=== PATIENT | male | born 1960 | race Caucasian/White ===

== ENCOUNTER → 2017-01-24 | Outpatient (CLI) | payer OTHER ==
--- NOTE | 2017-01-25 05:56 | CONS ---
DATE OF CONSULTATION: Primary care physician is Dr. Govind Ruiz. Referring physician is Dr. Oliver. This is a 56-year-old morbidly obese male patient who carries a BMI of 44.6. He seems to have significant anatomic features of obstructive sleep apnea as the patient is obese and has a short neck with significant crowding of posterior pharynx. Furthermore, he was recently found to be in atrial fibrillation that occurred at the same time when he was suffering left lower extremity cellulitis. He was seen by Cardiology was placed on rate control and anticoagulation and ultimately his A. fib converted back to normal sinus rhythm. As such, he was sent over to be investigated for obstructive sleep apnea. Despite the obvious anatomic features, the patient does not have any major hypersomnia or sleepiness. He goes to bed around 11:30 , wakes up at 6 a.m. in the morning without having any excessive sleepiness during the day. He has suffered a right shoulder injury and he has several tendons that are injured and ruptured for which he has undergone shoulder surgery by Dr. Alejandro Brower and he is still having some limitation in his joint movement and his pain scale in his right shoulder is around 1 to 2 out of 10. He denies having to wake up in the middle of the night choking and gasping for air. No nocturia. No grinding of the teeth. No sleepwalking or sleeptalking. No anxiety or panic attack and the patient takes Xanax only on as needed basis. Current Caldwell score is 6. PAST MEDICAL HISTORY: Obesity, right shoulder tendon injury/rupture, status post surgical repair, anxiety, paroxysmal atrial fibrillation, left lower extremity cellulitis that occurred following a spider bite. Past surgical history includes shoulder surgery/repair. He also had hernia surgery, knee surgery. Allergies are not known. Outpatient medication list includes: 1. Xanax. 2. [place] for pain control. 3. Tramadol for pain control. 4. Cardizem 180 mg p.o. q. day. 5. Metoprolol 50 mg p.o. twice a day. 6. Eliquis 5 mg p.o. twice a day. SOCIAL HISTORY: The patient is a nonsmoker. No history of alcoholism. No history of IV drugs. FAMILY HISTORY: Noncontributory. OCCUPATIONAL HISTORY: The patient works for [employer] REVIEW OF SYSTEMS: Twelve-point review of systems was done. Positive findings as mentioned above in history of present illness. BP is 157/86, pulse 81, respirations 16, temperature 98.6, saturation 94% on room air. Weight is 311. Height is 70 inches. Caldwell score is 6. BMI is 44.6. Neck size 20-3/4. GENERAL APPEARANCE: Obese, calm, comfortable. HEENT: Short neck, crowding posterior pharynx. There is no goiter or neck masses. LUNGS: Diminished breath sounds ( ) was clear. HEART: Sounds are regular rate and rhythm. Normal S1, S2. ABDOMEN: Soft, nontender. No organomegaly. EXTREMITIES: No edema. No cyanosis or clubbing. IMPRESSION: 1. Clinical obstructive sleep apnea. This is suspected yet it needs to be further investigated. The patient has the typical anatomic features and the patient is morbidly obese with a body mass index of 44.6. He has short neck, thick neck with Mallampati class IV. No major hypersomnia or sleepiness. Caldwell score is 6. 2. Obesity; body mass index of 44.6. 3. Shoulder injury, status post right shoulder tendon repair. Pain is under good control. 4. Paroxysmal atrial fibrillation, currently in sinus. 5. Anxiety. 6. Left lower extremity cellulitis, recovered. PLAN: 1. Encourage weight loss. 2. Proceed with a screening polysomnogram, looking for any significant sleep breathing disorder. 3. Will make further recommendations based on the results.
== END | disposition home or self-care (01) ==
LOC: SLEEP 13:08
PROVIDERS: ATTEND Internal Medicine Critical Care Medicine
DX: E66.01 Morbid (severe) obesity due to excess calories (principal); I48.0 Paroxysmal atrial fibrillation; F41.9 Anxiety disorder, unspecified; Z68.41 Body mass index [BMI] 40.0-44.9, adult; Z79.01 Long term (current) use of anticoagulants; Z79.899 Other long term (current) drug therapy
CPT/HCPCS: 99211

== ENCOUNTER → 2018-06-13 | Outpatient (CLI) | payer OTHER ==
[2018-06-13 15:25] LABS: Basophils # (A) 0.1 k/uL (0-0.2); Basophils % (A) 1 %; Eosinophils # (A) 0.4 k/uL (0-0.7); Eosinophils % (A) 6 %; HCT 46.8 % (39.0-53.0); HGB 15.4 gm/dL (13.0-17.5); Lymphocytes # (A) 1.8 k/uL (1.0-4.8); Lymphocytes % (A) 28 %; MCH 30.3 pg (25.0-35.0); MCV 91.8 fL (80.0-100.0); Mean Platelet Volume 6.7; Monocytes # (A) 0.4 k/uL (0-1.0); Monocytes % (A) 6 %; Neutrophils # (A) 3.7 k/uL (1.3-7.7); Neutrophils % (A) 57 %; Platelet Count 212 k/uL (150-450); RDW 13.4 % (11.5-15.5); WBC 6.5 k/uL (3.8-10.6)
[2018-06-13 15:46] LABS: Potassium 4.4 mmol/L (3.5-5.1)
== END | disposition home or self-care (01) ==
LOC: LABPAT 14:37
PROVIDERS: ATTEND Orthopaedic Surgery
DX: Z01.818 Encounter for other preprocedural examination (principal); M75.41 Impingement syndrome of right shoulder
CPT/HCPCS: 36415; 80051; 85025; 93005

== ENCOUNTER 2018-06-27 05:33 | Day surgery (SDC) | payer OTHER ==
[2018-06-21 16:04] VITALS: BMI 42.5
--- NOTE | 2018-06-26 14:12 | HP ---
HISTORY AND PHYSICAL DATE OF SURGERY: 06/27/2018 Bryan Jimenez is a 57-year-old patient seen with progressive right shoulder pain. Treatment options were discussed. He elected to proceed with right shoulder arthroscopy. Consent was obtained. PAST MEDICAL HISTORY: Hypertension, gastroesophageal reflux disease. PAST SURGICAL HISTORY: Right shoulder rotator cuff repair. DAILY MEDICATIONS: 1. Cardizem. 2. Losartan. 3. Metoprolol. 4. Zantac. ALLERGIES: None reported. SOCIAL HISTORY: Patient denies tobacco use. PHYSICAL EVALUATION OF THE RIGHT SHOULDER: Flexion 140 degrees, abduction 80 degrees, external rotation is 10 degrees with pain and weakness. Tenderness along the anterior lateral acromion rotator cuff insertion site. Impingement is positive at 90 degrees. Drop-arm sign is positive. Distal neurovascular exam is intact. RIGHT SHOULDER RADIOGRAPHS: Revealed superior migration of the humeral head and evidence for previous surgery. An MRI of the right shoulder dated 06/27/2017 revealed recurrent rotator cuff tear, fatty atrophy of supraspinatus. IMPRESSION: 1. Right shoulder rotator cuff tear. 2. History of previous right shoulder open rotator cuff repair. 3. Hypertension. PLAN: Right shoulder arthroscopy with subacromial decompression, possible arthroscopic rotator cuff repair and debridement. MMODL / IJN: [id number] /
[~2018-06-27 05:33] MED LIST: LACTATED RINGERS 1,000 ML IV SCH
[2018-06-27] MEDS ORDERED: ONDANSETRON 4 MG/2 ML VIAL IVP ONE (06:00)
[2018-06-27] MEDS ORDERED: HYDROmorphone 0.5 MG/0.5 ML SYRINGE IVP PRN (06:00)
[2018-06-27] MEDS ORDERED: fentaNYL (PF) 50 MCG/ML 2 ML AMP IV PRN (06:00)
[2018-06-27] MEDS ORDERED: MIDAZOLAM 2 MG/2 ML VIAL ONE ×2 (06:24→07:29)
[2018-06-27] MEDS ORDERED: ROPIVACAINE 5 MG/ML 30 ML VIAL ONE (07:29)
[2018-06-27] MEDS ORDERED: GLYCOPYRROLATE 0.2 MG/ML 2 ML VIAL ONE (07:29)
[2018-06-27] MEDS ORDERED: fentaNYL (PF) 50 MCG/ML 2 ML AMP ONE (07:29)
[2018-06-27] MEDS ORDERED: PROPOFOL 10 MG/ML 20 ML VIAL IV ONE (07:29)
[2018-06-27] MEDS ORDERED: ROCURONIUM BROMIDE 10 MG/ML 10 ML VIAL IV ONE (07:29)
[2018-06-27] MEDS ORDERED: SUCCINYLCHOLINE CHLORIDE VIAL 200 MG/10 ML VIAL IV ONE (07:29)
[2018-06-27] MEDS ORDERED: LIDOCAINE 1% INJ 10MG/ML (20 ML MDV) ONE (07:29)
[2018-06-27] MEDS ORDERED: NEOSTIGMINE 1 MG/ML 10 ML VIAL ONE (07:29)
[2018-06-27] MEDS ORDERED: ceFAZolin 1,000 MG/50 ML BAG (PMX) IVPB ONE (07:49)
[2018-06-27] MEDS ORDERED: LACTATED RINGERS 1,000 ML IV ONE (09:38)
--- NOTE | 2018-06-27 09:57 | P.OP ---
Date of Procedure: 06/27/18 Preoperative Diagnosis: Right shoulder rotator cuff tear Postoperative Diagnosis: 1. Right shoulder massive retracted rotator cuff tear 2. Right shoulder subacromial impingement 3. Right shoulder labral tear Procedure(s) Performed: 1. Right shoulder arthroscopic rotator cuff repair 2. Right shoulder arthroscopic subacromial decompression 3. Right shoulder arthroscopic debridement labral tear Implants: 44.75 Arthrex swivel lock anchors Anesthesia: GETA, regional (Interscalene block) Surgeon: Thony Workman Roll Edge Machine Operator #1: Minh Shi Estimated Blood Loss (ml): 12 Pathology: none sent Condition: stable Disposition: PACU Indications for Procedure: 57-year-old patient seen with progressive right shoulder pain. After having treatment options discussed, he elected to proceed with arthroscopy. Operative Findings: see description of procedure Description of Procedure: Patient underwent an interscalene block by department of anesthesia for postoperative pain control. The patient was then taken to the operative suite. The patient underwent a general anesthetic by the department of anesthesia. The patient was placed into a lateral position and secured. There was appropriate padding of the bony prominence. Right shoulder was then prepped and draped in normal sterile orthopedic fashion. We placed the extremity in 10 pounds of longitudinal traction. A posterior incision was now made for a posterior working portal site. The trocar and cannula were inserted into the glenohumeral joint. Arthroscopy was initiated. Spinal needle was now inserted anteriorly, to ascertain the anterior working portal site. An incision was now made in that area, a trocar was inserted followed by a probe. There was superficial tearing of the anterior and superior labrum. There were grade 1/2 chondromalacia changes of the humeral head and glenoid fossa. There was an obvious significant rotator cuff tear visualized from glenohumeral side there was also evidence for previous sutures placed consistent with his previous surgery. The long head biceps tendon was absent. I debrided the superficial labral tears down to stable tissue. At this point instruments removed from the glenohumeral joint. Utilizing the posterior working portal site, the trocar and cannula were inserted into the subacromial space. Arthroscopy initiated. I made an incision 2 fingerbreadths lateral to the acromion. I introduced my trocar followed by my ArthroCare ablator. I now began ablating thick subacromial bursal tissue, which exposed the undersurface of the anterior acromion. There was extensive scar tissue throughout the shoulder. I began debriding the scar tissue trying to expose the rotator cuff tendon. I encountered multiple areas of redundant suture material which I meticulously removed. After meticulously debriding out the scar tissue was finally able to expose rotator cuff tendon. There was diminished subacromial space. There was a very prominent anterior acromion. A motorized bur was introduced and a subacromial decompression was performed. I also excised some osteophytes off the inferior aspect of the distal clavicle. The AC joint was visualized and noted to be stable with evidence of the previous decompression there. I now turned my attention to the rotator cuff. There was a massive retracted tear. The tear measured approximately 3-4 cm and was retracted beyond the glenoid. There was now mobile. At this point I meticulously began freeing up the tendon. The residual tissue was somewhat thin. At this point I had released the tendon as much as possible. I decided to attempt a repair here. I passed 3 [id number] sutures to approximate the apex of this massive tear. I now created an health insurance assessor a lateral portal site. I now punched 2 medial holes for medial row anchors. I now introduced 2 medial row anchors. I held anchors in position while Bryan WEEKS introduce them into our pre-punch holes. We now passed all 8 limbs of suture through good bites of rotator cuff tendon with Bryan WEEKS is assistants. I now crisscrossed the sutures and punched 2 lateral holes for lateral anchor placement. I now passed sutures through the anchor introduced the lateral anchors. I held anchor position while Bryan WEEKS applied appropriate tension through the sutures and introduced the anchors individually. All residual suture limbs were now clipped. We had good compression of the tendon along the entire footprint. It was somewhat tight but I do believe we achieved a reasonable repair given the minimal tissue available and size of the tear as well as the retraction. I now injected 1 mL Renue intra-articular. Instruments now removed from the portal sites. All portal sites were approximated with nylon suture. Sterile dressings were applied followed by a shoulder immobilizer. Minh WEEKS assisted in this complex case. The patient was awakened, transferred to a bed, and taken to recovery in stable condition.
[2018-06-27 10:04] VITALS: TEMP 97.5
[2018-06-27 13:11] VITALS: BP 137/83; PULSE 71; RESP 18
--- NOTE | 2018-06-28 07:32 | P.ONQ ---
Anesthesiology Proc Note - PNB - Peripheral Nerve Block Performed Right Interscalene Time Out Performed: Yes Procedure Start Time: 06:45 Procedure Stop Time: 06:55 Indication: Acute Post-Operative Pain Sedation Type: Sedate with meaningful contact maintained Preparation: Sterile Prep Position: Sitting Catheter: None Needle Size: 50mm (2") Needle Gauge: 20 Technique: Ultrasound Injectate: 0.5% Ropivacaine (see comment for volume) (25 MLS. The procedure was done preoperatively on 06/27/2018.)
== END 2018-06-27 13:15 | disposition home or self-care (01) ==
LOC: OR 05:33
PROVIDERS: ATTEND Orthopaedic Surgery
DX: M75.121 Complete rotator cuff tear or rupture of right shoulder, not specified as traumatic (principal); M25.811 Other specified joint disorders, right shoulder; S43.431A Superior glenoid labrum lesion of right shoulder, initial encounter; X58.XXXA Exposure to other specified factors, initial encounter; M25.711 Osteophyte, right shoulder; I10 Essential (primary) hypertension; K21.9 Gastro-esophageal reflux disease without esophagitis; Z79.899 Other long term (current) drug therapy; G47.33 Obstructive sleep apnea (adult) (pediatric); E66.9 Obesity, unspecified; Z68.41 Body mass index [BMI] 40.0-44.9, adult
CPT/HCPCS: 64415; 29826; 29827; C1713 ×2; C1765; J2250; J0330; J2710; J2405; J2001; J3010; J0690; J2795; J2704

== ENCOUNTER → 2019-07-19 | Outpatient (CLI) | payer OTHER | END | disposition home or self-care (01) | LOC: LABPAT 15:50 | PROVIDERS: ATTEND Orthopaedic Surgery | DX: Z01.812 Encounter for preprocedural laboratory examination (principal); M16.12 Unilateral primary osteoarthritis, left hip | CPT/HCPCS: 36415; 86850; 86900; 86901; 87070 ==

== ENCOUNTER 2019-07-29 05:51 | Inpatient (IN) | payer OTHER ==
--- NOTE | 2019-07-28 17:50 | HP ---
HISTORY AND PHYSICAL REASON FOR ADMISSION: Surgery is scheduled for 07/29/2019 Bryan Jimenez is a 58-year-old patient seen with symptomatic left hip osteoarthritis. We discussed options. He elected to proceed with left total hip arthroplasty. Consent was obtained. Medical clearance was provided by Dr. Jadon Agosto. PAST MEDICAL HISTORY: Hypertension, hyperlipidemia. PAST SURGICAL HISTORY: Rotator cuff repair. MEDICATIONS: Losartan, metoprolol, tramadol, Zantac. ALLERGIES: None. SOCIAL HISTORY: Denies tobacco use. PHYSICAL EXAMINATION: Evaluation of the left hip, there is limited range of motion with severe pain. Positive hip impingement sign. Straight leg raise is negative. Distal neurovascular exam is intact. RADIOGRAPHS: Left hip radiographs reveal severe osteoarthritic changes. IMPRESSION: 1. Left hip osteoarthritis. 2. Hypertension. 3. Hyperlipidemia. PLAN: Direct anterior left total hip arthroplasty. Surgery is scheduled for 07/29/2019. MMODL / IJN: [id number] /
[~2019-07-29 05:51] MED LIST changes: +ACETAMINOPHEN TAB 500 MG TAB PO ONE; -LACTATED RINGERS 1,000 ML IV SCH; +MELOXICAM 7.5 MG TAB PO ONE; +TRANEXAMIC ACID 1,000 MG in SODIUM CHLORIDE 0.9% 100 ML IVPB ONE; +ceFAZolin 3 GM in SODIUM CHLORIDE 0.9% 100 ML IVPB ONE
[2019-07-29] MEDS ORDERED: LIDOCAINE 1% 20 ML VIAL (10MG/ML) FOR IV START INTRADERMA PRN (05:54)
[2019-07-29] MEDS ORDERED: METOCLOPRAMIDE 5 MG/ML 2 ML VIAL IVP PRN (05:54)
[2019-07-29] MEDS ORDERED: ROPIVACAINE 246.25 MG, EPINEPHrine 0.5 MG, KETOROLAC 30 MG, cloNIDine HCL/PF 80 MCG, WA... MISCELLANE ONE ×5 (06:00)
[2019-07-29] MEDS: ONDANSETRON 4 MG/2 ML VIAL IVP ONE ×2 (06:53→11:48)
[2019-07-29] MEDS ORDERED: DEXAMETHASONE SOD PHOSPHATE 10 MG/ML 1 ML VIAL IV ONE (06:53)
[2019-07-29] MEDS: LACTATED RINGERS 1,000 ML IV SCH ×3 (06:53→21:23)
[2019-07-29] MEDS ORDERED: SODIUM CHLORIDE 0.9% 100 ML BAG ONE (07:41)
[2019-07-29] MEDS ORDERED: fentaNYL (PF) 50 MCG/ML 2 ML AMP ONE (07:41)
[2019-07-29] MEDS ORDERED: MIDAZOLAM 2 MG/2 ML VIAL ONE (07:41)
[2019-07-29] MEDS ORDERED: TRANEXAMIC ACID 1,000 MG/10 ML VIAL ONE (07:41)
[2019-07-29] MEDS ORDERED: diphenhydrAMINE 50 MG/ML 1 ML VIAL ONE (07:41)
[2019-07-29] MEDS ORDERED: ceFAZolin 3,000 MG in SODIUM CHLORIDE 0.9% IRRIGATIO 3,000 ML IRRIGATION ONE (08:12)
--- NOTE | 2019-07-29 09:42 | P.OP ---
Date of Procedure: 07/29/19 Preoperative Diagnosis: Left hip osteoarthritis Postoperative Diagnosis: Left hip osteoarthritis Procedure(s) Performed: Direct anterior left total hip arthroplasty Implants: 1. Depuy Corail KA size 13 standard collar press-fit femoral stem 2. Depuy pinnacle 38 mm press-fit acetabular shell 3. Depuy pinnacle polyethylene acetabular liner +4 neutral 36 mm ID 58 mm OD 4. Biolox delta ceramic femoral head +8.5 36 mm Anesthesia: local, spinal Surgeon: Thony Workman Senior Mobile Solutions Architect #1: Minh Shi Estimated Blood Loss (ml): 200 Pathology: other (Femoral head) Condition: stable Disposition: PACU Indications for Procedure: 58-year-old patient seen with symptomatic left hip osteoarthritis. After having treatment options discussed, he elected to proceed with total hip arthroplasty. Operative Findings: see description of procedure Description of Procedure: The patient was taken to the operative suite. Patient underwent a spinal anesthetic by the department of anesthesia. Patient was then transferred to the [place] table. Patient was given preoperative IV antibiotics and TXA. Both lower extremities were placed in standard leg spars. The hip was then prepped and draped in the normal sterile orthopedic fashion. A standard anterior incision was made beginning 3 cm lateral and 1 cm distal to the ASIS extending 10 cm. Dissection was then carried down through the subcutaneous soft tissues down to the fascia overlying the tensor fascia fabiola. An incision was now made through the fascia. Careful dissection was taken down exposing the tensor fascia fabiola m uscle. A Cobra retractor was now placed along the medial femoral neck and a second one along the lateral femoral neck. The venous circumflex vessels were now identified, cauterized and clipped. We identified the anterior hip capsule. An incision was made through the hip capsule along the lateral border. I performed a partial anterior capsulectomy. Retractors were now placed around the femoral neck itself. A femoral neck cut was now made with a sagittal saw. It was completed with an osteotome at the lateral neck area. The femoral head was now removed without difficulty. The extremity was now rotated to 45 of external rotation. It was locked in position. Residual labrum was now debrided out. Serial reaming was performed of the acetabulum while Bryan WEEKS assisted holding an anterior retractor for exposure. Once we reached the appropriate size and a trial was position and fit nicely. The appropriate size was now chosen opened and made available. It was introduced into the acetabulum without difficulty. The C-arm/fluoroscopy was now brought into the operative field. We made sure we had a true AP pelvic view. We now under direct C- arm/fluoroscopy introduced into the acetabular component with appropriate version and inclination. I held the cup in appropriate position well Bryan WEEKS used a mallet to seat the acetabular component. I noted the component now to be well seated and stable. Acetabular cup introduce her was removed. The C-arm was pulled back. An appropriate liner was introduced and clicked into position. It was felt to be stable. At this point retractors were removed. The extremity was now placed into 120 external rotation with no traction. The leg was now dropped to the ground and adducted. Appropriate retractors were now positioned along the proximal femur. We also placed our femoral look into position. Additional capsular releasing was performed to gain access to the proximal femur. We now used a box osteotome. A canal finder was now utilized. Serial broaching was now performed with the assistance of Bryan WEEKS tapping the broaches down with a mallet while held the broach in appropriate rotation and position. This was done until we reached the appropriate size with good overall rotational stability. Appropriate calcar planing was performed. A trial head/neck was placed into position. The hip was reduced. An AP pelvis was obtained to ascertain leg length. The C-arm/fluoroscopy was pulled back. Retractors were repositioned and the hip was dislocated. The leg was again taken down to the ground and adducted. Appropriate retractors were repositioned as well as the femoral hook. All trial components were removed. The femoral implant was opened along with the femoral head. The femoral implant was introduced on the appropriate handle into our pre-broached area. I held the component position well Bryan WEEKS used a mallet to seat the femoral component. The femoral component was now noted to be well seated and stable.. The femoral head was introduced with good positioning and fixation noted. Retractors were now removed. The hip was now reduced. There appeared be good positioning of the hip confirmed on intraoperative fluoroscopy. Spot films were obtained to document this. A second gram of TXA was given. The deep and superficial soft tissues were infiltrated with local analgesic. Bipolar cautery had been utilized intermittently through the procedure for hemostasis. The wound was irrigated copiously with pulse lavage mechanical irrigation. The fascia was repaired with Vicryl suture. The subcutaneous soft tissues were repaired in layers with Vicryl suture. The skin was approximated with pernio/Dermabond. Sterile dressings were applied. Patient was then awakened, transferred to a bed and taken to recovery in stable condition. Bryan WEEKS assisted with the complex procedure.
[2019-07-29] MEDS ORDERED: NALOXONE 0.4 MG/ML 1 ML VIAL IV PRN (09:50)
[2019-07-29] MEDS ORDERED: SODIUM CHLORIDE 0.9% IVPB ONE (09:50)
[2019-07-29] MEDS ORDERED: HYDROmorphone 1 MG/ML 1 ML SYRINGE IVP PRN (09:50)
[2019-07-29] MEDS ORDERED: HYDROcodone/APAP 7.5-325MG 1 EACH TAB PO PRN (09:50)
[2019-07-29] MEDS ORDERED: HYDROmorphone 0.5 MG/0.5 ML SYRINGE IVP PRN ×2 (09:50)
[2019-07-29] MEDS ORDERED: VANCOMYCIN IVPB ONE (09:50)
--- NOTE | 2019-07-29 10:17 | XR ---
EXAMINATION TYPE: XR Hip Limited LT DATE OF EXAM: 07/29/2019 COMPARISON: NONE HISTORY: Pain TECHNIQUE: One view submitted. FINDINGS: There is postsurgical change in near anatomic alignment. There is soft tissue edema and emphysema. 3 1 seconds of fluoroscopy provided. IMPRESSION: 1. Postoperative change. Appears in near-anatomic alignment.
--- NOTE | 2019-07-29 10:17 | FL ---
EXAMINATION TYPE: FL guidance operating room DATE OF EXAM: 07/29/2019 HISTORY: Flouroscopy time 31 seconds of fluoroscopy provided. IMPRESSION: 1. Fluoroscopy time.
[2019-07-29] MEDS: HYDROmorphone 0.5 MG/0.5 ML SYRINGE IVP PRN ×4 (11:40→12:02)
[2019-07-29] MEDS: KETOROLAC 30 MG/ML 1 ML VIAL IVP SCH ×5 (11:48→23:25)
[2019-07-29] MEDS ORDERED: diphenhydrAMINE 50 MG/ML 1 ML VIAL IVP ONE (11:53)
[2019-07-29] MEDS ORDERED: VANCOMYCIN 2,000 MG in SODIUM CHLORIDE 0.9% 500 ML 500 ML IVPB ONE (12:00)
[2019-07-29] MEDS ORDERED: MEPERIDINE 50 MG/ML SYRINGE IVP ONE (12:13)
[2019-07-29] MEDS: HYDROcodone/APAP 7.5-325MG 1 EACH TAB PO PRN ×2 (15:27→21:28)
[2019-07-29 15:50] VITALS: BMI 40.8
--- NOTE | 2019-07-29 17:11 | P.CONS ---
History of Present Illness - Reason for Consult Consult date: 07/29/19 Medical management of hypertension and other medical problems - Chief Complaint Status post Direct anterior left total hip arthroplasty - History of Present Illness Patient is 58-year-old male with a known history of atrial fibrillation paroxysmal currently on Cardizem and metoprolol, not on anticoagulation due to frequent GI bleeds and bruising, hypertension, osteoarthritis and history of seizure disorder as well as obstructive sleep apnea was admitted to the hospital for elective left total hip arthroplasty. Patient underwent Direct anterior left total hip arthroplasty. Currently patient denied any complaints of chest pain or shortness of breath. Complains of left hip pain which is fairly controlled with medications. No fever no chills. No headache or dizziness or lightheadedness. No nausea vomiting or abdominal pain. Postoperatively patient's blood pressure in the lower side and a probable medications are on hold currently. Review of Systems Constitutional: Patient denies any fever or chills . No generalized weakness or weight loss. Abdomen: Patient denied nausea vomiting and diarrhea and abdominal pain. Cardiovascular: Patient denies any chest pain or short of breath no palpitations. Respiratory: patient denied any cough is from production. No shortness of breath Neurologic: Patient denied any numbness or tingling headache. Musculoskeletal: Patient denies any complaints of joint swelling or deformity. Left hip pain Skin: Negative Psychiatric: Negative Endocrine: No heat or cold intolerance. No recent weight gain. Genitourinary: No dysuria or hematuria. All other 14 point ROS negative except the above Past Medical History Past Medical History: Atrial Fibrillation, GI Bleed, Hypertension, Osteoarthritis (OA), Seizure Disorder, Sleep Apnea/CPAP/BIPAP Additional Past Medical History / Comment(s): Had 1 seizure 1997 R/T non-malignant meningioma of brain. 1 episode of A-FIB, during severe infection. Hx MRSA RFA. Hx rectal bleed. Tinnitus. No CPAP. History of Any Multi-Drug Resistant Organisms: MRSA Year Discovered:: 09/19/18 MDRO Source:: Rt Leg Past Surgical History: Cholecystectomy, Orthopedic Surgery Additional Past Surgical History / Comment(s): RT Shoulder Surg x2. Caniotomy x2, removal non-malignant brain meningioma. Left knee scope surgery. Colonoscopy Past Anesthesia/Blood Transfusion Reactions: No Reported Reaction Smoking Status: Former smoker - Past Family History Sister(s) Family Medical History: AFIB Brother(s) Family Medical History: AFIB Mother Family Medical History: Cancer Additional Family Medical History / Comment(s): Breast CA Medications and Allergies Home Medications Medication Instructions Recorded Confirmed Type Losartan [Cozaar] 100 mg PO DAILY 08/13/16 07/29/19 History Diltiazem Cd [Cardizem CD] 180 mg PO DAILY #30 cap.er.24h 08/16/16 07/29/19 Rx Metoprolol Tartrate [Lopressor] 50 mg PO BID #60 tab 08/16/16 07/29/19 Rx traMADol HCL [Ultram] 50 mg PO Q6HR PRN 09/15/16 07/29/19 History Ibuprofen [Motrin Ib] 600 - 800 mg PO Q6H PRN 06/21/18 07/22/19 History Sennosides [Senna] 8.6 mg PO HS 06/21/18 07/29/19 History Ageless Male (Supplement) 1 tab PO DAILY 07/22/19 History Ranitidine HCl [Zantac] 150 mg PO DAILY 07/22/19 07/22/19 History Allergies Allergy/AdvReac Type Severity Reaction Status Date / Time morphine AdvReac Unknown Verified 07/29/19 06:11 Physical Exam Vitals: Vital Signs Temp Pulse Resp BP Pulse Ox 07/29/19 12:35 71 16 134/88 94 L 07/29/19 11:45 74 16 119/85 94 L 07/29/19 11:17 67 16 115/64 95 07/29/19 11:03 68 16 114/66 96 07/29/19 10:48 76 16 116/69 96 07/29/19 10:32 65 16 118/63 99 07/29/19 10:17 63 16 129/66 99 07/29/19 10:00 62 16 116/65 100 07/29/19 09:49 97.9 F 63 16 112/68 99 07/29/19 06:22 98.0 F 73 16 138/77 95 Intake and Output 07/28/19 07/29/19 07/29/19 22:59 06:59 14:59 Intake Total 100 701 Output Total 200 Balance 100 501 Intake: IV 100 701 Output: Estimated Blood Loss 200 PHYSICAL EXAMINATION: Patient is lying in the bed comfortably, no acute distress, awake alert and oriented.. HEENT: Normocephalic. Neck is supple. Pupils reactive. Nostrils clear. Oral cavity is moist. Ears reveal no drainage. Neck reveals no JVD, carotid bruits, or thyromegaly. CHEST EXAMINATION: Trachea is central. Symmetrical expansion. Lung gutierrez clear to auscultation and percussion. CARDIAC: Normal S1, S2 with no gallops. No murmurs ABDOMEN: Soft. Bowel sounds normal. No organomegaly. No abdominal bruits. Extremities: reveal no edema. No clubbing or cyanosis Neurologically awake, alert, oriented x3 with well-coordinated movements. No focal deficits noted Skin: No rash or skin lesions. Psychiatric: Coperative. Nonsuicidal Musculoskeletal: No joint swelling or deformity. Normal range of motion. Left hip surgical site intact. Assessment and Plan Assessment: Left hip osteoarthritis status post total arthroplasty postoperative day 0. Paroxysmal atrial fibrillation. Rate controlled. Currently in sinus rhythm. Not on anticoagulation due to previous history of recurrent GI bleeds Obstructive sleep apnea not on CPAP at home Osteoarthritis Hypertension currently controlled Previous history of smoking History of craniotomy 2 and removal of meningioma. DVT prophylaxis currently on Lovenox Plan: Patient will be continued on current pain management, bowel regimen and DVT prophylaxis. Patient takes metoprolol, Cardizem and losartan at home. We will continue the metoprolol now and we will start back on other blood pressure medications once the blood pressure improves. Continue with monitoring. Encourage ambulation and incentive spirometry. Further recommendations based on the clinical course. Thank you for your consult. Time with Patient: Greater than 30
[2019-07-29] MEDS ORDERED: SENNOSIDES-DOCUSATE SODIUM 1 EACH TAB PO SCH (21:00)
[2019-07-29] MEDS: METOPROLOL TARTRATE 50 MG TAB PO SCH (21:25)
[2019-07-29] MEDS ORDERED: ENOXAPARIN 40 MG/0.4 ML SYRINGE SQ SCH (22:00)
[2019-07-30] MEDS: HYDROcodone/APAP 7.5-325MG 1 EACH TAB PO PRN ×2 (03:48→09:18)
[2019-07-30 05:06] VITALS: TEMP 97.9
[2019-07-30] MEDS: LACTATED RINGERS 1,000 ML IV SCH ×2 (05:30)
[2019-07-30] MEDS: METOPROLOL TARTRATE 50 MG TAB PO SCH (07:25)
[2019-07-30 07:41] LABS: Basophils # (A) 0.1 k/uL (0-0.2); Basophils % (A) 0 %; Eosinophils % (A) 0 %; HCT 38.3 % (39.0-53.0); HGB 12.7 gm/dL (13.0-17.5); Lymphocytes # (A) 1.4 k/uL (1.0-4.8); Lymphocytes % (A) 11 %; MCH 30.3 pg (25.0-35.0); MCHC 33.2 g/dL (31.0-37.0); MCV 91.3 fL (80.0-100.0); Monocytes # (A) 0.7 k/uL (0-1.0); Monocytes % (A) 5 %; Neutrophils % (A) 81 %; Platelet Count 217 k/uL (150-450); RDW 13.1 % (11.5-15.5); WBC 12.3 k/uL (3.8-10.6)
[2019-07-30 07:45] VITALS: BP 128/72; PULSE 81; RESP 16
[2019-07-30 07:45] LABS: African American GFR (CKD) >90 (>60 ml/min/1.73 sqM); Anion Gap 5 mmol/L; Blood Urea Nitrogen 29 mg/dL (9-20); Calcium 8.8 mg/dL (8.4-10.2); Carbon Dioxide 28 mmol/L (22-30); Chloride 104 mmol/L (98-107); Glucose 138 mg/dL (74-99); Potassium 4.4 mmol/L (3.5-5.1); Sodium 137 mmol/L (137-145)
[2019-07-30] MEDS ORDERED: MELOXICAM 7.5 MG TAB PO SCH (09:00)
[2019-07-30] MEDS ORDERED: FAMOTIDINE 20 MG TAB PO SCH (09:00)
[2019-07-30] MEDS: KETOROLAC 30 MG/ML 1 ML VIAL IVP SCH (11:31)
--- NOTE | 2019-07-30 11:57 | P.PN ---
Subjective Progress Note Date: 07/30/19 Principal diagnosis: Status post right anterior left total hip arthroplasty Patient evaluated today at bedside, Vinicio is present. He is doing very well. He is ambulating with therapy. His pain is well-controlled. He denies any chest pain or shortness of breath. Objective - Vital Signs Vital signs: Vital Signs Temp 97.9 F 07/30/19 07:00 Pulse 81 07/30/19 07:00 Resp 16 07/30/19 07:10 BP 128/72 07/30/19 07:00 Pulse Ox 93 L 07/30/19 07:00 Intake & Output 07/29/19 07/30/19 07/30/19 18:59 06:59 18:59 Intake Total 701 476 Output Total 700 Balance 1 476 Intake: IV 701 Intake, IV Titration 240 Amount Lactated Ringers 1,000 ml 240 @ 20 mls/hr IV .Q24H [place] Rx#:[id number] Oral 236 Output: Urine 500 Estimated Blood Loss 200 Other: Voiding Method Toilet Toilet # Voids 1 2 - Exam Left lower extremity: Incision is clean, dry, and intact. The optihome is in good condition. [There is minimal soft tissue swelling and ecchymosis surrounding the medial and lateral aspects of the incision.] Calf is soft, no tenderness with palpation. Plantar flexion, dorsiflexion, EHL, FHL are intact. Sensory exam to light touch throughout the extremity is intact, [dorsal pedis pulses 2+.] - Labs CBC & Chem 7: 07/30/19 06:46 07/30/19 06:46 Labs: Abnormal Lab Results - Last 24 Hours (Table) 07/30/19 07/30/19 Range/Units 06:46 06:46 WBC 12.3 H (3.8-10.6) k/uL RBC 4.20 L (4.30-5.90) m/uL Hgb 12.7 L (13.0-17.5) gm/dL Hct 38.3 L (39.0-53.0) % Neutrophils # 10.0 H (1.3-7.7) k/uL BUN 29 H (9-20) mg/dL Glucose 138 H (74-99) mg/dL Assessment and Plan Plan: Assessment: Postoperative day #1 status post direct anterior left total hip arthroplasty Plan: Pain control, plan for discharge home on oral medication GI and DVT prophylaxis, 81 mg twice a day Wound care instructions discussed Patient has expensive co-pay for in-home coverage, prescription was placed for outpatient therapy Medical recommendations Plan for discharge home today Time with Patient: Less than 30
--- NOTE | 2019-07-30 12:00 | P.DS ---
Providers Date of admission: 07/29/19 15:02 Expected date of discharge: 07/30/19 Attending physician: Thony Workman Consults: 07/29/19 09:50 Consult Physician Routine Consulting Provider: Raghu Sampson Consult Reason/Comments: Medical management Do you want consulting provider notified?: Yes Primary care physician: Jovi Persaud MD Hospital Course: Date of admission: 07/29/2019 Date of discharge: 07/30/2019 Admission diagnosis: Status post direct anterior left total hip arthroplasty Discharge diagnosis: Same Attending physician: Dr. Workman Surgical procedures: Direct anterior left total hip arthroplasty Brief history: Patient is a 58-year-old male with a history of progressive primary left hip osteoarthritis. At this point patient has failed conservative treatment measures and has opted to proceed with a elective direct anterior left total hip arthroplasty. Hospital course: Details of patient's surgery can be found in operative report. Patient tolerated the procedure well and was subsequently transported to orthopedic floor. Patient's orthopeidc and medical care was provided daily. Patient had daily laboratory tests performed for evaluation of overall blood counts. Patient had daily physical therapy to include strengthening range of motion as well as education with walker ambulation. Patient was treated with Lovenox for their postoperative DVT prophylaxis during their inpatient stay. Patient was noted to have a relatively uneventful postoperative course. Patient reported satisfactory pain control with oral pain medications by postoperative day 0. Patient showed satisfactory progress with physical therapy. Patient moved steadily through the program and had no difficulty meeting the goals by postoperative day 1. Given patient's otherwise satisfactory course and having met physical therapy goals, plan is to discharge patient home on postoperative day 1. Discharge condition/disposition: Patient will be discharged home in stable condition. Discharge medications: Instructions are given on resumption of patient's normal daily medications per primary care recommendation, in addition patient will be prescribed Mellen 7.5 mg/325 mg, aspirin 81 mg, Pepcid 20 mg. Discharge instructions: 1. Wound care and infection precautions, keep incision dry and covered while showering, no lotions, creams, moisturizers. No soaking, tubs, pools, hottubs. Do not scrub over the incision. 2. Weight-bear as tolerated with walker / cane until follow-up. 3. Ice and elevate when necessary. Do not exceed 20 minutes per hour with ice pack. 4. Utilize compression sleeve until seen at first follow up appointment. 5. Visiting nursing care. 6. Home physical therapy 7. Pain meds and anticoagulants per prescription. 8. Pain medication has potential to cause constipation. Increase oral fluid and fiber intake. Contact primary care provider if you have not had a bowel movement within 48 hours after discharge 9. No anti-inflammatory medication until discussed at first post operative visit, this including Motrin, Aleve, Mobic, Diclofenac. 10. Follow up in office at 2 weeks postop with Bryan Shi PA-C 11. Follow up with your primary care doctor 7-10 days after discharge. 12. Contact [facility] with any questions, . Procedures: Direct anterior left total hip arthroplasty Patient Condition at Discharge: Good Plan - Discharge Summary Discharge Rx Participant: No New Discharge Prescriptions: New Aspirin [Adult Low Dose Aspirin EC] 81 mg PO BID #60 tablet. HYDROcodone/APAP 7.5-325MG [Mellen 7.5] 1 - 2 each PO Q6HR PRN #40 tab PRN Reason: Pain Famotidine [Pepcid] 20 mg PO DAILY #30 tablet No Action Losartan [Cozaar] 100 mg PO DAILY Diltiazem Cd [Cardizem CD] 180 mg PO DAILY #30 cap.er.24h Metoprolol Tartrate [Lopressor] 50 mg PO BID #60 tab traMADol HCL [Ultram] 50 mg PO Q6HR PRN PRN Reason: Pain Sennosides [Senna] 8.6 mg PO HS Ibuprofen [Motrin Ib] 600 - 800 mg PO Q6H PRN PRN Reason: Pain Ranitidine HCl [Zantac] 150 mg PO DAILY Ageless Male (Supplement) 1 tab PO DAILY Discharge Medication List Losartan [Cozaar] 100 mg PO DAILY 08/13/16 [History] Diltiazem Cd [Cardizem CD] 180 mg PO DAILY #30 cap.er.24h 08/16/16 [Rx] Metoprolol Tartrate [Lopressor] 50 mg PO BID #60 tab 08/16/16 [Rx] traMADol HCL [Ultram] 50 mg PO Q6HR PRN 09/15/16 [History] Ibuprofen [Motrin Ib] 600 - 800 mg PO Q6H PRN 06/21/18 [History] Sennosides [Senna] 8.6 mg PO HS 06/21/18 [History] Ageless Male (Supplement) 1 tab PO DAILY 07/22/19 [History] Ranitidine HCl [Zantac] 150 mg PO DAILY 07/22/19 [History] Aspirin [Adult Low Dose Aspirin EC] 81 mg PO BID #60 tablet. 07/30/19 [Rx] Famotidine [Pepcid] 20 mg PO DAILY #30 tablet 07/30/19 [Rx] HYDROcodone/APAP 7.5-325MG [Mellen 7.5] 1 - 2 each PO Q6HR PRN #40 tab 07/30/19 [Rx] Follow up Appointment(s)/Referral(s): [facility] [NON-STAFF] - As Needed (rolling walker) Minh Shi PAC [PHYSICIAN NOTE TAKER] - 2 Weeks Activity/Diet/Wound Care/Special Instructions: Orthopedic Discharge Instructions: 1. Wound care and infection precautions, keep incision dry and covered while sh owering, no lotions, creams, moisturizers. No soaking, pools, hot tubs. Do not scrub over incision. 2. Weight-bear as tolerated with walker / cane until follow-up. 3. Ice and elevate when necessary. Do not exceed 20 minutes per hour with ice pack. 4. Utilize compression sleeve until seen at first follow up appointment. 5. Pain meds and anticoagulants per prescription. 6. Pain medication has potential to cause constipation. Increase oral fluid and fiber intake. Contact primary care provider if you have not had a bowel movement within 48 hours after discharge. 7. No anti-inflammatory medication until discussed at first post operative visit, this including Motrin, Aleve, Mobic, Diclofenac. 8. Follow up in office at 2 weeks postop with Bryan Shi PA-C 9. Follow up with your primary care doctor 7-10 days after discharge. 10. Contact [facility] with any questions, . Discharge Disposition: HOME WITH HOME HEALTH SERVICES
== END 2019-07-30 14:55 | disposition home health service (06) | DRG 470 ==
LOC: OR 05:51 → 4SSUR 12:08 → OR 14:38 → 4SSUR 15:02
PROVIDERS: ADMIT Orthopaedic Surgery; ATTEND Orthopaedic Surgery
PROC: 0SRB04A Replacement of Left Hip Joint with Ceramic on Polyethylene Synthetic Substitute, Uncemented, Open Approach (ICD-10-PCS; principal; 2019-07-29 07:30)
DX: M16.12 Unilateral primary osteoarthritis, left hip (principal); E78.5 Hyperlipidemia, unspecified; G40.909 Epilepsy, unspecified, not intractable, without status epilepticus; G47.33 Obstructive sleep apnea (adult) (pediatric); I10 Essential (primary) hypertension; I48.0 Paroxysmal atrial fibrillation; Z79.899 Other long term (current) drug therapy; Z80.3 Family history of malignant neoplasm of breast; Z86.011 Personal history of benign neoplasm of the brain; Z86.14 Personal history of Methicillin resistant Staphylococcus aureus infection; Z87.891 Personal history of nicotine dependence; Z90.49 Acquired absence of other specified parts of digestive tract; Z79.1 Long term (current) use of non-steroidal anti-inflammatories (NSAID); Z88.5 Allergy status to narcotic agent
CPT/HCPCS: 36415; 73501; 80048; 85025; 86850; 86900; 86901; 88300

== ENCOUNTER → 2020-06-18 | Outpatient (CLI) | payer OTHER | END | disposition home or self-care (01) | LOC: LABPAT 14:26 | PROVIDERS: ATTEND Orthopaedic Surgery | DX: Z01.812 Encounter for preprocedural laboratory examination (principal) | CPT/HCPCS: 87070 ==

== ENCOUNTER → 2020-06-25 | Outpatient (CLI) | payer OTHER | END | disposition home or self-care (01) | LOC: LABWHC1 07:32 | PROVIDERS: ATTEND Orthopaedic Surgery | DX: Z53.9 Procedure and treatment not carried out, unspecified reason (principal) ==

== ENCOUNTER 2020-06-29 11:02 | Observation (INO) | payer OTHER ==
[2020-06-23 09:32] VITALS: BMI 40.6
--- NOTE | 2020-06-29 09:23 | HP ---
HISTORY AND PHYSICAL REASON FOR ADMISSION: Surgery is 06/29/2020. HISTORY OF PRESENT ILLNESS: Bryan Jimenez is a 59-year-old patient seen with symptomatic right hip osteoarthritis. We discussed options. He elected to proceed with total hip arthroplasty. Consent was obtained. Medical clearance was provided by Dr. Jovi Persaud. PAST MEDICAL HISTORY: Hypertension, hyperlipidemia. PAST SURGICAL HISTORY: Left total hip arthroplasty, right shoulder rotator cuff repair. MEDICATIONS: Cardizem, losartan, metoprolol, tramadol, ibuprofen. ALLERGIES: None. SOCIAL HISTORY: Denies current tobacco use. PHYSICAL EXAMINATION: Evaluation of the right hip: Very limited range of motion with severe pain. Diffuse tenderness about the hip girdle. Positive hip impingement sign. Straight leg raise negative. Distal neurovascular exam is intact. RADIOGRAPHS: Right hip radiographs reveal severe osteoarthritic changes. IMPRESSION: 1. Right hip osteoarthritis. 2. Hypertension. 3. Hyperlipidemia. PLAN: Direct anterior right total hip arthroplasty. Surgery scheduled for 06/29/2020. MMODL / IJN: [id number] /
[~2020-06-29 11:02] MED LIST changes: +DEXAMETHASONE SOD PHOSPHATE 10 MG/ML 1 ML VIAL IV ONE; +HYDROmorphone 0.5 MG/0.5 ML SYRINGE IVP PRN; +LACTATED RINGERS 1,000 ML IV SCH; +ONDANSETRON 4 MG/2 ML VIAL IVP ONE; +ROPIVACAINE 246.25 MG, EPINEPHrine 0.5 MG, KETOROLAC 30 MG, cloNIDine HCL/PF 80 MCG, WA... MISCELLANE ONE
[2020-06-29] MEDS ORDERED: SODIUM CHLORIDE 0.9% 100 ML BAG ONE (12:55)
[2020-06-29] MEDS ORDERED: PROPOFOL 10 MG/ML 20 ML VIAL IV ONE (12:55)
[2020-06-29] MEDS ORDERED: fentaNYL (PF) 50 MCG/ML 2 ML AMP ONE (12:55)
[2020-06-29] MEDS ORDERED: MIDAZOLAM 2 MG/2 ML VIAL ONE (12:55)
[2020-06-29] MEDS ORDERED: TRANEXAMIC ACID 1,000 MG/10 ML VIAL ONE (12:55)
[2020-06-29] MEDS ORDERED: ceFAZolin 1,000 MG in SODIUM CHLORIDE 0.9% 1,000 ML IRRIGATION ONE (13:35)
[2020-06-29] MEDS ORDERED: LACTATED RINGERS 1,000 ML IV ONE (13:58)
--- NOTE | 2020-06-29 15:03 | FL ---
EXAMINATION TYPE: FL guidance operating room, XR Hip Limited RT DATE OF EXAM: 06/29/2020 CLINICAL HISTORY: Right anterior hip TECHNIQUE: Fluoroscopy. COMPARISON: None. FINDINGS: Fluoroscopic guidance was provided during procedure for performing physician. A total of 14 seconds of fluoroscopic time was utilized during the procedure and 1 spot images was acquired. Ple ase see operative report for additional details. IMPRESSION: As Above.
[2020-06-29] MEDS ORDERED: ONDANSETRON 4 MG/2 ML VIAL IVP PRN (15:07)
[2020-06-29] MEDS ORDERED: NALOXONE 0.4 MG/ML 1 ML VIAL IV PRN (15:07)
[2020-06-29] MEDS ORDERED: HYDROmorphone 0.5 MG/0.5 ML SYRINGE IVP PRN (15:07)
[2020-06-29] MEDS ORDERED: HYDROmorphone 1 MG/ML 1 ML SYRINGE IVP PRN (15:07)
[2020-06-29] MEDS ORDERED: HYDROcodone/APAP 5-325MG 1 EACH TAB PO PRN (15:07)
--- NOTE | 2020-06-29 15:07 | P.OP ---
Date of Procedure: 06/29/20 Preoperative Diagnosis: Right hip osteoarthritis Postoperative Diagnosis: Right hip osteoarthritis Procedure(s) Performed: Direct anterior right total hip arthroplasty Implants: 1. [employer] Cor[place] KA size 13 standard collar press-fit femoral stem 2. [employer] [place] 58 mm press-fit acetabular shell 3. [employer] pinnacle polyethylene acetabular liner +4 neutral 36 mm ID 58 mm OD 4. Biolox delta ceramic femoral head +5 36 mm Anesthesia: local, spinal Surgeon: Thony Workman Repairer Wood Furniture #1: Minh Shi Estimated Blood Loss (ml): 200 Pathology: other (Femoral head) Condition: stable Disposition: PACU Indications for Procedure: 59-year-old patient seen with progressive symptomatic right hip osteoarthritis. After treatment options were discussed, he elected to proceed with total hip arthroplasty. Operative Findings: see description of procedure Description of Procedure: The patient was taken to the operative suite. Patient underwent a spinal anesthetic by the department of anesthesia. Patient was then transferred to the [place] table. Patient was given preoperative IV antibiotics and TXA. Both lower extremities were placed in standard leg spars. The hip was then prepped and draped in the normal sterile orthopedic fashion. A standard anterior incision was made beginning 3 cm lateral and 1 cm distal to the ASIS extending 10 cm. Dissection was then carried down through the subcutaneous soft tissues down to the fascia overlying the tensor fascia fabiola. An incision was now made through the fascia. Careful dissection was taken down exposing the tensor fascia fabiola muscle. A Cobra retractor was now placed along the medial femoral neck and a second one along the lateral femoral neck. The venous circumflex vessels were now identified, cauterized and clipped. We identified the anterior hip capsule. An incision was made through the hip capsule along the lateral border. I performed a partial anterior capsulectomy. Retractors were now placed around the femoral neck itself. A femoral neck cut was now made with a sagittal saw. It was completed with an osteotome at the lateral neck area. The femoral head was now removed without difficulty. The extremity was now rotated to 60 of external rotation. It was locked in position. Residual labrum was now debrided out. Serial reaming was performed of the acetabulum while Bryan WEEKS assisted holding an anterior retractor for exposure. Once we reached the appropriate size and a trial was position and fit nicely. The appropriate size was now chosen opened and made available. It was introduced into the acetabulum without difficulty. The C-arm/fluoroscopy was now brought into the operative field. We made sure we had a true AP pelvic view. We now under direct C- arm/fluoroscopy introduced into the acetabular component with appropriate version and inclination. I held the cup in appropriate position well Bryan WEEKS used a mallet to seat the acetabular component. I noted the component now to be well seated and stable. Acetabular cup introduce her was removed. The C-arm was pulled back. An appropriate liner was introduced and clicked into position. It was felt to be stable. At this point retractors were removed. The extremity was now placed into 130 external rotation with no traction. The leg was now dropped to the ground and adducted. Appropriate retractors were now positioned along the proximal femur. We also placed our femoral look into position. Additional capsular releasing was performed to gain access to the proximal femur. We now used a box osteotome. A canal finder was now utilized. Serial broaching was now performed with the assistance of Bryan WEEKS tapping the broaches down with a mallet while held the broach in appropriate rotation a nd position. This was done until we reached the appropriate size with good overall rotational stability. Appropriate calcar planing was performed. A trial head/neck was placed into position. The hip was now reduced. The C- arm/fluoroscopy was brought back into the operative field. An AP pelvis demonstrate adequate positioning in terms of leg length. The trial components looked well seated and well positioned. The C-arm/fluoroscopy was pulled back. Retractors were repositioned and the hip was dislocated. The leg was again taken down to the ground and adducted. Appropriate retractors were repositioned as well as the femoral hook. All trial components were removed. The femoral implant was opened along with the femoral head. The femoral implant was introduced on the appropriate handle into our pre-broached area. I held the component position well Bryan WEEKS used a mallet to seat the femoral component. The femoral component was now noted to be well seated and stable.. The femoral head was introduced with good positioning and fixation noted. Retractors were now removed. The hip was now reduced. There appeared be good positioning of the hip confirmed on intraoperative fluoroscopy. Spot films were obtained to document this. A second gram of TXA was given. The deep and superficial soft tissues were infiltrated with local analgesic. Bipolar cautery had been utilized intermittently through the procedure for hemostasis. The wound was irrigated copiously with pulse lavage mechanical irrigation. The fascia was repaired with Vicryl suture. The subcutaneous soft tissues were repaired in layers with Vicryl suture. The skin was approximated with pernio/Dermabond. Sterile dressings were applied. Patient was then awakened, transferred to a bed and taken to recovery in stable condition. Bryan WEEKS assisted with the complex procedure.
[2020-06-29] MEDS ORDERED: ALPRAZolam 0.25 MG TAB PO PRN (16:50)
[2020-06-29] MEDS: LACTATED RINGERS 1,000 ML IV SCH (17:03)
[2020-06-29] MEDS: HYDROcodone/APAP 5-325MG 1 EACH TAB PO PRN ×2 (17:07→23:37)
[2020-06-29] MEDS: CYCLOBENZAPRINE 10 MG TAB PO PRN (19:25)
[2020-06-29] MEDS: METOPROLOL TARTRATE 50 MG TAB PO SCH (20:28)
[2020-06-29] MEDS: ceFAZolin 3 GM in SODIUM CHLORIDE 0.9% 100 ML IVPB SCH (20:28)
[2020-06-29] MEDS: HYDROmorphone 0.5 MG/0.5 ML SYRINGE IVP PRN (20:29)
[2020-06-29] MEDS ORDERED: SENNOSIDES-DOCUSATE SODIUM 1 EACH TAB PO SCH (21:00)
--- NOTE | 2020-06-29 22:29 | P.CONS ---
History of Present Illness - Reason for Consult Consult date: 06/29/20 Medical management Requesting physician: Thony Workman - Chief Complaint Right hip surgery - History of Present Illness Consultation: This is a 59-year-old patient of Dr. Jovi Persaud was undergoing right total hip arthroplasty. Chronic stable medical conditions include hypertension, meningioma with 1 AB dose procedure in the past, paroxysmal atrial fibrillation and osteoarthritis.. Postprocedure, laying in bed some pain at the operative site. No nausea vomiting. at the bedside. Breathing is stable. Review of systems: GEN.: Tired EYES: None HEENT: None NECK: None RESPIRATORY: None CARDIOVASCULAR: None GASTROINTESTINAL: None GENITOURINARY: None MUSCULOSKELETAL: Joint pains LYMPHATICS: None HEMATOLOGICAL: None PSYCHIATRY: None NEUROLOGICAL: None Past medical history to include: Hypertension, meningioma leading to 1 episode of seizure, persistent atrial fibrillation, osteoarthritis Social history: Smoked a pack a day stopped in 1984. Alcohol rarely. . Studio Coordinator Physical examination: VITAL SIGNS: 97.3, 97, 18, 148.94, 94% room air GENERAL: BMI 39%, laying in bed, awake. EYES: Pupils equal. Conjunctiva normal. HEENT: External appearance of nose and ears normal, oral cavity grossly normal. NECK: JVD not raised; masses not palpable. HEART: First and second heart sounds are normal; no edema. LUNGS: Respiratory rate normal; clear to auscultation. ABDOMEN: Soft, nontender, liver spleen not palpable, no masses palpable. PSYCH: Alert and oriented x3; mood and affect normal. MUSCULAR skeletal: Dressing over the right hip some evidence of OA in the hands NEUROLOGICAL: Cranial nerves grossly intact; no facial asymmetry, power and sensation grossly intact. LYMPHATICS: No lymph nodes palpable in the axilla and neck Assessment: -Right total hip arthroplasty -Primary osteoarthritis -Obesity BMI 39.6 -Essential hypertension -Meningioma benign -Paroxysmal atrial fibrillation Plan: Home medications resumed. IV fluids. Lovenox for DVT prophylaxis per Dr. Norris. Care was discussed with the patient and questions answered. Thank you Dr. Norris Past Medical History Past Medical History: Hypertension Additional Past Medical History / Comment(s): HAD ONE SEIZURE IN 1997 R/T NON MALIGNANT MENINGIOMA BRAIN, ONE EPISODE OF A FIB, RECENT MRSA RT FOREARM, DR WORKMAN AWARE History of Any Multi-Drug Resistant Organisms: MRSA Year Discovered:: na MDRO Source:: RT FOREARM Past Surgical History: Cholecystectomy, Orthopedic Surgery Additional Past Surgical History / Comment(s): RT SHOULDER SX, craniotomy x2, REMOVAL OF NON MALIGNANT BRAIN MENINGIOMA, left knee surgery Past Anesthesia/Blood Transfusion Reactions: No Reported Reaction Past Psychological History: No Psychological Hx Reported Smoking Status: Former smoker Past Alcohol Use History: Rare Additional Past Alcohol Use History / Comment(s): QUIT SMOKING 1984, SMOKED 1PPD Past Drug Use History: None Reported - Past Family History Sister(s) Family Medical History: AFIB Brother(s) Family Medical History: AFIB Mother Family Medical History: Cancer Additional Family Medical History / Comment(s): Breast CA Medications and Allergies Home Medications Medication Instructions Recorded Confirmed Type Diltiazem Cd [Cardizem CD] 180 mg PO DAILY #30 cap.er.24h 08/16/16 06/29/20 Rx Metoprolol Tartrate [Lopressor] 50 mg PO BID #60 tab 08/16/16 06/29/20 Rx Ibuprofen [Motrin Ib] 600 - 800 mg PO Q6H PRN 06/21/18 06/23/20 History Sennosides [Senna] 8.6 mg PO HS 06/21/18 06/29/20 History Famotidine [Pepcid] 20 mg PO DAILY #30 tablet 07/30/19 06/29/20 Rx ALPRAZolam [Xanax] 0.25 mg PO DAILY PRN 06/23/20 06/29/20 History Acetaminophen [Tylenol Arthritis] 650 mg PO DIRECTED PRN 06/23/20 06/29/20 History Hydrochlorothiazide 12.5 mg PO DAILY 06/23/20 06/29/20 History [hydroCHLOROthiazide] Losartan [Cozaar] 50 mg PO DAILY 06/23/20 06/29/20 History traMADol HCL [Ultram] 50 mg PO QID PRN 06/23/20 06/29/20 History Allergies Allergy/AdvReac Type Severity Reaction Status Date / Time morphine AdvReac Unknown Verified 06/29/20 11:16 Physical Exam Vitals: Vital Signs Temp Pulse Resp BP BP Pulse Ox 06/29/20 19:40 97.3 F L 97 18 148/94 94 L 06/29/20 18:00 85 115/69 95 06/29/20 17:45 68 111/73 95 06/29/20 17:30 70 129/69 96 06/29/20 17:20 84 120/85 94 L 06/29/20 17:00 67 121/78 99 06/29/20 16:45 96.3 F L 63 18 114/74 98 06/29/20 16:30 63 120/78 97 06/29/20 16:00 61 16 122/68 97 06/29/20 15:45 65 16 121/73 92 L 06/29/20 15:30 65 14 116/80 96 06/29/20 15:15 67 14 116/80 96 06/29/20 15:12 97.6 F 64 16 116/72 96 06/29/20 11:47 97.2 F L 74 16 140/79 97 Intake and Output 06/29/20 06/29/20 06/29/20 06:59 14:59 22:59 Intake Total 1201 0 Output Total 200 Balance 1001 0 Intake: IV 1201 0 Output: Estimated Blood Loss 200 Other: Weight 132.6 kg 132.6 kg Results CBC & Chem 7: 06/29/20 11:41
[2020-06-30] MEDS: HYDROmorphone 0.5 MG/0.5 ML SYRINGE IVP PRN (03:30)
[2020-06-30] MEDS: ceFAZolin 3 GM in SODIUM CHLORIDE 0.9% 100 ML IVPB SCH (05:09)
[2020-06-30] MEDS: LACTATED RINGERS 1,000 ML IV SCH (05:09)
[2020-06-30 05:53] LABS: Basophils % (A) 0 %; Eosinophils # (A) 0.1 k/uL (0-0.7); Eosinophils % (A) 0 %; HCT 39.1 % (39.0-53.0); HGB 12.7 gm/dL (13.0-17.5); Lymphocytes # (A) 1.1 k/uL (1.0-4.8); Lymphocytes % (A) 6 %; MCH 29.7 pg (25.0-35.0); MCHC 32.6 g/dL (31.0-37.0); Mean Platelet Volume 7.3; Monocytes # (A) 0.7 k/uL (0-1.0); Monocytes % (A) 4 %; Neutrophils # (A) 14.7 k/uL (1.3-7.7); Neutrophils % (A) 88 %; Platelet Count 251 k/uL (150-450); RBC 4.29 m/uL (4.30-5.90); RDW 13.1 % (11.5-15.5); WBC 16.7 k/uL (3.8-10.6)
[2020-06-30] MEDS: HYDROcodone/APAP 5-325MG 1 EACH TAB PO PRN ×2 (05:59→11:22)
[2020-06-30 08:18] VITALS: BP 115/76; PULSE 76; RESP 18; TEMP 98.1
[2020-06-30] MEDS: CYCLOBENZAPRINE 10 MG TAB PO PRN (08:37)
[2020-06-30] MEDS ORDERED: LOSARTAN 50 MG TAB PO SCH (09:00)
[2020-06-30] MEDS ORDERED: DILTIAZEM CD 180 MG CAP.ER.24H PO SCH (09:00)
[2020-06-30] MEDS ORDERED: FAMOTIDINE 20 MG TAB PO SCH (09:00)
[2020-06-30] MEDS ORDERED: MELOXICAM 7.5 MG TAB PO SCH (09:00)
[2020-06-30] MEDS ORDERED: ENOXAPARIN 40 MG/0.4 ML SYRINGE SQ SCH (09:00)
[2020-06-30] MEDS: METOPROLOL TARTRATE 50 MG TAB PO SCH (09:26)
--- NOTE | 2020-06-30 10:21 | P.PN ---
Subjective Progress Note Date: 06/30/20 Principal diagnosis: status post direct anterior right total hip arthroplasty patient evaluated at bedside, he is resting comfortably. He has no chest pain or shortness of breath. He's done very well with physical therapy. Objective - Vital Signs Vital signs: Vital Signs Temp 98.1 F 06/30/20 07:10 Pulse 76 06/30/20 07:10 Resp 18 06/30/20 07:10 BP 115/76 06/30/20 07:10 Pulse Ox 92 L 06/30/20 07:10 Intake & Output 06/29/20 06/30/20 06/30/20 18:59 06:59 18:59 Intake Total 1201 Output Total 200 Balance 1001 Weight 132.6 kg Intake: IV 1201 Output: Estimated Blood Loss 200 Other: # Voids 1 - Exam Right lower extremity: Incision is clean, dry, and intact. The foam dressing is in good condition. There is minimal soft tissue swelling and ecchymosis surrounding the medial and lateral aspects of the incision. Calf is soft, no tenderness with palpation. Plantar flexion, dorsiflexion, EHL, FHL are intact. Sensory exam to light touch throughout the extremity is intact, dorsal pedis pulses 2+. - Labs CBC & Chem 7: 06/30/20 05:30 06/29/20 11:41 Labs: Abnormal Lab Results - Last 24 Hours (Table) 06/30/20 Range/Units 05:30 WBC 16.7 H (3.8-10.6) k/uL RBC 4.29 L (4.30-5.90) m/uL Hgb 12.7 L (13.0-17.5) gm/dL Neutrophils # 14.7 H (1.3-7.7) k/uL Assessment and Plan Assessment: Status post right total hip arthroplasty Plan: Pain control, plan for discharge home on oral medication GI and DVT prophylaxis, aspirin 81 mg twice a day Wound care instructions discussed Home physical therapy and nursing Medical recommendations Plan for discharge home today Time with Patient: Less than 30
--- NOTE | 2020-06-30 10:24 | P.DS ---
Providers Date of admission: 06/30/20 06:21 Expected date of discharge: 06/30/20 Attending physician: Thony Workman Consults: 06/29/20 15:07 Consult Physician Routine Consulting Provider: Raghu Sampson Consult Reason/Comments: Medical management Do you want consulting provider notified?: Yes Primary care physician: Jovi Persaud MD Hospital Course: Date of admission: 06/29/2020 Date of discharge: 06/30/2020 Admission diagnosis: Status post direct anterior right total hip arthroplasty Discharge diagnosis: Same Attending physician: Dr. Workman Surgical procedures: Anterior right total hip arthroplasty Brief history: Patient is a 59-year-old male with a history of progressive primary right hip osteoarthritis. At this point patient has failed conservative treatment measures and has opted to proceed with a elective direct anterior right total hip arthroplasty. Hospital course: Details of patient's surgery can be found in operative report. Patient tolerated the procedure well and was subsequently transported to orthopedic floor. Patient's orthopeidc and medical care was provided daily. Patient had daily laboratory tests performed for evaluation of overall blood counts. Patient had daily physical therapy to include strengthening range of motion as well as education with walker ambulation. Patient was treated with Lovenox for their postoperative DVT prophylaxis during their inpatient stay. Patient was noted to have a relatively uneventful postoperative course. Patient reported satisfactory pain control with oral pain medications by postoperative day. Patient showed satisfactory progress with physical therapy. Patient moved steadily through the program and had no difficulty meeting the goals by postoperative day 0. Given patient's otherwise satisfactory course and having met physical therapy goals, plan is to discharge patient home on postoperative day 1. Discharge condition/disposition: Patient will be discharged home in stable condition. Discharge medications: Instructions are given on resumption of patient's normal daily medications per primary care recommendation, in addition patient will be prescribed Rome 7.5 mg/325 mg, Flexeril 10 mg, aspirin 81 mg. Discharge instructions: 1. Wound care and infection precautions, keep incision dry and covered while showering, no lotions, creams, moisturizers. No soaking, tubs, pools, hottubs. Do not scrub over the incision. 2. Weight-bear as tolerated with walker / cane until follow-up. 3. Ice and elevate when necessary. Do not exceed 20 minutes per hour with ice pack. 4. Utilize compression sleeve until seen at first follow up appointment. 5. Visiting nursing care. 6. Home physical therapy. 7. Pain meds and anticoagulants per prescription. 8. Pain medication has potential to cause constipation. Increase oral fluid and fiber intake. Contact primary care provider if you have not had a bowel movement within 48 hours after discharge 9. No anti-inflammatory medication until discussed at first post operative visit, this including Motrin, Aleve, Mobic, Diclofenac. 10. Follow up in office at 2 weeks postop with Bryan Shi PA-C 11. Follow up with your primary care doctor 7-10 days after discharge. 12. Contact [facility] with any questions, . Procedures: Direct anterior right total hip arthroplasty Patient Condition at Discharge: Good Plan - Discharge Summary Discharge Rx Participant: No New Discharge Prescriptions: New Aspirin [Adult Low Dose Aspirin EC] 81 mg PO BID #60 tablet. Cyclobenzaprine [Flexeril] 10 mg PO BID PRN #30 tab PRN Reason: Spasms HYDROcodone/APAP 7.5-325MG [Rome 7.5] 1 each PO Q6HR PRN #28 tab PRN Reason: Pain Continue Diltiazem Cd [Cardizem CD] 180 mg PO DAILY #30 cap.er.24h Metoprolol Tartrate [Lopressor] 50 mg PO BID #60 tab Sennosides [Senna] 8.6 mg PO HS Famotidine [Pepcid] 20 mg PO DAILY #30 tablet traMADol HCL [Ultram] 50 mg PO QID PRN PRN Reason: Pain ALPRAZolam [Xanax] 0.25 mg PO DAILY PRN PRN Reason: Anxiety Losartan [Cozaar] 50 mg PO DAILY Hydrochlorothiazide [hydroCHLOROthiazide] 12.5 mg PO DAILY Acetaminophen [Tylenol Arthritis] 650 mg PO DIRECTED PRN PRN Reason: Pain Discontinued Ibuprofen [Motrin Ib] 600 - 800 mg PO Q6H PRN PRN Reason: Pain Discharge Medication List Diltiazem Cd [Cardizem CD] 180 mg PO DAILY #30 cap.er.24h 08/16/16 [Rx] Metoprolol Tartrate [Lopressor] 50 mg PO BID #60 tab 08/16/16 [Rx] Sennosides [Senna] 8.6 mg PO HS 06/21/18 [History] Famotidine [Pepcid] 20 mg PO DAILY #30 tablet 07/30/19 [Rx] ALPRAZolam [Xanax] 0.25 mg PO DAILY PRN 06/23/20 [History] Acetaminophen [Tylenol Arthritis] 650 mg PO DIRECTED PRN 06/23/20 [History] Hydrochlorothiazide [hydroCHLOROthiazide] 12.5 mg PO DAILY 06/23/20 [History] Losartan [Cozaar] 50 mg PO DAILY 06/23/20 [History] traMADol HCL [Ultram] 50 mg PO QID PRN 06/23/20 [History] Aspirin [Adult Low Dose Aspirin EC] 81 mg PO BID #60 tablet. 06/30/20 [Rx] Cyclobenzaprine [Flexeril] 10 mg PO BID PRN #30 tab 06/30/20 [Rx] HYDROcodone/APAP 7.5-325MG [Rome 7.5] 1 each PO Q6HR PRN #28 tab 06/30/20 [Rx] Follow up Appointment(s)/Referral(s): Jovi Persaud MD [Primary Care Provider] - 1 Week Minh Shi PAC [PHYSICIAN SPECIAL SKILLS OFFICER] - 07/15/20 3:10 pm Activity/Diet/Wound Care/Special Instructions: Orthopedic Discharge Instructions: 1. Wound care and infection precautions, keep incision dry and covered while showering, no lotions, creams, moisturizers. No soaking, pools, hot tubs. Do not scrub over incision. 2. Weight-bear as tolerated with walker / cane until follow-up. 3. Ice and elevate when necessary. Do not exceed 20 minutes per hour with ice pack. 4. Utilize compression sleeve until seen at first follow up appointment. 5. Pain meds and anticoagulants per prescription. 6. Pain medication has potential to cause constipation. Increase oral fluid and fiber intake. Contact primary care provider if you have not had a bowel movement within 48 hours after discharge. 7. No anti-inflammatory medication until discussed at first post operative visit, this including Motrin, Aleve, Mobic, Diclofenac. 8. Follow up in office at 2 weeks postop with Bryan Shi PA-C 9. Follow up with your primary care doctor 7-10 days after discharge. 10. Contact [facility] with any questions, . Discharge Disposition: HOME WITH HOME HEALTH SERVICES
--- NOTE | 2020-06-30 18:50 | P.PN ---
Progress Note - Text Progress Note Date: 06/30/20 - Chief Complaint Right hip surgery Interval history: This is a 59-year-old patient of Dr. Jovi Persaud was undergoing right total hip arthroplasty. Chronic stable medical conditions include hypertension, meningioma with 1 episode of seizure in the past, paroxysmal atrial fibrillation and osteoarthritis.. Today-laying in bed. Comfortable. Has been out of bed. Did walk in the hallway. Pain control. No nausea vomiting. Did tolerate breakfast. No respiratory or urinary symptoms Review of systems: Was done for constitutional, cardiovascular, GI, pulmonary. relevant finding as above Current medications reviewed in today's electronic records Physical examination: VITAL SIGNS: 98.1, 76, 18, 115/76, 92% room air GENERAL: Laying in bed, comfortable EYES: Pupils equal. Conjunctiva normal. NECK: JVD not raised; masses not palpable. HEART: First and second heart sounds are normal; no edema. LUNGS: Respiratory rate normal; clear to auscultation. ABDOMEN: Soft, nontender, liver spleen not palpable, no masses palpable. PSYCH: Alert and oriented x3; mood and affect normal. MUSCULAR skeletal: Dressing over the right hip some evidence of OA in the hands INVESTIGATIONS, reviewed in the clinical context: White count 16.7 hemoglobin 12.7 Assessment: -Right total hip arthroplasty -Primary osteoarthritis -Obesity BMI 39.6 -Essential hypertension -Meningioma benign -Paroxysmal atrial fibrillation -Reactive leukocytosis from surgery. No clinical evidence of infection Plan: Continue current medication treatment plan. Follow-up with PCP. Thank you Dr. Norris
== END 2020-06-30 11:48 | disposition home health service (06) ==
LOC: OR 11:02 → EDSTATUS 12:35 → 4SSUR 16:10 → OR 06-30 06:21
PROVIDERS: ADMIT Orthopaedic Surgery; ATTEND Orthopaedic Surgery
DX: M16.11 Unilateral primary osteoarthritis, right hip (principal); I10 Essential (primary) hypertension; I48.0 Paroxysmal atrial fibrillation; E78.5 Hyperlipidemia, unspecified; F41.9 Anxiety disorder, unspecified; D72.828 Other elevated white blood cell count; E66.9 Obesity, unspecified; Z68.39 Body mass index [BMI] 39.0-39.9, adult; Z79.1 Long term (current) use of non-steroidal anti-inflammatories (NSAID); Z79.891 Long term (current) use of opiate analgesic; Z79.899 Other long term (current) drug therapy; Z88.5 Allergy status to narcotic agent; Z86.011 Personal history of benign neoplasm of the brain; Z87.891 Personal history of nicotine dependence; Z98.890 Other specified postprocedural states; Z86.14 Personal history of Methicillin resistant Staphylococcus aureus infection; Z90.49 Acquired absence of other specified parts of digestive tract; Z96.642 Presence of left artificial hip joint; Z80.3 Family history of malignant neoplasm of breast; Z82.49 Family history of ischemic heart disease and other diseases of the circulatory system
CPT/HCPCS: 97110; 97161; 86900; 86901; 84132; 85025; 86850; 88300; 73501; 36415; 27130; G0378; C1776; J2250; J0171; J1100; J0690 ×3; J2405; J1650; J3010; J1885; J1170 ×3; J2795; J2704; J0735

== ENCOUNTER 2021-04-08 19:10 | Inpatient (IN) | payer OTHER ==
[2021-04-08] MEDS ORDERED: ASPIRIN 81 MG PO STA (19:52)
--- NOTE | 2021-04-08 19:55 | ED ---
General Adult HPI - General Chief complaint: Chest Pain Stated complaint: Chest pain Time Seen by Provider: 04/08/21 19:47 Source: patient Mode of arrival: wheelchair Limitations: no limitations - History of Present Illness Initial comments: 60 year-old male patient presents to the emergency department for evaluation of chest pain. 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 Reports shortness of breath with this. States that symptoms made him stop working. Denies nausea or vomiting. States he did have a bout of afib in the past when he had an infection, not maintained on anticoagulation. States that he does have hypertension, hyperlipidemia, and "borderline" diabetes last A1C 6.8 or 6.9. Does not take any medication for this. Former smoker. Denies leg pain or swelling. Patient denies any recent rash, fever, chills, cough, abdominal pain, diarrhea, constipation, back pain, numbness, tingling, dizziness, weakness, hematuria, dysuria, urinary urgency, urinary frequency, headache, visual changes, or any other complaints. - Related Data Home Medications Medication Instructions Recorded Confirmed Sennosides [Senna] 8.6 mg PO HS 06/21/18 04/08/21 ALPRAZolam [Xanax] 0.25 mg PO BID PRN 06/23/20 04/08/21 Hydrochlorothiazide 12.5 mg PO DAILY 06/23/20 04/08/21 [hydroCHLOROthiazide] Losartan [Cozaar] 50 mg PO DAILY 06/23/20 04/08/21 traMADol HCL [Ultram] 50 mg PO QID PRN 06/23/20 04/08/21 Albuterol Sulfate [Ventolin HFA] 1 - 2 puff INHALATION RT-Q4H PRN 04/08/21 04/08/21 Rosuvastatin Calcium [Crestor] 5 mg PO HS 04/08/21 04/08/21 Previous Rx's Medication Instructions Recorded Diltiazem Cd [Cardizem CD] 180 mg PO DAILY #30 cap.er.24h 08/16/16 Metoprolol Tartrate [Lopressor] 50 mg PO BID #60 tab 08/16/16 Famotidine [Pepcid] 20 mg PO DAILY #30 tablet 07/30/19 Allergies Allergy/AdvReac Type Severity Reaction Status Date / Time morphine AdvReac Unknown Verified 04/08/21 21:13 Review of Systems ROS Statement: Those systems with pertinent positive or pertinent negative responses have been documented in the HPI. ROS Other: All systems not noted in ROS Statement are negative. Past Medical History Past Medical History: Atrial Fibrillation, Hypertension Additional Past Medical History / Comment(s): HAD ONE SEIZURE IN 1997 R/T NON MALIGNANT MENINGIOMA BRAIN, ONE EPISODE OF A FIB, RECENT MRSA RT FOREARM, DR KAY AWARE History of Any Multi-Drug Resistant Organisms: MRSA Date of last positivie culture/infection: na MDRO Source:: RT FOREARM Past Surgical History: Cholecystectomy, Orthopedic Surgery Additional Past Surgical History / Comment(s): RT SHOULDER SX, craniotomy x2, REMOVAL OF NON MALIGNANT BRAIN MENINGIOMA, left knee surgery Past Anesthesia/Blood Transfusion Reactions: No Reported Reaction Past Psychological History: No Psychological Hx Reported Smoking Status: Former smoker Past Alcohol Use History: Rare Past Drug Use History: None Reported - Past Family History Sister(s) Family Medical History: AFIB Brother(s) Family Medical History: AFIB Mother Family Medical History: Cancer Additional Family Medical History / Comment(s): Breast CA General Exam Limitations: no limitations General appearance: alert, in no apparent distress, other (This is a well- developed, well-nourished adult male patient in no acute distress. Vital signs upon presentation temperature 98.1F, pulse 111, respirations 18, blood pressure 148/85, pulse ox 95% on room air.) ENT exam: Present: normal exam, normal oropharynx, mucous membranes moist Respiratory exam: Present: normal lung sounds bilaterally. Absent: respiratory distress, wheezes, rales, rhonchi, stridor Cardiovascular Exam: Present: regular rate, normal rhythm, normal heart sounds. Absent: systolic murmur, diastolic murmur, rubs, gallop, clicks GI/Abdominal exam: Present: soft, normal bowel sounds. Absent: distended, tenderness, guarding, rebound, rigid Neurological exam: Present: alert, oriented X3, CN II-XII intact Psychiatric exam: Present: normal affect, normal mood Skin exam: Present: warm, dry, intact, normal color. Absent: rash Course Vital Signs 04/08/21 04/08/21 04/08/21 19:16 20:09 21:43 Temperature 98.1 F Pulse Rate 111 H 99 99 Respiratory 18 18 18 Rate Blood Pressure 148/85 138/103 137/84 O2 Sat by Pulse 95 97 95 Oximetry EKG Findings - EKG Comments: EKG Findings:: EKG obtained in 192 shows sinus tachycardia with premature atrial complexes, ventricular rate is 101, MD interval 158, QRS duration 86, QT 356, QTc 461. No evidence of ST elevation or depression. Medical Decision Making - Medical Decision Making 60 year-old male patient presents to the emergency department for evaluation of left sided chest pain radiating to left arm and back. Had associated sweating and shortness of breath. He was given aspirin. EKG showed sinus tach, no ST elevation or depression. Labs reviewed and showed elevated troponin at 0.058. Chest x-ray is negative. I did discuss findings and results with him. He admitted to the hospital with heparin drip. Consult to cardiology. Nothing by mouth at midnight. Patient is agreeable with this plan. Case discussed with my attending Dr. Morales. - Lab Data Result diagrams: 04/08/21 19:57 04/08/21 19:57 Lab Results 04/08/21 04/08/21 04/08/21 Range/Units 19:57 19:57 19:57 WBC 8.8 (3.8-10.6) k/uL RBC 5.55 (4.30-5.90) m/uL Hgb 17.2 (13.0-17.5) gm/dL Hct 48.7 (39.0-53.0) % MCV 87.8 (80.0-100.0) fL MCH 31.0 (25.0-35.0) pg MCHC 35.3 (31.0-37.0) g/dL RDW 13.0 (11.5-15.5) % Plt Count 210 (150-450) k/uL MPV 6.8 Neutrophils % 69 % Lymphocytes % 19 % Monocytes % 5 % Eosinophils % 5 % Basophils % 1 % Neutrophils # 6.0 (1.3-7.7) k/uL Lymphocytes # 1.7 (1.0-4.8) k/uL Monocytes # 0.4 (0-1.0) k/uL Eosinophils # 0.4 (0-0.7) k/uL Basophils # 0.1 (0-0.2) k/uL PT 10.2 (9.0-12.0) sec INR 0.9 (<1.2) APTT 23.8 (22.0-30.0) sec Sodium 139 (137-145) mmol/L Potassium 4.1 (3.5-5.1) mmol/L Chloride 101 (98-107) mmol/L Carbon Dioxide 30 (22-30) mmol/L Anion Gap 8 mmol/L BUN 18 (9-20) mg/dL Creatinine 0.72 (0.66-1.25) mg/dL Est GFR (CKD-EPI)AfAm >90 (>60 ml/min/1.73 sqM) Est GFR (CKD-EPI)NonAf >90 (>60 ml/min/1.73 sqM) Glucose 142 H (74-99) mg/dL Calcium 9.9 (8.4-10.2) mg/dL Magnesium 2.0 (1.6-2.3) mg/dL Total Bilirubin 0.5 (0.2-1.3) mg/dL AST 41 (17-59) U/L ALT 52 H (4-49) U/L Alkaline Phosphatase 84 (38-126) U/L Troponin I (0.000-0.034) ng/mL Total Protein 7.4 (6.3-8.2) g/dL Albumin 4.7 (3.5-5.0) g/dL Lipase 78 (23-300) U/L 04/08/21 Range/Units 19:57 WBC (3.8-10.6) k/uL RBC (4.30-5.90) m/uL Hgb (13.0-17.5) gm/dL Hct (39.0-53.0) % MCV (80.0-100.0) fL MCH (25.0-35.0) pg MCHC (31.0-37.0) g/dL RDW (11.5-15.5) % Plt Count (150-450) k/uL MPV Neutrophils % % Lymphocytes % % Monocytes % % Eosinophils % % Basophils % % Neutrophils # (1.3-7.7) k/uL Lymphocytes # (1.0-4.8) k/uL Monocytes # (0-1.0) k/uL Eosinophils # (0-0.7) k/uL Basophils # (0-0.2) k/uL PT (9.0-12.0) sec INR (<1.2) APTT (22.0-30.0) sec Sodium (137-145) mmol/L Potassium (3.5-5.1) mmol/L Chloride (98-107) mmol/L Carbon Dioxide (22-30) mmol/L Anion Gap mmol/L BUN (9-20) mg/dL Creatinine (0.66-1.25) mg/dL Est GFR (CKD-EPI)AfAm (>60 ml/min/1.73 sqM) Est GFR (CKD-EPI)NonAf (>60 ml/min/1.73 sqM) Glucose (74-99) mg/dL Calcium (8.4-10.2) mg/dL Magnesium (1.6-2.3) mg/dL Total Bilirubin (0.2-1.3) mg/dL AST (17-59) U/L ALT (4-49) U/L Alkaline Phosphatase (38-126) U/L Troponin I 0.053 H* (0.000-0.034) ng/mL Total Protein (6.3-8.2) g/dL Albumin (3.5-5.0) g/dL Lipase (23-300) U/L - Radiology Data Radiology results: report reviewed, image reviewed Two-view x-ray of the chest is obtained. Report was reviewed in its entirety. Impression by Dr. Gallo shows no acute process. Disposition Clinical Impression: NSTEMI (non-ST elevated myocardial infarction) Disposition: ADMITTED IP TO THIS [facility] Condition: Serious Referrals: Jovi Persaud MD [Primary Care Provider] - 1-2 days Decision to Admit Reason: Admit from EC Decision Date: 04/08/21 Decision Time: 21:14
[2021-04-08 20:07] LABS: Basophils # (A) 0.1 k/uL (0-0.2); Basophils % (A) 1 %; Eosinophils # (A) 0.4 k/uL (0-0.7); Eosinophils % (A) 5 %; HCT 48.7 % (39.0-53.0); HGB 17.2 gm/dL (13.0-17.5); Lymphocytes # (A) 1.7 k/uL (1.0-4.8); Lymphocytes % (A) 19 %; MCHC 35.3 g/dL (31.0-37.0); MCV 87.8 fL (80.0-100.0); Mean Platelet Volume 6.8; Monocytes # (A) 0.4 k/uL (0-1.0); Monocytes % (A) 5 %; Neutrophils % (A) 69 %; Platelet Count 210 k/uL (150-450); RBC 5.55 m/uL (4.30-5.90); WBC 8.8 k/uL (3.8-10.6)
[2021-04-08 20:21] LABS: INR 0.9 (<1.2); Partial Thromboplastin Time 23.8 sec (22.0-30.0); Prothrombin Time 10.2 sec (9.0-12.0)
[2021-04-08 20:22] LABS: ALT 52 U/L (4-49); AST 41 U/L (17-59); African American GFR (CKD) >90 (>60 ml/min/1.73 sqM); Albumin 4.7 g/dL (3.5-5.0); Alkaline Phosphatase 84 U/L (38-126); Anion Gap 8 mmol/L; Blood Urea Nitrogen 18 mg/dL (9-20); Calcium 9.9 mg/dL (8.4-10.2); Carbon Dioxide 30 mmol/L (22-30); Chloride 101 mmol/L (98-107); Glucose 142 mg/dL (74-99); Lipase 78 U/L (23-300); Non-African American GFR(CKD) >90 (>60 ml/min/1.73 sqM); Potassium 4.1 mmol/L (3.5-5.1); Sodium 139 mmol/L (137-145); Total Bilirubin 0.5 mg/dL (0.2-1.3); Total Protein 7.4 g/dL (6.3-8.2)
--- NOTE | 2021-04-08 20:29 | XR ---
EXAMINATION: XR chest 2V DATE AND TIME: 04/08/2021 8:09 PM CLINICAL INDICATION: PHH; Chest Pain TECHNIQUE: Departmental protocol COMPARISON: 08/13/2016 FINDINGS: The overlying soft tissues are prominent. Lungs appear clear. Previously seen 6 mm calcified pulmonary granuloma redemonstrated in the right lo wer lung zone. The pleural spaces are negative. The cardiac silhouette is not enlarged. The remainder of the mediastinal silhouette is unremarkable. The skeletal structures and soft tissues are negative for acute findings. IMPRESSION: NO ACUTE PROCESS.
[2021-04-08] MEDS ORDERED: HEPARIN SODIUM 1,000 UN/ML (10ML VL) IV PRN (20:45)
[2021-04-08] MEDS ORDERED: HEPARIN SODIUM 1,000 UN/ML (10ML VL) IV ONE (20:45)
[2021-04-08] MEDS ORDERED: NITROGLYCERIN SL TABS 0.4 MG TAB SUBLINGUAL PRN (21:04)
[2021-04-08] MEDS: HEPARIN SOD,PORK IN 0.45% NACL 25,000 UNIT in 0.45% NACL 1 250ML.BAG IV SCH (21:40)
[2021-04-08] MEDS: SODIUM CHLORIDE 0.9% 1,000 ML IV SCH (21:43)
[2021-04-08] MEDS ORDERED: ACETAMINOPHEN TAB 325 MG TAB PO PRN (23:36)
[2021-04-09 03:31] LABS: Basophils # (A) 0.1 k/uL (0-0.2); Basophils % (A) 1 %; Eosinophils # (A) 0.4 k/uL (0-0.7); Eosinophils % (A) 6 %; HCT 43.5 % (39.0-53.0); HGB 14.9 gm/dL (13.0-17.5); Lymphocytes # (A) 2.1 k/uL (1.0-4.8); Lymphocytes % (A) 30 %; MCH 30.2 pg (25.0-35.0); MCHC 34.4 g/dL (31.0-37.0); MCV 87.7 fL (80.0-100.0); Monocytes # (A) 0.5 k/uL (0-1.0); Monocytes % (A) 7 %; Neutrophils # (A) 3.9 k/uL (1.3-7.7); Neutrophils % (A) 55 %; Platelet Count 200 k/uL (150-450); RBC 4.96 m/uL (4.30-5.90); WBC 7.1 k/uL (3.8-10.6)
[2021-04-09 04:05] LABS: Partial Thromboplastin Time 27.5 sec (22.0-30.0); Prothrombin Time 10.4 sec (9.0-12.0)
[2021-04-09] MEDS: NITROGLYCERIN OINT 1 INCH/GM PACKET TOPICAL SCH ×4 (04:14→17:22)
[2021-04-09] MEDS ORDERED: ALPRAZolam 0.25 MG TAB PO PRN ×2 (06:27→07:28)
[2021-04-09] MEDS ORDERED: HEPARIN SODIUM,PORCINE 2,500 UNIT in SODIUM CHLORIDE 0.9% 250 ML IRRIGATION PRN (07:00)
[2021-04-09] MEDS ORDERED: HEPARIN SODIUM,PORCINE 10,000 UNIT in SODIUM CHLORIDE 0.9% 1,000 ML IRRIGATION PRN (07:00)
[2021-04-09] MEDS ORDERED: ATORVASTATIN 80 MG TAB PO STA (07:28)
[2021-04-09] MEDS ORDERED: SODIUM CHLORIDE 0.9% 1,000 ML in EMPTY BAG 1 BAG IV ONE (07:28)
[2021-04-09] MEDS ORDERED: ASPIRIN 325 MG TAB PO STA (07:28)
[2021-04-09] MEDS ORDERED: NITROGLYCERIN SL TABS 0.4 MG TAB SUBLINGUAL PRN (07:28)
[2021-04-09] MEDS ORDERED: ALBUTEROL NEBULIZED 2.5 MG/3 ML INHALATION PRN (08:00)
[2021-04-09] MEDS: ASPIRIN 81 MG PO SCH (08:13)
[2021-04-09] MEDS: METOPROLOL TARTRATE 50 MG TAB PO SCH ×2 (08:13→20:55)
[2021-04-09] MEDS: hydroCHLOROthiazide 12.5 MG CAP PO SCH (08:13)
[2021-04-09] MEDS: FAMOTIDINE 20 MG TAB PO SCH (08:13)
[2021-04-09] MEDS: LOSARTAN 50 MG TAB PO SCH (08:13)
[2021-04-09] MEDS: DILTIAZEM CD 180 MG CAP.ER.24H PO SCH (08:13)
[2021-04-09] MEDS: traMADol 50 MG TAB PO PRN (08:15)
[2021-04-09] MEDS ORDERED: ASPIRIN 325 MG TAB PO SCH (09:00)
[2021-04-09] MEDS ORDERED: LIDOCAINE 1% INJ 10MG/ML (20 ML MDV) ONE (09:09)
[2021-04-09] MEDS ORDERED: VERAPAMIL 2.5 MG/ML 2 ML AMP ONE (09:09)
[2021-04-09] MEDS ORDERED: HEPARIN SODIUM 1,000 UN/ML (10ML VL) ONE (09:11)
[2021-04-09] MEDS ORDERED: IV FLUID CONTINUATION 1,000 ML IV ONE (09:12)
[2021-04-09] MEDS: MIDAZOLAM 2 MG/2 ML VIAL IV ONE ×2 (09:21→09:24)
[2021-04-09] MEDS ORDERED: LIDOCAINE 1% INJ 10MG/ML (20 ML MDV) SQ ONE (09:24)
[2021-04-09] MEDS: VERAPAMIL SYRINGE (5 MG/10 ML) INTRAARTER ONE ×2 (09:32→09:51)
[2021-04-09] MEDS ORDERED: IOPAMIDOL-370 100ML BTL INJ ONE (09:51)
[2021-04-09 10:26] LABS: Chol/HDL Ratio 6.21; LDL Cholesterol,Calculated 90.8 mg/dL (0.0-131.0); VLDL Calculation 55.2 mg/dL (5.00-40.00)
--- NOTE | 2021-04-09 11:00 | ECHOF ---
Referral Reason:NSTEMI MEASUREMENTS -------- HEIGHT: 162.6 cm WEIGHT: 135.6 kg BP: RVIDd: 3.2 cm (< 3.3) IVSd: 1.3 cm (0.6 - 1.1) LVIDd: 4.6 cm (3.9 - 5.3) LVPWd: 1.8 cm (0.6 - 1.1) IVSs: 1.7 cm LVIDs: 3.3 cm LVPWs: 1.2 cm LA Diam: 3.4 cm (2.7 - 3.8) Ao Diam: 3.5 cm (2.0 - 3.7) AV Cusp: 1.6 cm (1.5 - 2.6) MV EXCURSION: 10.304 mm (> 18.000) MV EF SLOPE: 46 mm/s (70 - 150) EPSS: 0.5 cm MV E Oskar: 0.60 m/s MV DecT: 250 ms MV A Oskar: 0.82 m/s MV E/A Ratio: 0.73 RAP: 5.00 mmHg RVSP: 14.84 mmHg FINDINGS -------- Sinus rhythm. Morbid Obesity This was a techncally difficult study with suboptimal views, , Lumason utilized for enhancement of images. The left ventricular size is normal. There is mild concentric left ventricular hypertrophy. Overa ll left ventricular systolic function is normal with, an EF between 55 - 60 %. The right ventricle is normal in size. The left atrial size is normal. The right atrial size is normal. The aortic valve was not well visualized. Mild mitral regurgitation is present. Mild tricuspid regurgitation present. Right ventricular systolic pressure is normal at < 35 mmHg. The pulmonic valve was not well visualized. Echo free space represents a pericardial fat pad. CONCLUSIONS -------- 1. The left ventricular size is normal. 2. There is mild concentric left ventricular hypertrophy. 3. Overall left ventricular systolic function is normal with, an EF between 55 - 60 %. 4. The right ventricle is normal in size. 5. The left atrial size is normal. 6. The right atrial size is normal. 7. The aortic valve was not well visualized. 8. Mild mitral regurgitation is present. 9. Mild tricuspid regurgitation present. 10. The pulmonic valve was not well visualized. 11. Echo free space represents a pericardial fat pad. AUTOMOTIVE HARDWARE ENGINEER: Arlen Worthington RDCS
[2021-04-09] MEDS ORDERED: NAPROXEN 250 MG TAB PO PRN (11:33)
--- NOTE | 2021-04-09 11:58 | CONS ---
CONSULTATION HISTORY: Mr. Jimenez is a gentleman who is a fairly hardworking person and yesterday he was a new [place] moving some hay and was doing some physical activity. While he was doing this physical effort he felt a sensation of discomfort in the left upper extremity and left chest. There was also some radiation to the left arm. No nausea, vomiting, or any diaphoresis. He stopped work and came to the emergency room and his apparently accompanied him as well. After arrival, his symptoms have improved. He has a diagnosis of hypertension and probably diabetes as well, but does not take any medications. About 4 years ago or so he had an episode of atrial fib, was not anticoagulated. At the time of my evaluation he has no chest discomfort is comfortable, but the troponin profile suggests a non-ST elevation NC without significant EKG changes. He is resting comfortably at the time of my evaluation. PAST MEDICAL HISTORY: Episode of paroxysmal atrial fibrillation, hypertension, probably diet-controlled diabetes mellitus, he also has had history of some seizure in the past details are somewhat unclear. There is a question of a meningioma. This is not substantiated or the patient seems to have very sketchy information in this regard. He is also status post cholecystectomy and some orthopedic surgery. MEDICATIONS: Medications at home include Cardizem CD 180 mg daily, metoprolol tartrate 50 mg b.i.d., Pepcid 20 mg daily, he takes albuterol inhaler and Crestor 5 mg daily, Xanax p.r.n., hydrochlorothiazide 12.5 mg daily. SOCIAL HISTORY: The patient is a former smoker. Does not use alcohol or other recreational drugs. PHYSICAL EXAMINATION: On examination, blood pressure is 130/70, pulse rate is about 84 per minute regular. HEENT unremarkable. Fundus was not examined by me. Neck is supple. There is no JVD. I do not hear a carotid bruit. There is no thyromegaly. Heart exam reveals S1, S2 heard normally. There are no significant murmurs. Lungs revealed bilateral decent air entry. Abdomen is soft, nontender. Lower extremities reveal diminished pulses. Central nervous system grossly no focal deficits. EKG revealed a sinus mechanism without clear-cut significant EKG changes. LABORATORY DATA: Suggests elevated troponin. The initial was 0.05 and then we have 0.163 and 0.179. All other labs are unremarkable. IMPRESSION: 1. Chest pain with elevated troponins suggestive of non-ST elevation NC. 2. Hypertension. 3. History of intracranial tumor, probable meningioma, for which he had surgery. 4. Diet-controlled diabetes mellitus. RECOMMENDATIONS: I am recommending that we will continue the heparin and other medications as indicated. We will add an echocardiogram to be done as soon as possible. I am recommending coronary angiography from right radial approach. The rationale, risks, benefits, options were explained. Patient understands all details and wishes to proceed with the procedure. MMODL / IJN: [id number] /
--- NOTE | 2021-04-09 12:13 | CC ---
CARDIAC CATHETERIZATION REPORT DATE OF SERVICE: 04/09/2021 PROCEDURE: Left heart catheterization and coronary angiography. PERFORMED BY: Dr. Saleem Ramos. SEDATION: Moderate conscious sedation time was 30 minutes. Patient was administered Versed. Oxygen saturation, hemodynamics and EKG are monitored closely. CLINICAL INFORMATION: Mr. Jimenez is a 60-year-old gentleman with a history of hypertension, obesity, previous intracranial meningioma for which he had surgery more than 15 years ago. He also has obesity and borderline diabetes with a hemoglobin A1c of about 6.9. He came into the hospital with exertional chest discomfort and had a troponin elevation with non ST elevation type picture. He is comfortable, asymptomatic when I saw him this morning, but because of his risk factors and troponin elevation, he was advised cardiac cath. PROCEDURE NOTE: Under local anesthesia and strict aseptic precautions, a 6-Kiswahili introducer was placed in the right radial artery. Using a JL3.5 and JR4 catheters I performed coronary angiography and the same right catheter was used to check LV pressure but LV gram was not performed. The sheath was taken out and TR band applied as per protocol. The saturation of the fingers of the right hand of 95%. The details of the cardiac cath and recommendation were discussed with the patient and his family members including and brother. CARDIAC CATHETERIZATION FINDINGS: Left ventricular end-diastolic pressure was 10 mmHg without any gradient across aortic valve. CORONARY ANGIOGRAPHY FINDINGS: RIGHT CORONARY ARTERY: Technically this is a dominant vessel which is moderately calcified, quite tortuous. The mid segment has a 40% lesion and after the mid segment 40-50 percent lesion. Distally there is 80% eccentric lesion calcified and then it bifurcates into PDA and PLV, both of which supply a sizable amount of myocardium. The PDA and PLV have mild diffuse disease but RCA is heavily calcified with a mid lesion of 50% and a distal lesion of about 80% eccentric in nature. LEFT MAIN CORONARY ARTERY: This is a long vessel free of significant disease. Bifurcates into LAD and circumflex. LEFT ANTERIOR DESCENDING CORONARY ARTERY: Good caliber vessel, gives off a large diagonal branch proximally, which has minor irregularities. Then LAD is heavily calcified after the. After the diagonal, there is a 70% stenosis and then beyond that, it gives off a second diagonal in the second diagonal has 80% lesion. The LAD just before the second diagonal and extending into the LAD beyond the diagonal has another 80% lesion. The LAD therefore gives off a diagonal branch, has a mid lesion of 70%, then an another lesion beyond that of about 85-90 percent and also the diagonal has significant disease. Diagonal appears to be larger in caliber, but LAD is a large in distribution, small in caliber, and the small nature maybe because of slow filling. The LAD extends all the way to the apex, but appears to be diffusely diseased. LAD therefore has multiple lesions and is heavily calcified. LEFT POSTERIOR CIRCUMFLEX CORONARY ARTERY: Non-dominant vessel gives off 2 small obtuse marginal proximally and then there is a 3rd obtuse marginal which has a 95% stenosis and beyond that, it is a fair caliber vessel, supplies a fair amount of myocardium. Continuation of circumflex distally has mild diffuse disease and gives off smaller branches that have diffuse disease. LEFT VENTRICULOGRAM: Not performed. FINAL IMPRESSION: This patient has severe triple-vessel disease with a dominant RCA. No normal filling pressures. No gradient across aortic valve. RECOMMENDATIONS: I am recommending aortocoronary bypass surgery with two grafts to the the LAD, specifically to the diagonal and as well as to the distal LAD, obtuse marginal branch and distal RCA. He may need an another graft to the first diagonal as well. I discussed the findings in detail with the patient's family and also spoke to Dr. Esquivel. Surgery should be performed during this hospitalization. MMCHICOL / ASHELYN: [id number] /
--- NOTE | 2021-04-09 14:01 | P.HPIM ---
History of Present Illness H&P Date: 04/09/21 Chief Complaint: Chest pain History of presenting complaint: This is a 60-year-old patient of Dr. Jovi Persaud. Chronic stable medical conditions include atrial fibrillation, hypertension, obesity. Patient was baling hay and he developed left infraclavicular chest pain as somebody sitting there. The pain continued while he was doing the same. No radiation. Was a bit dizzy perspiration tired. Decided to come into the ER. Patient ruled in for an acute non-Q wave NC. Was started on IV heparin. This morning patient went for a cardiac catheterization. Found to have severe triple-vessel disease. Cardiothoracic team's been consulted. Currently laying in bed. at the bedside. No chest pain currently. Review of systems: GEN.: Tired EYES: None HEENT: None NECK: None RESPIRATORY: As above CARDIOVASCULAR: As above GASTROINTESTINAL: None GENITOURINARY: None MUSCULOSKELETAL: None LYMPHATICS: None HEMATOLOGICAL: None PSYCHIATRY: None NEUROLOGICAL: None Past medical history to include: Atrial fibrillation, hypertension, 1 seizure in 1997, nonmalignant meningioma of the brain, carotid history of atrial fibrillation, recent MRSA infection of the right forearm Social history: Patient smoked a pack a day stopped in 1984. Alcohol rarely. Family history: Atrial fibrillation, breast cancer Physical examination: VITAL SIGNS: 98.1, 88, 18, 147/76, 94% room air GENERAL: BMI 41.8, reclining in bed, awake. EYES: Pupils equal. Conjunctiva normal. HEENT: External appearance of nose and ears normal, oral cavity grossly normal. NECK: JVD not raised; masses not palpable. HEART: First and second heart sounds are normal; no edema. LUNGS: Respiratory rate normal; clear to auscultation. ABDOMEN: Soft, nontender, liver spleen not palpable, no masses palpable. PSYCH: Alert and oriented x3; mood and affect normal. NEUROLOGICAL: Cranial nerves grossly intact; no facial asymmetry, power and sensation grossly intact. LYMPHATICS: No lymph nodes palpable in the axilla and neck INVESTIGATIONS, reviewed in the clinical context: WBC 7.1 hemoglobin 14.9 platelets 200 potassium 4.1 creatinine 0.7 to Troponin I 0.053, 0.163, 0.179 LDL 90 triglycerides 276 HDL 28 Coronavirus [PCR]: Not detected EKG tracing personally reviewed by me-normal sinus rhythm, Chest x-ray film personally reviewed by me-no infiltrate 2-D echocardiogram: EF 55-60% mild concentric LVH Assessment and plan: -Acute non-Q wave NC Patient is put on aspirin, IV heparin -Severe triple-vessel coronary artery disease per cardiac catheterization Cardiothoracic surgery consulted -Morbid obesity BMI 41.8 Dietitian -Essential hypertension On Cardizem CD, Lopressor -Hyperlipidemia Lipitor 80 mg daily at bedtime -IV heparin monitoring Follow PtT Patient is currently on aspirin, Lipitor, Cardizem CD, Pepcid, IV heparin, Cozaar, Lopressor, Nitropaste. Follow with cardiology. Cardiothoracic surgery's been consulted. Care was discussed with the patient and . Given the complexity and severity of patient's condition expect the patient to be in the hospital at least for 2 overnights Past Medical History Past Medical History: Atrial Fibrillation, Hypertension Additional Past Medical History / Comment(s): HAD ONE SEIZURE IN 1997 R/T NON MALIGNANT MENINGIOMA BRAIN, ONE EPISODE OF A FIB, RECENT MRSA RT FOREARM, DR KAY AWARE History of Any Multi-Drug Resistant Organisms: MRSA Date of last positivie culture/infection: na MDRO Source:: RT FOREARM Past Surgical History: Cholecystectomy, Orthopedic Surgery Additional Past Surgical History / Comment(s): RT SHOULDER SX, craniotomy x2, REMOVAL OF NON MALIGNANT BRAIN MENINGIOMA, left knee surgery Past Anesthesia/Blood Transfusion Reactions: No Reported Reaction Past Psychological History: No Psychological Hx Reported Smoking Status: Former smoker Past Alcohol Use History: Rare Additional Past Alcohol Use History / Comment(s): QUIT SMOKING 1984, SMOKED 1PPD Past Drug Use History: None Reported - Past Family History Sister(s) Family Medical History: AFIB Brother(s) Family Medical History: AFIB Mother Family Medical History: Cancer Additional Family Medical History / Comment(s): Breast CA Medications and Allergies Home Medications Medication Instructions Recorded Confirmed Type Diltiazem Cd [Cardizem CD] 180 mg PO DAILY #30 cap.er.24h 08/16/16 04/08/21 Rx Metoprolol Tartrate [Lopressor] 50 mg PO BID #60 tab 08/16/16 04/08/21 Rx Sennosides [Senna] 8.6 mg PO HS 06/21/18 04/08/21 History Famotidine [Pepcid] 20 mg PO DAILY #30 tablet 07/30/19 04/08/21 Rx ALPRAZolam [Xanax] 0.25 mg PO BID PRN 06/23/20 04/08/21 History Hydrochlorothiazide 12.5 mg PO DAILY 06/23/20 04/08/21 History [hydroCHLOROthiazide] Losartan [Cozaar] 50 mg PO DAILY 06/23/20 04/08/21 History traMADol HCL [Ultram] 50 mg PO QID PRN 06/23/20 04/08/21 History Albuterol Sulfate [Ventolin HFA] 1 - 2 puff INHALATION RT-Q4H PRN 04/08/21 04/08/21 History Rosuvastatin Calcium [Crestor] 5 mg PO HS 04/08/21 04/08/21 History Allergies Allergy/AdvReac Type Severity Reaction Status Date / Time morphine AdvReac Unknown Verified 04/08/21 21:13 Physical Exam Vitals: Vital Signs Temp Pulse Pulse Resp BP BP Pulse Ox 04/09/21 08:00 98.1 F 88 18 147/76 94 L 04/09/21 04:00 98.3 F 77 19 134/75 100 04/09/21 02:00 96 19 04/09/21 00:00 97.9 F 96 19 137/84 96 04/08/21 23:31 97.9 F 96 19 137/84 96 04/08/21 23:30 87 18 145/87 95 04/08/21 22:35 94 18 145/87 96 04/08/21 21:43 99 18 137/84 95 04/08/21 20:09 99 18 138/103 97 04/08/21 19:16 98.1 F 111 H 18 148/85 95 Intake and Output 04/08/21 04/09/21 04/09/21 22:59 06:59 14:59 Intake Total 69.167 100 Balance 69.167 100 Intake: IV 100 Intake, IV Titration 69.167 Amount Heparin Sod,Pork in 0.45% 69.167 NaCl 25,000 unit In 0.45 % NaCl 1 250ml.bag @ 7. 3487 UNITS/KG/HR 10 mls/ hr IV .Q24H [place] Rx#: [id number] Other: Voiding Method Toilet # Voids 2 Weight 136.078 kg 135.9 kg Results CBC & Chem 7: 04/09/21 02:46 04/08/21 19:57 Labs: Abnormal Lab Results - Last 24 Hours (Table) 04/08/21 04/08/21 04/08/21 Range/Units 19:57 19:57 22:26 Glucose 142 H (74-99) mg/dL ALT 52 H (4-49) U/L Troponin I 0.053 H* 0.163 H* (0.000-0.034) ng/mL 04/09/21 Range/Units 02:46 Glucose (74-99) mg/dL ALT (4-49) U/L Troponin I 0.179 H* (0.000-0.034) ng/mL Thrombosis Risk Factor Assmnt - Choose All That Apply Any of the Below Risk Factors Present?: Yes Each Factor Represents 1 point: Obesity (BMI >25) Other Risk Factors: Yes Each Risk Factor Represents 2 Points: Age 61-74 years Other congenital or acquired thrombophilia - If yes, enter type in comment: No Thrombosis Risk Factor Assessment Total Risk Factor Score: 3 Thrombosis Risk Factor Assessment Level: Moderate Risk
[2021-04-09 15:01] VITALS: BMI 41.8
--- NOTE | 2021-04-09 16:19 | P.GSCN ---
History of Present Illness Consult date: 04/09/21 Reason for Consult: Symptomatic multivessel coronary artery disease Requesting physician: Kaleigh Ramos History of present illness: This is a 60-year-old gentleman that follows with Dr. Jovi Persaud on an outpatient basis for his primary care service. He is a past medical history significant for hypertension, dyslipidemia, morbid obesity with a BMI of 41.8 kg/m, paroxysmal atrial fibrillation, history of nonmalignant brain meningioma, status post removal of brain meningioma, remote history of MRSA infection to his left leg, remote history of nicotine dependence quit smoking in 1984, asthma and osteoarthritis. Yesterday 04/08/2021 while baling some hay he developed some chest pain which radiated to his back and down his left arm. The pain was not associated with any shortness of breath, nausea, diaphoresis, presyncope or syncope and was not alleviated with rest. The patient states that he has had these episodes of chest discomfort in the past, although the previous episodes were relieved with rest. He denies any recent fever, chills, diarrhea, headache, edema or orthopnea. Due to the above-mentioned symptoms he presented to the emergency department here at [facility] for further evaluation and treatment. Initial laboratory results showed a WBC count 8.8, hemoglobin 17.2, platelets 210, sodium 139, potassium 4.1, BUN 18, creatinine 0.72, glucose 142, and ALT 52. Serial troponins were completed which were elevated as high as 0.179 ruling the patient in for a non-ST elevated my color infarction. A chest x-ray was completed which showed no acute process. A 12- lead EKG was also completed which showed sinus tachycardia with premature atrial complexes with a heart rate of 101 BPM. Subsequently, due to the patient's presenting symptoms and elevated troponins cardiology was consulted and on 04/09/2021 a 2-D echocardiogram was completed which showed an overall left ventricular systolic function to be normal with an ejection fraction between 55 and 60%, mild mitral valve regurgitation and mild tricuspid valve regurgitation. For further evaluation the patient underwent a left heart cardiac catheterization and coronary angiography which demonstrated severe triple vessel disease with a dominant right coronary artery. Dr. Tavia Esquivel from cardiothoracic surgery was consulted due to the findings on the cardiac catheterization films for further evaluation and treatment recommendations including myocardial revascularization surgery. Review of Systems A 14 point review of systems was completed and was negative except as mentioned in the HPI. Past Medical History Past Medical History: Atrial Fibrillation, Asthma, Chest Pain / Angina, Hyperlipidemia, Hypertension, Osteoarthritis (OA) Additional Past Medical History / Comment(s): 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 History of Any Multi-Drug Resistant Organisms: MRSA (Remote history of MRSA infection to his left lower extremity) Year Discovered:: na MDRO Source:: RT FOREARM Past Surgical History: Cholecystectomy, Orthopedic Surgery Additional Past Surgical History / Comment(s): RT SHOULDER SX, craniotomy x2, REMOVAL OF NON MALIGNANT BRAIN MENINGIOMA, left knee surgery Past Anesthesia/Blood Transfusion Reactions: No Reported Reaction Past Psychological History: No Psychological Hx Reported Smoking Status: Former smoker Past Alcohol Use History: Rare Additional Past Alcohol Use History / Comment(s): QUIT SMOKING 1984, SMOKED 1PPD Past Drug Use History: None Reported - Past Family History Sister(s) Family Medical History: AFIB Brother(s) Family Medical History: AFIB Mother Family Medical History: Cancer Additional Family Medical History / Comment(s): Breast CA Medications and Allergies Home Medications Medication Instructions Recorded Confirmed Type Diltiazem Cd [Cardizem CD] 180 mg PO DAILY #30 cap.er.24h 08/16/16 04/08/21 Rx Metoprolol Tartrate [Lopressor] 50 mg PO BID #60 tab 08/16/16 04/08/21 Rx Sennosides [Senna] 8.6 mg PO HS 06/21/18 04/08/21 History Famotidine [Pepcid] 20 mg PO DAILY #30 tablet 07/30/19 04/08/21 Rx ALPRAZolam [Xanax] 0.25 mg PO BID PRN 06/23/20 04/08/21 History Hydrochlorothiazide 12.5 mg PO DAILY 06/23/20 04/08/21 History [hydroCHLOROthiazide] Losartan [Cozaar] 50 mg PO DAILY 06/23/20 04/08/21 History traMADol HCL [Ultram] 50 mg PO QID PRN 06/23/20 04/08/21 History Albuterol Sulfate [Ventolin HFA] 1 - 2 puff INHALATION RT-Q4H PRN 04/08/21 04/08/21 History Rosuvastatin Calcium [Crestor] 5 mg PO HS 04/08/21 04/08/21 History Allergies Allergy/AdvReac Type Severity Reaction Status Date / Time morphine AdvReac Unknown Verified 04/08/21 21:13 Surgical - Exam Vital Signs Temp Pulse Resp BP Pulse Ox 98.1 F 111 H 18 148/85 95 04/08/21 19:16 04/08/21 19:16 04/08/21 19:16 04/08/21 19:16 04/08/21 19:16 - General Morbid obesity well developed, well nourished, no distress, no pain - Eyes PERRL, normal ocular movement, no icteric - ENT normal pinna, normal nares, normal mucosa, no hearing loss, no congestion, dentures (Upper plate) - Neck Neck is supple, no lymphadenopathy. no masses, no bruits, trachea midline, no venous distension - Respiratory Lungs sounds essentially clear throughout. Respirations are symmetrical and nonlabored. - Cardiovascular Regular rhythm and rate. S1 and S2 present, negative for S3, gallop or murmur. +1 edema to his bilateral lower extremities. - Abdomen Abdomen: soft, non tender, bowel sounds (Active bowel sounds all 4 abdominal quadrants.), no organomegaly, no guarding, no rigid, no distended - Integumentary no rash, no growths, no abnormal pigmentation - Neurologic Cranial nerves II through XII intact. No focal deficits. normal coordination, normal sensation - Musculoskeletal Moves all 4 extremities with equal strength. - Psychiatric oriented to time, oriented to person, oriented to place, speech is normal, memory intact Results - Labs 04/09/21 02:46 04/08/21 19:57 Abnormal Lab Results - Last 24 Hours (Table) 04/08/21 04/08/21 04/08/21 Range/Units 19:57 19:57 22:26 APTT (22.0-30.0) sec Glucose 142 H (74-99) mg/dL ALT 52 H (4-49) U/L Troponin I 0.053 H* 0.163 H* (0.000-0.034) ng/mL Triglycerides (0.0-149.0) mg/dL VLDL Cholesterol, Calc (5.00-40.00) mg/dL HDL Cholesterol (40.0-60.0) mg/dL 04/09/21 04/09/21 04/09/21 Range/Units 02:46 02:46 10:51 APTT 37.6 H (22.0-30.0) sec Glucose (74-99) mg/dL ALT (4-49) U/L Troponin I 0.179 H* (0.000-0.034) ng/mL Triglycerides 276.0 H (0.0-149.0) mg/dL VLDL Cholesterol, Calc 55.20 H (5.00-40.00) mg/dL HDL Cholesterol 28.0 L (40.0-60.0) mg/dL Diabetes panel 04/08/21 04/09/21 Range/Units 19:57 02:46 Sodium 139 (137-145) mmol/L Potassium 4.1 (3.5-5.1) mmol/L Chloride 101 (98-107) mmol/L Carbon Dioxide 30 (22-30) mmol/L BUN 18 (9-20) mg/dL Creatinine 0.72 (0.66-1.25) mg/dL Glucose 142 H (74-99) mg/dL Calcium 9.9 (8.4-10.2) mg/dL AST 41 (17-59) U/L ALT 52 H (4-49) U/L Alkaline Phosphatase 84 (38-126) U/L Total Protein 7.4 (6.3-8.2) g/dL Albumin 4.7 (3.5-5.0) g/dL Triglycerides 276.0 H (0.0-149.0) mg/dL HDL Cholesterol 28.0 L (40.0-60.0) mg/dL Calcium panel 04/08/21 Range/Units 19:57 Calcium 9.9 (8.4-10.2) mg/dL Albumin 4.7 (3.5-5.0) g/dL Pituitary panel 04/08/21 Range/Units 19:57 Sodium 139 (137-145) mmol/L Potassium 4.1 (3.5-5.1) mmol/L Chloride 101 (98-107) mmol/L Carbon Dioxide 30 (22-30) mmol/L BUN 18 (9-20) mg/dL Creatinine 0.72 (0.66-1.25) mg/dL Glucose 142 H (74-99) mg/dL Calcium 9.9 (8.4-10.2) mg/dL Adrenal panel 04/08/21 Range/Units 19:57 Sodium 139 (137-145) mmol/L Potassium 4.1 (3.5-5.1) mmol/L Chloride 101 (98-107) mmol/L Carbon Dioxide 30 (22-30) mmol/L BUN 18 (9-20) mg/dL Creatinine 0.72 (0.66-1.25) mg/dL Glucose 142 H (74-99) mg/dL Calcium 9.9 (8.4-10.2) mg/dL Total Bilirubin 0.5 (0.2-1.3) mg/dL AST 41 (17-59) U/L ALT 52 H (4-49) U/L Alkaline Phosphatase 84 (38-126) U/L Total Protein 7.4 (6.3-8.2) g/dL Albumin 4.7 (3.5-5.0) g/dL - Imaging Chest x-ray: report reviewed, image reviewed EKG: image reviewed Additional studies: 2-D echocardiogram results and cardiac catheterization results reviewed by Dr. Esquivel. Assessment and Plan Assessment: 1. Symptomatic multivessel coronary artery disease 2. Chest pain with elevated troponins, non-ST elevated myocardial infarction this admission 3. Hypertension 4. Dyslipidemia 5. Remote history of paroxysmal atrial fibrillation, currently in normal sinus rhythm 6. Diet-controlled diabetes mellitus with a recent hemoglobin A1c of 6.9% 7. Morbid obesity with a BMI of 41.8 kg/m 8. History of intracranial tumor, meningioma status post surgery 9. Remote history of nicotine dependence, quit smoking in 1984 Plan: The patient was seen and examined at his bedside on the cardiac stepdown unit by Dr. Tavia Esquivel. His chart and diagnostics were reviewed. Continue to optimize medical management with aspirin, statin, and beta josie. Preoperative testing and preoperative teaching has been initiated. Encourage use of his incentive spirometry 10 times every hour while awake. A 5 m walk test will be completed with the patient once the patient is able to ambulate. Once the preoperative testing has been obtained and completed an STS risk score will be calculated in discussed with the patient. Medical management other comorbidities per primary care service. More recommendations to follow based on patient's clinical course and as his preoperative testing has been obtained. Thank you Dr. Ramos for this consult and we look forward to working with you in the care of this patient. Time with Patient: Greater than 30
--- NOTE | 2021-04-09 16:30 | US ---
EXAMINATION TYPE: US carotid duplex BILAT DATE OF EXAM: 04/09/2021 COMPARISON: NONE CLINICAL HISTORY: Pre-Op Cardiac Surgery. no stroke history EXAM MEASUREMENTS: RIGHT: Peak Systolic Velocity (PSV) cm/sec ----- Right CCA: 82.0 ----- Right ICA: 77.6 ----- Right ECA: 85.3 ICA/CCA ratio: 0.9 RIGHT: End Diastole cm/sec ----- Right CCA: 19.3 ----- Right ICA: 20.4 ----- Right ECA: 7.3 LEFT: Peak Systolic Velocity (PSV) cm/sec ----- Left CCA: 88.6 ----- Left ICA: 150.7 ----- Left ECA: 125.3 ICA/CCA ratio: 1.7 LEFT: End Diastole cm/sec ----- Left CCA: 23.7 ----- Left ICA: 29.6 ----- Left ECA: 10.7 VERTEBRALS (direction of flow): Right Vertebral: Antegrade Left Vertebral: Antegrade Rhythm: Arrhythmia Soft plaque seen at proximal left ICA grayscale, color Doppler, spectral Doppler imaging performed of the carotid arteries. Waveform analysis does not show significant stenosis on the right. Elevated proximal internal carotid artery velocity on peak systole within diastolic velocity of 30 cm/s. IMPRESSION: There is some elevated velocity within the proximal internal carotid artery on the left b ut without elevation in ICA to CCA ratio. Findings felt not likely to represent hemodynamic significa nt stenosis, carotid CTA or MRA could be performed for additional evaluation. No hemodynamic signific ant stenosis of the proximal internal carotid on the right by Doppler criteria, an indirect measureme nt of carotid stenosis. Cardiac arrhythmia noted incidentally. Criteria for Assigning % of Stenosis / Diameter reduction (Estimation based on the indirect measurements of the internal carotid artery velocities (ICA PSV). 1. Normal (no stenosis)=ICA PSV < 125 cm/s: ratio < 2.0: ICA EDV<40 cm/s. 2. Less than 50% stenosis=ICA PSV < 125 cm/s: ratio < 2.0: ICA EDV<40 cm/s. 3. 50 to 69% stenosis=ICA PSV of 125 to 230 cm/s: ration 2.0 ? 4.0: ICA EDV 40-100 cm/s. 4. Greater than 70% stenosis to near occlusion= ICA PSV > 230 cm/s: ratio > 4.0: ICA EDV > 100 cm/s. 5. Near occlusion= ICA PSV velocities may be low or undetectable: variable ratio and ICA EDV. 6. Total occlusion=unable to detect flow.
[2021-04-09] MEDS: HEPARIN SOD,PORK IN 0.45% NACL 25,000 UNIT in 0.45% NACL 1 250ML.BAG IV SCH (18:45)
[2021-04-09] MEDS: MUPIROCIN 2% OINT 22 GM TUBE NASAL SCH (20:55)
[2021-04-09] MEDS: SENNOSIDES 8.6 MG TAB PO SCH (20:55)
[2021-04-09] MEDS ORDERED: ATORVASTATIN 10 MG TAB PO SCH (21:00)
[2021-04-09] MEDS: SODIUM CHLORIDE 0.9% 1,000 ML IV SCH (23:30)
[2021-04-10] MEDS: NITROGLYCERIN OINT 1 INCH/GM PACKET TOPICAL SCH ×4 (00:19→18:33)
[2021-04-10 03:02] LABS: Hepatitis A Antibody IgM Non-Reactive (Non-Reactive); Hepatitis B Core IgM Non-Reactive (Non-Reactive); Hepatitis B Surface Antigen Non-Reactive (Non-Reactive); Hepatitis C IgG Antibody Non-Reactive (Non-Reactive)
[2021-04-10] MEDS: HEPARIN SOD,PORK IN 0.45% NACL 25,000 UNIT in 0.45% NACL 1 250ML.BAG IV SCH ×2 (06:22→19:35)
[2021-04-10 09:48] LABS: Appearance,Urine Clear (Clear); Bilirubin,Urine Negative (Negative); Blood,Urine Negative (Negative); Color,Urine Yellow; Glucose,Urine (UA) Negative (Negative); Ketones,Urine Negative (Negative); Leukocyte Esterase,Urine Negative (Negative); Nitrite,Urine Negative (Negative); PH, Urine 6.5 (5.0-8.0); Protein,Urine Negative (Negative); Specific Gravity,Urine 1.019 (1.001-1.035)
[2021-04-10] MEDS: LOSARTAN 50 MG TAB PO SCH (09:48)
[2021-04-10] MEDS: DILTIAZEM CD 180 MG CAP.ER.24H PO SCH (09:48)
[2021-04-10] MEDS: ASPIRIN 81 MG PO SCH (09:48)
[2021-04-10] MEDS: METOPROLOL TARTRATE 50 MG TAB PO SCH ×2 (09:48→20:24)
[2021-04-10] MEDS: ALPRAZolam 0.5 MG TAB PO PRN ×2 (09:49→20:24)
[2021-04-10] MEDS: MUPIROCIN 2% OINT 22 GM TUBE NASAL SCH ×2 (09:49→20:25)
[2021-04-10] MEDS: hydroCHLOROthiazide 12.5 MG CAP PO SCH (09:49)
[2021-04-10] MEDS: FAMOTIDINE 20 MG TAB PO SCH (09:49)
--- NOTE | 2021-04-10 10:13 | P.PN ---
Subjective Progress Note Date: 04/10/21 Principal diagnosis: Symptomatic multivessel coronary artery disease, non-ST elevated myocardial infarction this admission. Past medical history significant for hypertension, dyslipidemia, morbid obesity with a BMI of 41.8 kg/m, paroxysmal atrial fibrillation, history of nonmalignant brain meningioma, status post removal of brain meningioma, remote history of MRSA infection to his left leg, remote history of nicotine dependence quit smoking in 1984, asthma and osteoarthritis. The patient is seen in follow-up today at his bedside on the cardiac stepdown unit. Currently he is sitting up to the bedside chair, is awake, alert and oriented 3. Denies any further complaints of chest pain or shortness of breath. Continues on a heparin drip per protocol. Oxygen saturation are 95% on room air and he is achieving 5000 mL on his incentive spirometry with encouragement. Bedside FEV1 was completed yesterday which showed a 90% of predicted value. Preoperative testing is in progress and preoperative teaching reinforced with the patient. Dr. Esquivel met with the patient yesterday, discussed the findings on his cardiac catheterization films with the patient and discussed treatment options including myocardial revascularization. Risks and benefits of myocardial revascularization surgery were discussed and knowing and understanding the risks the patient wished to proceed with the surgical option. A 5 m walk test was completed with the patient this morning with time 1 showing 3.86 seconds, time 2: 3.56 seconds, time 3: 3.90 seconds. He is tentatively scheduled for myocardial revascularization surgery on 04/14/2021 with [place], left radial artery and EVH. Objective - Vital Signs Vital signs: Vital Signs Temp 98.4 F 04/10/21 04:00 Pulse 77 04/10/21 04:00 Resp 16 04/10/21 04:00 BP 120/63 04/10/21 04:00 Pulse Ox 95 04/10/21 04:00 Intake & Output 04/09/21 04/10/21 04/10/21 18:59 06:59 18:59 Intake Total 1920.833 529.675 120 Balance 1920.833 529.675 120 Weight 135.9 kg 134.8 kg Intake: IV 100 Intake, IV Titration 320.833 289.675 Amount Heparin Sod,Pork in 0.45% 180.833 209.675 NaCl 25,000 unit In 0.45 % NaCl 1 250ml.bag @ 7. 3487 UNITS/KG/HR 10 mls/ hr IV .Q24H [facility] Rx#: [id number] Sodium Chloride 0.9% 1, 80 000 ml @ 20 mls/hr IV . Q24H [facility] Rx#:[id number] Sodium Chloride 0.9% 1, 140 000 ml In Empty Bag 1 bag @ 1 ML/KG/HR 135.9 mls/ hr IV .Q7H22M [facility] Rx#: [id number] Oral 1500 240 120 Other: Voiding Method Toilet Toilet # Voids 3 2 - Constitutional General appearance: Present: cooperative, morbidly obese, no acute distress - EENT Eyes: Present: PERRLA, normal appearance. Absent: scleral icterus ENT: Present: hearing grossly normal - Neck Details: Neck is supple, no JVD, no lymphadenopathy. Neck: Absent: lymphadenopathy - Respiratory Details: Lung sounds essentially clear throughout. Respirations are symmetrical and nonlabored. Achieving 5000 mL on his incentive spirometry. Oxygen saturation is 95% on room air. - Cardiovascular Details: Regular rhythm and rate. S1 and S2 present, negative for S3, gallop or murmur. +1 edema to his bilateral lower extremities. Remote telemetry showing normal sinus rhythm heart rate 72 BPM. - Gastrointestinal Gastrointestinal Comment(s): Abdomen is soft, nontender and nondistended. Active bowel sounds present in all 4 abdominal quadrants. No guarding or rigidity. No organomegaly appreciated. Morbidly obese. Tolerating oral intake. - Genitourinary Genitourinary Comment(s): Continues to void. - Integumentary Integumentary Comment(s): Skin is warm and dry. No clubbing or cyanosis is present. No rash or abnormal pigmentation is present. - Neurologic Neurologic: Present: CNII-XII intact. Absent: focal deficits - Musculoskeletal Musculoskeletal: Present: gait normal, strength equal bilaterally - Psychiatric Psychiatric: Present: A&O x's 3, appropriate affect, intact judgment & insight - Allied health notes Allied health notes reviewed: nursing (Carotid duplex study results reviewed.) - Labs CBC & Chem 7: 04/09/21 02:46 04/08/21 19:57 Labs: Abnormal Lab Results - Last 24 Hours (Table) 04/09/21 04/09/21 04/09/21 Range/Units 02:46 10:51 17:44 APTT 37.6 H 30.1 H (22.0-30.0) sec Triglycerides 276.0 H (0.0-149.0) mg/dL VLDL Cholesterol, Calc 55.20 H (5.00-40.00) mg/dL HDL Cholesterol 28.0 L (40.0-60.0) mg/dL 04/10/21 04/10/21 Range/Units 00:33 07:01 APTT 35.4 H 51.4 H (22.0-30.0) sec Triglycerides (0.0-149.0) mg/dL VLDL Cholesterol, Calc (5.00-40.00) mg/dL HDL Cholesterol (40.0-60.0) mg/dL Assessment and Plan Assessment: 1. Symptomatic multivessel coronary artery disease 2. Chest pain with elevated troponins, non-ST elevated myocardial infarction this admission 3. Hypertension 4. Dyslipidemia 5. Remote history of paroxysmal atrial fibrillation, currently in normal sinus rhythm 6. Diet-controlled diabetes mellitus with a recent hemoglobin A1c of 6.9% 7. Morbid obesity with a BMI of 41.8 kg/m 8. History of intracranial tumor, meningioma status post surgery 9. Remote history of nicotine dependence, quit smoking in 1984 Plan: 1. Continue to maximize medical therapy with aspirin, statin, and beta josie. 2. Continue to encourage use of his incentive spirometry 10 times every hour while awake. 3. A 5 m walk test was completed with the patient today, time 1: 3.86 seconds, time 2: 3.56 seconds, time 3: 3.90 seconds. 4. Continue preoperative teaching, preoperative testing and progress. 5. Patient is tentatively scheduled for myocardial revascularization surgery with [place], left radial artery endoscopic harvesting and endoscopic vein harvest for 04/14/2021 to be performed by Dr. Tavia Esquivel. 6. Increase activity as tolerated. 7. Medical management per primary care service. 8. More recommendations to follow based on patient's clinical course. Time with Patient: Greater than 30
[2021-04-10] MEDS: traMADol 50 MG TAB PO PRN (13:01)
[2021-04-10 14:12] LABS: Hemoglobin A1C 6.6 % (4.0-6.0)
--- NOTE | 2021-04-10 20:08 | PN ---
PROGRESS NOTE DATE OF SERVICE: 04/10/2021. HISTORY: A 60-year-old gentleman who presented with a non-ST elevation [place], has significant triple-vessel disease and I advised aortocoronary bypass surgery. Dr. Esquivel has evaluated the patient and I got a text from him saying that he will proceed with surgery next Monday. PHYSICAL EXAM: Vitals are stable. No JVD. S1-S2 heard normally. Heart sounds are distant. Lungs are clear. Abdomen and lower extremity exam unchanged. Right radial site is clean and dry with a good pulse. This patient will be continued on current medical regimen and he will have aortocoronary bypass surgery next week. MMODL / IJN: [id number] /
[2021-04-10] MEDS: ATORVASTATIN 80 MG TAB PO SCH (20:24)
[2021-04-10] MEDS: SENNOSIDES 8.6 MG TAB PO SCH (20:24)
[2021-04-10] MEDS: SODIUM CHLORIDE 0.9% 1,000 ML IV SCH (20:25)
--- NOTE | 2021-04-10 20:38 | P.PN ---
Progress Note - Text Progress Note Date: 04/10/21 Chief Complaint: Chest pain History of presenting complaint: This is a 60-year-old patient of Dr. Jovi Persaud. Chronic stable medical conditions include atrial fibrillation, hypertension, obesity. Patient was baling hay and he developed left infraclavicular chest pain as somebody sitting there. The pain continued while he was doing the same. No radiation. Was a bit dizzy perspiration tired. Decided to come into the ER. Patient ruled in for an acute non-Q wave [place]. Was started on IV heparin. This morning patient went for a cardiac catheterization. Found to have severe triple-vessel disease. Cardiothoracic team's been consulted. Today: Laying in bed. No chest pain and breathing stable. Oral intake good. Review of systems: Was done for constitutional, cardiovascular, GI, pulmonary. relevant finding as above Active Medications Acetaminophen (Acetaminophen Tab 325 Mg Tab) 650 mg PO Q6HR PRN PRN Reason: Fever and/ or Pain Last Admin: 04/08/21 23:42 Dose: 650 mg Documented by: Albuterol Sulfate (Albuterol Nebulized 2.5 Mg/3 Ml) 2.5 mg INHALATION RT-Q4H PRN PRN Reason: Shortness Of Breath Alprazolam (Alprazolam 0.25 Mg Tab) 0.25 mg PO Q6HR PRN PRN Reason: Mild Anxiety Alprazolam (Alprazolam 0.5 Mg Tab) 0.5 mg PO Q6HR PRN PRN Reason: Moderate Anxiety Last Admin: 04/10/21 20:24 Dose: 0.5 mg Documented by: Aspirin (Aspirin 81 Mg) 81 mg PO DAILY [facility] Last Admin: 04/10/21 09:48 Dose: 81 mg Documented by: Atorvastatin Calcium (Atorvastatin 80 Mg Tab) 80 mg PO HS [facility] Last Admin: 04/10/21 20:24 Dose: 80 mg Documented by: Diltiazem HCl (Diltiazem Cd 180 Mg Cap.Er.24h) 180 mg PO DAILY [facility] Last Admin: 04/10/21 09:48 Dose: 180 mg Documented by: Famotidine (Famotidine 20 Mg Tab) 20 mg PO DAILY [facility] Last Admin: 04/10/21 09:49 Dose: 20 mg Documented by: Heparin Sodium (Porcine) (Heparin Sodium 1,000 Un/Ml (10ml Vl)) 0 unit IV PER PROTOCOL PRN; Protocol PRN Reason: Low PTT Hydrochlorothiazide (Hydrochlorothiazide 12.5 Mg Cap) 12.5 mg PO DAILY [facility] Last Admin: 04/10/21 09:49 Dose: 12.5 mg Documented by: Heparin Sodium/Sodium Chloride (25,000 unit/ Sodium Chloride) 250 mls @ 10 mls/hr IV .Q24H [facility]; Protocol Last Admin: 04/10/21 06:22 Dose: 14.34 units/kg/hr, 19.514 mls/hr Documented by: Sodium Chloride (Saline 0.9%) 1,000 mls @ 20 mls/hr IV .Q24H [facility] Last Admin: 04/10/21 20:25 Dose: 20 mls/hr Documented by: Losartan Potassium (Losartan 50 Mg Tab) 50 mg PO DAILY [facility] Last Admin: 04/10/21 09:48 Dose: 50 mg Documented by: Metoprolol Tartrate (Metoprolol Tartrate 50 Mg Tab) 50 mg PO BID [facility] Last Admin: 04/10/21 20:24 Dose: 50 mg Documented by: Mupirocin (Mupirocin 2% Oint 22 Gm Tube) 1 applic NASAL BID [facility] Stop: 04/14/21 21:01 Last Admin: 04/10/21 20:25 Dose: 1 applic Documented by: Nitroglycerin (Nitroglycerin Oint 1 Inch/Gm Packet) 1 inch TOPICAL Q6HR [facility] Last Admin: 04/10/21 18:33 Dose: Not Given Documented by: Nitroglycerin (Nitroglycerin Sl Tabs 0.4 Mg Tab) 0.4 mg SUBLINGUAL Q5M PRN PRN Reason: Chest Pain Senna (Sennosides 8.6 Mg Tab) 8.6 mg PO HS [facility] Last Admin: 04/10/21 20:24 Dose: 8.6 mg Documented by: Tramadol HCl (Tramadol 50 Mg Tab) 50 mg PO QID PRN PRN Reason: Pain Last Admin: 04/10/21 13:01 Dose: 50 mg Documented by: Past medical history to include: Atrial fibrillation, hypertension, 1 seizure in 1997, nonmalignant meningioma of the brain, carotid history of atrial fibrillation, recent MRSA infection of the right forearm Social history: Patient smoked a pack a day stopped in 1984. Alcohol rarely. Family history: Atrial fibrillation, breast cancer Physical examination: VITAL SIGNS: Afebrile, 84, 18, 147/76, 95% room air GENERAL: BMI 41.8, reclining in bed, awake. EYES: Pupils equal. Conjunctiva normal. NECK: JVD not raised; masses not palpable. HEART: First and second heart sounds are normal; no edema. LUNGS: Respiratory rate normal; clear to auscultation. ABDOMEN: Soft, nontender, liver spleen not palpable, no masses palpable. PSYCH: Alert and oriented x3; mood and affect normal. INVESTIGATIONS, reviewed in the clinical context: Hemoglobin A1c 6.6. Hepatitis screen negative. UA negative WBC 7.1 hemoglobin 14.9 platelets 200 potassium 4.1 creatinine 0.7 to Troponin I 0.053, 0.163, 0.179 LDL 90 triglycerides 276 HDL 28 Coronavirus [PCR]: Not detected EKG tracing personally reviewed by me-normal sinus rhythm, Chest x-ray film personally reviewed by me-no infiltrate 2-D echocardiogram: EF 55-60% mild concentric LVH Assessment and plan: -Acute non-Q wave [place] Patient is put on aspirin, IV heparin, Lopressor, Cozaar -Severe triple-vessel coronary artery disease per cardiac catheterization-slow to respond Cardiothoracic surgery -coronary bypass scheduled for next Monday -Morbid obesity BMI 41.8 Dietitian -Essential hypertension On Cardizem CD, Lopressor -Hyperlipidemia Lipitor 80 mg daily at bedtime -IV heparin monitoring Follow PtT Care discussed with the patient and at the bedside. Continue current medications. Surgery scheduled for next Monday.
[2021-04-11] MEDS: NITROGLYCERIN OINT 1 INCH/GM PACKET TOPICAL SCH ×5 (00:53→22:37)
[2021-04-11] MEDS: HEPARIN SOD,PORK IN 0.45% NACL 25,000 UNIT in 0.45% NACL 1 250ML.BAG IV SCH (06:18)
[2021-04-11 06:48] LABS: Basophils % (A) 1 %; Eosinophils # (A) 0.3 k/uL (0-0.7); Eosinophils % (A) 6 %; HCT 41.8 % (39.0-53.0); HGB 14.2 gm/dL (13.0-17.5); Lymphocytes # (A) 1.6 k/uL (1.0-4.8); Lymphocytes % (A) 30 %; MCH 30.1 pg (25.0-35.0); MCHC 33.9 g/dL (31.0-37.0); MCV 88.8 fL (80.0-100.0); Monocytes # (A) 0.3 k/uL (0-1.0); Monocytes % (A) 6 %; Neutrophils # (A) 3.1 k/uL (1.3-7.7); Neutrophils % (A) 56 %; Platelet Count 176 k/uL (150-450); RBC 4.71 m/uL (4.30-5.90); RDW 13.1 % (11.5-15.5); WBC 5.6 k/uL (3.8-10.6)
[2021-04-11 07:04] LABS: African American GFR (CKD) >90 (>60 ml/min/1.73 sqM); Anion Gap 5 mmol/L; Blood Urea Nitrogen 13 mg/dL (9-20); Calcium 9.3 mg/dL (8.4-10.2); Carbon Dioxide 29 mmol/L (22-30); Chloride 106 mmol/L (98-107); Glucose 140 mg/dL (74-99); Non-African American GFR(CKD) >90 (>60 ml/min/1.73 sqM); Sodium 140 mmol/L (137-145)
[2021-04-11] MEDS: hydroCHLOROthiazide 12.5 MG CAP PO SCH (09:41)
[2021-04-11] MEDS: ASPIRIN 81 MG PO SCH (09:42)
[2021-04-11] MEDS: LOSARTAN 50 MG TAB PO SCH (09:42)
[2021-04-11] MEDS: traMADol 50 MG TAB PO PRN ×3 (09:42→17:57)
[2021-04-11] MEDS: METOPROLOL TARTRATE 50 MG TAB PO SCH ×2 (09:43→20:22)
[2021-04-11] MEDS: FAMOTIDINE 20 MG TAB PO SCH (09:43)
[2021-04-11] MEDS: DILTIAZEM CD 180 MG CAP.ER.24H PO SCH (09:43)
[2021-04-11] MEDS: MUPIROCIN 2% OINT 22 GM TUBE NASAL SCH ×2 (09:43→22:32)
--- NOTE | 2021-04-11 11:06 | P.PN ---
Subjective Progress Note Date: 04/11/21 Principal diagnosis: Symptomatic multivessel coronary artery disease, non-ST elevated myocardial infarction this admission. Past medical history significant for hypertension, dyslipidemia, morbid obesity with a BMI of 41.8 kg/m, paroxysmal atrial fibrillation, history of nonmalignant brain meningioma, status post removal of brain meningioma, remote history of MRSA infection to his left leg, remote history of nicotine dependence quit smoking in 1984, asthma and osteoarthritis. The patient is seen in follow-up today 04/11/2021 at his bedside on the cardiac stepdown unit. Currently he is sitting up to the bedside chair, is awake, alert and oriented 3. Denies any further complaints of chest pain or shortness of breath. Continues on a heparin drip per protocol. Oxygen saturation are 95% on room air and he is achieving 5000 mL on his incentive spirometry with encou ragement. Preoperative teaching reinforced with the patient and his questions were answered to the best my ability. He is tentatively scheduled for myocardial revascularization surgery on 04/14/2021 with [place], left radial artery endoscopic harvesting and endoscopic vein harvest. He reports he's been up ambulating in the cardiac stepdown unit Hallway without difficulty. MRSA/MSSA nasal screening results remain pending. The patient remains afebrile. Objective - Vital Signs Vital signs: Vital Signs Temp 98.3 F 04/11/21 08:00 Pulse 89 04/11/21 08:00 Resp 18 04/11/21 08:00 BP 159/99 04/11/21 08:00 Pulse Ox 95 04/11/21 08:00 Intake & Output 04/10/21 04/11/21 04/11/21 18:59 06:59 18:59 Intake Total 356 699.125 220 Balance 356 699.125 220 Weight 139.5 kg Intake: Intake, IV Titration 459.125 Amount Heparin Sod,Pork in 0.45% 459.125 NaCl 25,000 unit In 0.45 % NaCl 1 250ml.bag @ 7. 3487 UNITS/KG/HR 10 mls/ hr IV .Q24H [facility] Rx#: [id number] Oral 356 240 220 Other: Voiding Method Toilet # Voids 4 2 - Exam CONSTITUTIONAL: Sitting up to the bedside chair on the cardiac stepdown unit, appears comfortable, cooperative, no apparent acute distress. HEENT: Neck is supple, no JVD, no lymphadenopathy. RESPIRATORY: Lungs sounds essentially clear throughout. Respirations are symmetrical and nonlabored. Currently on room air with oxygen saturations 95%. Achieving 5000 mL on his incentive spirometry. Strong cough. CARDIOVASCULAR: Regular rhythm and rate. S1 and S2 present, negative for S3, gallop or murmur. Palpable peripheral pulses bilaterally, no edema. No calf pain or tenderness noted. Remote telemetry showing normal sinus rhythm heart rate 94 BPM. GASTROINTESTINAL: Abdomen soft, nontender, nondistended. No organomegaly appreciated. Active bowel sounds present 4 quadrants. Tolerating diet. No guarding or rigidity. GENITOURINARY: Continues to void. INTEGUMENTARY: Skin is warm and dry with no evidence of clubbing or cyanosis. NEUROLOGIC: Cranial nerves II through XII intact. No focal deficits. MUSKULOSKELETAL: Able to move all extremities, strength equal bilaterally. PSYCHIATRIC: Alert and oriented to person place and time, flat affect, intact judgment and insight. - Labs CBC & Chem 7: 04/11/21 06:14 04/11/21 06:14 Labs: Abnormal Lab Results - Last 24 Hours (Table) 04/10/21 04/11/21 04/11/21 Range/Units 07:01 06:14 06:14 APTT 67.8 H (22.0-30.0) sec Creatinine 0.62 L (0.66-1.25) mg/dL Glucose 140 H (74-99) mg/dL Hemoglobin A1c 6.6 H (4.0-6.0) % Assessment and Plan Assessment: 1. Symptomatic multivessel coronary artery disease 2. Chest pain with elevated troponins, non-ST elevated myocardial infarction this admission 3. Hypertension 4. Dyslipidemia 5. Remote history of paroxysmal atrial fibrillation, currently in normal sinus rhythm 6. Diet-controlled diabetes mellitus with a recent hemoglobin A1c of 6.9% 7. Morbid obesity with a BMI of 41.8 kg/m 8. History of intracranial tumor, meningioma status post surgery 9. Remote history of nicotine dependence, quit smoking in 1984 Plan: 1. Continue to maximize medical therapy with aspirin, statin, and beta josie. 2. Continue to encourage use of his incentive spirometry 10 times every hour while awake. 3. MRSA/MSSA nasal screen results pending. 4. Continue preoperative teaching, questions answered to the best of my ability. 5. Patient is tentatively scheduled for myocardial revascularization surgery with [place], left radial artery endoscopic harvesting and endoscopic vein harvest for 04/14/2021 to be performed by Dr. Tavia Esquivel. 6. Increase activity as tolerated. 7. Heparin drip per protocol managed by cardiology. 8. Medical management per primary care service. 9. More recommendations to follow based on patient's clinical course. Time with Patient: Greater than 30
--- NOTE | 2021-04-11 13:56 | P.PN ---
Progress Note - Text Progress Note Date: 04/11/21 Chief Complaint: Chest pain History of presenting complaint: This is a 60-year-old patient of Dr. Jovi Persaud. Chronic stable medical conditions include atrial fibrillation, hypertension, obesity. Patient was baling hay and he developed left infraclavicular chest pain as somebody sitting there. The pain continued while he was doing the same. No radiation. Was a bit dizzy perspiration tired. Decided to come into the ER. Patient ruled in for an acute non-Q wave [place]. Was started on IV heparin. This morning patient went for a cardiac catheterization. Found to have severe triple-vessel disease. Cardiothoracic team's been consulted. Coronary bypass scheduled for next Monday Today: Up in a chair. On IV heparin. No chest pain or shortness of breath. Review of systems: Was done for constitutional, cardiovascular, GI, pulmonary. relevant finding as above Active Medications Acetaminophen (Acetaminophen Tab 325 Mg Tab) 650 mg PO Q6HR PRN PRN Reason: Fever and/ or Pain Last Admin: 04/08/21 23:42 Dose: 650 mg Documented by: Albuterol Sulfate (Albuterol Nebulized 2.5 Mg/3 Ml) 2.5 mg INHALATION RT-Q4H PRN PRN Reason: Shortness Of Breath Alprazolam (Alprazolam 0.25 Mg Tab) 0.25 mg PO Q6HR PRN PRN Reason: Mild Anxiety Alprazolam (Alprazolam 0.5 Mg Tab) 0.5 mg PO Q6HR PRN PRN Reason: Moderate Anxiety Last Admin: 04/10/21 20:24 Dose: 0.5 mg Documented by: Aspirin (Aspirin 81 Mg) 81 mg PO DAILY [facility] Last Admin: 04/11/21 09:42 Dose: 81 mg Documented by: Atorvastatin Calcium (Atorvastatin 80 Mg Tab) 80 mg PO HS [facility] Last Admin: 04/10/21 20:24 Dose: 80 mg Documented by: Diltiazem HCl (Diltiazem Cd 180 Mg Cap.Er.24h) 180 mg PO DAILY [facility] Last Admin: 04/11/21 09:43 Dose: 180 mg Documented by: Famotidine (Famotidine 20 Mg Tab) 20 mg PO DAILY [facility] Last Admin: 04/11/21 09:43 Dose: 20 mg Documented by: Heparin Sodium (Porcine) (Heparin Sodium,Porcine/Pf 5,000 Unit/0.5 Ml Syringe) 5,000 unit SQ Q8HR [facility] Hydrochlorothiazide (Hydrochlorothiazide 12.5 Mg Cap) 12.5 mg PO DAILY [facility] Last Admin: 04/11/21 09:41 Dose: 12.5 mg Documented by: Sodium Chloride (Saline 0.9%) 1,000 mls @ 50 mls/hr IV .Q20H [facility] Last Admin: 04/10/21 20:25 Dose: 20 mls/hr Documented by: Losartan Potassium (Losartan 50 Mg Tab) 50 mg PO DAILY [facility] Last Admin: 04/11/21 09:42 Dose: 50 mg Documented by: Metoprolol Tartrate (Metoprolol Tartrate 50 Mg Tab) 50 mg PO BID [facility] Last Admin: 04/11/21 09:43 Dose: 50 mg Documented by: Mupirocin (Mupirocin 2% Oint 22 Gm Tube) 1 applic NASAL BID [facility] Stop: 04/14/21 21:01 Last Admin: 04/11/21 09:43 Dose: 1 applic Documented by: Nitroglycerin (Nitroglycerin Oint 1 Inch/Gm Packet) 1 inch TOPICAL Q6HR [facility] Last Admin: 04/11/21 10:55 Dose: Not Given Documented by: Nitroglycerin (Nitroglycerin Sl Tabs 0.4 Mg Tab) 0.4 mg SUBLINGUAL Q5M PRN PRN Reason: Chest Pain Senna (Sennosides 8.6 Mg Tab) 8.6 mg PO HS [facility] Last Admin: 04/10/21 20:24 Dose: 8.6 mg Documented by: Tramadol HCl (Tramadol 50 Mg Tab) 50 mg PO QID PRN PRN Reason: Pain Last Admin: 04/11/21 09:42 Dose: 50 mg Documented by: Past medical history to include: Atrial fibrillation, hypertension, 1 seizure in 1997, nonmalignant meningioma of the brain, carotid history of atrial fibrillation, recent MRSA infection of the right forearm Social history: Patient smoked a pack a day stopped in 1984. Alcohol rarely. Family history: Atrial fibrillation, breast cancer Physical examination: VITAL SIGNS: 98.3, 89, 18, 159 bun 99, 95% room air GENERAL: Awake planning a chair, comfortable EYES: Pupils equal. Conjunctiva normal. NECK: JVD not raised; masses not palpable. HEART: First and second heart sounds are normal; no edema. LUNGS: Respiratory rate normal; clear to auscultation. ABDOMEN: Soft, nontender, liver spleen not palpable, no masses palpable. PSYCH: Alert and oriented x3; mood and affect normal. INVESTIGATIONS, reviewed in the clinical context: April 11: WBC 5.6 hemoglobin 14.2 potassium 4 creatinine 0.62 Hemoglobin A1c 6.6. Hepatitis screen negative. UA negative WBC 7.1 hemoglobin 14.9 platelets 200 potassium 4.1 creatinine 0.7 to Troponin I 0.053, 0.163, 0.179 LDL 90 triglycerides 276 HDL 28 Coronavirus [PCR]: Not detected EKG tracing personally reviewed by me-normal sinus rhythm, Chest x-ray film personally reviewed by me-no infiltrate 2-D echocardiogram: EF 55-60% mild concentric LVH Assessment and plan: -Acute non-Q wave [place] Patient is put on aspirin, IV heparin, Lopressor, Cozaar -Severe triple-vessel coronary artery disease per cardiac catheterization-slow to respond Cardiothoracic surgery -coronary bypass scheduled for Monday -Morbid obesity BMI 41.8 Dietitian -Essential hypertension On Cardizem CD, Lopressor -Hyperlipidemia Lipitor 80 mg daily at bedtime -IV heparin monitoring Follow PtT Care discussed with the patient. Continue current medications. IV heparin. CABG this Monday
--- NOTE | 2021-04-11 14:57 | PN ---
PROGRESS NOTE Mr. Jimenez is a gentleman who came in with a non ST elevation [place], has significant triple-vessel disease involving LAD, diagonal, circumflex, marginal and RCA. I am recommending aortocoronary bypass surgery. Patient was seen and evaluated by Dr. Esquivel, who felt he will he will proceed with bypass surgery on Monday. We will switch him from IV to subcu heparin. Same medications, increase activity. EXAMINATION: Vitals are stable, no JVD. S1-S2 heard normally. Heart sounds are distantly. Lungs are clear. Abdomen and lower extremity exam are unchanged. MMODL / IJN: [id number] /
[2021-04-11] MEDS: HEPARIN SODIUM,PORCINE/PF 5,000 UNIT/0.5 ML SYRINGE SQ SCH ×2 (17:57→22:33)
[2021-04-11] MEDS: ATORVASTATIN 80 MG TAB PO SCH (20:23)
[2021-04-11] MEDS: SODIUM CHLORIDE 0.9% 1,000 ML IV SCH (22:33)
[2021-04-11] MEDS: SENNOSIDES 8.6 MG TAB PO SCH (22:33)
[2021-04-11] MEDS: ALPRAZolam 0.5 MG TAB PO PRN (22:33)
[2021-04-12] MEDS: NITROGLYCERIN OINT 1 INCH/GM PACKET TOPICAL SCH (05:21)
--- NOTE | 2021-04-12 08:00 | P.PN ---
Subjective Progress Note Date: 04/12/21 Principal diagnosis: Symptomatic multivessel coronary artery disease, non-ST elevated myocardial infarction this admission. Past medical history significant for hypertension, dyslipidemia, morbid obesity with a BMI of 41.8 kg/m, paroxysmal atrial fibrillation, history of nonmalignant brain meningioma, status post removal of brain meningioma, remote history of MRSA infection to his left leg, remote history of nicotine dependence quit smoking in 1984, asthma and osteoarthritis. The patient is seen in follow-up today 04/12/2021 at his bedside on the cardiac stepdown unit. Currently he is laying in bed, is awake, alert and oriented 3. Denies any further complaints of chest pain or shortness of breath. The heparin drip has been discontinued by cardiology and is currently on heparin subcu. Oxygen saturation are 96% on room air and he is achieving 5000 mL on his inc entive spirometry with encouragement. Preoperative teaching reinforced with the patient and his questions were answered to the best my ability. He is tentatively scheduled for myocardial revascularization surgery on 04/14/2021 with [place], left radial artery endoscopic harvesting and endoscopic vein harvest. He reports he's been up ambulating in the cardiac stepdown unit Hallway without difficulty. MRSA/MSSA nasal screening results remain pending. The patient remains afebrile. He reports he has been up ambulating in the cardiac stepdown unit hallway several times per day. Objective - Vital Signs Vital signs: Vital Signs Temp 98.6 F 04/12/21 03:34 Pulse 60 04/12/21 03:34 Resp 16 04/12/21 03:34 BP 140/90 04/12/21 03:34 Pulse Ox 96 04/12/21 03:34 Intake & Output 04/11/21 04/12/21 04/12/21 18:59 06:59 18:59 Intake Total 460 Balance 460 Weight 133.5 kg Intake: Oral 460 Other: Voiding Method Toilet # Voids 3 1 1 # Bowel Movements 1 - Exam CONSTITUTIONAL: Laying in bed on the cardiac stepdown unit, appears comfortable, cooperative, no apparent acute distress. HEENT: Neck is supple, no JVD, no lymphadenopathy. RESPIRATORY: Lungs sounds essentially clear throughout. Respirations are s ymmetrical and nonlabored. Currently on room air with oxygen saturations 96%. Achieving 5000 mL on his incentive spirometry. Strong cough. CARDIOVASCULAR: Regular rhythm and rate. S1 and S2 present, negative for S3, gallop or murmur. Palpable peripheral pulses bilaterally, no edema. No calf p ain or tenderness noted. Remote telemetry showing normal sinus rhythm heart rate 69 BPM. GASTROINTESTINAL: Abdomen soft, nontender, nondistended. No organomegaly appreciated. Active bowel sounds present 4 quadrants. Tolerating diet. No guarding or rigidity. GENITOURINARY: Continues to void. INTEGUMENTARY: Skin is warm and dry with no evidence of clubbing or cyanosis. NEUROLOGIC: Cranial nerves II through XII intact. No focal deficits. MUSKULOSKELETAL: Able to move all extremities, strength equal bilaterally. PSYCHIATRIC: Alert and oriented to person place and time, flat affect, intact judgment and insight. - Labs CBC & Chem 7: 04/11/21 06:14 04/11/21 06:14 Labs: Microbiology - Last 24 Hours (Table) 04/11/21 14:00 Nasal Screen MRSA/MSSA - Preliminary Nasal Swab Assessment and Plan Assessment: 1. Symptomatic multivessel coronary artery disease 2. Chest pain with elevated troponins, non-ST elevated myocardial infarction this admission 3. Hypertension 4. Dyslipidemia 5. Remote history of paroxysmal atrial fibrillation, currently in normal sinus rhythm 6. Diet-controlled diabetes mellitus with a recent hemoglobin A1c of 6.9% 7. Morbid obesity with a BMI of 41.8 kg/m 8. History of intracranial tumor, meningioma status post surgery 9. Remote history of nicotine dependence, quit smoking in 1984 Plan: 1. Continue to maximize medical therapy with aspirin, statin, and beta josie. 2. Continue to encourage use of his incentive spirometry 10 times every hour while awake. 3. MRSA/MSSA nasal screen results remain pending. 4. Continue preoperative teaching, questions answered to the best of my abili ty. 5. Patient is tentatively scheduled for myocardial revascularization surgery with [place], left radial artery endoscopic harvesting and endoscopic vein harvest for 04/14/2021 to be performed by Dr. Tavia Esquivel. 6. Increase activity as tolerated. 7. Continue heparin subcu 5000 units every 8 hours. 8. Medical management per primary care service. 9. More recommendations to follow based on patient's clinical course. Time with Patient: Greater than 30
[2021-04-12] MEDS ORDERED: MD COMMUNICATION TO PHARMACY 1 EACH MISC PO ONE ×4 (08:15→08:45)
[2021-04-12] MEDS: HEPARIN SODIUM,PORCINE/PF 5,000 UNIT/0.5 ML SYRINGE SQ SCH ×3 (09:28→22:13)
[2021-04-12] MEDS: FAMOTIDINE 20 MG TAB PO SCH (09:28)
[2021-04-12] MEDS: METOPROLOL TARTRATE 50 MG TAB PO SCH ×2 (09:28→20:06)
[2021-04-12] MEDS: MUPIROCIN 2% OINT 22 GM TUBE NASAL SCH ×2 (09:28→22:12)
[2021-04-12] MEDS: ASPIRIN 81 MG PO SCH (09:28)
[2021-04-12] MEDS: hydroCHLOROthiazide 12.5 MG CAP PO SCH (09:28)
[2021-04-12] MEDS: traMADol 50 MG TAB PO PRN ×2 (09:32→19:12)
--- NOTE | 2021-04-12 12:07 | P.PN ---
Subjective This is a pleasant 60-year-old male who presented to the hospital with a non-ST elevated myocardial infarction. Subsequent cardiac catheterization revealed severe triple-vessel disease with a dominant RCA. He is scheduled to undergo bypass grafting Monday. He is seen and examined sitting up in bed in no acute distress. He has been up ambulating in the halls without symptoms of chest pain or shortness of breath. 140/90 heart rate 60 afebrile maintaining oxygen saturation on room air. Echocardiogram obtained on this admission reveals preserved LV systolic function with ejection fraction 55-60%, mild MR and mild TR. GENERAL: Well-appearing, well-nourished and in no acute distress. NECK: Supple without JVD or thyromegaly. LUNGS: Breath sounds clear to auscultation bilaterally. Respiration equal and unlabored. No wheezes, rales or rhonchi. HEART: Regular rate and rhythm without murmurs, rubs or gallops. S1 and S2 heard . EXTREMITIES: Normal range of motion, no edema. No clubbing or cyanosis. Peripheral pulses intact. ASSESSMENT Non-ST elevated myocardial infarction Severe triple-vessel disease Hypertension Diabetes mellitus Dyslipidemia Morbid obesity, BMI 41 PLAN Continue current medical regimen. Encourage use of incentive spirometer while awake. Continue ambulation in the halls as tolerated. Cardizem and losartan has been held per CT surgery due to impending procedure. Continue to monitor blood pressures and we make adjustments accordingly. Further recommendations to follow based on clinical course. Nurse Practitioner note has been reviewed, I agree with a documented findings and plan of care. Patient was seen and examined. Objective - Vital Signs Vital signs: Vital Signs Temp 98.6 F 04/12/21 03:34 Pulse 60 04/12/21 03:34 Resp 16 04/12/21 03:34 BP 140/90 04/12/21 03:34 Pulse Ox 96 04/12/21 03:34 Intake & Output 04/11/21 04/12/21 04/12/21 18:59 06:59 18:59 Intake Total 460 560 Balance 460 560 Weight 133.5 kg Intake: Oral 460 560 Other: Voiding Method Toilet # Voids 3 1 1 # Bowel Movements 1 - Labs CBC & Chem 7: 04/11/21 06:14 04/11/21 06:14 Labs: Microbiology - Last 24 Hours (Table) 06/27/21 14:00 Nasal Screen MRSA/MSSA - Preliminary Nasal Swab
[2021-04-12] MEDS: SODIUM CHLORIDE 0.9% 1,000 ML IV SCH (18:57)
[2021-04-12] MEDS: ATORVASTATIN 80 MG TAB PO SCH (20:06)
[2021-04-12] MEDS: SENNOSIDES 8.6 MG TAB PO SCH (22:12)
[2021-04-12] MEDS: ALPRAZolam 0.5 MG TAB PO PRN (22:13)
--- NOTE | 2021-04-12 22:58 | P.PN ---
Subjective Progress Note Date: 04/12/21 Principal diagnosis: non-ST elevated OR This is a 60-year-old patient of Dr. Jovi Persaud. Chronic stable medical conditions include atrial fibrillation, hypertension, obesity. Patient was baling hay and he developed left infraclavicular chest pain as somebody sitting there. The pain continued while he was doing the same. No radiation. Was a bit dizzy perspiration tired. Decided to come into the ER. Patient ruled in for an acute non-Q wave OR. Was started on IV heparin. This morning patient went for a cardiac catheterization. Found to have severe triple-vessel disease. Cardiothoracic team's been consulted. Coronary bypass scheduled for next Monday04/04/2021 Patient was admitted to the hospital due to non-ST elevated OR. Status post cardiac catheterization showed 2+ conditions. Scheduled for coronary to progress graft on Monday. Currently resting in the bed comfortably. No complaints of chest pain or shortness of breath. 2D echocardiogram showed ejection fraction 55 to 60% and mild MR and TR. Denies any nausea vomiting or abdominal pain or diarrhea. Cardiology and CT surgery is on board. Current medications reviewed. Objective - Vital Signs Vital signs: Vital Signs Temp 97.3 F L 04/12/21 16:00 Pulse 89 04/12/21 16:00 Resp 17 04/12/21 16:00 BP 142/84 04/12/21 16:00 Pulse Ox 97 04/12/21 16:00 Intake & Output 04/12/21 04/12/21 04/13/21 06:59 18:59 06:59 Intake Total 2240 Balance 2240 Weight 133.5 kg Intake: Intake, IV Titration 400 Amount Sodium Chloride 0.9% 1, 400 000 ml @ 50 mls/hr IV . Q20H [facility] Rx#:[id number] Oral 1840 Other: Voiding Method Toilet Toilet # Voids 1 4 - Exam GENERAL: Awake planning a chair, comfortable EYES: Pupils equal. Conjunctiva normal. NECK: JVD not raised; masses not palpable. HEART: First and second heart sounds are normal; no edema. LUNGS: Respiratory rate normal; clear to auscultation. ABDOMEN: Soft, nontender, liver spleen not palpable, no masses palpable. PSYCH: Alert and oriented x3; mood and affect normal. - Labs CBC & Chem 7: 04/11/21 06:14 04/11/21 06:14 Labs: Microbiology - Last 24 Hours (Table) 04/11/21 14:00 Nasal Screen MRSA/MSSA - Final Nasal Swab Assessment and Plan Assessment: Assessment and plan: -Acute non-Q wave OR Patient is put on aspirin, IV heparin, Lopressor, Cozaar -Severe triple-vessel coronary artery disease per cardiac catheterization-slow to respond Cardiothoracic surgery -coronary bypass scheduled for Monday -Morbid obesity BMI 41.8 Dietitian -Essential hypertension On Cardizem CD, Lopressor -Hyperlipidemia Lipitor 80 mg daily at bedtime -IV heparin monitoring Follow PtT Care discussed with the patient. Continue current medications. IV heparin. CABG this Monday Cardizem and losartan on hold prior to surgery as per CT surgery. Time with Patient: Greater than 30
[2021-04-13 08:05] LABS: Basophils # (A) 0.1 k/uL (0-0.2); Basophils % (A) 1 %; Eosinophils # (A) 0.3 k/uL (0-0.7); Eosinophils % (A) 6 %; HCT 43.6 % (39.0-53.0); HGB 15.4 gm/dL (13.0-17.5); Lymphocytes # (A) 1.2 k/uL (1.0-4.8); Lymphocytes % (A) 23 %; MCHC 35.2 g/dL (31.0-37.0); Mean Platelet Volume 7.2; Monocytes # (A) 0.4 k/uL (0-1.0); Monocytes % (A) 7 %; Neutrophils # (A) 3.2 k/uL (1.3-7.7); Neutrophils % (A) 62 %; Platelet Count 168 k/uL (150-450); RBC 4.96 m/uL (4.30-5.90); RDW 12.8 % (11.5-15.5); WBC 5.2 k/uL (3.8-10.6)
[2021-04-13] MEDS: traMADol 50 MG TAB PO PRN ×2 (08:10→14:47)
[2021-04-13] MEDS: FAMOTIDINE 20 MG TAB PO SCH (08:11)
[2021-04-13] MEDS: HEPARIN SODIUM,PORCINE/PF 5,000 UNIT/0.5 ML SYRINGE SQ SCH ×2 (08:11→14:48)
[2021-04-13] MEDS: ASPIRIN 81 MG PO SCH (08:11)
[2021-04-13] MEDS: METOPROLOL TARTRATE 50 MG TAB PO SCH ×2 (08:11→21:10)
[2021-04-13] MEDS: hydroCHLOROthiazide 12.5 MG CAP PO SCH (08:11)
[2021-04-13] MEDS: MUPIROCIN 2% OINT 22 GM TUBE NASAL SCH ×2 (08:14→21:10)
[2021-04-13 08:27] LABS: African American GFR (CKD) >90 (>60 ml/min/1.73 sqM); Anion Gap 4 mmol/L; Blood Urea Nitrogen 16 mg/dL (9-20); Calcium 9.5 mg/dL (8.4-10.2); Carbon Dioxide 31 mmol/L (22-30); Chloride 104 mmol/L (98-107); Glucose 130 mg/dL (74-99); Non-African American GFR(CKD) >90 (>60 ml/min/1.73 sqM); Potassium 4.1 mmol/L (3.5-5.1); Sodium 139 mmol/L (137-145)
--- NOTE | 2021-04-13 09:59 | P.CNPUL ---
History of Present Illness Consult date: 04/13/21 Requesting physician: Tavia Esquivel Chief complaint: Non-ST elevated myocardial infarction, multivessel coronary artery disease History of present illness: This is a 60-year-old white male patient with past medical history of hypertension, hyperlipidemia, obesity, paroxysmal atrial fibrillation not on chronic anticoagulation, she is an ex-smoker, smoked for a total of 10 years, a pack a day, who came into the emergency department on 04/08/2021 for evaluation of chest pain. 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 Patient reported shortness of breath associated with the chest pain. Patient was also told that he has a borderline diabetic with his last hemoglobin A1c of 6.8- 6.9. His primary care provider is Dr. Jovi Persaud. Admission EKG showed sinus tachycardia with no ST elevation or depression. His labs showed elevated troponins that peaked at 0.179 with the third set. His initial chest x-ray showed no acute process. Echocardiogram showed normal EF of 55-60%, mild MR, mild TR, PA pressure of less than 35 mmHg. Patient was diagnosed with non-ST elevated myocardial infarction and underwent heart catheterization on 04/09/2021 that showed severe triple-vessel disease with a dominant RCA. The RCA was moderately calcified and tortuous with that 80% eccentric lesion distally. Left main was free of significant disease. LAD was also heavily calcified, with 70% stenosis after the diagonal and 80% lesion at the second diagonal. Left circumflex had a 95% stenosis. Aortocoronary bypass surgery was recommended, and there was a consult placed to Dr. Esquivel. Patient is currently undergoing preop evaluation. And we are consulted for pulmonary/critical care management. Patient is awake and alert, in no acute distress, patient has been ablating the halls, tolerating activity well, no complaints of chest pain. He denies any history of major lung disease. He states in the wintertime he may have some limited wheezing occasionally in response to cold air, denies any history of asthma, not on any chronic inhalers. His preop FEV1 was reviewed showing FEV1 of 3.27 L or 90% of predicted, FEV1 to FVC ratio of 75% of predicted, an MVV of 123 L, and patient has a normal lung function. Review of Systems All systems: negative Constitutional: Denies chills, Denies fever Eyes: denies blurred vision, denies pain Ears, nose, mouth and throat: Denies headache, Denies sore throat Cardiovascular: Reports chest pain, Denies shortness of breath Respiratory: Denies cough Gastrointestinal: Denies abdominal pain, Denies diarrhea, Denies nausea, Denies vomiting Musculoskeletal: Denies myalgias Integumentary: Denies pruritus, Denies rash Neurological: Denies numbness, Denies weakness Psychiatric: Denies anxiety, Denies depression Endocrine: Denies fatigue, Denies weight change Past Medical History Past Medical History: Atrial Fibrillation, Asthma, Chest Pain / Angina, Hyperlipidemia, Hypertension, Osteoarthritis (OA) Additional Past Medical History / Comment(s): 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 History of Any Multi-Drug Resistant Organisms: MRSA (Remote history of MRSA infection to his left lower extremity) Date of last positivie culture/infection: na MDRO Source:: RT [employer]E[facility] Past Surgical History: Cholecystectomy, Orthopedic Surgery Additional Past Surgical History / Comment(s): RT SHOULDER SX, craniotomy x2, R EMOVAL OF NON MALIGNANT BRAIN MENINGIOMA, left knee surgery Past Anesthesia/Blood Transfusion Reactions: No Reported Reaction Past Psychological History: No Psychological Hx Reported Smoking Status: Former smoker Past Alcohol Use History: Rare Additional Past Alcohol Use History / Comment(s): QUIT SMOKING 1984, SMOKED 1PPD Past Drug Use History: None Reported - Past Family History Sister(s) Family Medical History: AFIB Brother(s) Family Medical History: AFIB Mother Family Medical History: Cancer Additional Family Medical History / Comment(s): Breast CA Medications and Allergies Home Medications Medication Instructions Recorded Confirmed Type Diltiazem Cd [Cardizem CD] 180 mg PO DAILY #30 cap.er.24h 08/16/16 04/08/21 Rx Metoprolol Tartrate [Lopressor] 50 mg PO BID #60 tab 08/16/16 04/08/21 Rx Sennosides [Senna] 8.6 mg PO HS 06/21/18 04/08/21 History Famotidine [Pepcid] 20 mg PO DAILY #30 tablet 07/30/19 04/08/21 Rx ALPRAZolam [Xanax] 0.25 mg PO BID PRN 06/23/20 04/08/21 History Hydrochlorothiazide 12.5 mg PO DAILY 06/23/20 04/08/21 History [hydroCHLOROthiazide] Losartan [Cozaar] 50 mg PO DAILY 06/23/20 04/08/21 History traMADol HCL [Ultram] 50 mg PO QID PRN 06/23/20 04/08/21 History Albuterol Sulfate [Ventolin HFA] 1 - 2 puff INHALATION RT-Q4H PRN 04/08/21 04/08/21 History Rosuvastatin Calcium [Crestor] 5 mg PO HS 04/08/21 04/08/21 History Allergies Allergy/AdvReac Type Severity Reaction Status Date / Time morphine AdvReac Unknown Verified 04/08/21 21:13 Physical Exam Vitals: Vital Signs Temp Pulse Pulse Resp BP Pulse Ox 04/13/21 08:19 97.7 F 87 17 134/84 98 04/13/21 03:21 97.7 F 80 18 111/62 96 04/13/21 02:00 70 72 18 04/13/21 00:00 70 18 136/77 97 04/12/21 20:00 98.0 F 80 72 16 138/82 98 04/12/21 16:00 97.3 F L 89 17 142/84 97 04/12/21 14:00 89 17 04/12/21 12:00 97.8 F 68 18 139/82 95 Intake and Output 04/12/21 04/13/21 04/13/21 22:59 06:59 14:59 Intake Total 1440 Balance 1440 Intake: Intake, IV Titration 400 Amount Sodium Chloride 0.9% 1, 400 000 ml @ 50 mls/hr IV . Q20H [facility] Rx#:[id number] Oral 1040 Other: Voiding Method Toilet Toilet # Voids 4 1 Weight 132.4 kg GENERAL EXAM: Alert, active, comfortable in no apparent distress. HEAD: Normocephalic/atraumatic. EYES: Normal reaction of pupils, equal size. Conjunctiva pink, sclera white. NOSE: Clear with pink turbinates. THROAT: No erythema or exudates. NECK: No masses, no JVD, no thyroid enlargement, no adenopathy. CHEST: No chest wall deformity. Symmetrical expansion. LUNGS: Equal air entry with no crackles, wheeze, rhonchi or dullness. CVS: Regular rate and rhythm, normal S1 and S2, no gallops, no murmurs, no rubs ABDOMEN: Soft, nontender. No hepatosplenomegaly, normal bowel sounds, no guarding or rigidity. EXTREMITIES: No clubbing, no edema, no cyanosis, 2+ pulses and upper and lower extremities. MUSCULOSKELETAL: Muscle strength and tone normal. SPINE: No scoliosis or deformity SKIN: No rashes CENTRAL NERVOUS SYSTEM: Alert and oriented -3. No focal deficits, tone is normal in all 4 extremities. PSYCHIATRIC: Alert and oriented -3. Appropriate affect. Intact judgment and insight. Results - Laboratory Findings CBC and BMP: 04/13/21 07:38 04/13/21 07:38 PT/INR, D-dimer PT 10.4 sec (9.0-12.0) 04/09/21 02:46 INR 1.0 (<1.2) 04/09/21 02:46 Abnormal lab findings: Abnormal Labs 04/08/21 04/08/21 04/08/21 19:57 19:57 22:26 APTT Carbon Dioxide Creatinine Glucose 142 H Hemoglobin A1c ALT 52 H Troponin I 0.053 H* 0.163 H* Triglycerides VLDL Cholesterol, Calc HDL Cholesterol 04/09/21 04/09/21 04/09/21 02:46 02:46 10:51 APTT 37.6 H Carbon Dioxide Creatinine Glucose Hemoglobin A1c ALT Troponin I 0.179 H* Triglycerides 276.0 H VLDL Cholesterol, Calc 55.20 H HDL Cholesterol 28.0 L 04/09/21 04/10/21 04/10/21 17:44 00:33 07:01 APTT 30.1 H 35.4 H Carbon Dioxide Creatinine Glucose Hemoglobin A1c 6.6 H ALT Troponin I Triglycerides VLDL Cholesterol, Calc HDL Cholesterol 04/10/21 04/11/21 04/11/21 07:01 06:14 06:14 APTT 51.4 H 67.8 H Carbon Dioxide Creatinine 0.62 L Glucose 140 H Hemoglobin A1c ALT Troponin I Triglycerides VLDL Cholesterol, Calc HDL Cholesterol 04/13/21 07:38 APTT Carbon Dioxide 31 H Creatinine Glucose 130 H Hemoglobin A1c ALT Troponin I Triglycerides VLDL Cholesterol, Calc HDL Cholesterol - Diagnostic Findings Chest x-ray: report reviewed, image reviewed Additional studies: EKG reviewed, echocardiogram reviewed, results of the cardiac catheterization reviewed, carotid Doppler results reviewed Assessment and Plan Plan: Assessment: #1. Acute non-ST elevated myocardial infarction #2. Multivessel coronary artery disease, awaiting aortocoronary bypass surgery, on 04/14/2021 #3. Hypertension #4. Dyslipidemia #5. Remote history of paroxysmal atrial fibrillation, currently in sinus rhyt hm, not on any chronic anticoagulation #6. Diabetes mellitus type 2, with a recent hemoglobin A1c of 6.9% #7. Morbid obesity with a BMI 41.8 kg/m #8. History of intracranial tumor, meningioma, status post surgery #9. Remote history of nicotine dependence, in remission since 1984, carries 10 year smoking history of 1 pack a day #10. Normal preop FEV1 of 3.27 L or 90% of predicted, with FEV1/FVC ratio of 75% of predicted and an MVV of 123 L Plan: Vital signs are stable Breathing comfortably No acute events overnight Preop FEV1 reviewed Encourage incentive spirometry use Patient is tentatively scheduled for surgery with three-vessel bypass grafting on 04/14/2021 by is very We'll follow in the postoperative period I performed a history & physical examination of the patient and discussed their management with my nurse practitioner, Bethanie Cortez. I reviewed the nurse practitioner's note and agree with the documented findings and plan of care. Lung sounds are positive for diminished breath sounds throughout the lung gutierrez. The findings and the impression was discussed with the patient. I attest to the documentation by the nurse practitioner. Time with Patient: Greater than 30
--- NOTE | 2021-04-13 11:06 | P.PN ---
Subjective Progress Note Date: 04/13/21 Principal diagnosis: Symptomatic multivessel coronary artery disease, non-ST elevated myocardial infarction this admission. Past medical history significant for hypertension, dyslipidemia, morbid obesity with a BMI of 41.8 kg/m, paroxysmal atrial fibrillation, history of nonmalignant brain meningioma, status post removal of brain meningioma, remote history of MRSA infection to his left leg, remote history of nicotine dependence quit smoking in 1984, asthma and osteoarthritis. The patient is seen in follow-up today 04/13/2021 at his bedside on the cardiac stepdown unit. Currently he is up ambulating in his room, is awake, alert and oriented 3. He denies any complaints of pain or shortness of breath at this time. Preoperative teaching has been reinforced with the patient and questions were answered to the best my ability. He is scheduled for myocardial revascula rization surgery tomorrow 04/14/2021 with [facility], left radial artery endoscopic harvesting and endoscopic vein harvest. He reports he's been up ambulating in the cardiac stepdown unit Hallway without difficulty. MRSA/MSSA nasal screening results showed no MRSA or MSSA isolated. He's been afebrile the last 24 hours. He continues to walk in the cardiac stepdown unit hallway several times per day. Oxygen saturations are 98% on room air and he is achieving 5000 mL on his incentive spirometry. Objective - Vital Signs Vital signs: Vital Signs Temp 97.7 F 04/13/21 08:19 Pulse 87 04/13/21 08:19 Resp 17 04/13/21 08:19 BP 134/84 04/13/21 08:19 Pulse Ox 98 04/13/21 08:19 Intake & Output 04/12/21 04/13/21 04/13/21 18:59 06:59 18:59 Intake Total 2240 200 Balance 2240 200 Weight 132.4 kg Intake: IV 200 Sodium Chloride 0.9% 1, 200 000 ml @ 50 mls/hr IV . Q20H [facility] Rx#:[id number] Intake, IV Titration 400 Amount Sodium Chloride 0.9% 1, 400 000 ml @ 50 mls/hr IV . Q20H [facility] Rx#:[id number] Oral 1840 Other: Voiding Method Toilet Toilet # Voids 4 1 1 - Exam CONSTITUTIONAL: Up ambulating in his room on the cardiac stepdown unit, appears comfortable, cooperative, no apparent acute distress. HEENT: Neck is supple, no JVD, no lymphadenopathy. Negative for carotid bruit. RESPIRATORY: Lungs sounds essentially clear throughout. Respirations are symm etrical and nonlabored. Currently on room air with oxygen saturations 98%. Achieving 5000 mL on his incentive spirometry. Strong cough. CARDIOVASCULAR: Regular rhythm and rate. S1 and S2 present, negative for S3, gallop or murmur. Palpable peripheral pulses bilaterally, no edema. No calf pain or tenderness noted. Remote telemetry showing normal sinus rhythm heart rate 80 BPM. GASTROINTESTINAL: Abdomen soft, nontender, nondistended. No organomegaly appreciated. Active bowel sounds present 4 quadrants. Tolerating diet. No guarding or rigidity. Bowel movement yesterday 04/12/2021. GENITOURINARY: Continues to void. INTEGUMENTARY: Skin is warm and dry with no evidence of clubbing or cyanosis. NEUROLOGIC: Cranial nerves II through XII intact. No focal deficits. MUSKULOSKELETAL: Able to move all extremities, strength equal bilaterally. PSYCHIATRIC: Alert and oriented to person place and time, flat affect, intact judgment and insight. - Labs CBC & Chem 7: 04/13/21 07:38 04/13/21 07:38 Labs: Abnormal Lab Results - Last 24 Hours (Table) 04/13/21 04/13/21 Range/Units 07:38 07:38 Carbon Dioxide 31 H (22-30) mmol/L Glucose 130 H (74-99) mg/dL Crossmatch See Detail Microbiology - Last 24 Hours (Table) 04/11/21 14:00 Nasal Screen MRSA/MSSA - Final Nasal Swab Assessment and Plan Assessment: 1. Symptomatic multivessel coronary artery disease 2. Chest pain with elevated troponins, non-ST elevated myocardial infarction this admission 3. Hypertension 4. Dyslipidemia 5. Remote history of paroxysmal atrial fibrillation, currently in normal sinus rhythm 6. Diet-controlled diabetes mellitus with a recent hemoglobin A1c of 6.9% 7. Morbid obesity with a BMI of 41.8 kg/m 8. History of intracranial tumor, meningioma status post surgery 9. Remote history of nicotine dependence, quit smoking in 1984 Plan: 1. Continue to maximize medical therapy with aspirin, statin, and beta josie. 2. Continue to encourage use of his incentive spirometry 10 times every hour while awake. 3. MRSA/MSSA nasal screen results showed no MSSA or MRSA isolated. 4. The patient's has been updated on the plan of care and preoperative teaching was completed with the patient and his . 5. Patient is scheduled for myocardial revascularization surgery with [place], left radial artery endoscopic harvesting, endoscopic vein harvest, exclusion of left atrial appendage and intraoperative transesophageal echocardiogram for 04/14/2021 to be performed by Dr. Tavia Esquivel. 6. Increase activity as tolerated. Out of bed for all meals. Ambulate in the hallway as tolerated. 7. Continue heparin subcu 5000 units every 8 hours. 8. Medical management per primary care service. 9. Nothing by mouth after midnight. 10. More recommendations to follow based on patient's clinical course. Time with Patient: Greater than 30
--- NOTE | 2021-04-13 13:12 | P.PN ---
Subjective This is a pleasant 60-year-old male who presented to the hospital with a non-ST elevated myocardial infarction. Subsequent cardiac catheterization revealed severe triple-vessel disease with a dominant RCA. He is scheduled to undergo bypass grafting Monday. He is seen and examined sitting up in bed in no acute distress. He has been up ambulating in the halls without symptoms of chest pain or shortness of breath. 140/90 heart rate 60 afebrile maintaining oxygen saturation on room air. Echocardiogram obtained on this admission reveals preserved LV systolic function with ejection fraction 55-60%, mild MR and mild TR. 04/13/2021 Pt seen and examined in no acute distress. He denies chest pain, shortness of breath, dizziness or palpitations. Blood pressure 135/85 heart rate 79 afebrile and maintaining oxygen saturation on room air. Laboratory data reviewed, CBC unremarkable, sodium 139, potassium 4.1 and creatinine 0.7. GENERAL: Well-appearing, well-nourished and in no acute distress. NECK: Supple without JVD or thyromegaly. LUNGS: Breath sounds clear to auscultation bilaterally. Respiration equal and unlabored. No wheezes, rales or rhonchi. HEART: Regular rate and rhythm without murmurs, rubs or gallops. S1 and S2 heard. EXTREMITIES: Normal range of motion, no edema. No clubbing or cyanosis. Peripheral pulses intact. ASSESSMENT Non-ST elevated myocardial infarction Severe triple-vessel disease Hypertension Diabetes mellitus Dyslipidemia Morbid obesity, BMI 41 PLAN Continue current medical regimen. Encourage use of incentive spirometer while awake. Continue ambulation in the halls as tolerated. CT surgery scheduled for tomorrow. Nurse Practitioner note has been reviewed, I agree with a documented findings and plan of care. Patient was seen and examined. Objective - Vital Signs Vital signs: Vital Signs Temp 98.1 F 04/13/21 12:00 Pulse 79 04/13/21 12:00 Resp 16 04/13/21 12:00 BP 135/85 04/13/21 12:00 Pulse Ox 94 L 04/13/21 12:00 Intake & Output 04/12/21 04/13/21 04/13/21 18:59 06:59 18:59 Intake Total 2240 200 Balance 2240 200 Weight 132.4 kg Intake: IV 200 Sodium Chloride 0.9% 1, 200 000 ml @ 50 mls/hr IV . Q20H [facility] Rx#:[id number] Intake, IV Titration 400 Amount Sodium Chloride 0.9% 1, 400 000 ml @ 50 mls/hr IV . Q20H [facility] Rx#:[id number] Oral 1840 Other: Voiding Method Toilet Toilet # Voids 4 1 1 - Labs CBC & Chem 7: 04/13/21 07:38 04/13/21 07:38 Labs: Abnormal Lab Results - Last 24 Hours (Table) 04/13/21 04/13/21 Range/Units 07:38 07:38 Carbon Dioxide 31 H (22-30) mmol/L Glucose 130 H (74-99) mg/dL Crossmatch See Detail Microbiology - Last 24 Hours (Table) 04/11/21 14:00 Nasal Screen MRSA/MSSA - Final Nasal Swab
[2021-04-13] MEDS: SODIUM CHLORIDE 0.9% 1,000 ML IV SCH (14:48)
[2021-04-13] MEDS: SENNOSIDES 8.6 MG TAB PO SCH (21:10)
[2021-04-13] MEDS: ATORVASTATIN 80 MG TAB PO SCH (21:10)
[2021-04-13] MEDS: ALPRAZolam 0.5 MG TAB PO PRN (21:10)
[2021-04-14] MEDS: HEPARIN SODIUM,PORCINE/PF 5,000 UNIT/0.5 ML SYRINGE SQ SCH (04:51)
[2021-04-14] MEDS ORDERED: PHENYLEPHRINE 40 MG in SODIUM CHLORIDE 0.9% 250 ML IV ONE (05:00)
[2021-04-14] MEDS ORDERED: NOREPINEPHRINE 4 MG in SODIUM CHLORIDE 0.9% 250 ML IV SCH (05:00)
[2021-04-14] MEDS ORDERED: HEPARIN SODIUM 1,000 UN/ML (10ML VL) IV ONE (05:00)
[2021-04-14] MEDS ORDERED: CLEVIDIPINE BUTYRATE 25 MG in EMPTY BAG 1 BAG IV SCH (05:00)
[2021-04-14] MEDS ORDERED: PROTAMINE SULFATE 250 MG in EMPTY BAG 1 BAG IV ONE (05:00)
[2021-04-14] MEDS ORDERED: DILTIAZEM 125 MG in SODIUM CHLORIDE 0.9% 100 ML IV SCH (05:00)
[2021-04-14] MEDS ORDERED: ALBUMIN HUMAN 25% 50 ML in EMPTY BAG 1 BAG IVPB ONE (05:00)
[2021-04-14] MEDS ORDERED: METOPROLOL TARTRATE 12.5 MG TAB PO ONE (05:00)
[2021-04-14] MEDS ORDERED: ATORVASTATIN 10 MG TAB PO ONE (05:00)
[2021-04-14] MEDS ORDERED: HEPARIN SODIUM,PORCINE 5,000 UNIT in SODIUM CHLORIDE 0.9% 500 ML 500 ML IV ONE (05:00)
[2021-04-14] MEDS ORDERED: MAGNESIUM SULFATE SYG 4.06 MEQ/ML SYRINGE IV ONE (05:00)
[2021-04-14] MEDS ORDERED: PHENYLEPHRINE 10 MG/ML VIAL IV ONE (05:00)
[2021-04-14] MEDS ORDERED: MANNITOL 25% 12.5 GM/50 ML VIAL IV ONE ×2 (05:00)
[2021-04-14] MEDS ORDERED: NITROGLYCERIN-D5W PMX 25 MG/250 ML BTL IV ONE (05:00)
[2021-04-14] MEDS ORDERED: ceFAZolin 3 GM in SODIUM CHLORIDE 0.9% 100 ML IVPB ONE (05:00)
[2021-04-14] MEDS ORDERED: ELECTROLYTE-A SOLUTION 1,000 ML with POTASSIUM CHLORIDE 40 MEQ, MAGNESIUM SULFATE 16 ME... IV SCH ×5 (05:00)
[2021-04-14] MEDS ORDERED: SODIUM BICARB 8.4% 50 ML SYR (1 MEQ/ML) IV ONE (05:00)
[2021-04-14] MEDS ORDERED: CHLORHEXIDINE GLUCONATE 15 ML CUP MUCOUS MEM ONE (05:00)
[2021-04-14] MEDS ORDERED: ceFAZolin 1,000 MG in SODIUM CHLORIDE 0.9% IRRIGATIO 1,000 ML IRRIGATION ONE (05:00)
[2021-04-14] MEDS ORDERED: TRANEXAMIC ACID 2,000 MG in SODIUM CHLORIDE 0.9% 80 ML IV ONE (05:00)
[2021-04-14] MEDS ORDERED: ELECTROLYTE-A SOLUTION 1,000 ML with POTASSIUM CHLORIDE 100 MEQ, MAGNESIUM SULFATE 16 M... IV SCH ×5 (05:00)
[2021-04-14] MEDS ORDERED: ALBUMIN HUMAN 5% 500 ML in EMPTY BAG 1 BAG IVPB ONE ×6 (05:00)
[2021-04-14] MEDS ORDERED: PAPAVERINE 360 MG in SODIUM CHLORIDE 0.9% 90 ML IV ONE ×2 (05:00→11:27)
[2021-04-14] MEDS ORDERED: PROTAMINE SULFATE 10 MG/ML 25 ML VIAL IV ONE ×2 (05:00→07:46)
[2021-04-14] MEDS ORDERED: ASPIRIN 325 MG TAB PO ONE (05:00)
[2021-04-14] MEDS ORDERED: CALCIUM CHLORIDE 100 MG/ML 10 ML SYRINGE IVP ONE (05:00)
[2021-04-14] MEDS ORDERED: NITROGLYCERIN-D5W PMX 50 MG in DEXTROSE/WATER 1 250ML.BAG IV SCH ×2 (05:00→16:39)
[2021-04-14] MEDS ORDERED: INSULIN REGULAR 100 UNIT in SODIUM CHLORIDE 0.9% 100 ML IV SCH (06:00)
[2021-04-14] MEDS ORDERED: LACTATED RINGERS 1,000 ML IV ONE (06:11)
[2021-04-14 06:31] LABS: Glucose,Whole Blood 122 mg/dL (75-99)
[2021-04-14] MEDS ORDERED: LIDOCAINE 2% SYG (PF) 100 MG/5 ML ONE (07:46)
[2021-04-14] MEDS ORDERED: SODIUM CHLORIDE 0.9% IRRIG 1,000 ML BTL IRRIGATION ONE (07:46)
[2021-04-14] MEDS ORDERED: MIDAZOLAM 2 MG/2 ML VIAL ONE (07:46)
[2021-04-14] MEDS ORDERED: TRANEXAMIC ACID 1,000 MG/10 ML VIAL ONE (07:46)
[2021-04-14] MEDS ORDERED: ceFAZolin 1,000 MG VIAL ONE (07:46)
[2021-04-14] MEDS ORDERED: PROPOFOL 10 MG/ML 20 ML VIAL IV ONE (07:46)
[2021-04-14] MEDS ORDERED: VECURONIUM 10 MG VIAL IV ONE (07:46)
[2021-04-14] MEDS ORDERED: SUFentanil 50 MCG/ML 1 ML AMP IV ONE (07:46)
[2021-04-14] MEDS ORDERED: fentaNYL (PF) 50 MCG/ML 50 ML VIAL ONE (07:46)
[2021-04-14] MEDS ORDERED: SUCCINYLCHOLINE CHLORIDE 100 MG/5 ML SYR IV ONE (07:46)
[2021-04-14] MEDS ORDERED: ELECTROLYTE-R (PH 7.4) 1,000 ML IV.SOLN IV ONE (07:46)
[2021-04-14] MEDS ORDERED: SODIUM CHLORIDE 0.9% 100 ML BAG ONE (07:46)
[2021-04-14] MEDS ORDERED: HEPARIN SODIUM,PORCINE 10,000 UNIT/ML 1 ML VIAL ONE (07:46)
[2021-04-14] MEDS ORDERED: NITROGLYCERIN-D5W PMX 50 MG/250 ML BOTTLE IV ONE (07:46)
[2021-04-14] MEDS ORDERED: MAGNESIUM SULFATE 4 MEQ/ML 10ML VIAL ONE (07:46)
[2021-04-14] MEDS ORDERED: SODIUM CHLORIDE 0.9% 250 ML BAG ONE (07:46)
[2021-04-14 08:33] LABS: ABG Base Excess 2.1 mmol/L; ABG Glucose Whole Blood 118 mg/dL (75-99); ABG HCO3 29 mmol/L (21-25); ABG Hematocrit 44 % (34.0-46.0); ABG Ionized Calcium 4.8 mg/dL (4.5-5.3); ABG Lactic Acid Whole Blood 1.3 mmol/L (0.5-1.6); ABG Oxygen Saturation 99.9 % (94-97); ABG PCO2 53 mmHg (35-45); ABG PH 7.35 (7.35-7.45); ABG PO2 231 mmHg (83-108); ABG Potassium Whole Blood 4.3 mmol/L (3.4-4.5); ABG Sodium Whole Blood 139 mmol/L (135-146); ABG TCO2 31 mmol/L (19-24)
--- NOTE | 2021-04-14 09:15 | P.ARTDOP ---
Arterial Doppler Bilateral radial artery studies: Reason for study: Preop CABG Date of study: 04/10/2021 Findings: Doppler assessment shows no significant right to left or segmental gradients. Digital plethysmography with radial artery compression shows a 51 mm max pressure change with radial compression on the right. Only 36 mm change on the left. Imaging shows the right to be 3.1 x 2.8 mm distally, 3.5 x 3.4 mm mid, and 3.8 x 3.8 mm proximally The left radial is 3 x 2.6 mm distally, 3.6 x 2.7 mm mid, and 3.2 x 2.9 mm proximally. Impression: The right radial is not usable based on greater than 40 mmHg pressure change with radial artery compression. Although the left radial has a marginal pressure change at 36 mmHg, it is probably usable. Clinical correlation recommended.
--- NOTE | 2021-04-14 09:17 | P.ARTDOP ---
Arterial Doppler LOWER EXTREMITY ARTERIAL DOPPLER: DATE OF SERVICE: 04/09/2021 Reason for study: Preop CABG. Doppler waveforms: Multiphasic bilaterally throughout. Pulse volume recording: []. Pressure gradients: None. Ankle-brachial indices: Greater than 1 bilaterally. Toe brachial indices: 1.03 on the right, 1.17 on the left Impression: Normal study.
--- NOTE | 2021-04-14 09:20 | P.VSCSTY ---
Greater Saphenous Vein Mapping This is bilateral lower extremity greater saphenous vein mapping. Date of service: 04/09/2021 Vein quality and ultrasound appearance: We see no intraluminal thrombus or obvious wall changes. Vein size in millimeters groin right : 11 x 13 groin left: 9 x 11 High thigh right: 8 x 7 high thigh left: 5 x 6 Mid thigh right: 7 x 8 mid thigh left: 4 x 4 Above-knee right: 6 x 7 above-knee left: 5 x6 Below knee right: 5 x 6 below-knee left: 4 x 5 Mid calf right: 7 x 7 mid calf left: 3 x 4 Ankle right: 4 x 4 ankle left: 3 x 4 Impression: usable bilateral greater saphenous vein. A lot of the right thigh is a bit large for use as conduit..
--- NOTE | 2021-04-14 11:18 | P.PN ---
Subjective Progress Note Date: 04/14/21 Principal diagnosis: Coronary artery disease. This is a 60-year-old white male patient with past medical history of hypertension, hyperlipidemia, obesity, paroxysmal atrial fibrillation not on chronic anticoagulation, she is an ex-smoker, smoked for a total of 10 years, a pack a day, who came into the emergency department on 04/08/2021 for evaluation of chest pain. Patient was working in the barn unloading [employer] when he started to have left-sided chest pain radiating into his left upper back and down his left arm. Patient reported shortness of breath associated with the chest pain. Patient was also told that he has a borderline diabetic with his last hemoglobin A1c of 6.8- 6.9. His primary care provider is Dr. Jovi Persaud. Admission EKG showed sinus tachycardia with no ST elevation or depression. His labs showed elevated troponins that peaked at 0.179 with the third set. His initial chest x-ray showed no acute process. Echocardiogram showed normal EF of 55-60%, mild MR, mild TR, PA pressure of less than 35 mmHg. Patient was diagnosed with non-ST elevated myocardial infarction and underwent heart catheterization on 04/09/2021 that showed severe triple-vessel disease with a dominant RCA. The RCA was moderately calcified and tortuous with that 80% eccentric lesion distally. Left main was free of significant disease. LAD was also heavily calcified, with 70% stenosis after the diagonal and 80% lesion at the second diagonal. Left circumflex had a 95% stenosis. Aortocoronary bypass surgery was recommended, and there was a consult placed to Dr. Esquivel. Patient is currently undergoing preop evaluation. And we are consulted for pulmonary/critical care management. Patient is awake and alert, in no acute distress, patient has been ablating the halls, tolerating activity well, no complaints of chest pain. He denies any history of major lung disease. He states in the wintertime he may have some limited wheezing occasionally in response to cold air, denies any history of asthma, not on any chronic inhalers. His preop FEV1 was reviewed s howing FEV1 of 3.27 L or 90% of predicted, FEV1 to FVC ratio of 75% of predicted, an MVV of 123 L, and patient has a normal lung function. Progress note dated 04/14/2021. The patient will be having a bypass procedure today. The patient was not available for evaluation today because he is ready been taken down to the operating room. Yesterday, we saw the patient in consultation. The patient had excellent lung function including an FEV1 that was 3.27 L or 90% of predicted, and a MVV that was 123 L/m. Based on these data, the patient's at no increased operative risk. He did smoke for a short period of time in the distant past. No labs today as yet. Objective - Vital Signs Vital signs: Vital Signs Temp 98.3 F 04/14/21 06:28 Pulse 82 04/14/21 06:28 Resp 18 04/14/21 06:28 BP 135/80 04/14/21 06:28 Pulse Ox 94 L 04/14/21 06:28 Intake & Output 04/13/21 04/14/21 04/14/21 18:59 06:59 18:59 Intake Total 490 200 Balance 490 200 Weight 133.2 kg Intake: IV 250 200 Sodium Chloride 0.9% 1, 250 100 000 ml @ 50 mls/hr IV . Q20H [facility] Rx#:[id number] Oral 240 Other: Voiding Method Toilet # Voids 1 1 # Bowel Movements 1 - Exam The patient had been taken down to the operating room already. He was not examined today as yet. - Labs CBC & Chem 7: 04/13/21 07:38 04/13/21 07:38 Labs: Abnormal Lab Results - Last 24 Hours (Table) 04/13/21 04/14/21 Range/Units 07:38 06:24 POC Glucose (mg/dL) 122 H (75-99) mg/dL Crossmatch See Detail Assessment and Plan Assessment: #1. Acute non-ST elevated myocardial infarction. #2. Multivessel coronary artery disease, awaiting aortocoronary bypass surgery, on 04/14/2021. #3. Hypertension. #4. Dyslipidemia. #5. Remote history of paroxysmal atrial fibrillation, currently in sinus rhythm, not on any chronic anticoagulation. #6. Diabetes mellitus type 2, with a recent hemoglobin A1c of 6.9%. #7. Morbid obesity with a BMI 41.8 kg/m. #8. History of intracranial tumor, meningioma, status post surgery. #9. Remote history of nicotine dependence, in remission since 1984, carries 10 year smoking history of 1 pack a day. #10. Normal preop FEV1 of 3.27 L or 90% of predicted, with FEV1/FVC ratio of 75% of predicted and an MVV of 123 L. Plan: Plan dated 04/14/2021. The patient will be seen after the operating room. I explained to the patient that our goal was to follow, first, to go ahead and get the patient off the mechanical ventilator as soon as possible. Secondly, the patient will be followed very closely on a day by day basis, with evaluation of chest x-rays, to make sure the patient doesn't develop any complications such as pleural effusion, pneumonia, or lung collapse. Additional recommendations and suggestions are forthcoming. Time with Patient: Less than 30
[2021-04-14 11:22] LABS: ABG Base Excess 3.2 mmol/L; ABG Glucose Whole Blood 137 mg/dL (75-99); ABG HCO3 28 mmol/L (21-25); ABG Hematocrit 42 % (34.0-46.0); ABG Ionized Calcium 4.6 mg/dL (4.5-5.3); ABG Lactic Acid Whole Blood 0.8 mmol/L (0.5-1.6); ABG Oxygen Saturation 99.5 % (94-97); ABG PCO2 44 mmHg (35-45); ABG PH 7.42 (7.35-7.45); ABG PO2 145 mmHg (83-108); ABG Potassium Whole Blood 4.2 mmol/L (3.4-4.5); ABG Sodium Whole Blood 138 mmol/L (135-146); ABG TCO2 30 mmol/L (19-24)
[2021-04-14] MEDS ORDERED: SODIUM CHLORIDE 0.9% 500 ML 500 ML with HEPARIN SODIUM,PORCINE 5,000 UNIT IV ONE ×2 (11:27)
[2021-04-14] MEDS ORDERED: ceFAZolin 1,000 MG in SODIUM CHLORIDE 0.9% 1,000 ML IRRIGATION ONE (11:28)
[2021-04-14 12:05] LABS: ABG Base Excess 1.1 mmol/L; ABG Glucose Whole Blood 125 mg/dL (75-99); ABG HCO3 26 mmol/L (21-25); ABG Hematocrit 35 % (34.0-46.0); ABG Ionized Calcium 4.1 mg/dL (4.5-5.3); ABG Lactic Acid Whole Blood 0.8 mmol/L (0.5-1.6); ABG PCO2 43 mmHg (35-45); ABG PH 7.39 (7.35-7.45); ABG PO2 389 mmHg (83-108); ABG Potassium Whole Blood 3.8 mmol/L (3.4-4.5); ABG Sodium Whole Blood 136 mmol/L (135-146); ABG TCO2 28 mmol/L (19-24)
[2021-04-14 12:52] LABS: ABG Base Excess 2.1 mmol/L; ABG Glucose Whole Blood 126 mg/dL (75-99); ABG HCO3 28 mmol/L (21-25); ABG Hematocrit 33 % (34.0-46.0); ABG Ionized Calcium 4.2 mg/dL (4.5-5.3); ABG Lactic Acid Whole Blood 1.4 mmol/L (0.5-1.6); ABG PCO2 48 mmHg (35-45); ABG PH 7.38 (7.35-7.45); ABG PO2 310 mmHg (83-108); ABG Potassium Whole Blood 4.8 mmol/L (3.4-4.5); ABG Sodium Whole Blood 138 mmol/L (135-146); ABG TCO2 29 mmol/L (19-24)
[2021-04-14 13:30] LABS: ABG Base Excess 2.5 mmol/L; ABG Glucose Whole Blood 158 mg/dL (75-99); ABG HCO3 28 mmol/L (21-25); ABG Hematocrit 34 % (34.0-46.0); ABG Ionized Calcium 4.2 mg/dL (4.5-5.3); ABG Lactic Acid Whole Blood 1.1 mmol/L (0.5-1.6); ABG PCO2 46 mmHg (35-45); ABG PH 7.39 (7.35-7.45); ABG PO2 269 mmHg (83-108); ABG Potassium Whole Blood 4.8 mmol/L (3.4-4.5); ABG Sodium Whole Blood 137 mmol/L (135-146); ABG TCO2 29 mmol/L (19-24)
--- NOTE | 2021-04-14 14:10 | P.ANPRN ---
Procedure Note - Anesthesia - Invasive Line Arterial Line Time Out Performed: Yes Date of Procedure: 04/14/21 Location of Patient: PreOp Preparation: Sterile Prep, Sterile Dressing Arterial Line Location: Radial Ultrasound Used: No Narrative: Central line placement per sterile protocol utilized. Informed consent obtained from the patient. Procedure was performed under complete aseptic precautions. The right wrist is slightly extended and placed on a roll of cloth. Radial artery palpated and appeared to have a intact collateral circulation. Front of the wrist was cleaned with ChloraPrep. It was draped and 2 mL of 1% lidocaine was infiltrated and ability into the front of the wrist. A 20-gauge two and half inch Arrow arterial catheter was inserted and a bright red blood/back was noticed. It was connected to the pressure monitoring line and the flashback was confirmed. The line was sutured into the skin. Tegaderm dressing was applied. Patient tolerated the procedure very well with no apparent complications. Right Central Line Time Out Performed: Yes Date of Procedure: 04/14/21 Location of Patient: PreOp Preparation: Sterile Prep, Sterile Dressing Ultrasound Used: Yes Purpose - Visualization and Identification of Vasculature: Yes Image Stored and Saved: Yes Narrative: \. Informed consent obtained. Central line placement per sterile protocol utilized. Right Internal jugular vein cannulated under aseptic precautions. 3cc 1% lidocaine infiltrated initially after cleaning with iodine based prep and draping. Ultrasound used to locate the vein and selginger technique used. 9Fr introduced sheath inserted and after the finding the needle with airline pilot flight instructor needle/catheter. After the insertion of PA Catheter the line is dressed with biopatch and tegaderm. Patient tolerated the procedure well. Central line placement per sterile protocol utilized. 8Ff PA catheter threaded through the Right IJ introducer sheath under asepsis with continuous waveform monitoring. Catheter at 48 cms greyson. Right [place] Yonas Time Out Performed: Yes Date of Procedure: 04/14/21 Location of Patient: PreOp Preparation: Sterile Prep, Sterile Dressing Narrative: Central line placement per sterile protocol utilized.
[2021-04-14 14:14] LABS: ABG Base Excess 1.8 mmol/L; ABG Glucose Whole Blood 181 mg/dL (75-99); ABG HCO3 27 mmol/L (21-25); ABG Hematocrit 35 % (34.0-46.0); ABG Ionized Calcium 4.3 mg/dL (4.5-5.3); ABG Lactic Acid Whole Blood 1.2 mmol/L (0.5-1.6); ABG PCO2 46 mmHg (35-45); ABG PH 7.38 (7.35-7.45); ABG Potassium Whole Blood 4.7 mmol/L (3.4-4.5); ABG Sodium Whole Blood 138 mmol/L (135-146); ABG TCO2 29 mmol/L (19-24)
--- NOTE | 2021-04-14 14:15 | P.ANPRN ---
Procedure Note - Anesthesia - BAHMAN Intraop Pre Bypass BAHMAN Intraop - Anesthesia Indication: Ischemia monitoring, assessment of cardiac function Date of Procedure: 04/14/21 Pre-operative Diagnosis: Coronary artery disease Post-operative Diagnosis: Coronary artery bypass graft Surgeon: Tavia Esquivel Other Findings: Procedure performed: Transesophageal echocardiography Indication for the procedure: Coronary artery bypass graft surgery, ischemia monitoring, assessment of valvular function, intracardiac air monitoring, assessment of regional wall motion abnormalities and hemodynamic monitoring. Probe insertion: Under general anesthesia, uneventful. Pre-bypass findings: Left ventricle normal in dimension and LV ejection fraction is approximately 55 - 60%. Mild inferoseptal hypokinesia present Left atrium Normal in size. No thrombus seen in the appendage. Right atrium normal in size. No patent foramen ovale or ASD seen. Right ventricle normal in structure and function. Aortic valve appears to be normal .No Aortic Regurgitation seen. Aortic valve area by continuity equation is 1.7 cm Mitral valve normal in anatomy. Trivial mitral regurgitation seen. Trivial tricuspid regurgitation seen. Pulmonic valve appears to be normal. Descending aorta grade 2 atheroma seen. Small pericardial effusion noted. Post-bypass findings: LV ejection fraction is 55-60%. No new regional wall motion abnormalities seen. Rest of the examination is same as pre-bypass.The rest of the exam is same as pre-bypass.
[2021-04-14 15:15] LABS: ABG PO2 >420 mmHg (83-108)
[2021-04-14 15:43] LABS: ABG Base Excess 1.5 mmol/L; ABG Glucose Whole Blood 140 mg/dL (75-99); ABG HCO3 27 mmol/L (21-25); ABG Hematocrit 36 % (34.0-46.0); ABG Ionized Calcium 4.3 mg/dL (4.5-5.3); ABG Lactic Acid Whole Blood 1.9 mmol/L (0.5-1.6); ABG Oxygen Saturation 99.4 % (94-97); ABG PCO2 44 mmHg (35-45); ABG PO2 137 mmHg (83-108); ABG Potassium Whole Blood 4.6 mmol/L (3.4-4.5); ABG Sodium Whole Blood 138 mmol/L (135-146); ABG TCO2 28 mmol/L (19-24)
[2021-04-14] MEDS ORDERED: IPRATROPIUM-ALBUTEROL 3 ML NEB INHALATION PRN (16:39)
[2021-04-14] MEDS ORDERED: Magnesium Replacement Protocol 1 EACH MISC MISCELLANE PRN (16:39)
[2021-04-14] MEDS ORDERED: DEXTROSE 5% IN WATER 100 ML with AMIODARONE 150 MG IV PRN (16:39)
[2021-04-14] MEDS ORDERED: BENZOCAINE/MENTHOL LOZENG 1 EACH LOZENGE MUCOUS MEM PRN (16:39)
[2021-04-14] MEDS ORDERED: Phosphorus Replacement Protoco 1 EACH MISC MISCELLANE PRN (16:39)
[2021-04-14] MEDS ORDERED: AMIODARONE 360 MG in DEXTROSE 5% IN WATER 200 ML IV PRN ×2 (16:39)
[2021-04-14] MEDS ORDERED: CALCIUM GLUCONATE 2 GM in SODIUM CHLORIDE 0.9% 100 ML IVPB PRN (16:39)
[2021-04-14] MEDS ORDERED: ALBUMIN HUMAN 5% 250 ML in EMPTY BAG 1 BAG IVPB PRN (16:39)
[2021-04-14] MEDS ORDERED: hydrALAZINE HCL 20 MG/ML 1 ML VIAL IVP PRN (16:39)
[2021-04-14] MEDS ORDERED: Potassium Replacement Protocol 1 EACH MISC MISCELLANE PRN (16:39)
[2021-04-14] MEDS ORDERED: AMIODARONE 450 MG in DEXTROSE 5% IN WATER 250 ML IV PRN ×2 (16:39)
[2021-04-14] MEDS ORDERED: ONDANSETRON 4 MG/2 ML VIAL IVP PRN (16:39)
[2021-04-14] MEDS ORDERED: METOCLOPRAMIDE 5 MG/ML 2 ML VIAL IVP PRN (16:39)
[2021-04-14 17:08] LABS: Glucose,Whole Blood 159 mg/dL (75-99)
[2021-04-14 17:10] LABS: Basophils % (A) 0 %; Eosinophils % (A) 0 %; HGB 13.1 gm/dL (13.0-17.5); Lymphocytes # (A) 0.9 k/uL (1.0-4.8); Lymphocytes % (A) 7 %; MCH 30.2 pg (25.0-35.0); MCHC 33.7 g/dL (31.0-37.0); MCV 89.7 fL (80.0-100.0); Mean Platelet Volume 8.3; Monocytes # (A) 0.9 k/uL (0-1.0); Monocytes % (A) 6 %; Neutrophils # (A) 11.7 k/uL (1.3-7.7); Neutrophils % (A) 86 %; Platelet Count 163 k/uL (150-450); RBC 4.34 m/uL (4.30-5.90); RDW 13.6 % (11.5-15.5); WBC 13.6 k/uL (3.8-10.6)
[2021-04-14 17:14] LABS: Ionized Calcium 4.7 mg/dL (4.5-5.3)
[2021-04-14 17:21] LABS: ALT 168 U/L (4-49); AST 152 U/L (17-59); African American GFR (CKD) >90 (>60 ml/min/1.73 sqM); Albumin 2.8 g/dL (3.5-5.0); Alkaline Phosphatase 51 U/L (38-126); Anion Gap 1 mmol/L; Blood Urea Nitrogen 14 mg/dL (9-20); Calcium 7.7 mg/dL (8.4-10.2); Carbon Dioxide 29 mmol/L (22-30); Chloride 107 mmol/L (98-107); Glucose 158 mg/dL (74-99); Magnesium 2.4 mg/dL (1.6-2.3); Non-African American GFR(CKD) >90 (>60 ml/min/1.73 sqM); Potassium 4.3 mmol/L (3.5-5.1); Sodium 137 mmol/L (137-145); Total Bilirubin 1.9 mg/dL (0.2-1.3); Total Protein 4.8 g/dL (6.3-8.2)
[2021-04-14 17:23] LABS: INR 1.1 (<1.2); Partial Thromboplastin Time 40.1 sec (22.0-30.0); Prothrombin Time 11.3 sec (9.0-12.0)
[2021-04-14 17:24] LABS: ABG Base Excess 1.1 mmol/L; ABG HCO3 28 mmol/L (21-25); ABG Oxygen Saturation 98.4 % (94-97); ABG PCO2 57 mmHg (35-45); ABG PO2 125 mmHg (83-108); ABG TCO2 29 mmol/L (19-24)
[2021-04-14 17:26] LABS: Allen Test Performed? No
[2021-04-14] MEDS: CLEVIDIPINE BUTYRATE 25 MG in EMPTY BAG 1 BAG IV SCH (17:37)
[2021-04-14] MEDS: SODIUM CHLORIDE 0.9% 1,000 ML IV SCH (17:38)
[2021-04-14] MEDS: ACETAMINOPHEN IV (For NPO) 1,000 MG in EMPTY BAG 1 BAG IVPB SCH ×2 (17:39→23:37)
[2021-04-14 18:05] LABS: Glucose,Whole Blood 170 mg/dL (75-99)
[2021-04-14] MEDS: INSULIN REGULAR 100 UNIT in SODIUM CHLORIDE 0.9% 100 ML IV SCH (18:06)
--- NOTE | 2021-04-14 18:38 | XR ---
EXAMINATION TYPE: XR chest 1V portable DATE OF EXAM: 04/14/2021 COMPARISON: 04/08/2021. HISTORY: Cardiac postop. TECHNIQUE: Single frontal view of the chest is obtained. FINDINGS: There is interval placement of endotracheal tube terminating 2.6 mm as above the zora. T here is placement of a right IJ [place]-Yonas catheter with tip overlying the pulmonary vasculature. Ther e is also placement of nasogastric tube with tip overlying the gastroesophageal junction as well as b ilateral chest tubes. There are interval cardiothoracic postsurgical changes. There is mild bibasila r streaky opacity. There are probable trace pleural effusions. No pneumothorax. Stable subcentimeter right lower lung calcified granuloma. The cardiac silhouette size is within normal limits. IMPRESSION: Status post cardiac surgery.
[2021-04-14 19:02] LABS: Glucose,Whole Blood 186 mg/dL (75-99)
[2021-04-14 19:11] LABS: Basophils # (A) 0.1 k/uL (0-0.2); Basophils % (A) 0 %; Eosinophils # (A) 0.1 k/uL (0-0.7); Eosinophils % (A) 1 %; HCT 40.1 % (39.0-53.0); HGB 13.9 gm/dL (13.0-17.5); Lymphocytes # (A) 0.7 k/uL (1.0-4.8); Lymphocytes % (A) 4 %; MCH 30.8 pg (25.0-35.0); MCHC 34.8 g/dL (31.0-37.0); MCV 88.5 fL (80.0-100.0); Mean Platelet Volume 7.3; Monocytes % (A) 6 %; Neutrophils % (A) 89 %; Platelet Count 203 k/uL (150-450); RBC 4.53 m/uL (4.30-5.90); RDW 13.3 % (11.5-15.5)
[2021-04-14 19:56] LABS: Glucose,Whole Blood 185 mg/dL (75-99)
[2021-04-14] MEDS ORDERED: IPRATROPIUM-ALBUTEROL 3 ML NEB INHALATION SCH (20:00)
[2021-04-14] MEDS: ATORVASTATIN 80 MG TAB PO SCH (20:41)
[2021-04-14] MEDS: METOPROLOL TARTRATE 12.5 MG TAB PO SCH (20:42)
[2021-04-14 21:11] LABS: Glucose,Whole Blood 164 mg/dL (75-99)
[2021-04-14 21:46] LABS: ABG Base Excess 0.8 mmol/L; ABG HCO3 26 mmol/L (21-25); ABG Oxygen Saturation 97.6 % (94-97); ABG PCO2 43 mmHg (35-45); ABG PH 7.38 (7.35-7.45); ABG PO2 98 mmHg (83-108); ABG TCO2 27 mmol/L (19-24); Allen Test Performed? Yes
[2021-04-14 22:19] LABS: Glucose,Whole Blood 164 mg/dL (75-99)
[2021-04-14 23:06] LABS: Glucose,Whole Blood 166 mg/dL (75-99)
[2021-04-14 23:38] LABS: Basophils # (A) 0.1 k/uL (0-0.2); Basophils % (A) 0 %; Eosinophils # (A) 0.1 k/uL (0-0.7); Eosinophils % (A) 0 %; HCT 40.5 % (39.0-53.0); HGB 13.9 gm/dL (13.0-17.5); Lymphocytes # (A) 0.9 k/uL (1.0-4.8); Lymphocytes % (A) 4 %; MCH 30.3 pg (25.0-35.0); MCHC 34.4 g/dL (31.0-37.0); MCV 88.3 fL (80.0-100.0); Mean Platelet Volume 7.6; Monocytes % (A) 5 %; Neutrophils % (A) 91 %; Platelet Count 243 k/uL (150-450); RBC 4.59 m/uL (4.30-5.90); RDW 13.3 % (11.5-15.5); WBC 23.1 k/uL (3.8-10.6)
[2021-04-14] MEDS: ceFAZolin 3 GM in SODIUM CHLORIDE 0.9% 100 ML IVPB SCH (23:42)
[2021-04-15 00:47] LABS: Glucose,Whole Blood 158 mg/dL (75-99)
[2021-04-15] MEDS: HEPARIN SODIUM,PORCINE/PF 5,000 UNIT/0.5 ML SYRINGE SQ SCH ×3 (01:54→16:19)
[2021-04-15 02:00] LABS: Glucose,Whole Blood 152 mg/dL (75-99)
[2021-04-15 03:46] LABS: Glucose,Whole Blood 147 mg/dL (75-99)
[2021-04-15 03:53] LABS: Basophils # (A) 0.1 k/uL (0-0.2); Basophils % (A) 0 %; Eosinophils # (A) 0.1 k/uL (0-0.7); Eosinophils % (A) 1 %; HCT 37.5 % (39.0-53.0); HGB 12.9 gm/dL (13.0-17.5); Lymphocytes % (A) 5 %; MCH 30.2 pg (25.0-35.0); MCHC 34.3 g/dL (31.0-37.0); Mean Platelet Volume 8.3; Monocytes # (A) 1.2 k/uL (0-1.0); Monocytes % (A) 6 %; Neutrophils # (A) 16.6 k/uL (1.3-7.7); Neutrophils % (A) 87 %; Platelet Count 199 k/uL (150-450); RBC 4.26 m/uL (4.30-5.90); RDW 13.2 % (11.5-15.5)
[2021-04-15 04:16] LABS: Ionized Calcium 4.7 mg/dL (4.5-5.3)
[2021-04-15] MEDS: HYDROcodone/APAP 5-325MG 1 EACH TAB PO PRN ×4 (04:20→20:50)
[2021-04-15 04:25] LABS: ALT 135 U/L (4-49); AST 89 U/L (17-59); African American GFR (CKD) >90 (>60 ml/min/1.73 sqM); Albumin 2.8 g/dL (3.5-5.0); Alkaline Phosphatase 56 U/L (38-126); Anion Gap 6 mmol/L; Blood Urea Nitrogen 18 mg/dL (9-20); Calcium 8.3 mg/dL (8.4-10.2); Carbon Dioxide 26 mmol/L (22-30); Chloride 107 mmol/L (98-107); Glucose 149 mg/dL (74-99); Magnesium 2.3 mg/dL (1.6-2.3); Non-African American GFR(CKD) >90 (>60 ml/min/1.73 sqM); Potassium 4.4 mmol/L (3.5-5.1); Sodium 139 mmol/L (137-145); Total Bilirubin 0.6 mg/dL (0.2-1.3); Total Protein 4.9 g/dL (6.3-8.2)
[2021-04-15] MEDS: KETOROLAC 15 MG/ML 1 ML VIAL IVP SCH ×3 (05:15→18:06)
[2021-04-15 05:31] LABS: Glucose,Whole Blood 150 mg/dL (75-99)
[2021-04-15 06:16] LABS: Glucose,Whole Blood 148 mg/dL (75-99)
[2021-04-15] MEDS ORDERED: METOCLOPRAMIDE 5 MG/ML 2 ML VIAL IVP STA (06:35)
[2021-04-15] MEDS ORDERED: KETOROLAC 15 MG/ML 1 ML VIAL IVP SCH ×2 (06:45→22:14)
[2021-04-15 07:07] LABS: Glucose,Whole Blood 133 mg/dL (75-99)
[2021-04-15 08:27] LABS: Glucose,Whole Blood 144 mg/dL (75-99)
[2021-04-15] MEDS: IPRATROPIUM-ALBUTEROL 3 ML NEB INHALATION SCH ×4 (08:28→20:45)
[2021-04-15] MEDS ORDERED: bisacodyL 10 MG SUPP RECTAL PRN (09:00)
[2021-04-15] MEDS ORDERED: DEXMEDETOMIDINE/0.9% NACL(PMX) 400 MCG in EMPTY BAG 1 BAG IV SCH (09:00)
[2021-04-15] MEDS ORDERED: METOPROLOL TARTRATE 12.5 MG TAB PO SCH (09:00)
[2021-04-15] MEDS ORDERED: PANTOPRAZOLE 40 MG/10 ML VIAL IVP SCH (09:00)
[2021-04-15] MEDS ORDERED: MAGNESIUM HYDROXIDE 2,400 MG/10 ML CUP PO PRN (09:00)
--- NOTE | 2021-04-15 09:12 | OP ---
OPERATIVE REPORT DATE OF SERVICE: 04/14/2021 SURGEON: Dr. Tavia Esquivel. TEMPLATE LAYOUT WORKER: Curtis Smith, Vahe Cortez. PREOPERATIVE DIAGNOSES: Triple-vessel coronary artery disease, non-ST elevation myocardial infarction, mild left ventricular dysfunction, hypertension, paroxysmal atrial fibrillation, hyperlipidemia, diabetes mellitus, obesity. POSTOPERATIVE DIAGNOSES: Triple-vessel coronary artery disease, non-ST elevation myocardial infarction, mild left ventricular dysfunction, hypertension, paroxysmal atrial fibrillation, hyperlipidemia, diabetes mellitus, obesity. PROCEDURE: 1. Quadruple coronary artery bypass grafting using the left internal mammary artery to the left anterior descending artery, left radial artery from the aorta to the 2nd obtuse marginal artery, saphenous vein graft from the aorta to the 2nd diagonal artery, saphenous vein graft from the aorta to the right coronary artery. 2. Bilateral pulmonary vein isolation using an epicardial bipolar radiofrequency clamp from [employer]. 3. Exclusion of left atrial appendage using a 35 mm AtriClip. 4. Endoscopic harvesting of the left radial artery and the left greater saphenous vein. 5. Intraoperative transesophageal echocardiogram and epiaortic scanning. 6. Graft flow measurements using the ProxToMestim system. INDICATION FOR SURGERY: The patient is a 60-year-old gentleman who was admitted to the hospital with chest pain, ruled in for non ST elevation myocardial infarction. 2D echo and cardiac catheterization showed mild left ventricular dysfunction with no significant valvular abnormality and triple-vessel disease with what seemed to be a subtotally occluded LAD after the takeoff of the 2nd diagonal artery and proximal disease of the 2nd obtuse marginal artery and disease in the mid right coronary artery and in the mid posterior descending artery. In view of his age and despite the poor anatomy, decision was made to proceed with surgical revascularization. The SDS risk was discussed with him. He understood it and agreed to proceed. PROCEDURE DESCRIPTION: Patient in the preoperative holding area, a right internal jugular Burnside-Yonas catheter and a right radial arterial line were placed. Pressure was normal and cardiac index was 2.5. Subsequently, he was brought to the operating room where general endotracheal anesthesia was induced uneventfully. The Hunt catheter was inserted. The chest, abdomen, both lower extremities were prepped and draped using ChloraPrep. Ioban was used to cover the skin. Patient received 2 g of cefazolin intravenously. Transesophageal echocardiogram confirmed the preoperative finding of mild left anterior dysfunction. No significant valvular abnormalities. Midline sternotomy was performed and the bone was quite dense. Ostene was used. The left hemisternum was elevated and left internal mammary artery was harvested in a somewhat skeletonized fashion. The left pleura was intentionally opened in this process and was drained with a 19-Citizen [place] Jack drain. There was a breach in the right pleura, which was also drained with a 19-[place]izen [place] Jack drain. The patient was given 5000 units of heparin. The mammary artery was clipped distally and transected, had an excellent pulsatile flow in it and was around 1.75 mm in diameter. In the same setting, the left radial artery was harvested endoscopically. Initially, it was exposed at the wrist and clamping trial revealed preserved signal in the left index O2 saturation probe. The forearm incision was closed over a drain. The radial artery was prepared by incising the fascia all along its volar aspect. It was of good caliber around 3 mm in diameter, however, has some wall disease in it, but pliable. Also in the same setting, the left greater saphenous vein was harvested endoscopically from groin to above ankle level. The leg incisions were closed over a drain. The vein was prepared by ligating all its branches. It was of reasonable quality and diameter. Mediastinal fat was transected between 2 ties and epiaortic scanning revealed no protruding atheroma in the ascending aorta. Pericardium was opened in an inverted T- fashion and a pericardial cradle was created. Findings included a normal aorta with a normal size heart. After systemic heparinization and after placement of respective pledgeted pursestrings, aortic cannulation with a 21-Citizen [place] soft flow cannula, venous cannulation with a 29-37- Citizen [place] cannula was performed via the right atrial appendage. Antegrade as well as retrograde cardioplegia catheters were placed. Cardiopulmonary bypass was initiated and the patient's temperature was allowed to drift down to 34 degrees Celsius. At this point, we looked at the target. The mid PDA stenosis was calcific and the PDA beyond it was short and decision was made to bypass the right coronary artery at the bifurcation where it had some wall disease but definitely bypassable. Looking at the 2nd obtuse marginal artery is was uncovered before it bifurcated and appeared to be soft. The 2nd diagonal artery was also identified before it bifurcated and had a soft spot. Spent quite a bit of time trying to find the LAD. That vessel again was diminutive on angiogram and we did not know if it was underfilled or anatomically small. I used the epiaortic scanning and finally was able to uncover a very good size LAD of around 2 mm in size, deep intra myocardial and soft and that would be the site for bypass. Aorta was clamped and during aortic clamping myocardial protection was achieved with initial dose of antegrade cold blood cardioplegia with adequate arrest at 200 mL followed by retrograde cold blood cardioplegia. All subsequent doses were given retrograde at 15 minutes intervals. The 1st distal anastomosis between segment of vein and a 2 mm right coronary artery at the bifurcation using Prolene 7-0 in continuous fashion. The 2nd distal anastomosis was between the radial artery and the 2nd obtuse marginal artery before it bifurcated and it was around 1.7 mm in diameter and thin-walled using Prolene 7-0 in continuous fashion. The 3rd distal anastomosis was between another segment of vein of good quality and the 2nd diagonal artery which was around 1.5 mm in diameter with some wall disease in it using Prolene 7-0 in continuous fashion. The 4th distal anastomosis was between the left internal mammary artery that passed in a deep groove in the left pleuropericardial fat and anastomosed to the deep intra myocardial left anterior descending artery using Prolene 7-0 in continuous fashion. The mammary pedicle was affixed to the epicardium with Prolene 7-0 suture. Satisfied with the distal anastomoses, rewarming was started as we punched out 3 holes from the ascending aorta and performed the 3 proximal anastomoses using a running Prolene. The left atrial appendage had been excluded with a 35 mm AtriClip deployed at its base. Before the coronary time, we had encircled both pulmonary vein on either side and applied 3 ablations by the bipolar radiofrequency clamp from [employer] in the antrum of the veins. De-airing was performed. Patient was given lidocaine and magnesium and with the head down and the aortic root on maximum suction, we unclamped the aorta. The patient regained spontaneous sinus rhythm. After a period of reperfusion, we were able to wean off cardioplegia bypass without the need of any inotropic or vasopressor support. At this point, we proceeded at a formal graft flow measurements using the Medistim system. A 4 mm probe was selected. The flow into the vein to the RCA was 78 mL/minute, pulsatility index of 1.8, diastolic filling of 58% showing excellent functioning graft. The flow into the vein to the diagonal artery was 31 mL/minute, pulsatility index of 2.4, diastolic filling of 75% showing excellent functioning graft. The flow into the radial artery to the obtuse marginal artery was 21 mL/minute, pulsatility index of 4, diastolic filling 54% showing excellent functioning graft. The flow into the left intramammary artery to the left anterior descending artery was 27 mL/minute, pulsatility index of 3.8, and diastolic filling of 43%, showing good functioning graft. With that all pump suckers were stopped. Then test dose and full dose protamine was given. Decannulation followed. Two monopolar atrial pacing wires were affixed to the respective pursing of the right atrium. Two 19-Citizen [place] Jack drain were left substernally. Pericardial fat was approximated over the heart and grafts. After ensuring adequate hemostasis and hemodynamics and after correct sponge, instrument, and needle count, the sternum was closed using 5 [id number] and 1 interrupted [place] cable. Thorough irrigation of cefazolin followed. The rest of the closure proceeded in layers. Skin glue was applied. The patient did not receive any blood bank product but received 900 cc of Cell Saver blood. He was transferred to the ICU in sinus rhythm with excellent hemodynamics and normal EKG with a BAHMAN showing good left ventricular function. OTTONIEL / IJN: [id number] /
--- NOTE | 2021-04-15 09:14 | P.PN ---
Subjective Progress Note Date: 04/15/21 Principal diagnosis: Symptomatic multivessel coronary artery disease, non-ST elevated myocardial infarction this admission, mild left ventricular dysfunction. Previous medical history of hypertension, dyslipidemia, morbid obesity, paroxysmal atrial fibrillation, nonmalignant brain meningioma status post removal, remote history of MRSA infection to his left leg, previous tobacco dependence, asthma and osteoarthritis. POD #1 quadruple coronary artery bypass surgery using the left internal mammary artery to left anterior descending artery, left radial artery from the aorta to the first obtuse marginal artery, reverse saphenous vein graft from the aorta to the second diagonal coronary artery, reverse saphenous vein graft from the aorta to the right coronary artery, bilateral pulmonary vein isolation using an epicardial bipolar radiofrequency clamp from AtriCure, exclusion of the left atrial appendage using a 35 mm AtriClip, endoscopic harvesting of the left radial artery and left greater saphenous vein, graft flow measurements using the Ensightenim system, intraoperative transesophageal echocardiogram and epi-aortic scanning. The patient's currently sitting up in a recliner in the intensive care unit in no acute distress. He was successfully extubated last night at 22:10. Does complain of significant postsurgical pain and difficulty taking a deep breath. Remains in sinus rhythm to sinus tach with heart rate in the high 90s to low 100s, hemodynamically stable on no inotropes or pressors. Mediastinal/right/left pleural chest tubes, right internal jugular Moorland/Cordis, right radial arterial line all remaining present. Patient is minimally attempting incentive spirometry and requires much encouragement, maintaining oxygen saturations in the high 90s on 6 L nasal cannula. No other new concerns. Objective - Vital Signs Vital signs: Vital Signs Temp 100.2 F H 04/15/21 04:00 Pulse 106 H 04/15/21 07:00 Resp 23 04/15/21 07:00 BP 100/66 04/15/21 00:00 Pulse Ox 97 04/15/21 07:00 Intake & Output 04/14/21 04/15/21 04/15/21 18:59 06:59 18:59 Intake Total 263.097 986.210 65.565 Output Total 3152 984 30 Balance -2888.903 2.210 35.565 Intake: IV 7 829 59 CO/CI 180 Sodium Chloride 0.9% 1, 550 50 000 ml @ 50 mls/hr IV . Q20H [facility] Rx#:[id number] pressure bag NS 99 9 Intake, IV Titration 256.097 157.210 6.565 Amount ACETAMINOPHEN IV (For NPO 100 ) 1,000 mg In Empty Bag 1 bag @ 400 mls/hr IVPB Q6H [facility] Rx#:[id number] Clevidipine Butyrate 25 19.467 mg In Empty Bag 1 bag @ 1 MG/HR 2 mls/hr IV .Q24H [facility] Rx#:[id number] Insulin Regular 100 unit 72.046 6.565 In Sodium Chloride 0.9% 100 ml @ Per Protocol IV .Q0M [facility] Rx#:[id number] Sodium Chloride 0.9% 1, 100 50 000 ml @ 20 mls/hr IV . Q24H [facility] Rx#:[id number] propofoL 1,000 mg In 36.63 35.164 Empty Bag 1 bag @ Titrate IV .Q0M [facility] Rx#: [id number] Output: Chest Tube Drainage 475 364 0 left pleural 145 104 0 msX2 110 180 0 right pleural 220 80 0 Drainage 0 0 right wrist 0 0 Urine 1477 620 30 Estimated Blood Loss 1200 Other: Voiding Method Indwelling Catheter Indwelling Catheter ABP, PAP, CO, CI - Last Documented Arterial Blood Pressure 110/65 Pulmonary Artery Pressure 22/12 Cardiac Output 5 Cardiac Index 2 - Exam CONSTITUTIONAL: Appears uncomfortable, cooperative, no acute distress RESPIRATORY: Lungs sounds diminished bilaterally. Respirations even, nonlabored. Currently on 6 L nasal cannula with oxygen saturation 97%. Only able to achieve 500-750 mL on incentive spirometry. Weak cough. CARDIOVASCULAR: S1, S2 present. Regular rate and rhythm, sinus rhythm on telemetry. Sternum stable. Palpable peripheral pulses bilaterally. No edema present. No calf pain or tenderness noted. Heart hugger in place with patient occasionally demonstrating appropriate use. Antiembolism stockings, SCDs present. GASTROINTESTINAL: Abdomen soft, nontender, nondistended. Hypoactive bowel sounds present 4 quadrants. Tolerating clear liquids. Positive flatus. GENITOURINARY: Hunt present draining clear, yellow urine. Output overnight 30-50 mL per hour INTEGUMENTARY: Skin is warm and dry with evidence of good perfusion. Anterior chest incision well approximated and covered with dry intact dressing. EVH site well approximated without redness or drainage. NEUROLOGIC: Cranial nerves II through XII intact MUSKULOSKELETAL: Able to move all extremities, strength equal bilaterally PSYCHIATRIC: Alert and oriented to person place and time, appropriate affect, intact judgment and insight INVASIVE LINES AND TUBES: Mediastinal/left/right pleural chest tubes present and connected to wall suction, no air leaks present. Mediastinal tube with 90 mL serosanguineous drainage overnight, 300 mL since surgery . Left pleural chest tube with 80 mL serosanguineous drainage overnight, 250 mL since surgery. Right pleural chest tube with 40 mL serosanguineous drainage overnight, 350 mL since surgery. Atrial epicardial pacemaker wires present, connected to generator, backup rate 50 bpm. Right internal jugular [place]/Cordis, right radial arterial line present. Last CO/CI 5/2, PA 22/10, CVP 3. - Labs CBC & Chem 7: 04/15/21 03:45 04/15/21 03:45 Labs: Abnormal Lab Results - Last 24 Hours (Table) 04/13/21 04/14/21 04/14/21 Range/Units 07:38 08:36 11:24 WBC (3.8-10.6) k/uL RBC (4.30-5.90) m/uL Hgb (13.0-17.5) gm/dL Hct (39.0-53.0) % Neutrophils # (1.3-7.7) k/uL Lymphocytes # (1.0-4.8) k/uL Monocytes # (0-1.0) k/uL APTT (22.0-30.0) sec ABG pH (7.35-7.45) ABG pCO2 53 H (35-45) mmHg ABG pO2 231 H 145 H (83-108) mmHg ABG HCO3 29 H 28 H (21-25) mmol/L ABG Total CO2 31 H 30 H (19-24) mmol/L ABG O2 Saturation 99.9 H 99.5 H (94-97) % ABG Hematocrit (34.0-46.0) % ABG Potassium (3.4-4.5) mmol/L ABG Ionized Calcium (4.5-5.3) mg/dL ABG Glucose 118 H 137 H (75-99) mg/dL ABG Lactic Acid (0.5-1.6) mmol/L Hemoglobin (13.0-17.5) gm/dL Creatinine (0.66-1.25) mg/dL Glucose (74-99) mg/dL POC Glucose (mg/dL) (75-99) mg/dL Calcium (8.4-10.2) mg/dL Magnesium (1.6-2.3) mg/dL Total Bilirubin (0.2-1.3) mg/dL AST (17-59) U/L ALT (4-49) U/L Total Protein (6.3-8.2) g/dL Albumin (3.5-5.0) g/dL Arterial Blood Potassium (3.4-4.5) mmol/L Arterial Blood Glucose 118 H 137 H (75-99) mg/dL Crossmatch See Detail 04/14/21 04/14/21 04/14/21 Range/Units 12:07 12:54 13:33 WBC (3.8-10.6) k/uL RBC (4.30-5.90) m/uL Hgb (13.0-17.5) gm/dL Hct (39.0-53.0) % Neutrophils # (1.3-7.7) k/uL Lymphocytes # (1.0-4.8) k/uL Monocytes # (0-1.0) k/uL APTT (22.0-30.0) sec ABG pH (7.35-7.45) ABG pCO2 48 H 46 H (35-45) mmHg ABG pO2 389 H 310 H 269 H (83-108) mmHg ABG HCO3 26 H 28 H 28 H (21-25) mmol/L ABG Total CO2 28 H 29 H 29 H (19-24) mmol/L ABG O2 Saturation 100.0 H 100.0 H 100.0 H (94-97) % ABG Hematocrit 33 L (34.0-46.0) % ABG Potassium 4.8 H 4.8 H (3.4-4.5) mmol/L ABG Ionized Calcium 4.1 L 4.2 L 4.2 L (4.5-5.3) mg/dL ABG Glucose 125 H 126 H 158 H (75-99) mg/dL ABG Lactic Acid (0.5-1.6) mmol/L Hemoglobin 11.3 L 10.7 L 11.0 L (13.0-17.5) gm/dL Creatinine (0.66-1.25) mg/dL Glucose (74-99) mg/dL POC Glucose (mg/dL) (75-99) mg/dL Calcium (8.4-10.2) mg/dL Magnesium (1.6-2.3) mg/dL Total Bilirubin (0.2-1.3) mg/dL AST (17-59) U/L ALT (4-49) U/L Total Protein (6.3-8.2) g/dL Albumin (3.5-5.0) g/dL Arterial Blood Potassium 4.8 H 4.8 H (3.4-4.5) mmol/L Arterial Blood Glucose 125 H 126 H 158 H (75-99) mg/dL Crossmatch 04/14/21 04/14/21 04/14/21 Range/Units 14:16 15:44 16:57 WBC (3.8-10.6) k/uL RBC (4.30-5.90) m/uL Hgb (13.0-17.5) gm/dL Hct (39.0-53.0) % Neutrophils # (1.3-7.7) k/uL Lymphocytes # (1.0-4.8) k/uL Monocytes # (0-1.0) k/uL APTT (22.0-30.0) sec ABG pH (7.35-7.45) ABG pCO2 46 H (35-45) mmHg ABG pO2 >420 H 137 H (83-108) mmHg ABG HCO3 27 H 27 H (21-25) mmol/L ABG Total CO2 29 H 28 H (19-24) mmol/L ABG O2 Saturation 100.0 H 99.4 H (94-97) % ABG Hematocrit (34.0-46.0) % ABG Potassium 4.7 H 4.6 H (3.4-4.5) mmol/L ABG Ionized Calcium 4.3 L 4.3 L (4.5-5.3) mg/dL ABG Glucose 181 H 140 H (75-99) mg/dL ABG Lactic Acid 1.9 H (0.5-1.6) mmol/L Hemoglobin 11.2 L 11.8 L (13.0-17.5) gm/dL Creatinine (0.66-1.25) mg/dL Glucose (74-99) mg/dL POC Glucose (mg/dL) 159 H (75-99) mg/dL Calcium (8.4-10.2) mg/dL Magnesium (1.6-2.3) mg/dL Total Bilirubin (0.2-1.3) mg/dL AST (17-59) U/L ALT (4-49) U/L Total Protein (6.3-8.2) g/dL Albumin (3.5-5.0) g/dL Arterial Blood Potassium 4.7 H 4.6 H (3.4-4.5) mmol/L Arterial Blood Glucose 181 H 140 H (75-99) mg/dL Crossmatch 04/14/21 04/14/21 04/14/21 Range/Units 17:06 17:06 17:06 WBC 13.6 H (3.8-10.6) k/uL RBC (4.30-5.90) m/uL Hgb (13.0-17.5) gm/dL Hct (39.0-53.0) % Neutrophils # 11.7 H (1.3-7.7) k/uL Lymphocytes # 0.9 L (1.0-4.8) k/uL Monocytes # (0-1.0) k/uL APTT 40.1 H (22.0-30.0) sec ABG pH (7.35-7.45) ABG pCO2 (35-45) mmHg ABG pO2 (83-108) mmHg ABG HCO3 (21-25) mmol/L ABG Total CO2 (19-24) mmol/L ABG O2 Saturation (94-97) % ABG Hematocrit (34.0-46.0) % ABG Potassium (3.4-4.5) mmol/L ABG Ionized Calcium (4.5-5.3) mg/dL ABG Glucose (75-99) mg/dL ABG Lactic Acid (0.5-1.6) mmol/L Hemoglobin (13.0-17.5) gm/dL Creatinine 0.59 L (0.66-1.25) mg/dL Glucose 158 H (74-99) mg/dL POC Glucose (mg/dL) (75-99) mg/dL Calcium 7.7 L (8.4-10.2) mg/dL Magnesium 2.4 H (1.6-2.3) mg/dL Total Bilirubin 1.9 H (0.2-1.3) mg/dL AST 152 H (17-59) U/L ALT 168 H (4-49) U/L Total Protein 4.8 L (6.3-8.2) g/dL Albumin 2.8 L (3.5-5.0) g/dL Arterial Blood Potassium (3.4-4.5) mmol/L Arterial Blood Glucose (75-99) mg/dL Crossmatch 04/14/21 04/14/21 04/14/21 Range/Units 17:19 18:04 19:00 WBC 18.0 H (3.8-10.6) k/uL RBC (4.30-5.90) m/uL Hgb (13.0-17.5) gm/dL Hct (39.0-53.0) % Neutrophils # 16.0 H (1.3-7.7) k/uL Lymphocytes # 0.7 L (1.0-4.8) k/uL Monocytes # (0-1.0) k/uL APTT (22.0-30.0) sec ABG pH 7.30 L (7.35-7.45) ABG pCO2 57 H (35-45) mmHg ABG pO2 125 H (83-108) mmHg ABG HCO3 28 H (21-25) mmol/L ABG Total CO2 29 H (19-24) mmol/L ABG O2 Saturation 98.4 H (94-97) % ABG Hematocrit (34.0-46.0) % ABG Potassium (3.4-4.5) mmol/L ABG Ionized Calcium (4.5-5.3) mg/dL ABG Glucose (75-99) mg/dL ABG Lactic Acid (0.5-1.6) mmol/L Hemoglobin (13.0-17.5) gm/dL Creatinine (0.66-1.25) mg/dL Glucose (74-99) mg/dL POC Glucose (mg/dL) 170 H (75-99) mg/dL Calcium (8.4-10.2) mg/dL Magnesium (1.6-2.3) mg/dL Total Bilirubin (0.2-1.3) mg/dL AST (17-59) U/L ALT (4-49) U/L Total Protein (6.3-8.2) g/dL Albumin (3.5-5.0) g/dL Arterial Blood Potassium (3.4-4.5) mmol/L Arterial Blood Glucose (75-99) mg/dL Crossmatch 04/14/21 04/14/21 04/14/21 Range/Units 19:02 19:54 21:10 WBC (3.8-10.6) k/uL RBC (4.30-5.90) m/uL Hgb (13.0-17.5) gm/dL Hct (39.0-53.0) % Neutrophils # (1.3-7.7) k/uL Lymphocytes # (1.0-4.8) k/uL Monocytes # (0-1.0) k/uL APTT (22.0-30.0) sec ABG pH (7.35-7.45) ABG pCO2 (35-45) mmHg ABG pO2 (83-108) mmHg ABG HCO3 (21-25) mmol/L ABG Total CO2 (19-24) mmol/L ABG O2 Saturation (94-97) % ABG Hematocrit (34.0-46.0) % ABG Potassium (3.4-4.5) mmol/L ABG Ionized Calcium (4.5-5.3) mg/dL ABG Glucose (75-99) mg/dL ABG Lactic Acid (0.5-1.6) mmol/L Hemoglobin (13.0-17.5) gm/dL Creatinine (0.66-1.25) mg/dL Glucose (74-99) mg/dL POC Glucose (mg/dL) 186 H 185 H 164 H (75-99) mg/dL Calcium (8.4-10.2) mg/dL Magnesium (1.6-2.3) mg/dL Total Bilirubin (0.2-1.3) mg/dL AST (17-59) U/L ALT (4-49) U/L Total Protein (6.3-8.2) g/dL Albumin (3.5-5.0) g/dL Arterial Blood Potassium (3.4-4.5) mmol/L Arterial Blood Glucose (75-99) mg/dL Crossmatch 04/14/21 04/14/21 04/14/21 Range/Units 21:40 22:17 23:05 WBC (3.8-10.6) k/uL RBC (4.30-5.90) m/uL Hgb (13.0-17.5) gm/dL Hct (39.0-53.0) % Neutrophils # (1.3-7.7) k/uL Lymphocytes # (1.0-4.8) k/uL Monocytes # (0-1.0) k/uL APTT (22.0-30.0) sec ABG pH (7.35-7.45) ABG pCO2 (35-45) mmHg ABG pO2 (83-108) mmHg ABG HCO3 26 H (21-25) mmol/L ABG Total CO2 27 H (19-24) mmol/L ABG O2 Saturation 97.6 H (94-97) % ABG Hematocrit (34.0-46.0) % ABG Potassium (3.4-4.5) mmol/L ABG Ionized Calcium (4.5-5.3) mg/dL ABG Glucose (75-99) mg/dL ABG Lactic Acid (0.5-1.6) mmol/L Hemoglobin (13.0-17.5) gm/dL Creatinine (0.66-1.25) mg/dL Glucose (74-99) mg/dL POC Glucose (mg/dL) 164 H 166 H (75-99) mg/dL Calcium (8.4-10.2) mg/dL Magnesium (1.6-2.3) mg/dL Total Bilirubin (0.2-1.3) mg/dL AST (17-59) U/L ALT (4-49) U/L Total Protein (6.3-8.2) g/dL Albumin (3.5-5.0) g/dL Arterial Blood Potassium (3.4-4.5) mmol/L Arterial Blood Glucose (75-99) mg/dL Crossmatch 04/14/21 04/15/21 04/15/21 Range/Units 23:06 00:46 02:00 WBC 23.1 H (3.8-10.6) k/uL RBC (4.30-5.90) m/uL Hgb (13.0-17.5) gm/dL Hct (39.0-53.0) % Neutrophils # 21.0 H (1.3-7.7) k/uL Lymphocytes # 0.9 L (1.0-4.8) k/uL Monocytes # (0-1.0) k/uL APTT (22.0-30.0) sec ABG pH (7.35-7.45) ABG pCO2 (35-45) mmHg ABG pO2 (83-108) mmHg ABG HCO3 (21-25) mmol/L ABG Total CO2 (19-24) mmol/L ABG O2 Saturation (94-97) % ABG Hematocrit (34.0-46.0) % ABG Potassium (3.4-4.5) mmol/L ABG Ionized Calcium (4.5-5.3) mg/dL ABG Glucose (75-99) mg/dL ABG Lactic Acid (0.5-1.6) mmol/L Hemoglobin (13.0-17.5) gm/dL Creatinine (0.66-1.25) mg/dL Glucose (74-99) mg/dL POC Glucose (mg/dL) 158 H 152 H (75-99) mg/dL Calcium (8.4-10.2) mg/dL Magnesium (1.6-2.3) mg/dL Total Bilirubin (0.2-1.3) mg/dL AST (17-59) U/L ALT (4-49) U/L Total Protein (6.3-8.2) g/dL Albumin (3.5-5.0) g/dL Arterial Blood Potassium (3.4-4.5) mmol/L Arterial Blood Glucose (75-99) mg/dL Crossmatch 04/15/21 04/15/21 04/15/21 Range/Units 03:44 03:45 03:45 WBC 19.0 H (3.8-10.6) k/uL RBC 4.26 L (4.30-5.90) m/uL Hgb 12.9 L (13.0-17.5) gm/dL Hct 37.5 L (39.0-53.0) % Neutrophils # 16.6 H (1.3-7.7) k/uL Lymphocytes # (1.0-4.8) k/uL Monocytes # 1.2 H (0-1.0) k/uL APTT (22.0-30.0) sec ABG pH (7.35-7.45) ABG pCO2 (35-45) mmHg ABG pO2 (83-108) mmHg ABG HCO3 (21-25) mmol/L ABG Total CO2 (19-24) mmol/L ABG O2 Saturation (94-97) % ABG Hematocrit (34.0-46.0) % ABG Potassium (3.4-4.5) mmol/L ABG Ionized Calcium (4.5-5.3) mg/dL ABG Glucose (75-99) mg/dL ABG Lactic Acid (0.5-1.6) mmol/L Hemoglobin (13.0-17.5) gm/dL Creatinine (0.66-1.25) mg/dL Glucose 149 H (74-99) mg/dL POC Glucose (mg/dL) 147 H (75-99) mg/dL Calcium 8.3 L (8.4-10.2) mg/dL Magnesium (1.6-2.3) mg/dL Total Bilirubin (0.2-1.3) mg/dL AST 89 H (17-59) U/L ALT 135 H (4-49) U/L Total Protein 4.9 L (6.3-8.2) g/dL Albumin 2.8 L (3.5-5.0) g/dL Arterial Blood Potassium (3.4-4.5) mmol/L Arterial Blood Glucose (75-99) mg/dL Crossmatch 04/15/21 04/15/21 04/15/21 Range/Units 05:30 06:15 07:05 WBC (3.8-10.6) k/uL RBC (4.30-5.90) m/uL Hgb (13.0-17.5) gm/dL Hct (39.0-53.0) % Neutrophils # (1.3-7.7) k/uL Lymphocytes # (1.0-4.8) k/uL Monocytes # (0-1.0) k/uL APTT (22.0-30.0) sec ABG pH (7.35-7.45) ABG pCO2 (35-45) mmHg ABG pO2 (83-108) mmHg ABG HCO3 (21-25) mmol/L ABG Total CO2 (19-24) mmol/L ABG O2 Saturation (94-97) % ABG Hematocrit (34.0-46.0) % ABG Potassium (3.4-4.5) mmol/L ABG Ionized Calcium (4.5-5.3) mg/dL ABG Glucose (75-99) mg/dL ABG Lactic Acid (0.5-1.6) mmol/L Hemoglobin (13.0-17.5) gm/dL Creatinine (0.66-1.25) mg/dL Glucose (74-99) mg/dL POC Glucose (mg/dL) 150 H 148 H 133 H (75-99) mg/dL Calcium (8.4-10.2) mg/dL Magnesium (1.6-2.3) mg/dL Total Bilirubin (0.2-1.3) mg/dL AST (17-59) U/L ALT (4-49) U/L Total Protein (6.3-8.2) g/dL Albumin (3.5-5.0) g/dL Arterial Blood Potassium (3.4-4.5) mmol/L Arterial Blood Glucose (75-99) mg/dL Crossmatch Assessment and Plan Assessment: 1. Symptomatic multivessel coronary artery disease, non-STEMI this admission, status post four-vessel CABG 2. Hypertension 3. Dyslipidemia 4. Remote history of paroxysmal atrial fibrillation, currently in normal sinus rhythm 5. Diet-controlled diabetes mellitus with a recent hemoglobin A1c of 6.9% 6. Morbid obesity 7. History of nonmalignant meningioma status post resection 8. Previous tobacco dependence, preoperative FEV1 90% of predicted 9. Asthma 10. Osteoarthritis Plan: 1. Continue to maximize medical therapy with aspirin, statin, and beta josie. Will increase beta josie therapy as tolerated 2. Discontinue IV nitro. Will add oral Cardizem for radial artery spasm prophylaxis. Do not discontinue CCB without discussed with cardiac surgery 3. Wean O2 as tolerated. Encourage incentive spirometry use 10 times every hour while awake. Bronchodilators per pulmonology 4. Increase activity, ambulate as tolerated. Out of bed for all meals. PT/OT/cardiac rehab consulted 5. Will monitor daily labs and chest x-rays. Electrolyte replacement per protocol 6. GI/DVT prophylaxis 7. Pain control with current medication regimen 8. Insulin management per primary care service. Patient needs tight blood sugar control to promote healing and sternal union as well as prevent infection 9. Discontinue [place]. Connect Cordis to continuous CVP monitoring 10. Discontinue ELIECER drain 11. Will continue chest tubes, Cordis, arterial line for another 24 hours 12. Continue Hunt catheter for another 24 hours for strict accurate intake and output. Daily weights 13. More recommendations to follow based on patient's clinical course. Time with Patient: Greater than 30
[2021-04-15] MEDS: ASPIRIN 325 MG TAB PO SCH (09:26)
[2021-04-15] MEDS: METOPROLOL TARTRATE 12.5 MG TAB PO SCH (09:26)
[2021-04-15] MEDS: CLOPIDOGREL 75 MG TAB PO SCH (09:26)
[2021-04-15] MEDS: DILTIAZEM ORAL 30 MG TAB PO SCH ×2 (09:26→16:19)
--- NOTE | 2021-04-15 09:35 | XR ---
EXAMINATION TYPE: XR chest 1V portable DATE OF EXAM: 04/15/2021 COMPARISON: 04/14/2021 HISTORY: Postop TECHNIQUE: Single frontal view of the chest is obtained. FINDINGS: ET and NG tube have been removed. [place]-Yonas catheter is noted. Distal tip of the catheter difficult to see on today's exam. Postoperative changes with bilateral infiltrate and small effusion stable. No sizable pneumothorax. Suggestion of mediastinal drain. Right-sided chest tube appears to b een pulled back slightly. Tubing overlying the left upper quadrant is indeterminate. IMPRESSION: 1. Bilateral infiltrate and pleural effusion stable. 2. Interval removal ET and NG tube.
[2021-04-15 09:37] LABS: Glucose,Whole Blood 128 mg/dL (75-99)
[2021-04-15] MEDS: ceFAZolin 3 GM in SODIUM CHLORIDE 0.9% 100 ML IVPB SCH ×2 (09:42→16:04)
--- NOTE | 2021-04-15 10:15 | P.PN ---
Subjective Progress Note Date: 04/15/21 Principal diagnosis: Non-ST segment elevation myocardial infarction, CAD This is a 60-year-old white male patient with past medical history of hypertension, hyperlipidemia, obesity, paroxysmal atrial fibrillation not on chronic anticoagulation, she is an ex-smoker, smoked for a total of 10 years, a pack a day, who came into the emergency department on 04/08/2021 for evaluation of chest pain. Patient was working in the barn unloading [employer] when he started to have left-sided chest pain radiating into his left upper back and down his left arm. Patient reported shortness of breath associated with the chest pain. Patient was also told that he has a borderline diabetic with his last hemoglobin A1c of 6.8- 6.9. His primary care provider is Dr. Jovi Persaud. Admission EKG showed sinus tachycardia with no ST elevation or depression. His labs showed elevated troponins that peaked at 0.179 with the third set. His initial chest x-ray showed no acute process. Echocardiogram showed normal EF of 55-60%, mild MR, mild TR, PA pressure of less than 35 mmHg. Patient was diagnosed with non-ST elevated myocardial infarction and underwent heart catheterization on 04/09/2021 that showed severe triple-vessel disease with a dominant RCA. The RCA was moderately calcified and tortuous with that 80% eccentric lesion distally. Left main was free of significant disease. LAD was also heavily calcified, with 70% stenosis after the diagonal and 80% lesion at the second diagonal. Left circumflex had a 95% stenosis. Aortocoronary bypass surgery was recommended, and there was a consult placed to Dr. Esquivel. Patient is currently undergoing preop evaluation. And we are consulted for pulmonary/critical care management. Patient is awake and alert, in no acute distress, patient has been ablating the halls, tolerating activity well, no complaints of chest pain. He denies any history of major lung disease. He states in the wintertime he may have some limited wheezing occasionally in response to cold air, denies any history of asthma, not on any chronic inhalers. His preop FEV1 was reviewed showing FEV1 of 3.27 L or 90% of predicted, FEV1 to FVC ratio of 75% of pre dicted, an MVV of 123 L, and patient has a normal lung function. Progress note dated 04/14/2021. The patient will be having a bypass procedure today. The patient was not available for evaluation today because he is ready been taken down to the operating room. Yesterday, we saw the patient in consultation. The patient had excellent lung function including an FEV1 that was 3.27 L or 90% of predicted, and a MVV that was 123 L/m. Based on these data, the patient's at no increased operative risk. He did smoke for a short period of time in the distant past. No labs today as yet. The patient is seen today 04/15/2021 in follow-up in the intensive care unit. This is postoperative day #1 of a four-vessel coronary artery bypass graft surgery. He received a [place] to the LAD, left radial artery to the second obtuse marginal branch, saphenous vein grafts to the second diagonal artery and right coronary artery. He is currently sitting up in a chair at the bedside. He is requiring 6 L high flow nasal cannula to maintain O2 saturations in the 90s. Chest x-ray reveals bilateral infiltrate and stable pleural effusion. Mediastinal right and left pleural chest tubes in place. Pulling approximately 750 on the incentive spirometer. Right internal jugular [place]-Yonas catheter in place. Left radial art line in place. Cardiac output 5.0. Cardiac index 2.0. Atrial epicardial wires present. Backup pacing at 50. He is receiving albumin this morning. PA pressures 22/10, CVP 3. Remains on 0.9 normal sitting at 50 MLS per hour. Insulin drip at 0.5 units per hour. Nitroglycerin drip is off. No pressors. White count 19.0. Hemoglobin 12.9. Platelets 199. Sodium 139. Potassium 4.4. Creatinine 0.66. AST 89. ALT 135. He remains on DuoNeb inhalations. Cefazolin per protocol. Heparin subcu for DVT prophylaxis. Objective - Vital Signs Vital signs: Vital Signs Temp 99.5 F 04/15/21 08:00 Pulse 107 H 04/15/21 09:00 Resp 18 04/15/21 09:00 BP 97/66 04/15/21 08:00 Pulse Ox 95 04/15/21 09:00 Intake & Output 04/14/21 04/15/21 04/15/21 18:59 06:59 18:59 Intake Total 263.097 986.210 573.064 Output Total 3152 984 145 Balance -2888.903 2.210 428.064 Intake: IV 7 829 157 CO/CI 180 30 Sodium Chloride 0.9% 1, 550 100 000 ml @ 50 mls/hr IV . Q20H [facility] Rx#:[id number] pressure bag NS 99 27 Intake, IV Titration 256.097 157.210 416.064 Amount ACETAMINOPHEN IV (For NPO 100 ) 1,000 mg In Empty Bag 1 bag @ 400 mls/hr IVPB Q6H [facility] Rx#:[id number] Albumin Human 5% 250 ml 250 In Empty Bag 1 bag @ 250 mls/hr IVPB Q1HR [facility]N Rx#: [id number] Clevidipine Butyrate 25 19.467 mg In Empty Bag 1 bag @ 1 MG/HR 2 mls/hr IV .Q24H [facility] Rx#:[id number] Insulin Regular 100 unit 72.046 23.289 In Sodium Chloride 0.9% 100 ml @ Per Protocol IV .Q0M [facility] Rx#:[id number] Nitroglycerin-D5w Pmx 50 22.775 mg In Dextrose/Water 1 250ml.bag @ 5 MCG/MIN 1.5 mls/hr IV .Q24H [facility] Rx#: [id number] Sodium Chloride 0.9% 1, 100 50 20 000 ml @ 20 mls/hr IV . Q24H [facility] Rx#:[id number] ceFAZolin 3 gm In Sodium 100 Chloride 0.9% 100 ml @ 100 mls/hr IVPB Q8HR [facility] Rx#:[id number] propofoL 1,000 mg In 36.63 35.164 Empty Bag 1 bag @ Titrate IV .Q0M [facility] Rx#: [id number] Output: Chest Tube Drainage 475 364 45 left pleural 145 104 15 msX2 110 180 10 right pleural 220 80 20 Drainage 0 0 right wrist 0 0 Urine 1477 620 100 Estimated Blood Loss 1200 Other: Voiding Method Indwelling Catheter Indwelling Catheter ABP, PAP, CO, CI - Last Documented Arterial Blood Pressure 123/70 Pulmonary Artery Pressure 24/13 Cardiac Output 5.0 Cardiac Index 2.0 - Exam GENERAL EXAM: Alert, pleasant 60-year-old gentleman, on 6 L nasal cannula, fairly comfortable in no apparent distress. HEAD: Normocephalic. EYES: Normal reaction of pupils, equal size. NOSE: Clear with pink turbinates. THROAT: No erythema or exudates. NECK: Right IJ [place]-Yonas catheter in place. No masses, no JVD. CHEST: Sternal dressing dry and intact. Heart hugger in place. Apical pacer wire in place. Mediastinal and right and left pleural chest tubes in place. LUNGS: Equal air entry with few scattered rhonchi, crackles in the posterior bases. CVS: S1 and S2 normal with no audible murmur, regular rhythm. ABDOMEN: No hepatosplenomegaly, hypoactive bowel sounds, no guarding or rigidity. SPINE: No scoliosis or deformity SKIN: No rashes CENTRAL NERVOUS SYSTEM: No focal deficits, tone is normal in all 4 extremities. EXTREMITIES: Left radial arterial line in place. SCDs in place the lower extremities. There is 1+ peripheral edema. No clubbing, no cyanosis. Peripheral pulses are intact. - Labs CBC & Chem 7: 04/15/21 03:45 04/15/21 03:45 Labs: Abnormal Lab Results - Last 24 Hours (Table) 04/13/21 04/14/21 04/14/21 Range/Units 07:38 08:36 11:24 WBC (3.8-10.6) k/uL RBC (4.30-5.90) m/uL Hgb (13.0-17.5) gm/dL Hct (39.0-53.0) % Neutrophils # (1.3-7.7) k/uL Lymphocytes # (1.0-4.8) k/uL Monocytes # (0-1.0) k/uL APTT (22.0-30.0) sec ABG pH (7.35-7.45) ABG pCO2 53 H (35-45) mmHg ABG pO2 231 H 145 H (83-108) mmHg ABG HCO3 29 H 28 H (21-25) mmol/L ABG Total CO2 31 H 30 H (19-24) mmol/L ABG O2 Saturation 99.9 H 99.5 H (94-97) % ABG Hematocrit (34.0-46.0) % ABG Potassium (3.4-4.5) mmol/L ABG Ionized Calcium (4.5-5.3) mg/dL ABG Glucose 118 H 137 H (75-99) mg/dL ABG Lactic Acid (0.5-1.6) mmol/L Hemoglobin (13.0-17.5) gm/dL Creatinine (0.66-1.25) mg/dL Glucose (74-99) mg/dL POC Glucose (mg/dL) (75-99) mg/dL Calcium (8.4-10.2) mg/dL Magnesium (1.6-2.3) mg/dL Total Bilirubin (0.2-1.3) mg/dL AST (17-59) U/L ALT (4-49) U/L Total Protein (6.3-8.2) g/dL Albumin (3.5-5.0) g/dL Arterial Blood Potassium (3.4-4.5) mmol/L Arterial Blood Glucose 118 H 137 H (75-99) mg/dL Crossmatch See Detail 04/14/21 04/14/21 04/14/21 Range/Units 12:07 12:54 13:33 WBC (3.8-10.6) k/uL RBC (4.30-5.90) m/uL Hgb (13.0-17.5) gm/dL Hct (39.0-53.0) % Neutrophils # (1.3-7.7) k/uL Lymphocytes # (1.0-4.8) k/uL Monocytes # (0-1.0) k/uL APTT (22.0-30.0) sec ABG pH (7.35-7.45) ABG pCO2 48 H 46 H (35-45) mmHg ABG pO2 389 H 310 H 269 H (83-108) mmHg ABG HCO3 26 H 28 H 28 H (21-25) mmol/L ABG Total CO2 28 H 29 H 29 H (19-24) mmol/L ABG O2 Saturation 100.0 H 100.0 H 100.0 H (94-97) % ABG Hematocrit 33 L (34.0-46.0) % ABG Potassium 4.8 H 4.8 H (3.4-4.5) mmol/L ABG Ionized Calcium 4.1 L 4.2 L 4.2 L (4.5-5.3) mg/dL ABG Glucose 125 H 126 H 158 H (75-99) mg/dL ABG Lactic Acid (0.5-1.6) mmol/L Hemoglobin 11.3 L 10.7 L 11.0 L (13.0-17.5) gm/dL Creatinine (0.66-1.25) mg/dL Glucose (74-99) mg/dL POC Glucose (mg/dL) (75-99) mg/dL Calcium (8.4-10.2) mg/dL Magnesium (1.6-2.3) mg/dL Total Bilirubin (0.2-1.3) mg/dL AST (17-59) U/L ALT (4-49) U/L Total Protein (6.3-8.2) g/dL Albumin (3.5-5.0) g/dL Arterial Blood Potassium 4.8 H 4.8 H (3.4-4.5) mmol/L Arterial Blood Glucose 125 H 126 H 158 H (75-99) mg/dL Crossmatch 04/14/21 04/14/21 04/14/21 Range/Units 14:16 15:44 16:57 WBC (3.8-10.6) k/uL RBC (4.30-5.90) m/uL Hgb (13.0-17.5) gm/dL Hct (39.0-53.0) % Neutrophils # (1.3-7.7) k/uL Lymphocytes # (1.0-4.8) k/uL Monocytes # (0-1.0) k/uL APTT (22.0-30.0) sec ABG pH (7.35-7.45) ABG pCO2 46 H (35-45) mmHg ABG pO2 >420 H 137 H (83-108) mmHg ABG HCO3 27 H 27 H (21-25) mmol/L ABG Total CO2 29 H 28 H (19-24) mmol/L ABG O2 Saturation 100.0 H 99.4 H (94-97) % ABG Hematocrit (34.0-46.0) % ABG Potassium 4.7 H 4.6 H (3.4-4.5) mmol/L ABG Ionized Calcium 4.3 L 4.3 L (4.5-5.3) mg/dL ABG Glucose 181 H 140 H (75-99) mg/dL ABG Lactic Acid 1.9 H (0.5-1.6) mmol/L Hemoglobin 11.2 L 11.8 L (13.0-17.5) gm/dL Creatinine (0.66-1.25) mg/dL Glucose (74-99) mg/dL POC Glucose (mg/dL) 159 H (75-99) mg/dL Calcium (8.4-10.2) mg/dL Magnesium (1.6-2.3) mg/dL Total Bilirubin (0.2-1.3) mg/dL AST (17-59) U/L ALT (4-49) U/L Total Protein (6.3-8.2) g/dL Albumin (3.5-5.0) g/dL Arterial Blood Potassium 4.7 H 4.6 H (3.4-4.5) mmol/L Arterial Blood Glucose 181 H 140 H (75-99) mg/dL Crossmatch 04/14/21 04/14/21 04/14/21 Range/Units 17:06 17:06 17:06 WBC 13.6 H (3.8-10.6) k/uL RBC (4.30-5.90) m/uL Hgb (13.0-17.5) gm/dL Hct (39.0-53.0) % Neutrophils # 11.7 H (1.3-7.7) k/uL Lymphocytes # 0.9 L (1.0-4.8) k/uL Monocytes # (0-1.0) k/uL APTT 40.1 H (22.0-30.0) sec ABG pH (7.35-7.45) ABG pCO2 (35-45) mmHg ABG pO2 (83-108) mmHg ABG HCO3 (21-25) mmol/L ABG Total CO2 (19-24) mmol/L ABG O2 Saturation (94-97) % ABG Hematocrit (34.0-46.0) % ABG Potassium (3.4-4.5) mmol/L ABG Ionized Calcium (4.5-5.3) mg/dL ABG Glucose (75-99) mg/dL ABG Lactic Acid (0.5-1.6) mmol/L Hemoglobin (13.0-17.5) gm/dL Creatinine 0.59 L (0.66-1.25) mg/dL Glucose 158 H (74-99) mg/dL POC Glucose (mg/dL) (75-99) mg/dL Calcium 7.7 L (8.4-10.2) mg/dL Magnesium 2.4 H (1.6-2.3) mg/dL Total Bilirubin 1.9 H (0.2-1.3) mg/dL AST 152 H (17-59) U/L ALT 168 H (4-49) U/L Total Protein 4.8 L (6.3-8.2) g/dL Albumin 2.8 L (3.5-5.0) g/dL Arterial Blood Potassium (3.4-4.5) mmol/L Arterial Blood Glucose (75-99) mg/dL Crossmatch 04/14/21 04/14/21 04/14/21 Range/Units 17:19 18:04 19:00 WBC 18.0 H (3.8-10.6) k/uL RBC (4.30-5.90) m/uL Hgb (13.0-17.5) gm/dL Hct (39.0-53.0) % Neutrophils # 16.0 H (1.3-7.7) k/uL Lymphocytes # 0.7 L (1.0-4.8) k/uL Monocytes # (0-1.0) k/uL APTT (22.0-30.0) sec ABG pH 7.30 L (7.35-7.45) ABG pCO2 57 H (35-45) mmHg ABG pO2 125 H (83-108) mmHg ABG HCO3 28 H (21-25) mmol/L ABG Total CO2 29 H (19-24) mmol/L ABG O2 Saturation 98.4 H (94-97) % ABG Hematocrit (34.0-46.0) % ABG Potassium (3.4-4.5) mmol/L ABG Ionized Calcium (4.5-5.3) mg/dL ABG Glucose (75-99) mg/dL ABG Lactic Acid (0.5-1.6) mmol/L Hemoglobin (13.0-17.5) gm/dL Creatinine (0.66-1.25) mg/dL Glucose (74-99) mg/dL POC Glucose (mg/dL) 170 H (75-99) mg/dL Calcium (8.4-10.2) mg/dL Magnesium (1.6-2.3) mg/dL Total Bilirubin (0.2-1.3) mg/dL AST (17-59) U/L ALT (4-49) U/L Total Protein (6.3-8.2) g/dL Albumin (3.5-5.0) g/dL Arterial Blood Potassium (3.4-4.5) mmol/L Arterial Blood Glucose (75-99) mg/dL Crossmatch 04/14/21 04/14/21 04/14/21 Range/Units 19:02 19:54 21:10 WBC (3.8-10.6) k/uL RBC (4.30-5.90) m/uL Hgb (13.0-17.5) gm/dL Hct (39.0-53.0) % Neutrophils # (1.3-7.7) k/uL Lymphocytes # (1.0-4.8) k/uL Monocytes # (0-1.0) k/uL APTT (22.0-30.0) sec ABG pH (7.35-7.45) ABG pCO2 (35-45) mmHg ABG pO2 (83-108) mmHg ABG HCO3 (21-25) mmol/L ABG Total CO2 (19-24) mmol/L ABG O2 Saturation (94-97) % ABG Hematocrit (34.0-46.0) % ABG Potassium (3.4-4.5) mmol/L ABG Ionized Calcium (4.5-5.3) mg/dL ABG Glucose (75-99) mg/dL ABG Lactic Acid (0.5-1.6) mmol/L Hemoglobin (13.0-17.5) gm/dL Creatinine (0.66-1.25) mg/dL Glucose (74-99) mg/dL POC Glucose (mg/dL) 186 H 185 H 164 H (75-99) mg/dL Calcium (8.4-10.2) mg/dL Magnesium (1.6-2.3) mg/dL Total Bilirubin (0.2-1.3) mg/dL AST (17-59) U/L ALT (4-49) U/L Total Protein (6.3-8.2) g/dL Albumin (3.5-5.0) g/dL Arterial Blood Potassium (3.4-4.5) mmol/L Arterial Blood Glucose (75-99) mg/dL Crossmatch 04/14/21 04/14/21 04/14/21 Range/Units 21:40 22:17 23:05 WBC (3.8-10.6) k/uL RBC (4.30-5.90) m/uL Hgb (13.0-17.5) gm/dL Hct (39.0-53.0) % Neutrophils # (1.3-7.7) k/uL Lymphocytes # (1.0-4.8) k/uL Monocytes # (0-1.0) k/uL APTT (22.0-30.0) sec ABG pH (7.35-7.45) ABG pCO2 (35-45) mmHg ABG pO2 (83-108) mmHg ABG HCO3 26 H (21-25) mmol/L ABG Total CO2 27 H (19-24) mmol/L ABG O2 Saturation 97.6 H (94-97) % ABG Hematocrit (34.0-46.0) % ABG Potassium (3.4-4.5) mmol/L ABG Ionized Calcium (4.5-5.3) mg/dL ABG Glucose (75-99) mg/dL ABG Lactic Acid (0.5-1.6) mmol/L Hemoglobin (13.0-17.5) gm/dL Creatinine (0.66-1.25) mg/dL Glucose (74-99) mg/dL POC Glucose (mg/dL) 164 H 166 H (75-99) mg/dL Calcium (8.4-10.2) mg/dL Magnesium (1.6-2.3) mg/dL Total Bilirubin (0.2-1.3) mg/dL AST (17-59) U/L ALT (4-49) U/L Total Protein (6.3-8.2) g/dL Albumin (3.5-5.0) g/dL Arterial Blood Potassium (3.4-4.5) mmol/L Arterial Blood Glucose (75-99) mg/dL Crossmatch 0604/15/21 04/15/21 Range/Units 23:06 00:46 02:00 WBC 23.1 H (3.8-10.6) k/uL RBC (4.30-5.90) m/uL Hgb (13.0-17.5) gm/dL Hct (39.0-53.0) % Neutrophils # 21.0 H (1.3-7.7) k/uL Lymphocytes # 0.9 L (1.0-4.8) k/uL Monocytes # (0-1.0) k/uL APTT (22.0-30.0) sec ABG pH (7.35-7.45) ABG pCO2 (35-45) mmHg ABG pO2 (83-108) mmHg ABG HCO3 (21-25) mmol/L ABG Total CO2 (19-24) mmol/L ABG O2 Saturation (94-97) % ABG Hematocrit (34.0-46.0) % ABG Potassium (3.4-4.5) mmol/L ABG Ionized Calcium (4.5-5.3) mg/dL ABG Glucose (75-99) mg/dL ABG Lactic Acid (0.5-1.6) mmol/L Hemoglobin (13.0-17.5) gm/dL Creatinine (0.66-1.25) mg/dL Glucose (74-99) mg/dL POC Glucose (mg/dL) 158 H 152 H (75-99) mg/dL Calcium (8.4-10.2) mg/dL Magnesium (1.6-2.3) mg/dL Total Bilirubin (0.2-1.3) mg/dL AST (17-59) U/L ALT (4-49) U/L Total Protein (6.3-8.2) g/dL Albumin (3.5-5.0) g/dL Arterial Blood Potassium (3.4-4.5) mmol/L Arterial Blood Glucose (75-99) mg/dL Crossmatch 04/15/21 04/15/21 04/15/21 Range/Units 03:44 03:45 03:45 WBC 19.0 H (3.8-10.6) k/uL RBC 4.26 L (4.30-5.90) m/uL Hgb 12.9 L (13.0-17.5) gm/dL Hct 37.5 L (39.0-53.0) % Neutrophils # 16.6 H (1.3-7.7) k/uL Lymphocytes # (1.0-4.8) k/uL Monocytes # 1.2 H (0-1.0) k/uL APTT (22.0-30.0) sec ABG pH (7.35-7.45) ABG pCO2 (35-45) mmHg ABG pO2 (83-108) mmHg ABG HCO3 (21-25) mmol/L ABG Total CO2 (19-24) mmol/L ABG O2 Saturation (94-97) % ABG Hematocrit (34.0-46.0) % ABG Potassium (3.4-4.5) mmol/L ABG Ionized Calcium (4.5-5.3) mg/dL ABG Glucose (75-99) mg/dL ABG Lactic Acid (0.5-1.6) mmol/L Hemoglobin (13.0-17.5) gm/dL Creatinine (0.66-1.25) mg/dL Glucose 149 H (74-99) mg/dL POC Glucose (mg/dL) 147 H (75-99) mg/dL Calcium 8.3 L (8.4-10.2) mg/dL Magnesium (1.6-2.3) mg/dL Total Bilirubin (0.2-1.3) mg/dL AST 89 H (17-59) U/L ALT 135 H (4-49) U/L Total Protein 4.9 L (6.3-8.2) g/dL Albumin 2.8 L (3.5-5.0) g/dL Arterial Blood Potassium (3.4-4.5) mmol/L Arterial Blood Glucose (75-99) mg/dL Crossmatch 04/15/21 04/15/21 04/15/21 Range/Units 05:30 06:15 07:05 WBC (3.8-10.6) k/uL RBC (4.30-5.90) m/uL Hgb (13.0-17.5) gm/dL Hct (39.0-53.0) % Neutrophils # (1.3-7.7) k/uL Lymphocytes # (1.0-4.8) k/uL Monocytes # (0-1.0) k/uL APTT (22.0-30.0) sec ABG pH (7.35-7.45) ABG pCO2 (35-45) mmHg ABG pO2 (83-108) mmHg ABG HCO3 (21-25) mmol/L ABG Total CO2 (19-24) mmol/L ABG O2 Saturation (94-97) % ABG Hematocrit (34.0-46.0) % ABG Potassium (3.4-4.5) mmol/L ABG Ionized Calcium (4.5-5.3) mg/dL ABG Glucose (75-99) mg/dL ABG Lactic Acid (0.5-1.6) mmol/L Hemoglobin (13.0-17.5) gm/dL Creatinine (0.66-1.25) mg/dL Glucose (74-99) mg/dL POC Glucose (mg/dL) 150 H 148 H 133 H (75-99) mg/dL Calcium (8.4-10.2) mg/dL Magnesium (1.6-2.3) mg/dL Total Bilirubin (0.2-1.3) mg/dL AST (17-59) U/L ALT (4-49) U/L Total Protein (6.3-8.2) g/dL Albumin (3.5-5.0) g/dL Arterial Blood Potassium (3.4-4.5) mmol/L Arterial Blood Glucose (75-99) mg/dL Crossmatch 04/15/21 04/15/21 Range/Units 08:26 09:35 WBC (3.8-10.6) k/uL RBC (4.30-5.90) m/uL Hgb (13.0-17.5) gm/dL Hct (39.0-53.0) % Neutrophils # (1.3-7.7) k/uL Lymphocytes # (1.0-4.8) k/uL Monocytes # (0-1.0) k/uL APTT (22.0-30.0) sec ABG pH (7.35-7.45) ABG pCO2 (35-45) mmHg ABG pO2 (83-108) mmHg ABG HCO3 (21-25) mmol/L ABG Total CO2 (19-24) mmol/L ABG O2 Saturation (94-97) % ABG Hematocrit (34.0-46.0) % ABG Potassium (3.4-4.5) mmol/L ABG Ionized Calcium (4.5-5.3) mg/dL ABG Glucose (75-99) mg/dL ABG Lactic Acid (0.5-1.6) mmol/L Hemoglobin (13.0-17.5) gm/dL Creatinine (0.66-1.25) mg/dL Glucose (74-99) mg/dL POC Glucose (mg/dL) 144 H 128 H (75-99) mg/dL Calcium (8.4-10.2) mg/dL Magnesium (1.6-2.3) mg/dL Total Bilirubin (0.2-1.3) mg/dL AST (17-59) U/L ALT (4-49) U/L Total Protein (6.3-8.2) g/dL Albumin (3.5-5.0) g/dL Arterial Blood Potassium (3.4-4.5) mmol/L Arterial Blood Glucose (75-99) mg/dL Crossmatch Assessment and Plan Assessment: 1 Non-ST segment elevation myocardial infarction with significant coronary artery disease. Status post coronary artery bypass grafting 4 with a [place] to the LAD, left radial artery to the second obtuse marginal artery, saphenous vein grafts to the second diagonal artery and RCA. Postoperative day #1. 2 Acute hypoxic respiratory failure secondary to above, expected outcome of surgery, currently on 6 L nasal cannula 3 Hypertension 4 Hyperlipidemia 5 History of paroxysmal atrial fibrillation, maintaining sinus rhythm 6 Obesity 7 History of benign meningioma status post resection 8 History of previous chronic tobacco dependence. FEV1 value 90% of predicted. Plan: The patient was seen and evaluated by Dr. Brown Chest x-ray and labs reviewed Titrate down the FiO2 as tolerated Encourage increased use the incentive spirometer and cough and deep breathing exercises Increase his activity as tolerated Adequate pain control Heparin for DVT prophylaxis We will continue to follow and make further recommendations based on his clinical status I, the cosigning physician, performed a history & physical examination of the patient. Lungs sounds few scattered rhonchi, crackles in the posterior bases. Maintaining good O2 saturations in the 90s on 6 L high flow nasal cannula. I discussed the assessment and plan of care with my nurse practitioner, Daya Huizar. I attest to the above note as dictated by her.
[2021-04-15 10:54] LABS: Glucose,Whole Blood 116 mg/dL (75-99)
--- NOTE | 2021-04-15 10:55 | P.PN ---
Subjective Progress Note Date: 04/15/21 HISTORY OF PRESENT ILLNESS: This is a 60-year-old male who is admitted to the hospital secondary to non- STEMI. Patient underwent cardiac catheterization revealing severe triple vessel disease. He is status post CABG x4: left internal mammary artery to left anterior descending artery, left radial artery from the aorta to the first obtuse marginal artery, reverse saphenous vein graft from the aorta to the second diagonal coronary artery, reverse saphenous vein graft from the aorta to the right coronary artery. Postop day #1. Patient examined this morning in the intensive care unit. Patient was extubated yesterday. He is currently sitting up in the chair. He reports a lot of pain and discomfort this morning. He denies shortness of breath. He is hemodynamically stable. Patient is mildly tachycardic this morning with a heart rate around 110. PHYSICAL EXAM: VITAL SIGNS: Reviewed. GENERAL: Well-developed in no acute distress. NECK: Supple. No JVD or thyromegaly LUNGS: Respirations even and unlabored. Lungs diminished bilaterally. HEART: Regular rate and rhythm. S1 and S2 heard. Sternal dressing CDI. Heart hugger present. EXTREMITIES: Normal range of motion. No clubbing or cyanosis. Peripheral pulses intact. No lower extremity edema ASSESSMENT: Non-STEMI Severe triple vessel disease, status post CABG 4 Hypertension Hyperlipidemia Diabetes mellitus Obesity: BMI 41.0 PLAN: Continue postoperative management per CTS Increase activity as tolerated Encouraged use of incentive spirometer Continue current cardiac medications including aspirin, Lipitor, diltiazem, and metoprolol Monitor heart rate. If patient remains tachycardic, will make adjustments accordingly Further recommendations pending patient course Nurse practitioner note has been reviewed by physician. Signing provider agrees with the documented findings, assessment, and plan of care. Objective - Vital Signs Vital signs: Vital Signs Temp 99.5 F 04/15/21 08:00 Pulse 107 H 04/15/21 09:00 Resp 18 04/15/21 09:00 BP 97/66 04/15/21 08:00 Pulse Ox 95 04/15/21 09:00 Intake & Output 04/14/21 04/15/21 04/15/21 18:59 06:59 18:59 Intake Total 263.097 986.210 573.064 Output Total 3152 984 145 Balance -2888.903 2.210 428.064 Intake: IV 7 829 157 CO/CI 180 30 Sodium Chloride 0.9% 1, 550 100 000 ml @ 50 mls/hr IV . Q20H [facility] Rx#:[id number] pressure bag NS 99 27 Intake, IV Titration 256.097 157.210 416.064 Amount ACETAMINOPHEN IV (For NPO 100 ) 1,000 mg In Empty Bag 1 bag @ 400 mls/hr IVPB Q6H [facility] Rx#:[id number] Albumin Human 5% 250 ml 250 In Empty Bag 1 bag @ 250 mls/hr IVPB Q1HR PRN Rx#: [id number] Clevidipine Butyrate 25 19.467 mg In Empty Bag 1 bag @ 1 MG/HR 2 mls/hr IV .Q24H [facility] Rx#:[id number] Insulin Regular 100 unit 72.046 23.289 In Sodium Chloride 0.9% 100 ml @ Per Protocol IV .Q0M [facility] Rx#:[id number] Nitroglycerin-D5w Pmx 50 22.775 mg In Dextrose/Water 1 250ml.bag @ 5 MCG/MIN 1.5 mls/hr IV .Q24H [facility] Rx#: [id number] Sodium Chloride 0.9% 1, 100 50 20 000 ml @ 20 mls/hr IV . Q24H [facility] Rx#:[id number] ceFAZolin 3 gm In Sodium 100 Chloride 0.9% 100 ml @ 100 mls/hr IVPB Q8HR [facility] Rx#:[id number] propofoL 1,000 mg In 36.63 35.164 Empty Bag 1 bag @ Titrate IV .Q0M [facility] Rx#: [id number] Output: Chest Tube Drainage 475 364 45 left pleural 145 104 15 msX2 110 180 10 right pleural 220 80 20 Drainage 0 0 right wrist 0 0 Urine 1477 620 100 Estimated Blood Loss 1200 Other: Voiding Method Indwelling Catheter Indwelling Catheter ABP, PAP, CO, CI - Last Documented Arterial Blood Pressure 123/70 Pulmonary Artery Pressure 24/13 Cardiac Output 5.0 Cardiac Index 2.0 - Labs CBC & Chem 7: 04/15/21 03:45 04/15/21 03:45 Labs: Abnormal Lab Results - Last 24 Hours (Table) 04/13/21 04/14/21 04/14/21 Range/Units 07:38 08:36 11:24 WBC (3.8-10.6) k/uL RBC (4.30-5.90) m/uL Hgb (13.0-17.5) gm/dL Hct (39.0-53.0) % Neutrophils # (1.3-7.7) k/uL Lymphocytes # (1.0-4.8) k/uL Monocytes # (0-1.0) k/uL APTT (22.0-30.0) sec ABG pH (7.35-7.45) ABG pCO2 53 H (35-45) mmHg ABG pO2 231 H 145 H (83-108) mmHg ABG HCO3 29 H 28 H (21-25) mmol/L ABG Total CO2 31 H 30 H (19-24) mmol/L ABG O2 Saturation 99.9 H 99.5 H (94-97) % ABG Hematocrit (34.0-46.0) % ABG Potassium (3.4-4.5) mmol/L ABG Ionized Calcium (4.5-5.3) mg/dL ABG Glucose 118 H 137 H (75-99) mg/dL ABG Lactic Acid (0.5-1.6) mmol/L Hemoglobin (13.0-17.5) gm/dL Creatinine (0.66-1.25) mg/dL Glucose (74-99) mg/dL POC Glucose (mg/dL) (75-99) mg/dL Calcium (8.4-10.2) mg/dL Magnesium (1.6-2.3) mg/dL Total Bilirubin (0.2-1.3) mg/dL AST (17-59) U/L ALT (4-49) U/L Total Protein (6.3-8.2) g/dL Albumin (3.5-5.0) g/dL Arterial Blood Potassium (3.4-4.5) mmol/L Arterial Blood Glucose 118 H 137 H (75-99) mg/dL Crossmatch See Detail 04/14/21 04/14/21 04/14/21 Range/Units 12:07 12:54 13:33 WBC (3.8-10.6) k/uL RBC (4.30-5.90) m/uL Hgb (13.0-17.5) gm/dL Hct (39.0-53.0) % Neutrophils # (1.3-7.7) k/uL Lymphocytes # (1.0-4.8) k/uL Monocytes # (0-1.0) k/uL APTT (22.0-30.0) sec ABG pH (7.35-7.45) ABG pCO2 48 H 46 H (35-45) mmHg ABG pO2 389 H 310 H 269 H (83-108) mmHg ABG HCO3 26 H 28 H 28 H (21-25) mmol/L ABG Total CO2 28 H 29 H 29 H (19-24) mmol/L ABG O2 Saturation 100.0 H 100.0 H 100.0 H (94-97) % ABG Hematocrit 33 L (34.0-46.0) % ABG Potassium 4.8 H 4.8 H (3.4-4.5) mmol/L ABG Ionized Calcium 4.1 L 4.2 L 4.2 L (4.5-5.3) mg/dL ABG Glucose 125 H 126 H 158 H (75-99) mg/dL ABG Lactic Acid (0.5-1.6) mmol/L Hemoglobin 11.3 L 10.7 L 11.0 L (13.0-17.5) gm/dL Creatinine (0.66-1.25) mg/dL Glucose (74-99) mg/dL POC Glucose (mg/dL) (75-99) mg/dL Calcium (8.4-10.2) mg/dL Magnesium (1.6-2.3) mg/dL Total Bilirubin (0.2-1.3) mg/dL AST (17-59) U/L ALT (4-49) U/L Total Protein (6.3-8.2) g/dL Albumin (3.5-5.0) g/dL Arterial Blood Potassium 4.8 H 4.8 H (3.4-4.5) mmol/L Arterial Blood Glucose 125 H 126 H 158 H (75-99) mg/dL Crossmatch 04/14/21 04/14/21 04/14/21 Range/Units 14:16 15:44 16:57 WBC (3.8-10.6) k/uL RBC (4.30-5.90) m/uL Hgb (13.0-17.5) gm/dL Hct (39.0-53.0) % Neutrophils # (1.3-7.7) k/uL Lymphocytes # (1.0-4.8) k/uL Monocytes # (0-1.0) k/uL APTT (22.0-30.0) sec ABG pH (7.35-7.45) ABG pCO2 46 H (35-45) mmHg ABG pO2 >420 H 137 H (83-108) mmHg ABG HCO3 27 H 27 H (21-25) mmol/L ABG Total CO2 29 H 28 H (19-24) mmol/L ABG O2 Saturation 100.0 H 99.4 H (94-97) % ABG Hematocrit (34.0-46.0) % ABG Potassium 4.7 H 4.6 H (3.4-4.5) mmol/L ABG Ionized Calcium 4.3 L 4.3 L (4.5-5.3) mg/dL ABG Glucose 181 H 140 H (75-99) mg/dL ABG Lactic Acid 1.9 H (0.5-1.6) mmol/L Hemoglobin 11.2 L 11.8 L (13.0-17.5) gm/dL Creatinine (0.66-1.25) mg/dL Glucose (74-99) mg/dL POC Glucose (mg/dL) 159 H (75-99) mg/dL Calcium (8.4-10.2) mg/dL Magnesium (1.6-2.3) mg/dL Total Bilirubin (0.2-1.3) mg/dL AST (17-59) U/L ALT (4-49) U/L Total Protein (6.3-8.2) g/dL Albumin (3.5-5.0) g/dL Arterial Blood Potassium 4.7 H 4.6 H (3.4-4.5) mmol/L Arterial Blood Glucose 181 H 140 H (75-99) mg/dL Crossmatch 04/14/21 04/14/21 04/14/21 Range/Units 17:06 17:06 17:06 WBC 13.6 H (3.8-10.6) k/uL RBC (4.30-5.90) m/uL Hgb (13.0-17.5) gm/dL Hct (39.0-53.0) % Neutrophils # 11.7 H (1.3-7.7) k/uL Lymphocytes # 0.9 L (1.0-4.8) k/uL Monocytes # (0-1.0) k/uL APTT 40.1 H (22.0-30.0) sec ABG pH (7.35-7.45) ABG pCO2 (35-45) mmHg ABG pO2 (83-108) mmHg ABG HCO3 (21-25) mmol/L ABG Total CO2 (19-24) mmol/L ABG O2 Saturation (94-97) % ABG Hematocrit (34.0-46.0) % ABG Potassium (3.4-4.5) mmol/L ABG Ionized Calcium (4.5-5.3) mg/dL ABG Glucose (75-99) mg/dL ABG Lactic Acid (0.5-1.6) mmol/L Hemoglobin (13.0-17.5) gm/dL Creatinine 0.59 L (0.66-1.25) mg/dL Glucose 158 H (74-99) mg/dL POC Glucose (mg/dL) (75-99) mg/dL Calcium 7.7 L (8.4-10.2) mg/dL Magnesium 2.4 H (1.6-2.3) mg/dL Total Bilirubin 1.9 H (0.2-1.3) mg/dL AST 152 H (17-59) U/L ALT 168 H (4-49) U/L Total Protein 4.8 L (6.3-8.2) g/dL Albumin 2.8 L (3.5-5.0) g/dL Arterial Blood Potassium (3.4-4.5) mmol/L Arterial Blood Glucose (75-99) mg/dL Crossmatch 04/14/21 04/14/21 04/14/21 Range/Units 17:19 18:04 19:00 WBC 18.0 H (3.8-10.6) k/uL RBC (4.30-5.90) m/uL Hgb (13.0-17.5) gm/dL Hct (39.0-53.0) % Neutrophils # 16.0 H (1.3-7.7) k/uL Lymphocytes # 0.7 L (1.0-4.8) k/uL Monocytes # (0-1.0) k/uL APTT (22.0-30.0) sec ABG pH 7.30 L (7.35-7.45) ABG pCO2 57 H (35-45) mmHg ABG pO2 125 H (83-108) mmHg ABG HCO3 28 H (21-25) mmol/L ABG Total CO2 29 H (19-24) mmol/L ABG O2 Saturation 98.4 H (94-97) % ABG Hematocrit (34.0-46.0) % ABG Potassium (3.4-4.5) mmol/L ABG Ionized Calcium (4.5-5.3) mg/dL ABG Glucose (75-99) mg/dL ABG Lactic Acid (0.5-1.6) mmol/L Hemoglobin (13.0-17.5) gm/dL Creatinine (0.66-1.25) mg/dL Glucose (74-99) mg/dL POC Glucose (mg/dL) 170 H (75-99) mg/dL Calcium (8.4-10.2) mg/dL Magnesium (1.6-2.3) mg/dL Total Bilirubin (0.2-1.3) mg/dL AST (17-59) U/L ALT (4-49) U/L Total Protein (6.3-8.2) g/dL Albumin (3.5-5.0) g/dL Arterial Blood Potassium (3.4-4.5) mmol/L Arterial Blood Glucose (75-99) mg/dL Crossmatch 04/14/21 04/14/21 04/14/21 Range/Units 19:02 19:54 21:10 WBC (3.8-10.6) k/uL RBC (4.30-5.90) m/uL Hgb (13.0-17.5) gm/dL Hct (39.0-53.0) % Neutrophils # (1.3-7.7) k/uL Lymphocytes # (1.0-4.8) k/uL Monocytes # (0-1.0) k/uL APTT (22.0-30.0) sec ABG pH (7.35-7.45) ABG pCO2 (35-45) mmHg ABG pO2 (83-108) mmHg ABG HCO3 (21-25) mmol/L ABG Total CO2 (19-24) mmol/L ABG O2 Saturation (94-97) % ABG Hematocrit (34.0-46.0) % ABG Potassium (3.4-4.5) mmol/L ABG Ionized Calcium (4.5-5.3) mg/dL ABG Glucose (75-99) mg/dL ABG Lactic Acid (0.5-1.6) mmol/L Hemoglobin (13.0-17.5) gm/dL Creatinine (0.66-1.25) mg/dL Glucose (74-99) mg/dL POC Glucose (mg/dL) 186 H 185 H 164 H (75-99) mg/dL Calcium (8.4-10.2) mg/dL Magnesium (1.6-2.3) mg/dL Total Bilirubin (0.2-1.3) mg/dL AST (17-59) U/L ALT (4-49) U/L Total Protein (6.3-8.2) g/dL Albumin (3.5-5.0) g/dL Arterial Blood Potassium (3.4-4.5) mmol/L Arterial Blood Glucose (75-99) mg/dL Crossmatch 04/14/21 04/14/21 04/14/21 Range/Units 21:40 22:17 23:05 WBC (3.8-10.6) k/uL RBC (4.30-5.90) m/uL Hgb (13.0-17.5) gm/dL Hct (39.0-53.0) % Neutrophils # (1.3-7.7) k/uL Lymphocytes # (1.0-4.8) k/uL Monocytes # (0-1.0) k/uL APTT (22.0-30.0) sec ABG pH (7.35-7.45) ABG pCO2 (35-45) mmHg ABG pO2 (83-108) mmHg ABG HCO3 26 H (21-25) mmol/L ABG Total CO2 27 H (19-24) mmol/L ABG O2 Saturation 97.6 H (94-97) % ABG Hematocrit (34.0-46.0) % ABG Potassium (3.4-4.5) mmol/L ABG Ionized Calcium (4.5-5.3) mg/dL ABG Glucose (75-99) mg/dL ABG Lactic Acid (0.5-1.6) mmol/L Hemoglobin (13.0-17.5) gm/dL Creatinine (0.66-1.25) mg/dL Glucose (74-99) mg/dL POC Glucose (mg/dL) 164 H 166 H (75-99) mg/dL Calcium (8.4-10.2) mg/dL Magnesium (1.6-2.3) mg/dL Total Bilirubin (0.2-1.3) mg/dL AST (17-59) U/L ALT (4-49) U/L Total Protein (6.3-8.2) g/dL Albumin (3.5-5.0) g/dL Arterial Blood Potassium (3.4-4.5) mmol/L Arterial Blood Glucose (75-99) mg/dL Crossmatch 04/14/21 04/15/21 04/15/21 Range/Units 23:06 00:46 02:00 WBC 23.1 H (3.8-10.6) k/uL RBC (4.30-5.90) m/uL Hgb (13.0-17.5) gm/dL Hct (39.0-53.0) % Neutrophils # 21.0 H (1.3-7.7) k/uL Lymphocytes # 0.9 L (1.0-4.8) k/uL Monocytes # (0-1.0) k/uL APTT (22.0-30.0) sec ABG pH (7.35-7.45) ABG pCO2 (35-45) mmHg ABG pO2 (83-108) mmHg ABG HCO3 (21-25) mmol/L ABG Total CO2 (19-24) mmol/L ABG O2 Saturation (94-97) % ABG Hematocrit (34.0-46.0) % ABG Potassium (3.4-4.5) mmol/L ABG Ionized Calcium (4.5-5.3) mg/dL ABG Glucose (75-99) mg/dL ABG Lactic Acid (0.5-1.6) mmol/L Hemoglobin (13.0-17.5) gm/dL Creatinine (0.66-1.25) mg/dL Glucose (74-99) mg/dL POC Glucose (mg/dL) 158 H 152 H (75-99) mg/dL Calcium (8.4-10.2) mg/dL Magnesium (1.6-2.3) mg/dL Total Bilirubin (0.2-1.3) mg/dL AST (17-59) U/L ALT (4-49) U/L Total Protein (6.3-8.2) g/dL Albumin (3.5-5.0) g/dL Arterial Blood Potassium (3.4-4.5) mmol/L Arterial Blood Glucose (75-99) mg/dL Crossmatch 04/15/21 04/15/21 04/15/21 Range/Units 03:44 03:45 03:45 WBC 19.0 H (3.8-10.6) k/uL RBC 4.26 L (4.30-5.90) m/uL Hgb 12.9 L (13.0-17.5) gm/dL Hct 37.5 L (39.0-53.0) % Neutrophils # 16.6 H (1.3-7.7) k/uL Lymphocytes # (1.0-4.8) k/uL Monocytes # 1.2 H (0-1.0) k/uL APTT (22.0-30.0) sec ABG pH (7.35-7.45) ABG pCO2 (35-45) mmHg ABG pO2 (83-108) mmHg ABG HCO3 (21-25) mmol/L ABG Total CO2 (19-24) mmol/L ABG O2 Saturation (94-97) % ABG Hematocrit (34.0-46.0) % ABG Potassium (3.4-4.5) mmol/L ABG Ionized Calcium (4.5-5.3) mg/dL ABG Glucose (75-99) mg/dL ABG Lactic Acid (0.5-1.6) mmol/L Hemoglobin (13.0-17.5) gm/dL Creatinine (0.66-1.25) mg/dL Glucose 149 H (74-99) mg/dL POC Glucose (mg/dL) 147 H (75-99) mg/dL Calcium 8.3 L (8.4-10.2) mg/dL Magnesium (1.6-2.3) mg/dL Total Bilirubin (0.2-1.3) mg/dL AST 89 H (17-59) U/L ALT 135 H (4-49) U/L Total Protein 4.9 L (6.3-8.2) g/dL Albumin 2.8 L (3.5-5.0) g/dL Arterial Blood Potassium (3.4-4.5) mmol/L Arterial Blood Glucose (75-99) mg/dL Crossmatch 04/15/21 04/15/21 04/15/21 Range/Units 05:30 06:15 07:05 WBC (3.8-10.6) k/uL RBC (4.30-5.90) m/uL Hgb (13.0-17.5) gm/dL Hct (39.0-53.0) % Neutrophils # (1.3-7.7) k/uL Lymphocytes # (1.0-4.8) k/uL Monocytes # (0-1.0) k/uL APTT (22.0-30.0) sec ABG pH (7.35-7.45) ABG pCO2 (35-45) mmHg ABG pO2 (83-108) mmHg ABG HCO3 (21-25) mmol/L ABG Total CO2 (19-24) mmol/L ABG O2 Saturation (94-97) % ABG Hematocrit (34.0-46.0) % ABG Potassium (3.4-4.5) mmol/L ABG Ionized Calcium (4.5-5.3) mg/dL ABG Glucose (75-99) mg/dL ABG Lactic Acid (0.5-1.6) mmol/L Hemoglobin (13.0-17.5) gm/dL Creatinine (0.66-1.25) mg/dL Glucose (74-99) mg/dL POC Glucose (mg/dL) 150 H 148 H 133 H (75-99) mg/dL Calcium (8.4-10.2) mg/dL Magnesium (1.6-2.3) mg/dL Total Bilirubin (0.2-1.3) mg/dL AST (17-59) U/L ALT (4-49) U/L Total Protein (6.3-8.2) g/dL Albumin (3.5-5.0) g/dL Arterial Blood Potassium (3.4-4.5) mmol/L Arterial Blood Glucose (75-99) mg/dL Crossmatch 04/15/21 04/15/21 Range/Units 08:26 09:35 WBC (3.8-10.6) k/uL RBC (4.30-5.90) m/uL Hgb (13.0-17.5) gm/dL Hct (39.0-53.0) % Neutrophils # (1.3-7.7) k/uL Lymphocytes # (1.0-4.8) k/uL Monocytes # (0-1.0) k/uL APTT (22.0-30.0) sec ABG pH (7.35-7.45) ABG pCO2 (35-45) mmHg ABG pO2 (83-108) mmHg ABG HCO3 (21-25) mmol/L ABG Total CO2 (19-24) mmol/L ABG O2 Saturation (94-97) % ABG Hematocrit (34.0-46.0) % ABG Potassium (3.4-4.5) mmol/L ABG Ionized Calcium (4.5-5.3) mg/dL ABG Glucose (75-99) mg/dL ABG Lactic Acid (0.5-1.6) mmol/L Hemoglobin (13.0-17.5) gm/dL Creatinine (0.66-1.25) mg/dL Glucose (74-99) mg/dL POC Glucose (mg/dL) 144 H 128 H (75-99) mg/dL Calcium (8.4-10.2) mg/dL Magnesium (1.6-2.3) mg/dL Total Bilirubin (0.2-1.3) mg/dL AST (17-59) U/L ALT (4-49) U/L Total Protein (6.3-8.2) g/dL Albumin (3.5-5.0) g/dL Arterial Blood Potassium (3.4-4.5) mmol/L Arterial Blood Glucose (75-99) mg/dL Crossmatch
[2021-04-15] MEDS: INSULIN REGULAR 100 UNIT in SODIUM CHLORIDE 0.9% 100 ML IV SCH (11:30)
[2021-04-15] MEDS: SODIUM CHLORIDE 0.9% 1,000 ML IV SCH (12:08)
[2021-04-15 12:16] LABS: Glucose,Whole Blood 132 mg/dL (75-99)
[2021-04-15 13:54] LABS: Glucose,Whole Blood 170 mg/dL (75-99)
[2021-04-15] MEDS ORDERED: METOPROLOL TARTRATE 12.5 MG TAB PO STA (14:59)
[2021-04-15 15:18] LABS: Glucose,Whole Blood 160 mg/dL (75-99)
[2021-04-15] MEDS: CLEVIDIPINE BUTYRATE 25 MG in EMPTY BAG 1 BAG IV SCH (15:42)
[2021-04-15 16:04] LABS: Glucose,Whole Blood 134 mg/dL (75-99)
[2021-04-15 18:06] LABS: Glucose,Whole Blood 127 mg/dL (75-99)
[2021-04-15] MEDS: SENNOSIDES-DOCUSATE SODIUM 1 EACH TAB PO SCH (20:49)
[2021-04-15] MEDS: ATORVASTATIN 80 MG TAB PO SCH (20:49)
[2021-04-15 20:57] LABS: Glucose,Whole Blood 145 mg/dL (75-99)
[2021-04-15] MEDS ORDERED: METOPROLOL TARTRATE 25 MG TAB PO SCH (21:00)
[2021-04-16] MEDS: KETOROLAC 15 MG/ML 1 ML VIAL IVP SCH ×5 (01:17→23:44)
[2021-04-16] MEDS: DILTIAZEM ORAL 30 MG TAB PO SCH ×4 (01:17→23:46)
[2021-04-16] MEDS: HEPARIN SODIUM,PORCINE/PF 5,000 UNIT/0.5 ML SYRINGE SQ SCH ×4 (01:17→23:45)
[2021-04-16 01:20] LABS: Glucose,Whole Blood 165 mg/dL (75-99)
[2021-04-16 02:58] LABS: Glucose,Whole Blood 188 mg/dL (75-99)
[2021-04-16] MEDS: HYDROcodone/APAP 5-325MG 1 EACH TAB PO PRN ×3 (04:31→21:43)
[2021-04-16 04:35] LABS: Glucose,Whole Blood 118 mg/dL (75-99)
[2021-04-16 06:18] LABS: Basophils # (A) 0.1 k/uL (0-0.2); Basophils % (A) 0 %; Eosinophils # (A) 0.1 k/uL (0-0.7); Eosinophils % (A) 0 %; HCT 31.5 % (39.0-53.0); HGB 11.1 gm/dL (13.0-17.5); Lymphocytes # (A) 1.6 k/uL (1.0-4.8); Lymphocytes % (A) 8 %; MCH 31.7 pg (25.0-35.0); MCHC 35.4 g/dL (31.0-37.0); MCV 89.6 fL (80.0-100.0); Monocytes # (A) 1.3 k/uL (0-1.0); Monocytes % (A) 7 %; Neutrophils # (A) 16.5 k/uL (1.3-7.7); Neutrophils % (A) 83 %; Platelet Count 190 k/uL (150-450); RBC 3.52 m/uL (4.30-5.90); RDW 13.8 % (11.5-15.5); WBC 19.8 k/uL (3.8-10.6)
[2021-04-16 06:21] LABS: Glucose,Whole Blood 145 mg/dL (75-99)
[2021-04-16 06:44] LABS: Ionized Calcium 4.8 mg/dL (4.5-5.3)
[2021-04-16 06:54] LABS: ALT 67 U/L (4-49); AST 45 U/L (17-59); African American GFR (CKD) >90 (>60 ml/min/1.73 sqM); Albumin 3.1 g/dL (3.5-5.0); Alkaline Phosphatase 52 U/L (38-126); Anion Gap 5 mmol/L; Blood Urea Nitrogen 27 mg/dL (9-20); Calcium 8.6 mg/dL (8.4-10.2); Carbon Dioxide 27 mmol/L (22-30); Chloride 106 mmol/L (98-107); Glucose 146 mg/dL (74-99); Non-African American GFR(CKD) >90 (>60 ml/min/1.73 sqM); Potassium 4.2 mmol/L (3.5-5.1); Sodium 138 mmol/L (137-145); Total Bilirubin 0.7 mg/dL (0.2-1.3); Total Protein 5.1 g/dL (6.3-8.2)
[2021-04-16 07:52] LABS: Glucose,Whole Blood 195 mg/dL (75-99)
[2021-04-16] MEDS: ASPIRIN 325 MG TAB PO SCH (08:27)
[2021-04-16] MEDS: CLOPIDOGREL 75 MG TAB PO SCH (08:27)
[2021-04-16] MEDS: INSULIN ASPART (NovoLOG) 100 UNIT/ML VIAL SQ SCH ×4 (08:27→21:23)
[2021-04-16] MEDS: PANTOPRAZOLE 40 MG TABLET PO SCH (08:27)
[2021-04-16] MEDS: METOPROLOL TARTRATE 50 MG TAB PO SCH ×2 (08:27→21:23)
[2021-04-16] MEDS: IPRATROPIUM-ALBUTEROL 3 ML NEB INHALATION SCH ×4 (09:14→21:03)
--- NOTE | 2021-04-16 09:19 | XR ---
EXAMINATION TYPE: XR chest 1V portable DATE OF EXAM: 04/16/2021 COMPARISON: 04/15/2021 HISTORY: Post cardiac surgery TECHNIQUE: Single frontal view of the chest is obtained. FINDINGS: [place] catheter is been removed. Postoperative changes with bilateral infiltrate and sm all effusion stable. No sizable pneumothorax. Suggestion of mediastinal drain. Right-sided chest tube appears to been pulled back slightly. Tubing overlying the left upper quadrant is indeterminate. IMPRESSION: Bilateral infiltrate and small effusion stable.
--- NOTE | 2021-04-16 10:06 | P.PN ---
Subjective Progress Note Date: 04/16/21 Principal diagnosis: Symptomatic multivessel coronary artery disease, non-ST elevated myocardial infarction this admission, mild left ventricular dysfunction. Previous medical history of hypertension, dyslipidemia, morbid obesity, paroxysmal atrial fibrillation, nonmalignant brain meningioma status post removal, remote history of MRSA infection to his left leg, previous tobacco dependence, asthma and osteoarthritis. POD #2 quadruple coronary artery bypass surgery using the left internal mammary artery to left anterior descending artery, left radial artery from the aorta to the first obtuse marginal artery, reverse saphenous vein graft from the aorta to the second diagonal coronary artery, reverse saphenous vein graft from the aorta to the right coronary artery, bilateral pulmonary vein isolation using an epicardial bipolar radiofrequency clamp from [employer], exclusion of the left atrial appendage using a 35 mm AtriClip, endoscopic harvesting of the left radial artery and left greater saphenous vein, graft flow measurements using the [employer] system, intraoperative transesophageal echocardiogram and epi-aortic scanning. The patient's currently sitting up in a recliner in the intensive care unit in no acute distress. Does complain of postsurgical pain and difficulty taking a deep breath. Remains in sinus rhythm to sinus tach with heart rate in the high 90s to low 100s, hemodynamically stable on no inotropes or pressors. Mediastinal/right/left pleural chest tubes, right internal jugular Cordis, right radial arterial line all remaining present. Patient is minimally attempting incentive spirometry and requires much encouragement, maintaining oxygen saturations in the 90s on 4 L nasal cannula. No other new concerns. Objective - Vital Signs Vital signs: Vital Signs Temp 97.9 F 04/16/21 08:00 Pulse 79 04/16/21 09:00 Resp 17 04/16/21 09:00 BP 140/89 04/16/21 02:00 Pulse Ox 95 04/16/21 09:00 Intake & Output 04/15/21 04/16/21 04/16/21 18:59 06:59 18:59 Intake Total 1201.857 147.872 9 Output Total 800 885 195 Balance 401.857 -737.128 -186 Weight 138 kg Intake: IV 217 60 9 CO/CI 30 Sodium Chloride 0.9% 1, 100 000 ml @ 50 mls/hr IV . Q20H [facility] Rx#:[id number] pressure bag NS 87 60 9 Intake, IV Titration 984.857 87.872 Amount Albumin Human 5% 250 ml 500 In Empty Bag 1 bag @ 250 mls/hr IVPB Q1HR PRN Rx#: [id number] Insulin Regular 100 unit 62.082 67.872 In Sodium Chloride 0.9% 100 ml @ Per Protocol IV .Q0M [facility] Rx#:[id number] Nitroglycerin-D5w Pmx 50 22.775 mg In Dextrose/Water 1 250ml.bag @ 5 MCG/MIN 1.5 mls/hr IV .Q24H [facility] Rx#: [id number] Sodium Chloride 0.9% 1, 200 20 000 ml @ 20 mls/hr IV . Q24H [facility] Rx#:[id number] ceFAZolin 3 gm In Sodium 200 Chloride 0.9% 100 ml @ 100 mls/hr IVPB Q8HR [facility] Rx#:[id number] Output: Chest Tube Drainage 160 105 20 left pleural 55 20 5 msX2 70 65 10 right pleural 35 20 5 Urine 640 780 175 Other: Voiding Method Indwelling Catheter Indwelling Catheter Indwelling Catheter ABP, PAP, CO, CI - Last Documented Arterial Blood Pressure 104/54 Pulmonary Artery Pressure 26/15 Cardiac Output 5 Cardiac Index 2 - Exam CONSTITUTIONAL: Appears comfortable, cooperative, no acute distress RESPIRATORY: Lungs sounds diminished bilaterally. Respirations even, nonlabored. Currently on 4 L nasal cannula with oxygen saturation 94%. Only able to achieve 750 mL on incentive spirometry. Weak cough. CARDIOVASCULAR: S1, S2 present. Regular rate and rhythm, sinus rhythm on telemetry. Sternum stable. Palpable peripheral pulses bilaterally. Generalized edema present. No calf pain or tenderness noted. Heart hugger in place with patient occasionally demonstrating appropriate use. Antiembolism stockings, SCDs present. GASTROINTESTINAL: Abdomen soft, nontender, nondistended. Hypoactive bowel sounds present 4 quadrants. Tolerating clear liquids. Positive flatus. GENITOURINARY: Hunt present draining clear, yellow urine. Output overnight 70-100 mL per hour INTEGUMENTARY: Skin is warm and dry with evidence of good perfusion. Anterior chest incision well approximated and covered with dry intact dressing. EVH site well approximated without redness or drainage. NEUROLOGIC: Cranial nerves II through XII intact MUSKULOSKELETAL: Able to move all extremities, strength equal bilaterally PSYCHIATRIC: Alert and oriented to person place and time, appropriate affect, intact judgment and insight INVASIVE LINES AND TUBES: Mediastinal/left/right pleural chest tubes present and connected to wall suction, no air leaks present. Mediastinal tube with 60 mL serosanguineous drainage overnight, 110 mL in the last 4 hours . Left pleural chest tube with 10 mL serosanguineous drainage overnight, 100 mL in the last 24 hours. Right pleural chest tube with 10 mL serosanguineous drainage overnight, 100 mL in the last 24 hours. Atrial epicardial pacemaker wires pres ent, grounded. Right internal jugular Cordis, right radial arterial line present. - Allied health notes Allied health notes reviewed: nursing - Labs CBC & Chem 7: 04/16/21 06:00 04/16/21 06:00 Labs: Abnormal Lab Results - Last 24 Hours (Table) 04/15/21 04/15/21 04/15/21 Range/Units 10:53 12:15 13:53 WBC (3.8-10.6) k/uL RBC (4.30-5.90) m/uL Hgb (13.0-17.5) gm/dL Hct (39.0-53.0) % Neutrophils # (1.3-7.7) k/uL Monocytes # (0-1.0) k/uL BUN (9-20) mg/dL Glucose (74-99) mg/dL POC Glucose (mg/dL) 116 H 132 H 170 H (75-99) mg/dL ALT (4-49) U/L Total Protein (6.3-8.2) g/dL Albumin (3.5-5.0) g/dL 04/15/21 04/15/21 04/15/21 Range/Units 15:16 16:02 18:04 WBC (3.8-10.6) k/uL RBC (4.30-5.90) m/uL Hgb (13.0-17.5) gm/dL Hct (39.0-53.0) % Neutrophils # (1.3-7.7) k/uL Monocytes # (0-1.0) k/uL BUN (9-20) mg/dL Glucose (74-99) mg/dL POC Glucose (mg/dL) 160 H 134 H 127 H (75-99) mg/dL ALT (4-49) U/L Total Protein (6.3-8.2) g/dL Albumin (3.5-5.0) g/dL 04/15/21 04/16/21 04/16/21 Range/Units 20:55 01:19 02:56 WBC (3.8-10.6) k/uL RBC (4.30-5.90) m/uL Hgb (13.0-17.5) gm/dL Hct (39.0-53.0) % Neutrophils # (1.3-7.7) k/uL Monocytes # (0-1.0) k/uL BUN (9-20) mg/dL Glucose (74-99) mg/dL POC Glucose (mg/dL) 145 H 165 H 188 H (75-99) mg/dL ALT (4-49) U/L Total Protein (6.3-8.2) g/dL Albumin (3.5-5.0) g/dL 04/16/21 04/16/21 04/16/21 Range/Units 04:33 06:00 06:00 WBC 19.8 H (3.8-10.6) k/uL RBC 3.52 L (4.30-5.90) m/uL Hgb 11.1 L (13.0-17.5) gm/dL Hct 31.5 L (39.0-53.0) % Neutrophils # 16.5 H (1.3-7.7) k/uL Monocytes # 1.3 H (0-1.0) k/uL BUN 27 H (9-20) mg/dL Glucose 146 H (74-99) mg/dL POC Glucose (mg/dL) 118 H (75-99) mg/dL ALT 67 H (4-49) U/L Total Protein 5.1 L (6.3-8.2) g/dL Albumin 3.1 L (3.5-5.0) g/dL 04/16/21 04/16/21 Range/Units 06:19 07:51 WBC (3.8-10.6) k/uL RBC (4.30-5.90) m/uL Hgb (13.0-17.5) gm/dL Hct (39.0-53.0) % Neutrophils # (1.3-7.7) k/uL Monocytes # (0-1.0) k/uL BUN (9-20) mg/dL Glucose (74-99) mg/dL POC Glucose (mg/dL) 145 H 195 H (75-99) mg/dL ALT (4-49) U/L Total Protein (6.3-8.2) g/dL Albumin (3.5-5.0) g/dL - Imaging and Cardiology Chest x-ray: report reviewed, image reviewed Assessment and Plan Assessment: 1. Symptomatic multivessel coronary artery disease, non-STEMI this admission, status post four-vessel CABG 2. Hypertension 3. Dyslipidemia 4. Remote history of paroxysmal atrial fibrillation, currently in normal sinus rhythm 5. Diet-controlled diabetes mellitus with a recent hemoglobin A1c of 6.9% 6. Morbid obesity 7. History of nonmalignant meningioma status post resection 8. Previous tobacco dependence, preoperative FEV1 90% of predicted 9. Asthma 10. Osteoarthritis Plan: 1. Continue to maximize medical therapy with aspirin, statin, and beta josie. Will increase beta josie therapy as tolerated, increased to 50 mm twice daily today 2. Continue oral Cardizem for radial artery spasm prophylaxis. Do not discontinue CCB without discussed with cardiac surgery 3. Wean O2 as tolerated. Encourage incentive spirometry use 10 times every hour while awake. Bronchodilators per pulmonology 4. Increase activity, ambulate as tolerated. Out of bed for all meals. PT/OT/cardiac rehab consulted 5. Will monitor daily labs and chest x-rays. Electrolyte replacement per protocol 6. GI/DVT prophylaxis 7. Pain control with current medication regimen 8. Insulin management per primary care service. Patient needs tight blood sugar control to promote healing and sternal union as well as prevent infection 9. Discontinue Cordis 10. Mediastinal/left/right pleural chest tubes all discontinued without incident 11. Discontinue Hunt catheter, may bladder scan and straight cath for greater than 300 mL residual 12. Strict accurate intake and output. Daily weights 13. Will place transfer orders for 3 self cardiac stepdown unit. May transfer from bed available 14. More recommendations to follow based on patient's clinical course. Time with Patient: Greater than 30
[2021-04-16] MEDS ORDERED: ACETAMINOPHEN TAB 325 MG TAB PO PRN (10:07)
--- NOTE | 2021-04-16 10:27 | P.PN ---
Subjective Progress Note Date: 04/13/21 Principal diagnosis: non-ST elevated DE This is a 60-year-old patient of Dr. Jovi Persaud. Chronic stable medical conditions include atrial fibrillation, hypertension, obesity. Patient was baling hay and he developed left infraclavicular chest pain as somebody sitting there. The pain continued while he was doing the same. No radiation. Was a bit dizzy perspiration tired. Decided to come into the ER. Patient ruled in for an acute non-Q wave DE. Was started on IV heparin. This morning patient went for a cardiac catheterization. Found to have severe triple-vessel disease. Cardiothoracic team's been consulted. Coronary bypass scheduled for next Monday04/12/2021 Patient was admitted to the hospital due to non-ST elevated DE. Status post cardiac catheterization showed 2+ conditions. Scheduled for coronary to progress graft on Monday. Currently resting in the bed comfortably. No complaints of chest pain or shortness of breath. 2D echocardiogram showed ejection fraction 55 to 60% and mild MR and TR. Denies any nausea vomiting or abdominal pain or diarrhea. Cardiology and CT surgery is on board. 04/13/2021 Patient is currently lying in the bed comfortably. Awake alert and oriented 3. Denied any complaints of chest pain or shortness of breath. Encourage incentive spirometry. Patient is scheduled for coronary artery bypass graft tomorrow. No complaints of nausea vomiting or abdominal pain or diarrhea. Currently o xygenating well on room air. No other acute overnight issues. CT surgery and cardiology is on board. Current medications reviewed. Objective - Vital Signs Vital signs: Vital Signs Temp 97.9 F 04/13/21 19:34 Pulse 82 04/13/21 19:34 Resp 17 04/13/21 19:34 BP 162/92 04/13/21 19:34 Pulse Ox 95 04/13/21 19:34 Intake & Output 04/13/21 04/13/21 04/14/21 06:59 18:59 06:59 Intake Total 490 Balance 490 Weight 132.4 kg Intake: IV 250 Sodium Chloride 0.9% 1, 250 000 ml @ 50 mls/hr IV . Q20H [facility] Rx#:[id number] Oral 240 Other: Voiding Method Toilet Toilet # Voids 1 1 1 - Exam GENERAL: Awake planning a chair, comfortable EYES: Pupils equal. Conjunctiva normal. NECK: JVD not raised; masses not palpable. HEART: First and second heart sounds are normal; no edema. LUNGS: Respiratory rate normal; clear to auscultation. ABDOMEN: Soft, nontender, liver spleen not palpable, no masses palpable. PSYCH: Alert and oriented x3; mood and affect normal. - Labs CBC & Chem 7: 04/16/21 06:00 04/16/21 06:00 Labs: Abnormal Lab Results - Last 24 Hours (Table) 04/13/21 04/13/21 Range/Units 07:38 07:38 Carbon Dioxide 31 H (22-30) mmol/L Glucose 130 H (74-99) mg/dL Crossmatch See Detail Microbiology - Last 24 Hours (Table) 04/11/21 14:00 Nasal Screen MRSA/MSSA - Final Nasal Swab Assessment and Plan Assessment: Assessment and plan: -Acute non-Q wave DE Patient is on aspirin, IV heparin, Lopressor, Cozaar -Severe triple-vessel coronary artery disease per cardiac catheterization-slow to respond Cardiothoracic surgery -coronary bypass scheduled for Monday -Morbid obesity BMI 41.8 Dietitian -Essential hypertension On Cardizem CD, Lopressor -Hyperlipidemia Lipitor 80 mg daily at bedtime -IV heparin monitoring Follow PtT Care discussed with the patient. Continue current medications. IV heparin. CABG this Monday Cardizem and losartan on hold prior to surgery as per CT surgery.
--- NOTE | 2021-04-16 10:47 | P.PN ---
Subjective Progress Note Date: 04/16/21 HISTORY OF PRESENT ILLNESS: This is a 60-year-old male who is admitted to the hospital secondary to non- STEMI. Patient underwent cardiac catheterization revealing severe triple vessel disease. He is status post CABG x4: left internal mammary artery to left anterior descending artery, left radial artery from the aorta to the first obtuse marginal artery, reverse saphenous vein graft from the aorta to the second diagonal coronary artery, reverse saphenous vein graft from the aorta to the right coronary artery. Postop day #1. Patient examined this morning in the intensive care unit. Patient was extubated yesterday. He is currently sitting up in the chair. He reports a lot of pain and discomfort this morning. He denies shortness of breath. He is hemodynamically stable. Patient is mildly tachycardic this morning with a heart rate around 110. 04/16/2021 Patient examined this morning at the bedside. Patient complains of back pain this morning. Otherwise, his pain is well controlled. Denies chest pain or pressure. Denies shortness of breath. Telemetry reveals sinus mechanism with a heart rate in the 90s. PHYSICAL EXAM: VITAL SIGNS: Reviewed. GENERAL: Well-developed in no acute distress. NECK: Supple. No JVD or thyromegaly LUNGS: Respirations even and unlabored. Lungs diminished bilaterally. HEART: Regular rate and rhythm. S1 and S2 heard. Sternal dressing CDI. Heart hugger present. EXTREMITIES: Normal range of motion. No clubbing or cyanosis. Peripheral pulses intact. 1+ bilateral lower extremity edema ASSESSMENT: Non-STEMI Severe triple vessel disease, status post CABG 4 Hypertension Hyperlipidemia Diabetes mellitus Obesity: BMI 41.0 PLAN: Continue postoperative management per CTS Increase activity as tolerated Encouraged use of incentive spirometer Continue current cardiac medications including aspirin, Lipitor, diltiazem, and metoprolol Beta josie increased this morning per CTS Further recommendations pending patient course Nurse practitioner note has been reviewed by physician. Signing provider agrees with the documented findings, assessment, and plan of care. Objective - Vital Signs Vital signs: Vital Signs Temp 97.9 F 04/16/21 08:00 Pulse 79 04/16/21 09:00 Resp 17 04/16/21 09:00 BP 140/89 04/16/21 02:00 Pulse Ox 95 04/16/21 09:00 Intake & Output 04/15/21 04/16/2104/16/21 18:59 06:59 18:59 Intake Total 1201.857 147.872 9 Output Total 800 885 195 Balance 401.857 -737.128 -186 Weight 138 kg Intake: IV 217 60 9 CO/CI 30 Sodium Chloride 0.9% 1, 100 000 ml @ 50 mls/hr IV . [facility]H [facility] Rx#:[id number] pressure bag NS 87 60 9 Intake, IV Titration 984.857 87.872 Amount Albumin Human 5% 250 ml 500 In Empty Bag 1 bag @ 250 mls/hr IVPB Q1HR PRN Rx#: [id number] Insulin Regular 100 unit 62.082 67.872 In Sodium Chloride 0.9% 100 ml @ Per Protocol IV .Q0M [facility] Rx#:[id number] Nitroglycerin-D5w Pmx 50 22.775 mg In Dextrose/Water 1 250ml.bag @ 5 MCG/MIN 1.5 mls/hr IV .Q24H [facility] Rx#: [id number] Sodium Chloride 0.9% 1, 200 20 000 ml @ 20 mls/hr IV . Q24H [facility] Rx#:[id number] ceFAZolin 3 gm In Sodium 200 Chloride 0.9% 100 ml @ 100 mls/hr IVPB Q8HR [facility] Rx#:[id number] Output: Chest Tube Drainage 160 105 20 left pleural 55 20 5 msX2 70 65 10 right pleural 35 20 5 Urine 640 780 175 Other: Voiding Method Indwelling Catheter Indwelling Catheter Indwelling Catheter ABP, PAP, CO, CI - Last Documented Arterial Blood Pressure 104/54 Pulmonary Artery Pressure 26/15 Cardiac Output 5 Cardiac Index 2 - Labs CBC & Chem 7: 04/16/21 06:00 04/16/21 06:00 Labs: Abnormal Lab Results - Last 24 Hours (Table) 04/15/21 04/15/21 04/15/21 Range/Units 10:53 12:15 13:53 WBC (3.8-10.6) k/uL RBC (4.30-5.90) m/uL Hgb (13.0-17.5) gm/dL Hct (39.0-53.0) % Neutrophils # (1.3-7.7) k/uL Monocytes # (0-1.0) k/uL BUN (9-20) mg/dL Glucose (74-99) mg/dL POC Glucose (mg/dL) 116 H 132 H 170 H (75-99) mg/dL ALT (4-49) U/L Total Protein (6.3-8.2) g/dL Albumin (3.5-5.0) g/dL 04/15/21 04/15/21 04/15/21 Range/Units 15:16 16:02 18:04 WBC (3.8-10.6) k/uL RBC (4.30-5.90) m/uL Hgb (13.0-17.5) gm/dL Hct (39.0-53.0) % Neutrophils # (1.3-7.7) k/uL Monocytes # (0-1.0) k/uL BUN (9-20) mg/dL Glucose (74-99) mg/dL POC Glucose (mg/dL) 160 H 134 H 127 H (75-99) mg/dL ALT (4-49) U/L Total Protein (6.3-8.2) g/dL Albumin (3.5-5.0) g/dL 04/15/21 04/16/21 04/16/21 Range/Units 20:55 01:19 02:56 WBC (3.8-10.6) k/uL RBC (4.30-5.90) m/uL Hgb (13.0-17.5) gm/dL Hct (39.0-53.0) % Neutrophils # (1.3-7.7) k/uL Monocytes # (0-1.0) k/uL BUN (9-20) mg/dL Glucose (74-99) mg/dL POC Glucose (mg/dL) 145 H 165 H 188 H (75-99) mg/dL ALT (4-49) U/L Total Protein (6.3-8.2) g/dL Albumin (3.5-5.0) g/dL 04/16/21 04/16/21 04/16/21 Range/Units 04:33 06:00 06:00 WBC 19.8 H (3.8-10.6) k/uL RBC 3.52 L (4.30-5.90) m/uL Hgb 11.1 L (13.0-17.5) gm/dL Hct 31.5 L (39.0-53.0) % Neutrophils # 16.5 H (1.3-7.7) k/uL Monocytes # 1.3 H (0-1.0) k/uL BUN 27 H (9-20) mg/dL Glucose 146 H (74-99) mg/dL POC Glucose (mg/dL) 118 H (75-99) mg/dL ALT 67 H (4-49) U/L Total Protein 5.1 L (6.3-8.2) g/dL Albumin 3.1 L (3.5-5.0) g/dL 04/16/21 04/16/21 Range/Units 06:19 07:51 WBC (3.8-10.6) k/uL RBC (4.30-5.90) m/uL Hgb (13.0-17.5) gm/dL Hct (39.0-53.0) % Neutrophils # (1.3-7.7) k/uL Monocytes # (0-1.0) k/uL BUN (9-20) mg/dL Glucose (74-99) mg/dL POC Glucose (mg/dL) 145 H 195 H (75-99) mg/dL ALT (4-49) U/L Total Protein (6.3-8.2) g/dL Albumin (3.5-5.0) g/dL
[2021-04-16 11:04] LABS: Glucose,Whole Blood 155 mg/dL (75-99)
--- NOTE | 2021-04-16 11:22 | P.PN ---
Subjective Progress Note Date: 04/16/21 Principal diagnosis: Non-ST segment elevation myocardial infarction, CAD This is a 60-year-old white male patient with past medical history of hypertension, hyperlipidemia, obesity, paroxysmal atrial fibrillation not on chronic anticoagulation, she is an ex-smoker, smoked for a total of 10 years, a pack a day, who came into the emergency department on 04/08/2021 for evaluation of chest pain. Patient was working in the barn unloading [employer] when he started to have left-sided chest pain radiating into his left upper back and down his left arm. Patient reported shortness of breath associated with the chest pain. Patient was also told that he has a borderline diabetic with his last hemoglobin A1c of 6.8- 6.9. His primary care provider is Dr. Jovi Persaud. Admission EKG showed sinus tachycardia with no ST elevation or depression. His labs showed elevated troponins that peaked at 0.179 with the third set. His initial chest x-ray showed no acute process. Echocardiogram showed normal EF of 55-60%, mild MR, mild TR, PA pressure of less than 35 mmHg. Patient was diagnosed with non-ST elevated myocardial infarction and underwent heart catheterization on 04/09/2021 that showed severe triple-vessel disease with a dominant RCA. The RCA was moderately calcified and tortuous with that 80% eccentric lesion distally. Left main was free of significant disease. LAD was also heavily calcified, with 70% stenosis after the diagonal and 80% lesion at the second diagonal. Left circumflex had a 95% stenosis. Aortocoronary bypass surgery was recommended, and there was a consult placed to Dr. Esquivel. Patient is currently undergoing preop evaluation. And we are consulted for pulmonary/critical care management. Patient is awake and alert, in no acute distress, patient has been ablating the halls, tolerating activity well, no complaints of chest pain. He denies any history of major lung disease. He states in the wintertime he may have some limited wheezing occasionally in response to cold air, denies any history of asthma, not on any chronic inhalers. His preop FEV1 was reviewed showing FEV1 of 3.27 L or 90% of predicted, FEV1 to FVC ratio of 75% of pre dicted, an MVV of 123 L, and patient has a normal lung function. Progress note dated 04/14/2021. The patient will be having a bypass procedure today. The patient was not available for evaluation today because he is ready been taken down to the operating room. Yesterday, we saw the patient in consultation. The patient had excellent lung function including an FEV1 that was 3.27 L or 90% of predicted, and a MVV that was 123 L/m. Based on these data, the patient's at no increased operative risk. He did smoke for a short period of time in the distant past. No labs today as yet. The patient is seen today 04/15/2021 in follow-up in the intensive care unit. This is postoperative day #1 of a four-vessel coronary artery bypass graft surgery. He received a FRANCE to the LAD, left radial artery to the second obtuse marginal branch, saphenous vein grafts to the second diagonal artery and right coronary artery. He is currently sitting up in a chair at the bedside. He is requiring 6 L high flow nasal cannula to maintain O2 saturations in the 90s. Chest x-ray reveals bilateral infiltrate and stable pleural effusion. Mediastinal right and left pleural chest tubes in place. Pulling approximately 750 on the incentive spirometer. Right internal jugular Reubens-Yonas catheter in place. Left radial art line in place. Cardiac output 5.0. Cardiac index 2.0. Atrial epicardial wires present. Backup pacing at 50. He is receiving albumin this morning. PA pressures 22/10, CVP 3. Remains on 0.9 normal sitting at 50 MLS per hour. Insulin drip at 0.5 units per hour. Nitroglycerin drip is off. No pressors. White count 19.0. Hemoglobin 12.9. Platelets 199. Sodium 139. Potassium 4.4. Creatinine 0.66. AST 89. ALT 135. He remains on DuoNeb inhalations. Cefazolin per protocol. Heparin subcu for DVT prophylaxis. The patient is seen today 04/16/2021 in follow-up in the intensive care unit. Postoperative day #2. He is currently sitting up in a chair at the bedside. Awake, alert in no acute distress. His pain is fairly well controlled. He is maintaining O2 saturations in the 90s on 4 L/m per nasal cannula. No current IV fluids. Chest x-ray reveals bilateral infiltrates with small effusions. Chest tubes remain in place. Right IJ Cordis in place. Right radial arterial line in place. Pulling approximately 500 ML's on the incentive spirometer. Needs increased encouragement. Objective - Vital Signs Vital signs: Vital Signs Temp 97.9 F 04/16/21 08:00 Pulse 79 04/16/21 09:00 Resp 17 04/16/21 09:00 BP 140/89 04/16/21 02:00 Pulse Ox 95 04/16/21 09:00 Intake & Output 04/15/21 04/16/21 04/16/21 18:59 06:59 18:59 Intake Total 1201.857 147.872 9 Output Total 800 885 195 Balance 401.857 -737.128 -186 Weight 138 kg Intake: IV 217 60 9 CO/CI 30 Sodium Chloride 0.9% 1, 100 000 ml @ 50 mls/hr IV . Q20H [facility] Rx#:[id number] pressure bag NS 87 60 9 Intake, IV Titration 984.857 87.872 Amount Albumin Human 5% 250 ml 500 In Empty Bag 1 bag @ 250 mls/hr IVPB Q1HR PRN Rx#: [id number] Insulin Regular 100 unit 62.082 67.872 In Sodium Chloride 0.9% 100 ml @ Per Protocol IV .Q0M [facility] Rx#:[id number] Nitroglycerin-D5w Pmx 50 22.775 mg In Dextrose/Water 1 250ml.bag @ 5 MCG/MIN 1.5 mls/hr IV .Q24H [facility] Rx#: [id number] Sodium Chloride 0.9% 1, 200 20 000 ml @ 20 mls/hr IV . Q24H [facility] Rx#:[id number] ceFAZolin 3 gm In Sodium 200 Chloride 0.9% 100 ml @ 100 mls/hr IVPB Q8HR [facility] Rx#:[id number] Output: Chest Tube Drainage 160 105 20 left pleural 55 20 5 msX2 70 65 10 right pleural 35 20 5 Urine 640 780 175 Other: Voiding Method Indwelling Catheter Indwelling Catheter Indwelling Catheter ABP, PAP, CO, CI - Last Documented Arterial Blood Pressure 104/54 Pulmonary Artery Pressure 26/15 Cardiac Output 5 Cardiac Index 2 - Exam GENERAL EXAM: Alert, pleasant 60-year-old gentleman, on 4 L nasal cannula, fairly comfortable in no apparent distress. HEAD: Normocephalic. EYES: Normal reaction of pupils, equal size. NOSE: Clear with pink turbinates. THROAT: No erythema or exudates. NECK: Right IJ Reubens-Yonas catheter in place. No masses, no JVD. CHEST: Sternal dressing dry and intact. Heart hugger in place. Apical pacer wire in place. Mediastinal and right and left pleural chest tubes in place. LUNGS: Equal air entry with few scattered rhonchi, crackles in the posterior bases. CVS: S1 and S2 normal with no audible murmur, regular rhythm. ABDOMEN: No hepatosplenomegaly, hypoactive bowel sounds, no guarding or rigidity. SPINE: No scoliosis or deformity SKIN: No rashes CENTRAL NERVOUS SYSTEM: No focal deficits, tone is normal in all 4 extremities. EXTREMITIES: Left radial arterial line in place. SCDs in place the lower extremities. There is 1+ peripheral edema. No clubbing, no cyanosis. Peripheral pulses are intact. - Labs CBC & Chem 7: 04/16/21 06:00 04/16/21 06:00 Labs: Abnormal Lab Results - Last 24 Hours (Table) 04/15/21 04/15/21 04/15/21 Range/Units 12:15 13:53 15:16 WBC (3.8-10.6) k/uL RBC (4.30-5.90) m/uL Hgb (13.0-17.5) gm/dL Hct (39.0-53.0) % Neutrophils # (1.3-7.7) k/uL Monocytes # (0-1.0) k/uL BUN (9-20) mg/dL Glucose (74-99) mg/dL POC Glucose (mg/dL) 132 H 170 H 160 H (75-99) mg/dL ALT (4-49) U/L Total Protein (6.3-8.2) g/dL Albumin (3.5-5.0) g/dL 04/15/21 04/15/21 04/15/21 Range/Units 16:02 18:04 20:55 WBC (3.8-10.6) k/uL RBC (4.30-5.90) m/uL Hgb (13.0-17.5) gm/dL Hct (39.0-53.0) % Neutrophils # (1.3-7.7) k/uL Monocytes # (0-1.0) k/uL BUN (9-20) mg/dL Glucose (74-99) mg/dL POC Glucose (mg/dL) 134 H 127 H 145 H (75-99) mg/dL ALT (4-49) U/L Total Protein (6.3-8.2) g/dL Albumin (3.5-5.0) g/dL 04/16/21 04/16/21 04/16/21 Range/Units 01:19 02:56 04:33 WBC (3.8-10.6) k/uL RBC (4.30-5.90) m/uL Hgb (13.0-17.5) gm/dL Hct (39.0-53.0) % Neutrophils # (1.3-7.7) k/uL Monocytes # (0-1.0) k/uL BUN (9-20) mg/dL Glucose (74-99) mg/dL POC Glucose (mg/dL) 165 H 188 H 118 H (75-99) mg/dL ALT (4-49) U/L Total Protein (6.3-8.2) g/dL Albumin (3.5-5.0) g/dL 04/16/21 04/16/21 04/16/21 Range/Units 06:00 06:00 06:19 WBC 19.8 H (3.8-10.6) k/uL RBC 3.52 L (4.30-5.90) m/uL Hgb 11.1 L (13.0-17.5) gm/dL Hct 31.5 L (39.0-53.0) % Neutrophils # 16.5 H (1.3-7.7) k/uL Monocytes # 1.3 H (0-1.0) k/uL BUN 27 H (9-20) mg/dL Glucose 146 H (74-99) mg/dL POC Glucose (mg/dL) 145 H (75-99) mg/dL ALT 67 H (4-49) U/L Total Protein 5.1 L (6.3-8.2) g/dL Albumin 3.1 L (3.5-5.0) g/dL 04/16/21 04/16/21 Range/Units 07:51 10:52 WBC (3.8-10.6) k/uL RBC (4.30-5.90) m/uL Hgb (13.0-17.5) gm/dL Hct (39.0-53.0) % Neutrophils # (1.3-7.7) k/uL Monocytes # (0-1.0) k/uL BUN (9-20) mg/dL Glucose (74-99) mg/dL POC Glucose (mg/dL) 195 H 155 H (75-99) mg/dL ALT (4-49) U/L Total Protein (6.3-8.2) g/dL Albumin (3.5-5.0) g/dL Assessment and Plan Assessment: 1 Non-ST segment elevation myocardial infarction with significant coronary artery disease. Status post coronary artery bypass grafting 4 with a FRANCE to the LAD, left radial artery to the second obtuse marginal artery, saphenous vein grafts to the second diagonal artery and RCA. Postoperative day #2. 2 Acute hypoxic respiratory failure secondary to above, expected outcome of surgery, currently on 4 L nasal cannula 3 Hypertension 4 Hyperlipidemia 5 History of paroxysmal atrial fibrillation, maintaining sinus rhythm 6 Obesity 7 History of benign meningioma status post resection 8 History of previous chronic tobacco dependence. FEV1 value 90% of predicted. Plan: The patient was seen and evaluated by Dr. Brown Chest x-ray and labs reviewed Titrate down the FiO2 as tolerated Encourage increased use the incentive spirometer and cough and deep breathing exercises Increase his activity as tolerated We will continue to follow I, the cosigning physician, performed a history & physical examination of the patient. Lungs sounds few scattered rhonchi, crackles in the posterior bases. Maintaining good O2 saturations in the 90s on 4 L high flow nasal cannula. I discussed the assessment and plan of care with my nurse practitioner, Daya Huizar. I attest to the above note as dictated by her.
[2021-04-16 17:05] LABS: Glucose,Whole Blood 137 mg/dL (75-99)
[2021-04-16 20:37] LABS: Glucose,Whole Blood 175 mg/dL (75-99)
[2021-04-16] MEDS: SENNOSIDES-DOCUSATE SODIUM 1 EACH TAB PO SCH (21:23)
[2021-04-16] MEDS: ATORVASTATIN 80 MG TAB PO SCH (21:23)
[2021-04-17] MEDS: HYDROcodone/APAP 5-325MG 1 EACH TAB PO PRN (05:09)
[2021-04-17 06:03] LABS: Glucose,Whole Blood 175 mg/dL (75-99)
[2021-04-17] MEDS: KETOROLAC 15 MG/ML 1 ML VIAL IVP SCH ×4 (06:53→23:14)
[2021-04-17] MEDS: PANTOPRAZOLE 40 MG TABLET PO SCH (06:53)
[2021-04-17] MEDS: INSULIN ASPART (NovoLOG) 100 UNIT/ML VIAL SQ SCH ×4 (07:01→21:14)
[2021-04-17 07:58] LABS: HCT 27.8 % (39.0-53.0); MCH 30.7 pg (25.0-35.0); MCHC 33.4 g/dL (31.0-37.0); Mean Platelet Volume 7.9; Platelet Count 179 k/uL (150-450); RBC 3.02 m/uL (4.30-5.90); RDW 14.5 % (11.5-15.5); WBC 12.8 k/uL (3.8-10.6)
[2021-04-17] MEDS: IPRATROPIUM-ALBUTEROL 3 ML NEB INHALATION SCH ×4 (07:59→19:58)
[2021-04-17 08:01] LABS: HGB 9.3 gm/dL (13.0-17.5)
[2021-04-17 08:02] LABS: African American GFR (CKD) >90 (>60 ml/min/1.73 sqM); Anion Gap 3 mmol/L; Blood Urea Nitrogen 29 mg/dL (9-20); Carbon Dioxide 30 mmol/L (22-30); Chloride 103 mmol/L (98-107); Glucose 161 mg/dL (74-99); Non-African American GFR(CKD) >90 (>60 ml/min/1.73 sqM); Potassium 4.2 mmol/L (3.5-5.1); Sodium 136 mmol/L (137-145)
[2021-04-17] MEDS ORDERED: FUROSEMIDE 10 MG/ML 2 ML VIAL IV ONE (08:26)
--- NOTE | 2021-04-17 08:45 | P.PN ---
Subjective Progress Note Date: 04/17/21 Principal diagnosis: Symptomatic multivessel coronary artery disease, non-ST elevated myocardial infarction this admission, mild left ventricular dysfunction. Previous medical history of hypertension, dyslipidemia, morbid obesity, paroxysmal atrial fibrillation, nonmalignant brain meningioma status post removal, remote history of MRSA infection to his left leg, previous tobacco dependence, asthma and osteoarthritis. POD #3 quadruple coronary artery bypass surgery using the left internal mammary artery to left anterior descending artery, left radial artery from the aorta to the first obtuse marginal artery, reverse saphenous vein graft from the aorta to the second diagonal coronary artery, reverse saphenous vein graft from the aorta to the right coronary artery, bilateral pulmonary vein isolation using an epicardial bipolar radiofrequency clamp from [employer], exclusion of the left atrial appendage using a 35 mm AtriClip, endoscopic harvesting of the left radial artery and left greater saphenous vein, graft flow measurements using the PerfectHitch system, intraoperative transesophageal echocardiogram and epi-aortic scanning. The patient's currently sitting up in a recliner on the cardiac stepdown unit in no acute distress. States pain is better controlled with removal of chest tubes, denies shortness of breath. Remains in sinus rhythm with heart rate in t he 80s, hemodynamically stable. Patient is attempting incentive spirometry and achieving 1500 mL, maintaining oxygen saturations in the 90s on 4 L nasal cannula. States he has been ambulatory in the hallway. No other new concerns. Objective - Vital Signs Vital signs: Vital Signs Temp 97.8 F 04/17/21 04:00 Pulse 94 04/17/21 08:14 Resp 18 04/17/21 08:14 BP 121/58 04/17/21 04:00 Pulse Ox 95 04/17/21 07:59 Intake & Output 04/16/21 04/17/21 04/17/21 18:59 06:59 18:59 Intake Total 609 360 Output Total 575 300 200 Balance 34 -300 160 Weight 135.3 kg Intake: IV 9 pressure bag NS 9 Oral 600 360 Output: Chest Tube Drainage 20 left pleural 5 msX2 10 right pleural 5 Urine 555 300 200 Other: Voiding Method Indwelling Catheter Indwelling Catheter # Voids 1 # Bowel Movements 1 ABP, PAP, CO, CI - Last Documented Arterial Blood Pressure 110/62 Pulmonary Artery Pressure 26/15 Cardiac Output 5 Cardiac Index 2 - Exam CONSTITUTIONAL: Appears comfortable, cooperative, no acute distress RESPIRATORY: Lungs sounds diminished bilaterally. Respirations even, nonlabored. Currently on 4 L nasal cannula with oxygen saturation 96%. Able to achieve 1500 mL on incentive spirometry. Strong productive cough. CARDIOVASCULAR: S1, S2 present. Regular rate and rhythm, sinus rhythm on telemetry. Sternum stable. Palpable peripheral pulses bilaterally. Generalized edema present. No calf pain or tenderness noted. Heart hugger in place with patient occasionally demonstrating appropriate use. Antiembolism stockings, SCDs present. GASTROINTESTINAL: Abdomen soft, nontender, nondistended. Active bowel sounds present 4 quadrants. Tolerating diet. Positive bowel movement 04/16. GENITOURINARY: Hunt discontinued yesterday, continues to void clear, yellow urine. INTEGUMENTARY: Skin is warm and dry with evidence of good perfusion. Anterior chest incision well approximated and covered with dry intact dressing. EVH site well approximated without redness or drainage. NEUROLOGIC: Cranial nerves II through XII intact MUSKULOSKELETAL: Able to move all extremities, strength equal bilaterally PSYCHIATRIC: Alert and oriented to person place and time, appropriate affect, intact judgment and insight INVASIVE LINES AND TUBES: Atrial epicardial pacemaker wires present, grounded. - Allied health notes Allied health notes reviewed: nursing - Labs CBC & Chem 7: 04/17/21 06:34 04/17/21 06:34 Labs: Abnormal Lab Results - Last 24 Hours (Table) 04/16/21 04/16/21 04/16/21 Range/Units 10:52 17:04 20:34 WBC (3.8-10.6) k/uL RBC (4.30-5.90) m/uL Hgb (13.0-17.5) gm/dL Hct (39.0-53.0) % Sodium (137-145) mmol/L BUN (9-20) mg/dL Glucose (74-99) mg/dL POC Glucose (mg/dL) 155 H 137 H 175 H (75-99) mg/dL Calcium (8.4-10.2) mg/dL 04/17/21 04/17/21 04/17/21 Range/Units 06:01 06:34 06:34 WBC 12.8 H (3.8-10.6) k/uL RBC 3.02 L (4.30-5.90) m/uL Hgb 9.3 L D (13.0-17.5) gm/dL Hct 27.8 L (39.0-53.0) % Sodium 136 L (137-145) mmol/L BUN 29 H (9-20) mg/dL Glucose 161 H (74-99) mg/dL POC Glucose (mg/dL) 175 H (75-99) mg/dL Calcium 8.0 L (8.4-10.2) mg/dL - Imaging and Cardiology Chest x-ray: image reviewed Assessment and Plan Assessment: 1. Symptomatic multivessel coronary artery disease, non-STEMI this admission, status post four-vessel CABG 2. Hypertension 3. Dyslipidemia 4. Remote history of paroxysmal atrial fibrillation, currently in normal sinus rhythm 5. Diet-controlled diabetes mellitus with a recent hemoglobin A1c of 6.9% 6. Morbid obesity 7. History of nonmalignant meningioma status post resection 8. Previous tobacco dependence, preoperative FEV1 90% of predicted 9. Asthma 10. Osteoarthritis Plan: 1. Continue to maximize medical therapy with aspirin, statin, and beta josie. Will increase beta josie therapy as tolerated 2. Continue oral Cardizem for radial artery spasm prophylaxis. Do not discontinue CCB without discussed with cardiac surgery 3. Wean O2 as tolerated. Encourage incentive spirometry use 10 times every hour while awake. Bronchodilators per pulmonology 4. Increase activity, ambulate as tolerated. Out of bed for all meals. PT/OT/cardiac rehab consulted 5. Will monitor daily labs and chest x-rays. Electrolyte replacement per protocol. We'll give Lasix 20 mg IV push 1 today 6. GI/DVT prophylaxis 7. Pain control with current medication regimen 8. Insulin management per primary care service. Patient needs tight blood sugar control to promote healing and sternal union as well as prevent infection 9. Will discontinue epicardial pacemaker wire. Patient to remain on bedrest for 1 hour post-wire removal 10. Strict accurate intake and output. Daily weights 11. Discharge planning in progress. Anticipate discharge to home with home care in the next 48 hours 12. More recommendations to follow based on patient's clinical course. Time with Patient: Greater than 30
[2021-04-17] MEDS: ASPIRIN 325 MG TAB PO SCH (09:13)
[2021-04-17] MEDS: HEPARIN SODIUM,PORCINE/PF 5,000 UNIT/0.5 ML SYRINGE SQ SCH ×4 (09:13→23:16)
[2021-04-17] MEDS: DILTIAZEM ORAL 30 MG TAB PO SCH ×3 (09:13→23:16)
[2021-04-17] MEDS: traMADol 50 MG TAB PO PRN ×3 (09:14→21:33)
[2021-04-17] MEDS: METOPROLOL TARTRATE 50 MG TAB PO SCH ×3 (09:14→21:13)
[2021-04-17] MEDS: CLOPIDOGREL 75 MG TAB PO SCH (09:14)
--- NOTE | 2021-04-17 11:29 | P.PN ---
Subjective Progress Note Date: 04/17/21 Principal diagnosis: Coronary artery disease. This is a 60-year-old white male patient with past medical history of hypertension, hyperlipidemia, obesity, paroxysmal atrial fibrillation not on chronic anticoagulation, she is an ex-smoker, smoked for a total of 10 years, a pack a day, who came into the emergency department on 04/08/2021 for evaluation of chest pain. Patient was working in the barn unloading [employer] when he started to have left-sided chest pain radiating into his left upper back and down his left arm. Patient reported shortness of breath associated with the chest pain. Patient was also told that he has a borderline diabetic with his last hemoglobin A1c of 6.8- 6.9. His primary care provider is Dr. Jovi Persaud. Admission EKG showed sinus tachycardia with no ST elevation or depression. His labs showed elevated troponins that peaked at 0.179 with the third set. His initial chest x-ray showed no acute process. Echocardiogram showed normal EF of 55-60%, mild MR, mild TR, PA pressure of less than 35 mmHg. Patient was diagnosed with non-ST elevated myocardial infarction and underwent heart catheterization on 04/09/2021 that showed severe triple-vessel disease with a dominant RCA. The RCA was moderately calcified and tortuous with that 80% eccentric lesion distally. Left main was free of significant disease. LAD was also heavily calcified, with 70% stenosis after the diagonal and 80% lesion at the second diagonal. Left circumflex had a 95% stenosis. Aortocoronary bypass surgery was recommended, and there was a consult placed to Dr. Esquivel. Patient is currently undergoing preop evaluation. And we are consulted for pulmonary/critical care management. Patient is awake and alert, in no acute distress, patient has been ablating the halls, tolerating activity well, no complaints of chest pain. He denies any history of major lung disease. He states in the wintertime he may have some limited wheezing occasionally in response to cold air, denies any history of asthma, not on any chronic inhalers. His preop FEV1 was reviewed s howing FEV1 of 3.27 L or 90% of predicted, FEV1 to FVC ratio of 75% of predicted, an MVV of 123 L, and patient has a normal lung function. Progress note dated 04/14/2021. The patient will be having a bypass procedure today. The patient was not available for evaluation today because he is ready been taken down to the operating room. Yesterday, we saw the patient in consultation. The patient had excellent lung function including an FEV1 that was 3.27 L or 90% of predicted, and a MVV that was 123 L/m. Based on these data, the patient's at no increased operative risk. He did smoke for a short period of time in the distant past. No labs today as yet. The patient is seen today 04/15/2021 in follow-up in the intensive care unit. This is postoperative day #1 of a four-vessel coronary artery bypass graft surgery. He received a [place] to the LAD, left radial artery to the second obtuse marginal branch, saphenous vein grafts to the second diagonal artery and right coronary artery. He is currently sitting up in a chair at the bedside. He is requiring 6 L high flow nasal cannula to maintain O2 saturations in the 90s. Chest x-ray reveals bilateral infiltrate and stable pleural effusion. Mediastinal right and left pleural chest tubes in place. Pulling approximately 750 on the incentive spirometer. Right internal jugular Callaway-Yonas catheter in place. Left radial art line in place. Cardiac output 5.0. Cardiac index 2.0. Atrial epicardial wires present. Backup pacing at 50. He is receiving albumin this morning. PA pressures 22/10, CVP 3. Remains on 0.9 normal sitting at 50 MLS per hour. Insulin drip at 0.5 units per hour. Nitroglycerin drip is off. No pressors. White count 19.0. Hemoglobin 12.9. Platelets 199. Sodium 139. Potassium 4.4. Creatinine 0.66. AST 89. ALT 135. He remains on DuoNeb inhalations. Cefazolin per protocol. Heparin subcu for DVT prophylaxis. The patient is seen today 04/16/2021 in follow-up in the intensive care unit. Postoperative day #2. He is currently sitting up in a chair at the bedside. Awake, alert in no acute distress. His pain is fairly well controlled. He is maintaining O2 saturations in the 90s on 4 L/m per nasal cannula. No current IV fluids. Chest x-ray reveals bilateral infiltrates with small effusions. Chest tubes remain in place. Right IJ Cordis in place. Right radial arterial line in place. Pulling approximately 500 ML's on the incentive spirometer. Needs increased encouragement. Progress note dated 04/17/2021. The patient is again seen today in room 374. He is resting comfortably. He's postop day #3. Currently, he is not requiring any supplemental oxygen. His chest x-ray in my opinion is improved. He needs to continue to use the incentive spirometry now. Room air saturations are 94%. The rest of his vital signs are stable. Laboratory data includes a white count 12.8, he will 9.3, hematocrit 27.8, normal platelet count. Sodium 136, potassium 4.2,, chlorides 103, CO2 30, anion gap 3, BUN 29, and creatinine 0.78. Objective - Vital Signs Vital signs: Vital Signs Temp 98.0 F 04/17/21 08:54 Pulse 89 04/17/21 08:54 Resp 18 04/17/21 08:54 BP 126/61 04/17/21 08:54 Pulse Ox 94 L 04/17/21 08:55 Intake & Output 04/16/21 04/17/21 04/17/21 18:59 06:59 18:59 Intake Total 609 380 Output Total 575 300 200 Balance 34 -300 180 Weight 135.3 kg Intake: IV 9 20 Invasive Line 2 10 Invasive Line 3 10 pressure bag NS 9 Oral 600 360 Output: Chest Tube Drainage 20 left pleural 5 msX2 10 right pleural 5 Urine 555 300 200 Other: Voiding Method Indwelling Catheter Indwelling Catheter # Voids 1 # Bowel Movements 1 ABP, PAP, CO, CI - Last Documented Arterial Blood Pressure 110/62 Pulmonary Artery Pressure 26/15 Cardiac Output 5 Cardiac Index 2 - Exam No acute distress, oriented 3. Currently on room air. HEENT examination is grossly unremarkable. Neck supple. Full range of motion. No adenopathy thyromegaly or neck vein distention. Cardiovascular examination reveals regular rhythm rate. S1-S2 normal. No S3 or S4. No discernible murmur noted. Heart rate 89 bpm. Lungs reveal a bilateral rhonchi. No wheezes or crackles. Breath sounds equal bilaterally. Patient does not take a deep breath. Abdomen soft bowel sounds are heard. No masses or tenderness. Extremities are intact. No cyanosis clubbing or edema. Skin is without rash or lesion. Neurologic examination is brief but nonfocal. - Labs CBC & Chem 7: 04/17/21 06:34 04/17/21 06:34 Labs: Abnormal Lab Results - Last 24 Hours (Table) 04/16/21 04/16/21 04/17/21 Range/Units 17:04 20:34 06:01 WBC (3.8-10.6) k/uL RBC (4.30-5.90) m/uL Hgb (13.0-17.5) gm/dL Hct (39.0-53.0) % Sodium (137-145) mmol/L BUN (9-20) mg/dL Glucose (74-99) mg/dL POC Glucose (mg/dL) 137 H 175 H 175 H (75-99) mg/dL Calcium (8.4-10.2) mg/dL 04/17/21 04/17/21 Range/Units 06:34 06:34 WBC 12.8 H (3.8-10.6) k/uL RBC 3.02 L (4.30-5.90) m/uL Hgb 9.3 L D (13.0-17.5) gm/dL Hct 27.8 L (39.0-53.0) % Sodium 136 L (137-145) mmol/L BUN 29 H (9-20) mg/dL Glucose 161 H (74-99) mg/dL POC Glucose (mg/dL) (75-99) mg/dL Calcium 8.0 L (8.4-10.2) mg/dL Assessment and Plan Assessment: #1. Acute non-ST elevated myocardial infarction. #2. Multivessel coronary artery disease, postop day #3, status post four-vessel bypass. Routine postoperative ventilator management. #3. Hypertension. #4. Dyslipidemia. #5. Remote history of paroxysmal atrial fibrillation, currently in sinus rhythm, not on any chronic anticoagulation. #6. Diabetes mellitus type 2, with a recent hemoglobin A1c of 6.9%. #7. Morbid obesity with a BMI 41.8 kg/m. #8. History of intracranial tumor, meningioma, status post surgery. #9. Remote history of nicotine dependence, in remission since 1984, carries 10 year smoking history of 1 pack a day. #10. Normal preop FEV1 of 3.27 L or 90% of predicted, with FEV1/FVC ratio of 75% of predicted and an MVV of 123 L. Plan: Plan dated 04/14/2021. The patient will be seen after the operating room. I explained to the patient that our goal was to follow, first, to go ahead and get the patient off the mechanical ventilator as soon as possible. Secondly, the patient will be followed very closely on a day by day basis, with evaluation of chest x-rays, to make sure the patient doesn't develop any complications such as pleural effusio n, pneumonia, or lung collapse. Additional recommendations and suggestions are forthcoming. Plan dated 04/17/2021. Currently, the patient is doing well. His been weaned to room air. He continues to deep breathe, cough, and clear secretions. We encourage the use of incentive spirometer, every hour. We will continue to follow the patient make recommendations were appropriate. Prognosis is thought to be good. Chest x- rays reviewed. No additional recommendations are made at this time. Time with Patient: Less than 30
[2021-04-17 11:44] LABS: Glucose,Whole Blood 142 mg/dL (75-99)
--- NOTE | 2021-04-17 13:33 | P.PN ---
Subjective Progress Note Date: 04/17/21 Patient was interviewed and examined sitting up in a chair. He is postop day 2 post CABG 4. He has been walking hallways. He complains of mild shortness of breath. He is complaining of some chest pain around the rib area surrounding his midline incision. GENERAL: Well-appearing, well-nourished and in no acute distress. NECK: Supple without JVD or thyromegaly. LUNGS: Breath sounds clear to auscultation bilaterally. Respiration equal and unlabored. No wheezes, rales or rhonchi. HEART: Regular rate and rhythm without murmurs, rubs or gallops. S1 and S2 heard. EXTREMITIES: Normal range of motion, no edema. No clubbing or cyanosis. Peripheral pulses intact and strong. VITALS: [Temp 98.0, pulse rate 89, respiratory rate 18, blood pressure 126/61, O2 sat 94% on room air] TELEMETRY: Patient's normal sinus rhythm with bouts of sinus tach, PVCs, PACs on telemetry. LABS: [White count 12.8, hemoglobin 9.3, sodium 136, potassium 4.2, B1 29, creatinine 0.78, glucose 161] IMPRESSION: [Non-STEMI Severe triple-vessel disease, status post CABG 4 Hypertension Hyperlipidemia Diabetes mellitus Obesity: BMI of 41.0] PLAN: Continue postoperative management per CTS Increase activity as tolerated Continue use of incentive spirometer Continue current cardiac medications Further recommendations pending patient course The patient has been seen and evaluated. Plan of care has been reviewed and agreed upon by Dr. Landon. Objective - Vital Signs Vital signs: Vital Signs Temp 98.2 F 04/17/21 11:50 Pulse 80 04/17/21 11:50 Resp 18 04/17/21 11:50 BP 130/56 04/17/21 11:50 Pulse Ox 92 L 04/17/21 11:50 Intake & Output 04/16/21 04/17/21 04/17/21 18:59 06:59 18:59 Intake Total 609 640 Output Total 575 300 650 Balance 34 -300 -10 Weight 135.3 kg Intake: IV 9 20 Invasive Line 2 10 Invasive Line 3 10 pressure bag NS 9 Oral 600 620 Output: Chest Tube Drainage 20 left pleural 5 msX2 10 right pleural 5 Urine 555 300 650 Other: Voiding Method Indwelling Catheter Indwelling Catheter Urinal # Voids 1 # Bowel Movements 1 ABP, PAP, CO, CI - Last Documented Arterial Blood Pressure 110/62 Pulmonary Artery Pressure 26/15 Cardiac Output 5 Cardiac Index 2 - Labs CBC & Chem 7: 04/17/21 06:34 04/17/21 06:34 Labs: Abnormal Lab Results - Last 24 Hours (Table) 04/16/21 04/16/21 04/17/21 Range/Units 17:04 20:34 06:01 WBC (3.8-10.6) k/uL RBC (4.30-5.90) m/uL Hgb (13.0-17.5) gm/dL Hct (39.0-53.0) % Sodium (137-145) mmol/L BUN (9-20) mg/dL Glucose (74-99) mg/dL POC Glucose (mg/dL) 137 H 175 H 175 H (75-99) mg/dL Calcium (8.4-10.2) mg/dL 04/17/21 04/17/21 04/17/21 Range/Units 06:34 06:34 11:41 WBC 12.8 H (3.8-10.6) k/uL RBC 3.02 L (4.30-5.90) m/uL Hgb 9.3 L D (13.0-17.5) gm/dL Hct 27.8 L (39.0-53.0) % Sodium 136 L (137-145) mmol/L BUN 29 H (9-20) mg/dL Glucose 161 H (74-99) mg/dL POC Glucose (mg/dL) 142 H (75-99) mg/dL Calcium 8.0 L (8.4-10.2) mg/dL
--- NOTE | 2021-04-17 15:56 | XR ---
EXAMINATION TYPE: XR chest 2V DATE OF EXAM: 04/17/2021 COMPARISON: 04/16/2021 HISTORY: 60 year-old male post cardiac surgery TECHNIQUE: PA and lateral views FINDINGS: Median sternotomy wires are present with post-CABG clips the mediastinum. Heart upper limits of joel l in size. Improved lung volumes but with continued interstitial prominence and small effusions with basilar opacities. IMPRESSION: Continued mild pulmonary vascular congestion along with small effusions and adjacent atelectasis and/ or consolidation. Overall improving lung volumes from prior.
[2021-04-17 16:14] LABS: Glucose,Whole Blood 149 mg/dL (75-99)
[2021-04-17] MEDS: ASPIRIN 81 MG PO SCH (19:15)
[2021-04-17] MEDS: hydroCHLOROthiazide 12.5 MG CAP PO SCH (19:15)
[2021-04-17] MEDS: FAMOTIDINE 20 MG TAB PO SCH (19:15)
[2021-04-17] MEDS: SODIUM CHLORIDE 0.9% 1,000 ML IV SCH (19:16)
[2021-04-17] MEDS: MUPIROCIN 2% OINT 22 GM TUBE NASAL SCH (19:16)
[2021-04-17] MEDS: ATORVASTATIN 80 MG TAB PO SCH (21:13)
[2021-04-17 21:16] LABS: Glucose,Whole Blood 157 mg/dL (75-99)
[2021-04-17] MEDS: SENNOSIDES-DOCUSATE SODIUM 1 EACH TAB PO SCH (21:18)
[2021-04-18] MEDS: traMADol 50 MG TAB PO PRN ×3 (05:04→20:15)
[2021-04-18 06:21] LABS: Glucose,Whole Blood 146 mg/dL (75-99)
[2021-04-18] MEDS: INSULIN ASPART (NovoLOG) 100 UNIT/ML VIAL SQ SCH ×4 (06:48→21:04)
[2021-04-18] MEDS: PANTOPRAZOLE 40 MG TABLET PO SCH (06:48)
[2021-04-18] MEDS ORDERED: SENNOSIDES-DOCUSATE SODIUM 1 EACH TAB PO PRN (07:38)
--- NOTE | 2021-04-18 07:52 | P.PN ---
Subjective Progress Note Date: 04/18/21 Principal diagnosis: Symptomatic multivessel coronary artery disease, non-ST elevated myocardial infarction this admission, mild left ventricular dysfunction. Previous medical history of hypertension, dyslipidemia, morbid obesity, paroxysmal atrial fibrillation, nonmalignant brain meningioma status post removal, remote history of MRSA infection to his left leg, previous tobacco dependence, asthma and osteoarthritis. POD #4 quadruple coronary artery bypass surgery using the left internal mammary artery to left anterior descending artery, left radial artery from the aorta to the first obtuse marginal artery, reverse saphenous vein graft from the aorta to the second diagonal coronary artery, reverse saphenous vein graft from the aorta to the right coronary artery, bilateral pulmonary vein isolation using an epicardial bipolar radiofrequency clamp from [employer], exclusion of the left atrial appendage using a 35 mm AtriClip, endoscopic harvesting of the left radial artery and left greater saphenous vein, graft flow measurements using the [employer] system, intraoperative transesophageal echocardiogram and epi-aortic scanning. The patient's currently sitting up in a recliner on the cardiac stepdown unit in no acute distress. States pain is better controlled, complains of occasional shortness of breath. Remains in sinus rhythm with heart rate in the 80s, hem odynamically stable. Patient is attempting incentive spirometry and achieving 1187-5495 mL, maintaining oxygen saturations in the 90s on room air. States he has been ambulatory in the hallway, received first postoperative shower yesterday. No other new concerns. Objective - Vital Signs Vital signs: Vital Signs Temp 97.8 F 04/17/21 23:37 Pulse 80 04/18/21 04:00 Resp 18 04/18/21 04:00 BP 128/86 04/18/21 04:00 Pulse Ox 96 04/18/21 04:00 Intake & Output 04/17/21 04/18/21 04/18/21 18:59 06:59 18:59 Intake Total 900 20 Output Total 1100 700 Balance -200 -680 Weight 135.9 kg Intake: IV 20 20 Invasive Line 3 20 20 Oral 880 Output: Urine 1100 700 Other: Voiding Method Urinal Urinal # Voids 1 # Bowel Movements 1 1 ABP, PAP, CO, CI - Last Documented Arterial Blood Pressure 110/62 Pulmonary Artery Pressure 26/15 Cardiac Output 5 Cardiac Index 2 - Exam CONSTITUTIONAL: Appears comfortable, cooperative, no acute distress RESPIRATORY: Lungs sounds diminished bilaterally. Respirations even, nonlabored. Currently on room air with oxygen saturation 96%. Able to achieve 2141-7876 mL on incentive spirometry. Strong productive cough. CARDIOVASCULAR: S1, S2 present. Regular rate and rhythm, sinus rhythm on telemetry. Sternum stable. Palpable peripheral pulses bilaterally. Generalized edema present. No calf pain or tenderness noted. Heart hugger in place with patient occasionally demonstrating appropriate use. Antiembolism stockings, SCDs present. GASTROINTESTINAL: Abdomen soft, nontender, nondistended. Active bowel sounds present 4 quadrants. Tolerating diet. Positive bowel movement 04/17. GENITOURINARY: Continues to void clear, yellow urine. INTEGUMENTARY: Skin is warm and dry with evidence of good perfusion. Anterior chest incision well approximated and covered with dry intact dressing. EVH site well approximated without redness or drainage. NEUROLOGIC: Cranial nerves II through XII intact MUSKULOSKELETAL: Able to move all extremities, strength equal bilaterally PSYCHIATRIC: Alert and oriented to person place and time, appropriate affect, intact judgment and insight INVASIVE LINES AND TUBES: Atrial epicardial pacemaker wires present, grounded. - Allied health notes Allied health notes reviewed: nursing - Labs CBC & Chem 7: 04/17/21 06:34 04/17/21 06:34 Labs: Abnormal Lab Results - Last 24 Hours (Table) 04/17/21 04/17/21 04/17/21 Range/Units 06:34 06:34 11:41 WBC 12.8 H (3.8-10.6) k/uL RBC 3.02 L (4.30-5.90) m/uL Hgb 9.3 L D (13.0-17.5) gm/dL Hct 27.8 L (39.0-53.0) % Sodium 136 L (137-145) mmol/L BUN 29 H (9-20) mg/dL Glucose 161 H (74-99) mg/dL POC Glucose (mg/dL) 142 H (75-99) mg/dL Calcium 8.0 L (8.4-10.2) mg/dL 04/17/21 04/17/21 04/18/21 Range/Units 16:12 20:56 06:08 WBC (3.8-10.6) k/uL RBC (4.30-5.90) m/uL Hgb (13.0-17.5) gm/dL Hct (39.0-53.0) % Sodium (137-145) mmol/L BUN (9-20) mg/dL Glucose (74-99) mg/dL POC Glucose (mg/dL) 149 H 157 H 146 H (75-99) mg/dL Calcium (8.4-10.2) mg/dL - Imaging and Cardiology Chest x-ray: image reviewed Assessment and Plan Assessment: 1. Symptomatic multivessel coronary artery disease, non-STEMI this admission, status post four-vessel CABG 2. Hypertension 3. Dyslipidemia, treated, cholesterol 174, LDL 91 4. Remote history of paroxysmal atrial fibrillation, currently in normal sinus rhythm 5. Diet-controlled diabetes mellitus with a recent hemoglobin A1c of 6.9% 6. Morbid obesity 7. History of nonmalignant meningioma status post resection 8. Previous tobacco dependence, preoperative FEV1 90% of predicted 9. Asthma 10. Osteoarthritis Plan: 1. Continue to maximize medical therapy with aspirin, statin, and beta josie. Will increase beta josie therapy as tolerated 2. Continue oral Cardizem for radial artery spasm prophylaxis, transition to Cardizem CD today. Do not discontinue CCB without discussed with cardiac surgery 3. Encourage incentive spirometry use 10 times every hour while awake. Bronchodilators per pulmonology 4. Increase activity, ambulate as tolerated. Out of bed for all meals. PT/OT/cardiac rehab consulted 5. Will monitor daily labs and chest x-rays. Electrolyte replacement per protocol. 6. GI/DVT prophylaxis 7. Pain control with current medication regimen 8. Insulin management per primary care service. Patient needs tight blood sugar control to promote healing and sternal union as well as prevent infection 9. Epicardial pacemaker wire discontinued. Patient to remain on bedrest for 1 hour post-wire removal 10. Strict accurate intake and output. Daily weights 11. Discharge planning in progress. Anticipate discharge to home with home care in the next 24 hours 12. More recommendations to follow based on patient's clinical course. Time with Patient: Greater than 30
[2021-04-18 08:01] LABS: HCT 28.3 % (39.0-53.0); HGB 9.6 gm/dL (13.0-17.5); MCH 31.1 pg (25.0-35.0); MCHC 33.8 g/dL (31.0-37.0); MCV 91.9 fL (80.0-100.0); Mean Platelet Volume 7.6; Platelet Count 271 k/uL (150-450); RBC 3.08 m/uL (4.30-5.90); RDW 14.3 % (11.5-15.5); WBC 13.6 k/uL (3.8-10.6)
[2021-04-18 08:19] LABS: African American GFR (CKD) >90 (>60 ml/min/1.73 sqM); Anion Gap 5 mmol/L; Blood Urea Nitrogen 28 mg/dL (9-20); Carbon Dioxide 30 mmol/L (22-30); Chloride 101 mmol/L (98-107); Glucose 140 mg/dL (74-99); Non-African American GFR(CKD) >90 (>60 ml/min/1.73 sqM); Sodium 136 mmol/L (137-145)
[2021-04-18] MEDS: IPRATROPIUM-ALBUTEROL 3 ML NEB INHALATION SCH ×4 (08:28→21:29)
[2021-04-18] MEDS: HEPARIN SODIUM,PORCINE/PF 5,000 UNIT/0.5 ML SYRINGE SQ SCH ×3 (08:41→23:20)
[2021-04-18] MEDS: CLOPIDOGREL 75 MG TAB PO SCH (08:42)
[2021-04-18] MEDS: DILTIAZEM CD 120 MG CAP.ER.24H PO SCH (08:42)
[2021-04-18] MEDS: ASPIRIN 325 MG TAB PO SCH (08:42)
--- NOTE | 2021-04-18 08:42 | XR ---
EXAMINATION TYPE: XR chest 2V DATE OF EXAM: 04/18/2021 COMPARISON: 04/17/2021 and prior HISTORY: Post cardiac surgery TECHNIQUE: Frontal and lateral views of the chest are obtained. FINDINGS AND IMPRESSION: Stable mild pulmonary vascular congestion. Stable bibasilar opacities: Atelectasis and/or infiltrates. Prominent cardiomediastinal silhouette with postsurgical changes. Stable small pleural effusions. No pneumothorax. No acute osseous abnormality.
[2021-04-18] MEDS: METOPROLOL TARTRATE 50 MG TAB PO SCH ×2 (08:45→20:15)
[2021-04-18] MEDS ORDERED: FUROSEMIDE 10 MG/ML 2 ML VIAL IV ONE (09:02)
--- NOTE | 2021-04-18 09:53 | P.PN ---
Subjective Progress Note Date: 04/14/21 Principal diagnosis: non-ST elevated AL This is a 60-year-old patient of Dr. Jovi Persaud. Chronic stable medical conditions include atrial fibrillation, hypertension, obesity. Patient was baling hay and he developed left infraclavicular chest pain as somebody sitting there. The pain continued while he was doing the same. No radiation. Was a bit dizzy perspiration tired. Decided to come into the ER. Patient ruled in for an acute non-Q wave AL. Was started on IV heparin. This morning patient went for a cardiac catheterization. Found to have severe triple-vessel disease. Cardiothoracic team's been consulted. Coronary bypass scheduled for next Monday04/12/2021 Patient was admitted to the hospital due to non-ST elevated AL. Status post cardiac catheterization showed 2+ conditions. Scheduled for coronary to progress graft on Monday. Currently resting in the bed comfortably. No complaints of chest pain or shortness of breath. 2D echocardiogram showed ejection fraction 55 to 60% and mild MR and TR. Denies any nausea vomiting or abdominal pain or diarrhea. Cardiology and CT surgery is on board. 04/13/2021 Patient is currently lying in the bed comfortably. Awake alert and oriented 3. Denied any complaints of chest pain or shortness of breath. Encourage incentive spirometry. Patient is scheduled for coronary artery bypass graft tomorrow. No complaints of nausea vomiting or abdominal pain or diarrhea. Currently o xygenating well on room air. No other acute overnight issues. CT surgery and cardiology is on board. 04/14/2021 Patient is currently lying in the bed comfortably. Scheduled for coronary artery bypass graft today. Patient was transferred to MICU after surgery. Patient has been afebrile. No complaints of chest pain or shortness of breath. No headache or dizziness or lightheadedness. Patient does have pulmonary function tests done with FEV1 90% of predicted. Pulmonary and CT surgery is on board. Current medications reviewed. Objective - Vital Signs Vital signs: Vital Signs Temp 99.9 F H 04/14/21 19:30 Pulse 100 04/14/21 22:15 Resp 26 H 04/14/21 22:15 BP 92/61 04/14/21 20:00 Pulse Ox 97 04/14/21 22:15 Intake & Output 04/14/21 04/14/21 04/15/21 06:59 18:59 06:59 Intake Total 200 263.097 206.441 Output Total 3152 298 Balance 200 -2888.903 -91.559 Weight 133.2 kg Intake: IV 200 7 100 Sodium Chloride 0.9% 1, 100 100 000 ml @ 50 mls/hr IV . Q20H [facility] Rx#:[id number] Intake, IV Titration 256.097 106.441 Amount ACETAMINOPHEN IV (For NPO 100 ) 1,000 mg In Empty Bag 1 bag @ 400 mls/hr IVPB Q6H [facility] Rx#:[id number] Clevidipine Butyrate 25 19.467 mg In Empty Bag 1 bag @ 1 MG/HR 2 mls/hr IV .Q24H [facility] Rx#:[id number] Insulin Regular 100 unit 21.277 In Sodium Chloride 0.9% 100 ml @ Per Protocol IV .Q0M [facility] Rx#:[id number] Sodium Chloride 0.9% 1, 100 50 000 ml @ 50 mls/hr IV . Q20H [facility] Rx#:[id number] propofoL 1,000 mg In 36.63 35.164 Empty Bag 1 bag @ Titrate IV .Q0M [facility] Rx#: [id number] Output: Chest Tube Drainage 475 98 left pleural 145 24 msX2 110 40 right pleural 220 34 Drainage 0 0 right wrist 0 0 Urine 1477 200 Estimated Blood Loss 1200 Other: Voiding Method Toilet Indwelling Catheter # Voids 1 # Bowel Movements 1 ABP, PAP, CO, CI - Last Documented Arterial Blood Pressure 134/82 Pulmonary Artery Pressure 38/25 Cardiac Output 5.3 Cardiac Index 2.1 - Exam GENERAL: Awake planning a chair, comfortable EYES: Pupils equal. Conjunctiva normal. NECK: JVD not raised; masses not palpable. HEART: First and second heart sounds are normal; no edema. LUNGS: Respiratory rate normal; clear to auscultation. ABDOMEN: Soft, nontender, liver spleen not palpable, no masses palpable. PSYCH: Alert and oriented x3; mood and affect normal. - Labs CBC & Chem 7: 04/18/21 07:21 04/18/21 07:21 Labs: Abnormal Lab Results - Last 24 Hours (Table) 04/13/21 04/14/21 04/14/21 Range/Units 07:38 06:24 08:36 WBC (3.8-10.6) k/uL Neutrophils # (1.3-7.7) k/uL Lymphocytes # (1.0-4.8) k/uL APTT (22.0-30.0) sec ABG pH (7.35-7.45) ABG pCO2 53 H (35-45) mmHg ABG pO2 231 H (83-108) mmHg ABG HCO3 29 H (21-25) mmol/L ABG Total CO2 31 H (19-24) mmol/L ABG O2 Saturation 99.9 H (94-97) % ABG Hematocrit (34.0-46.0) % ABG Potassium (3.4-4.5) mmol/L ABG Ionized Calcium (4.5-5.3) mg/dL ABG Glucose 118 H (75-99) mg/dL ABG Lactic Acid (0.5-1.6) mmol/L Hemoglobin (13.0-17.5) gm/dL Creatinine (0.66-1.25) mg/dL Glucose (74-99) mg/dL POC Glucose (mg/dL) 122 H (75-99) mg/dL Calcium (8.4-10.2) mg/dL Magnesium (1.6-2.3) mg/dL Total Bilirubin (0.2-1.3) mg/dL AST (17-59) U/L ALT (4-49) U/L Total Protein (6.3-8.2) g/dL Albumin (3.5-5.0) g/dL Arterial Blood Potassium (3.4-4.5) mmol/L Arterial Blood Glucose 118 H (75-99) mg/dL Crossmatch See Detail 04/14/21 04/14/21 04/14/21 Range/Units 11:24 12:07 12:54 WBC (3.8-10.6) k/uL Neutrophils # (1.3-7.7) k/uL Lymphocytes # (1.0-4.8) k/uL APTT (22.0-30.0) sec ABG pH (7.35-7.45) ABG pCO2 48 H (35-45) mmHg ABG pO2 145 H 389 H 310 H (83-108) mmHg ABG HCO3 28 H 26 H 28 H (21-25) mmol/L ABG Total CO2 30 H 28 H 29 H (19-24) mmol/L ABG O2 Saturation 99.5 H 100.0 H 100.0 H (94-97) % ABG Hematocrit 33 L (34.0-46.0) % ABG Potassium 4.8 H (3.4-4.5) mmol/L ABG Ionized Calcium 4.1 L 4.2 L (4.5-5.3) mg/dL ABG Glucose 137 H 125 H 126 H (75-99) mg/dL ABG Lactic Acid (0.5-1.6) mmol/L Hemoglobin 11.3 L 10.7 L (13.0-17.5) gm/dL Creatinine (0.66-1.25) mg/dL Glucose (74-99) mg/dL POC Glucose (mg/dL) (75-99) mg/dL Calcium (8.4-10.2) mg/dL Magnesium (1.6-2.3) mg/dL Total Bilirubin (0.2-1.3) mg/dL AST (17-59) U/L ALT (4-49) U/L Total Protein (6.3-8.2) g/dL Albumin (3.5-5.0) g/dL Arterial Blood Potassium 4.8 H (3.4-4.5) mmol/L Arterial Blood Glucose 137 H 125 H 126 H (75-99) mg/dL Crossmatch 04/14/21 04/14/21 04/14/21 Range/Units 13:33 14:16 15:44 WBC (3.8-10.6) k/uL Neutrophils # (1.3-7.7) k/uL Lymphocytes # (1.0-4.8) k/uL APTT (22.0-30.0) sec ABG pH (7.35-7.45) ABG pCO2 46 H 46 H (35-45) mmHg ABG pO2 269 H >420 H 137 H (83-108) mmHg ABG HCO3 28 H 27 H 27 H (21-25) mmol/L ABG Total CO2 29 H 29 H 28 H (19-24) mmol/L ABG O2 Saturation 100.0 H 100.0 H 99.4 H (94-97) % ABG Hematocrit (34.0-46.0) % ABG Potassium 4.8 H 4.7 H 4.6 H (3.4-4.5) mmol/L ABG Ionized Calcium 4.2 L 4.3 L 4.3 L (4.5-5.3) mg/dL ABG Glucose 158 H 181 H 140 H (75-99) mg/dL ABG Lactic Acid 1.9 H (0.5-1.6) mmol/L Hemoglobin 11.0 L 11.2 L 11.8 L (13.0-17.5) gm/dL Creatinine (0.66-1.25) mg/dL Glucose (74-99) mg/dL POC Glucose (mg/dL) (75-99) mg/dL Calcium (8.4-10.2) mg/dL Magnesium (1.6-2.3) mg/dL Total Bilirubin (0.2-1.3) mg/dL AST (17-59) U/L ALT (4-49) U/L Total Protein (6.3-8.2) g/dL Albumin (3.5-5.0) g/dL Arterial Blood Potassium 4.8 H 4.7 H 4.6 H (3.4-4.5) mmol/L Arterial Blood Glucose 158 H 181 H 140 H (75-99) mg/dL Crossmatch 04/14/21 04/14/21 04/14/21 Range/Units 16:57 17:06 17:06 WBC 13.6 H (3.8-10.6) k/uL Neutrophils # 11.7 H (1.3-7.7) k/uL Lymphocytes # 0.9 L (1.0-4.8) k/uL APTT 40.1 H (22.0-30.0) sec ABG pH (7.35-7.45) ABG pCO2 (35-45) mmHg ABG pO2 (83-108) mmHg ABG HCO3 (21-25) mmol/L ABG Total CO2 (19-24) mmol/L ABG O2 Saturation (94-97) % ABG Hematocrit (34.0-46.0) % ABG Potassium (3.4-4.5) mmol/L ABG Ionized Calcium (4.5-5.3) mg/dL ABG Glucose (75-99) mg/dL ABG Lactic Acid (0.5-1.6) mmol/L Hemoglobin (13.0-17.5) gm/dL Creatinine (0.66-1.25) mg/dL Glucose (74-99) mg/dL POC Glucose (mg/dL) 159 H (75-99) mg/dL Calcium (8.4-10.2) mg/dL Magnesium (1.6-2.3) mg/dL Total Bilirubin (0.2-1.3) mg/dL AST (17-59) U/L ALT (4-49) U/L Total Protein (6.3-8.2) g/dL Albumin (3.5-5.0) g/dL Arterial Blood Potassium (3.4-4.5) mmol/L Arterial Blood Glucose (75-99) mg/dL Crossmatch 04/14/21 04/14/21 04/14/21 Range/Units 17:06 17:19 18:04 WBC (3.8-10.6) k/uL Neutrophils # (1.3-7.7) k/uL Lymphocytes # (1.0-4.8) k/uL APTT (22.0-30.0) sec ABG pH 7.30 L (7.35-7.45) ABG pCO2 57 H (35-45) mmHg ABG pO2 125 H (83-108) mmHg ABG HCO3 28 H (21-25) mmol/L ABG Total CO2 29 H (19-24) mmol/L ABG O2 Saturation 98.4 H (94-97) % ABG Hematocrit (34.0-46.0) % ABG Potassium (3.4-4.5) mmol/L ABG Ionized Calcium (4.5-5.3) mg/dL ABG Glucose (75-99) mg/dL ABG Lactic Acid (0.5-1.6) mmol/L Hemoglobin (13.0-17.5) gm/dL Creatinine 0.59 L (0.66-1.25) mg/dL Glucose 158 H (74-99) mg/dL POC Glucose (mg/dL) 170 H (75-99) mg/dL Calcium 7.7 L (8.4-10.2) mg/dL Magnesium 2.4 H (1.6-2.3) mg/dL Total Bilirubin 1.9 H (0.2-1.3) mg/dL AST 152 H (17-59) U/L ALT 168 H (4-49) U/L Total Protein 4.8 L (6.3-8.2) g/dL Albumin 2.8 L (3.5-5.0) g/dL Arterial Blood Potassium (3.4-4.5) mmol/L Arterial Blood Glucose (75-99) mg/dL Crossmatch 04/14/21 04/14/21 04/14/21 Range/Units 19:00 19:02 19:54 WBC 18.0 H (3.8-10.6) k/uL Neutrophils # 16.0 H (1.3-7.7) k/uL Lymphocytes # 0.7 L (1.0-4.8) k/uL APTT (22.0-30.0) sec ABG pH (7.35-7.45) ABG pCO2 (35-45) mmHg ABG pO2 (83-108) mmHg ABG HCO3 (21-25) mmol/L ABG Total CO2 (19-24) mmol/L ABG O2 Saturation (94-97) % ABG Hematocrit (34.0-46.0) % ABG Potassium (3.4-4.5) mmol/L ABG Ionized Calcium (4.5-5.3) mg/dL ABG Glucose (75-99) mg/dL ABG Lactic Acid (0.5-1.6) mmol/L Hemoglobin (13.0-17.5) gm/dL Creatinine (0.66-1.25) mg/dL Glucose (74-99) mg/dL POC Glucose (mg/dL) 186 H 185 H (75-99) mg/dL Calcium (8.4-10.2) mg/dL Magnesium (1.6-2.3) mg/dL Total Bilirubin (0.2-1.3) mg/dL AST (17-59) U/L ALT (4-49) U/L Total Protein (6.3-8.2) g/dL Albumin (3.5-5.0) g/dL Arterial Blood Potassium (3.4-4.5) mmol/L Arterial Blood Glucose (75-99) mg/dL Crossmatch 04/14/21 04/14/21 04/14/21 Range/Units 21:10 21:40 22:17 WBC (3.8-10.6) k/uL Neutrophils # (1.3-7.7) k/uL Lymphocytes # (1.0-4.8) k/uL APTT (22.0-30.0) sec ABG pH (7.35-7.45) ABG pCO2 (35-45) mmHg ABG pO2 (83-108) mmHg ABG HCO3 26 H (21-25) mmol/L ABG Total CO2 27 H (19-24) mmol/L ABG O2 Saturation 97.6 H (94-97) % ABG Hematocrit (34.0-46.0) % ABG Potassium (3.4-4.5) mmol/L ABG Ionized Calcium (4.5-5.3) mg/dL ABG Glucose (75-99) mg/dL ABG Lactic Acid (0.5-1.6) mmol/L Hemoglobin (13.0-17.5) gm/dL Creatinine (0.66-1.25) mg/dL Glucose (74-99) mg/dL POC Glucose (mg/dL) 164 H 164 H (75-99) mg/dL Calcium (8.4-10.2) mg/dL Magnesium (1.6-2.3) mg/dL Total Bilirubin (0.2-1.3) mg/dL AST (17-59) U/L ALT (4-49) U/L Total Protein (6.3-8.2) g/dL Albumin (3.5-5.0) g/dL Arterial Blood Potassium (3.4-4.5) mmol/L Arterial Blood Glucose (75-99) mg/dL Crossmatch Assessment and Plan Assessment: Assessment and plan: -Acute non-Q wave AL Patient is on aspirin, IV heparin, Lopressor, Cozaar -Severe triple-vessel coronary artery disease per cardiac catheterization-slow to respond Cardiothoracic surgery -coronary bypass scheduled for today -Morbid obesity BMI 41.8 Dietitian -Essential hypertension On Cardizem CD, Lopressor -Hyperlipidemia Lipitor 80 mg daily at bedtime -IV heparin monitoring Follow PtT Care discussed with the patient. Continue current medications. IV heparin. CABG this Monday Cardizem and losartan on hold prior to surgery as per CT surgery.
--- NOTE | 2021-04-18 10:00 | P.PN ---
Subjective Progress Note Date: 04/15/21 Principal diagnosis: non-ST elevated [place] This is a 60-year-old patient of Dr. Jovi Persaud. Chronic stable medical conditions include atrial fibrillation, hypertension, obesity. Patient was baling hay and he developed left infraclavicular chest pain as somebody sitting there. The pain continued while he was doing the same. No radiation. Was a bit dizzy perspiration tired. Decided to come into the ER. Patient ruled in for an acute non-Q wave TX. Was started on IV heparin. This morning patient went for a cardiac catheterization. Found to have severe triple-vessel disease. Cardiothoracic team's been consulted. Coronary bypass scheduled for next Monday04/12/2021 Patient was admitted to the hospital due to non-ST elevated TX. Status post cardiac catheterization showed 2+ conditions. Scheduled for coronary to progress graft on Monday. Currently resting in the bed comfortably. No complaints of chest pain or shortness of breath. 2D echocardiogram showed ejection fraction 55 to 60% and mild MR and TR. Denies any nausea vomiting or abdominal pain or diarrhea. Cardiology and CT surgery is on board. 04/13/2021 Patient is currently lying in the bed comfortably. Awake alert and oriented 3. Denied any complaints of chest pain or shortness of breath. Encourage incentive spirometry. Patient is scheduled for coronary artery bypass graft tomorrow. No complaints of nausea vomiting or abdominal pain or diarrhea. Currently o xygenating well on room air. No other acute overnight issues. CT surgery and cardiology is on board. 04/14/2021 Patient is currently lying in the bed comfortably. Scheduled for coronary artery bypass graft today. Patient was transferred to MICU after surgery. Patient has been afebrile. No complaints of chest pain or shortness of breath. No headache or dizziness or lightheadedness. Patient does have pulmonary function tests done with FEV1 90% of predicted. Pulmonary and CT surgery is on board. 04/15/2021 Patient is currently in the intensive care unit. Postoperative day 1. Four-vessel coronary artery bypass graft. Patient was extubated overnight. Currently requiring 6 L high flow oxygen with another cannula. Chest x-ray showed bilateral infiltrate and stable pleural effusion. Me diastinal right and left pleural chest tubes in place. Patient is being continued on insulin drip for blood sugar management. Current on DuoNeb's and incentive spirometry. Laboratory data showed sodium 139 potassium 4.4 creatinine 0.66, AST 89 ALT 135, WBC 19.0 and platelets [address] surgery is on board. Current medications reviewed. Objective - Vital Signs Vital signs: Vital Signs Temp 98.3 F 04/15/21 20:00 Pulse 96 04/15/21 20:00 Resp 22 04/15/21 20:00 BP 140/89 04/15/21 20:00 Pulse Ox 93 L 04/15/21 20:00 Intake & Output 04/15/21 04/15/21 04/16/21 06:59 18:59 06:59 Intake Total 828.167 8643.857 58.059 Output Total 984 800 90 Balance 2.210 401.857 -31.941 Weight 137.6 kg Intake: IV 829 217 6 CO/CI 180 30 Sodium Chloride 0.9% 1, 550 100 000 ml @ 50 mls/hr IV . Q20H [facility] Rx#:[id number] pressure bag NS 99 87 6 Intake, IV Titration 157.210 984.857 52.059 Amount Albumin Human 5% 250 ml 500 In Empty Bag 1 bag @ 250 mls/hr IVPB Q1HR PRN Rx#: [id number] Insulin Regular 100 unit 72.046 62.082 32.059 In Sodium Chloride 0.9% 100 ml @ Per Protocol IV .Q0M [facility] Rx#:[id number] Nitroglycerin-D5w Pmx 50 22.775 mg In Dextrose/Water 1 250ml.bag @ 5 MCG/MIN 1.5 mls/hr IV .Q24H [facility] Rx#: [id number] Sodium Chloride 0.9% 1, 50 200 20 000 ml @ 20 mls/hr IV . Q24H [facility] Rx#:[id number] ceFAZolin 3 gm In Sodium 200 Chloride 0.9% 100 ml @ 100 mls/hr IVPB Q8HR [facility] Rx#:[id number] propofoL 1,000 mg In 35.164 Empty Bag 1 bag @ Titrate IV .Q0M [facility] Rx#: [id number] Output: Chest Tube Drainage 364 160 25 left pleural 104 55 10 msX2 180 70 5 right pleural 80 35 10 Drainage 0 right wrist 0 Urine 620 640 65 Other: Voiding Method Indwelling Catheter Indwelling Catheter ABP, PAP, CO, CI - Last Documented Arterial Blood Pressure 137/55 Pulmonary Artery Pressure 26/15 Cardiac Output 5 Cardiac Index 2 - Exam PHYSICAL EXAMINATION: Patient is currently sitting on the chair, no acute distress, awake alert and oriented.. HEENT: Normocephalic. Neck is supple. Pupils reactive. Nostrils clear. Oral cavity is moist. Neck reveals no JVD, carotid bruits, or thyromegaly. CHEST EXAMINATION: Trachea is central. Symmetrical expansion. Bibasilar crackles. No wheezing.. Heart HUGGER in place and sternal wound is bandaged. Chest tubes in place. CARDIAC: Normal S1, S2 with no gallops. No murmurs ABDOMEN: Soft. Bowel sounds normal. No organomegaly. No abdominal bruits. Extremities: Trace bilateral pedal edema. No clubbing or cyanosis. Pulses palpable 2+. Neurologically awake, alert, oriented x3 with well-coordinated movements. No fo jim deficits noted Skin: No rash or skin lesions. Psychiatric: Coperative. Nonsuicidal Musculoskeletal: No joint swelling or deformity. Normal range of motion. - Labs CBC & Chem 7: 04/18/21 07:21 04/18/21 07:21 Labs: Abnormal Lab Results - Last 24 Hours (Table) 04/13/21 04/14/21 04/14/21 Range/Units 07:38 23:05 23:06 WBC 23.1 H (3.8-10.6) k/uL RBC (4.30-5.90) m/uL Hgb (13.0-17.5) gm/dL Hct (39.0-53.0) % Neutrophils # 21.0 H (1.3-7.7) k/uL Lymphocytes # 0.9 L (1.0-4.8) k/uL Monocytes # (0-1.0) k/uL Glucose (74-99) mg/dL POC Glucose (mg/dL) 166 H (75-99) mg/dL Calcium (8.4-10.2) mg/dL AST (17-59) U/L ALT (4-49) U/L Total Protein (6.3-8.2) g/dL Albumin (3.5-5.0) g/dL Crossmatch See Detail 04/15/21 04/15/21 04/15/21 Range/Units 00:46 02:00 03:44 WBC (3.8-10.6) k/uL RBC (4.30-5.90) m/uL Hgb (13.0-17.5) gm/dL Hct (39.0-53.0) % Neutrophils # (1.3-7.7) k/uL Lymphocytes # (1.0-4.8) k/uL Monocytes # (0-1.0) k/uL Glucose (74-99) mg/dL POC Glucose (mg/dL) 158 H 152 H 147 H (75-99) mg/dL Calcium (8.4-10.2) mg/dL AST (17-59) U/L ALT (4-49) U/L Total Protein (6.3-8.2) g/dL Albumin (3.5-5.0) g/dL Crossmatch 04/15/21 04/15/21 04/15/21 Range/Units 03:45 03:45 05:30 WBC 19.0 H (3.8-10.6) k/uL RBC 4.26 L (4.30-5.90) m/uL Hgb 12.9 L (13.0-17.5) gm/dL Hct 37.5 L (39.0-53.0) % Neutrophils # 16.6 H (1.3-7.7) k/uL Lymphocytes # (1.0-4.8) k/uL Monocytes # 1.2 H (0-1.0) k/uL Glucose 149 H (74-99) mg/dL POC Glucose (mg/dL) 150 H (75-99) mg/dL Calcium 8.3 L (8.4-10.2) mg/dL AST 89 H (17-59) U/L ALT 135 H (4-49) U/L Total Protein 4.9 L (6.3-8.2) g/dL Albumin 2.8 L (3.5-5.0) g/dL Crossmatch 04/15/21 04/15/21 04/15/21 Range/Units 06:15 07:05 08:26 WBC (3.8-10.6) k/uL RBC (4.30-5.90) m/uL Hgb (13.0-17.5) gm/dL Hct (39.0-53.0) % Neutrophils # (1.3-7.7) k/uL Lymphocytes # (1.0-4.8) k/uL Monocytes # (0-1.0) k/uL Glucose (74-99) mg/dL POC Glucose (mg/dL) 148 H 133 H 144 H (75-99) mg/dL Calcium (8.4-10.2) mg/dL AST (17-59) U/L ALT (4-49) U/L Total Protein (6.3-8.2) g/dL Albumin (3.5-5.0) g/dL Crossmatch 04/15/21 04/15/21 04/15/21 Range/Units 09:35 10:53 12:15 WBC (3.8-10.6) k/uL RBC (4.30-5.90) m/uL Hgb (13.0-17.5) gm/dL Hct (39.0-53.0) % Neutrophils # (1.3-7.7) k/uL Lymphocytes # (1.0-4.8) k/uL Monocytes # (0-1.0) k/uL Glucose (74-99) mg/dL POC Glucose (mg/dL) 128 H 116 H 132 H (75-99) mg/dL Calcium (8.4-10.2) mg/dL AST (17-59) U/L ALT (4-49) U/L Total Protein (6.3-8.2) g/dL Albumin (3.5-5.0) g/dL Crossmatch 04/15/21 04/15/21 04/15/21 Range/Units 13:53 15:16 16:02 WBC (3.8-10.6) k/uL RBC (4.30-5.90) m/uL Hgb (13.0-17.5) gm/dL Hct (39.0-53.0) % Neutrophils # (1.3-7.7) k/uL Lymphocytes # (1.0-4.8) k/uL Monocytes # (0-1.0) k/uL Glucose (74-99) mg/dL POC Glucose (mg/dL) 170 H 160 H 134 H (75-99) mg/dL Calcium (8.4-10.2) mg/dL AST (17-59) U/L ALT (4-49) U/L Total Protein (6.3-8.2) g/dL Albumin (3.5-5.0) g/dL Crossmatch 04/15/21 04/15/21 Range/Units 18:04 20:55 WBC (3.8-10.6) k/uL RBC (4.30-5.90) m/uL Hgb (13.0-17.5) gm/dL Hct (39.0-53.0) % Neutrophils # (1.3-7.7) k/uL Lymphocytes # (1.0-4.8) k/uL Monocytes # (0-1.0) k/uL Glucose (74-99) mg/dL POC Glucose (mg/dL) 127 H 145 H (75-99) mg/dL Calcium (8.4-10.2) mg/dL AST (17-59) U/L ALT (4-49) U/L Total Protein (6.3-8.2) g/dL Albumin (3.5-5.0) g/dL Crossmatch Assessment and Plan Assessment: Assessment and plan: -Acute non-Q wave TX. -Severe triple-vessel coronary artery disease per cardiac. Patient status post quadruple bypass on 04/14/2021. -Acute hypoxic respiratory failure expected from surgery. Extubated overnight.. -Morbid obesity BMI 41.8 -Essential hypertension On Cardizem CD, Lopressor -Hyperlipidemia Lipitor 80 mg daily at bedtime -DVT prophylaxis with heparin subcu Care discussed with the patient. Continue current medications. Patient is status post coronary artery bypass graft. Cardizem and losartan on hold prior to surgery as per CT surgery. Continue with aspirin statins and metoprolol. Cardizem was restarted. Encourage incentive spirometry and activity. Continue to follow closely. Time with Patient: Greater than 30
--- NOTE | 2021-04-18 10:02 | P.PN ---
Subjective Progress Note Date: 04/16/21 Principal diagnosis: non-ST elevated OK This is a 60-year-old patient of Dr. Jovi Persaud. Chronic stable medical conditions include atrial fibrillation, hypertension, obesity. Patient was baling hay and he developed left infraclavicular chest pain as somebody sitting there. The pain continued while he was doing the same. No radiation. Was a bit dizzy perspiration tired. Decided to come into the ER. Patient ruled in for an acute non-Q wave OK. Was started on IV heparin. This morning patient went for a cardiac catheterization. Found to have severe triple-vessel disease. Cardiothoracic team's been consulted. Coronary bypass scheduled for next Monday04/12/2021 Patient was admitted to the hospital due to non-ST elevated OK. Status post cardiac catheterization showed 2+ conditions. Scheduled for coronary to progress graft on Monday. Currently resting in the bed comfortably. No complaints of chest pain or shortness of breath. 2D echocardiogram showed ejection fraction 55 to 60% and mild MR and TR. Denies any nausea vomiting or abdominal pain or diarrhea. Cardiology and CT surgery is on board. 04/13/2021 Patient is currently lying in the bed comfortably. Awake alert and oriented 3. Denied any complaints of chest pain or shortness of breath. Encourage incentive spirometry. Patient is scheduled for coronary artery bypass graft tomorrow. No complaints of nausea vomiting or abdominal pain or diarrhea. Currently o xygenating well on room air. No other acute overnight issues. CT surgery and cardiology is on board. 04/14/2021 Patient is currently lying in the bed comfortably. Scheduled for coronary artery bypass graft today. Patient was transferred to MICU after surgery. Patient has been afebrile. No complaints of chest pain or shortness of breath. No headache or dizziness or lightheadedness. Patient does have pulmonary function tests done with FEV1 90% of predicted. Pulmonary and CT surgery is on board. 04/15/2021 Patient is currently in the intensive care unit. Postoperative day 1. Four-vessel coronary artery bypass graft. Patient was extubated overnight. Currently requiring 6 L high flow oxygen with another cannula. Chest x-ray showed bilateral infiltrate and stable pleural effusion. Me diastinal right and left pleural chest tubes in place. Patient is being continued on insulin drip for blood sugar management. Current on DuoNeb's and incentive spirometry. Laboratory data showed sodium 139 potassium 4.4 creatinine 0.66, AST 89 ALT 135, WBC 19.0 and platelets [address] surgery is on board. 04-16-21 Patient is currently MICU. Sitting on the chair comfortably. Awake alert and oriented 3. No acute distress. Mild soreness at the surgical site. Requiring oxygen at 4 L via nasal cannula. Next and chest x-ray showed bilateral infiltrates with small effusions. CT cervical spine to remove chest tubes. Patient has been afebrile. No worsening leg swelling. Does not require any pressors support. Continued on incentive spirometry and ambulation. CT surgery and pulmonary is on board. Laboratory data showed WBC 19.8, hemoglobin 9.1 and platelets 190 BUN 27 and creatinine 0.73 Current medications reviewed. Objective - Vital Signs Vital signs: Vital Signs Temp 97.8 F 04/16/21 20:00 Pulse 93 04/16/21 21:13 Resp 18 04/16/21 21:13 BP 129/53 04/16/21 20:00 Pulse Ox 99 04/16/21 21:03 Intake & Output 04/16/21 04/16/21 04/17/21 06:59 18:59 06:59 Intake Total 147.872 609 Output Total 885 575 Balance -737.128 34 Weight 138 kg Intake: IV 60 9 pressure bag NS 60 9 Intake, IV Titration 87.872 Amount Insulin Regular 100 unit 67.872 In Sodium Chloride 0.9% 100 ml @ Per Protocol IV .Q0M [facility] Rx#:[id number] Sodium Chloride 0.9% 1, 20 000 ml @ 20 mls/hr IV . Q24H [facility] Rx#:[id number] Oral 600 Output: Chest Tube Drainage 105 20 left pleural 20 5 msX2 65 10 right pleural 20 5 Urine 780 555 Other: Voiding Method Indwelling Catheter Indwelling Catheter Indwelling Catheter # Bowel Movements 1 ABP, PAP, CO, CI - Last Documented Arterial Blood Pressure 110/62 Pulmonary Artery Pressure 26/15 Cardiac Output 5 Cardiac Index 2 - Exam PHYSICAL EXAMINATION: Patient is currently sitting on the chair, no acute distress, awake alert and oriented.. HEENT: Normocephalic. Neck is supple. Pupils reactive. Nostrils clear. Oral cavity is moist. Neck reveals no JVD, carotid bruits, or thyromegaly. CHEST EXAMINATION: Trachea is central. Symmetrical expansion. Bibasilar crackles. No wheezing.. Heart HUGGER in place and sternal wound is bandaged. Chest tubes in place. CARDIAC: Normal S1, S2 with no gallops. No murmurs ABDOMEN: Soft. Bowel sounds normal. No organomegaly. No abdominal bruits. Extremities: Trace bilateral pedal edema. No clubbing or cyanosis. Pulses palpable 2+. Neurologically awake, alert, oriented x3 with well-coordinated movements. No focal deficits noted Skin: No rash or skin lesions. Psychiatric: Coperative. Nonsuicidal Musculoskeletal: No joint swelling or deformity. Normal range of motion. - Labs CBC & Chem 7: 04/18/21 07:21 04/18/21 07:21 Labs: Abnormal Lab Results - Last 24 Hours (Table) 04/16/21 04/16/21 04/16/21 Range/Units 01:19 02:56 04:33 WBC (3.8-10.6) k/uL RBC (4.30-5.90) m/uL Hgb (13.0-17.5) gm/dL Hct (39.0-53.0) % Neutrophils # (1.3-7.7) k/uL Monocytes # (0-1.0) k/uL BUN (9-20) mg/dL Glucose (74-99) mg/dL POC Glucose (mg/dL) 165 H 188 H 118 H (75-99) mg/dL ALT (4-49) U/L Total Protein (6.3-8.2) g/dL Albumin (3.5-5.0) g/dL 04/16/21 04/16/21 04/16/21 Range/Units 06:00 06:00 06:19 WBC 19.8 H (3.8-10.6) k/uL RBC 3.52 L (4.30-5.90) m/uL Hgb 11.1 L (13.0-17.5) gm/dL Hct 31.5 L (39.0-53.0) % Neutrophils # 16.5 H (1.3-7.7) k/uL Monocytes # 1.3 H (0-1.0) k/uL BUN 27 H (9-20) mg/dL Glucose 146 H (74-99) mg/dL POC Glucose (mg/dL) 145 H (75-99) mg/dL ALT 67 H (4-49) U/L Total Protein 5.1 L (6.3-8.2) g/dL Albumin 3.1 L (3.5-5.0) g/dL 04/16/21 04/16/21 04/16/21 Range/Units 07:51 10:52 17:04 WBC (3.8-10.6) k/uL RBC (4.30-5.90) m/uL Hgb (13.0-17.5) gm/dL Hct (39.0-53.0) % Neutrophils # (1.3-7.7) k/uL Monocytes # (0-1.0) k/uL BUN (9-20) mg/dL Glucose (74-99) mg/dL POC Glucose (mg/dL) 195 H 155 H 137 H (75-99) mg/dL ALT (4-49) U/L Total Protein (6.3-8.2) g/dL Albumin (3.5-5.0) g/dL 04/16/21 Range/Units 20:34 WBC (3.8-10.6) k/uL RBC (4.30-5.90) m/uL Hgb (13.0-17.5) gm/dL Hct (39.0-53.0) % Neutrophils # (1.3-7.7) k/uL Monocytes # (0-1.0) k/uL BUN (9-20) mg/dL Glucose (74-99) mg/dL POC Glucose (mg/dL) 175 H (75-99) mg/dL ALT (4-49) U/L Total Protein (6.3-8.2) g/dL Albumin (3.5-5.0) g/dL Assessment and Plan Assessment: Assessment and plan: -Acute non-Q wave OK. -Severe triple-vessel coronary artery disease per cardiac. Patient status post quadruple bypass on 04/14/2021. -Acute hypoxic respiratory failure expected from surgery. Extubated overnight.. On 4 L oxygen with another cannula. -Morbid obesity BMI 41.8 -Essential hypertension On Cardizem CD, Lopressor -Hyperlipidemia Lipitor 80 mg daily at bedtime -DVT prophylaxis with heparin subcu Care discussed with the patient. Continue current medications. Patient is s tatus post coronary artery bypass graft. Cardizem and losartan on hold prior to surgery as per CT surgery. Continue with aspirin statins and metoprolol. Cardizem was restarted. Encourage incentive spirometry and activity. Continue to follow closely. Time with Patient: Greater than 30
--- NOTE | 2021-04-18 10:05 | P.PN ---
Subjective Progress Note Date: 04/17/21 Principal diagnosis: non-ST elevated OR This is a 60-year-old patient of Dr. Jovi Persaud. Chronic stable medical conditions include atrial fibrillation, hypertension, obesity. Patient was baling hay and he developed left infraclavicular chest pain as somebody sitting there. The pain continued while he was doing the same. No radiation. Was a bit dizzy perspiration tired. Decided to come into the ER. Patient ruled in for an acute non-Q wave OR. Was started on IV heparin. This morning patient went for a cardiac catheterization. Found to have severe triple-vessel disease. Cardiothoracic team's been consulted. Coronary bypass scheduled for next Monday04/12/2021 Patient was admitted to the hospital due to non-ST elevated OR. Status post cardiac catheterization showed 2+ conditions. Scheduled for coronary to progress graft on Monday. Currently resting in the bed comfortably. No complaints of chest pain or shortness of breath. 2D echocardiogram showed ejection fraction 55 to 60% and mild MR and TR. Denies any nausea vomiting or abdominal pain or diarrhea. Cardiology and CT surgery is on board. 04/13/2021 Patient is currently lying in the bed comfortably. Awake alert and oriented 3. Denied any complaints of chest pain or shortness of breath. Encourage incentive spirometry. Patient is scheduled for coronary artery bypass graft tomorrow. No complaints of nausea vomiting or abdominal pain or diarrhea. Currently o xygenating well on room air. No other acute overnight issues. CT surgery and cardiology is on board. 04/14/2021 Patient is currently lying in the bed comfortably. Scheduled for coronary artery bypass graft today. Patient was transferred to MICU after surgery. Patient has been afebrile. No complaints of chest pain or shortness of breath. No headache or dizziness or lightheadedness. Patient does have pulmonary function tests done with FEV1 90% of predicted. Pulmonary and CT surgery is on board. 04/15/2021 Patient is currently in the intensive care unit. Postoperative day 1. Four-vessel coronary artery bypass graft. Patient was extubated overnight. Currently requiring 6 L high flow oxygen with another cannula. Chest x-ray showed bilateral infiltrate and stable pleural effusion. Me diastinal right and left pleural chest tubes in place. Patient is being continued on insulin drip for blood sugar management. Current on DuoNeb's and incentive spirometry. Laboratory data showed sodium 139 potassium 4.4 creatinine 0.66, AST 89 ALT 135, WBC 19.0 and platelets [address] surgery is on board. 04-16-21 Patient is currently MICU. Sitting on the chair comfortably. Awake alert and oriented 3. No acute distress. Mild soreness at the surgical site. Requiring oxygen at 4 L via nasal cannula. Next and chest x-ray showed bilateral infiltrates with small effusions. CT cervical spine to remove chest tubes. Patient has been afebrile. No worsening leg swelling. Does not require any pressors support. Continued on incentive spirometry and ambulation. CT surgery and pulmonary is on board. Laboratory data showed WBC 19.8, hemoglobin 9.1 and platelets 190 BUN 27 and creatinine 0.73 04/17/2021 Patient was transferred to telemetry unit. Awake alert oriented 3. No co mplaints of chest pain. Minimal soreness at the surgical site. Patient was given a dose of Lasix. Currently patient is not requiring any element Lanoxin. Sitting in a chair comfortably. No complains of shortness of breath. Tolerating oral diet. Next and laboratory showed improvement in leukocytosis with WBC count 12.8 today. Hemoglobin 9.3 and platelet count 179 BUN 29 and creatinine 0.78 No nausea vomiting or abdominal pain. Patient did have an episode of diarrhea. Current medications reviewed. Objective - Vital Signs Vital signs: Vital Signs Temp 98.6 F 04/17/21 15:54 Pulse 88 04/17/21 15:59 Resp 18 04/17/21 15:59 BP 126/56 04/17/21 15:54 Pulse Ox 92 L 04/17/21 15:54 Intake & Output 04/16/21 04/17/21 04/17/21 18:59 06:59 18:59 Intake Total 609 640 Output Total 575 300 650 Balance 34 -300 -10 Weight 135.3 kg Intake: IV 9 20 Invasive Line 3 20 pressure bag NS 9 Oral 600 620 Output: Chest Tube Drainage 20 left pleural 5 msX2 10 right pleural 5 Urine 555 300 650 Other: Voiding Method Indwelling Catheter Indwelling Catheter Urinal # Voids 1 # Bowel Movements 1 3 ABP, PAP, CO, CI - Last Documented Arterial Blood Pressure 110/62 Pulmonary Artery Pressure 26/15 Cardiac Output 5 Cardiac Index 2 - Exam PHYSICAL EXAMINATION: Patient is currently sitting on the chair, no acute distress, awake alert and oriented.. HEENT: Normocephalic. Neck is supple. Pupils reactive. Nostrils clear. Oral cavity is moist. Neck reveals no JVD, carotid bruits, or thyromegaly. CHEST EXAMINATION: Trachea is central. Symmetrical expansion. No crackles or rhonchi. No wheezing.. Heart HUGGER in place and sternal wound is bandaged. CARDIAC: Normal S1, S2 with no gallops. No murmurs ABDOMEN: Soft. Bowel sounds normal. No organomegaly. No abdominal bruits. Extremities: Trace bilateral pedal edema. No clubbing or cyanosis. Pulses palpable 2+. Neurologically awake, alert, oriented x3 with well-coordinated movements. No f ocal deficits noted Skin: No rash or skin lesions. Psychiatric: Coperative. Nonsuicidal Musculoskeletal: No joint swelling or deformity. Normal range of motion. - Labs CBC & Chem 7: 04/18/21 07:21 04/18/21 07:21 Labs: Abnormal Lab Results - Last 24 Hours (Table) 04/16/21 04/16/21 04/17/21 Range/Units 17:04 20:34 06:01 WBC (3.8-10.6) k/uL RBC (4.30-5.90) m/uL Hgb (13.0-17.5) gm/dL Hct (39.0-53.0) % Sodium (137-145) mmol/L BUN (9-20) mg/dL Glucose (74-99) mg/dL POC Glucose (mg/dL) 137 H 175 H 175 H (75-99) mg/dL Calcium (8.4-10.2) mg/dL 04/17/21 04/17/21 04/17/21 Range/Units 06:34 06:34 11:41 WBC 12.8 H (3.8-10.6) k/uL RBC 3.02 L (4.30-5.90) m/uL Hgb 9.3 L D (13.0-17.5) gm/dL Hct 27.8 L (39.0-53.0) % Sodium 136 L (137-145) mmol/L BUN 29 H (9-20) mg/dL Glucose 161 H (74-99) mg/dL POC Glucose (mg/dL) 142 H (75-99) mg/dL Calcium 8.0 L (8.4-10.2) mg/dL 04/17/21 Range/Units 16:12 WBC (3.8-10.6) k/uL RBC (4.30-5.90) m/uL Hgb (13.0-17.5) gm/dL Hct (39.0-53.0) % Sodium (137-145) mmol/L BUN (9-20) mg/dL Glucose (74-99) mg/dL POC Glucose (mg/dL) 149 H (75-99) mg/dL Calcium (8.4-10.2) mg/dL Assessment and Plan Assessment: Assessment and plan: -Acute non-Q wave OR. -Severe triple-vessel coronary artery disease per cardiac. Patient status post quadruple bypass on 04/14/2021. -Acute hypoxic respiratory failure expected from surgery. Extubated overnight.. On 4 L oxygen with another cannula. -Morbid obesity BMI 41.8 -Essential hypertension On Cardizem CD, Lopressor -Hyperlipidemia. Lipitor 80 mg daily at bedtime -DVT prophylaxis with heparin subcu Care discussed with the patient. Continue current medications. Patient is status post coronary artery bypass graft. Cardizem and losartan on hold prior to surgery as per CT surgery. Continue with aspirin statins and metoprolol. Cardizem was restarted. Encourage incentive spirometry and activity. Continue to follow closely.
--- NOTE | 2021-04-18 11:05 | P.PN ---
Subjective Progress Note Date: 04/18/21 Principal diagnosis: Non-ST segment elevation myocardial infarction, CAD This is a 60-year-old white male patient with past medical history of hypertension, hyperlipidemia, obesity, paroxysmal atrial fibrillation not on chronic anticoagulation, she is an ex-smoker, smoked for a total of 10 years, a pack a day, who came into the emergency department on 04/08/2021 for evaluation of chest pain. Patient was working in the barn unloading [employer] when he started to have left-sided chest pain radiating into his left upper back and down his left arm. Patient reported shortness of breath associated with the chest pain. Patient was also told that he has a borderline diabetic with his last hemoglobin A1c of 6.8- 6.9. His primary care provider is Dr. Jovi Persaud. Admission EKG showed sinus tachycardia with no ST elevation or depression. His labs showed elevated troponins that peaked at 0.179 with the third set. His initial chest x-ray showed no acute process. Echocardiogram showed normal EF of 55-60%, mild MR, mild TR, PA pressure of less than 35 mmHg. Patient was diagnosed with non-ST elevated myocardial infarction and underwent heart catheterization on 04/09/2021 that showed severe triple-vessel disease with a dominant RCA. The RCA was moderately calcified and tortuous with that 80% eccentric lesion distally. Left main was free of significant disease. LAD was also heavily calcified, with 70% stenosis after the diagonal and 80% lesion at the second diagonal. Left circumflex had a 95% stenosis. Aortocoronary bypass surgery was recommended, and there was a consult placed to Dr. Esquivel. Patient is currently undergoing preop evaluation. And we are consulted for pulmonary/critical care management. Patient is awake and alert, in no acute distress, patient has been ablating the halls, tolerating activity well, no complaints of chest pain. He denies any history of major lung disease. He states in the wintertime he may have some limited wheezing occasionally in response to cold air, denies any history of asthma, not on any chronic inhalers. His preop FEV1 was reviewed showing FEV1 of 3.27 L or 90% of predicted, FEV1 to FVC ratio of 75% of pre dicted, an MVV of 123 L, and patient has a normal lung function. Progress note dated 04/14/2021. The patient will be having a bypass procedure today. The patient was not available for evaluation today because he is ready been taken down to the operating room. Yesterday, we saw the patient in consultation. The patient had excellent lung function including an FEV1 that was 3.27 L or 90% of predicted, and a MVV that was 123 L/m. Based on these data, the patient's at no increased operative risk. He did smoke for a short period of time in the distant past. No labs today as yet. The patient is seen today 04/15/2021 in follow-up in the intensive care unit. This is postoperative day #1 of a four-vessel coronary artery bypass graft surgery. He received a FRANCE to the LAD, left radial artery to the second obtuse marginal branch, saphenous vein grafts to the second diagonal artery and right coronary artery. He is currently sitting up in a chair at the bedside. He is requiring 6 L high flow nasal cannula to maintain O2 saturations in the 90s. Chest x-ray reveals bilateral infiltrate and stable pleural effusion. Mediastinal right and left pleural chest tubes in place. Pulling approximately 750 on the incentive spirometer. Right internal jugular Independence-Yonas catheter in place. Left radial art line in place. Cardiac output 5.0. Cardiac index 2.0. Atrial epicardial wires present. Backup pacing at 50. He is receiving albumin this morning. PA pressures 22/10, CVP 3. Remains on 0.9 normal sitting at 50 MLS per hour. Insulin drip at 0.5 units per hour. Nitroglycerin drip is off. No pressors. White count 19.0. Hemoglobin 12.9. Platelets 199. Sodium 139. Potassium 4.4. Creatinine 0.66. AST 89. ALT 135. He remains on DuoNeb inhalations. Cefazolin per protocol. Heparin subcu for DVT prophylaxis. The patient is seen today 04/16/2021 in follow-up in the intensive care unit. Postoperative day #2. He is currently sitting up in a chair at the bedside. Awake, alert in no acute distress. His pain is fairly well controlled. He is maintaining O2 saturations in the 90s on 4 L/m per nasal cannula. No current IV fluids. Chest x-ray reveals bilateral infiltrates with small effusions. Chest tubes remain in place. Right IJ Cordis in place. Right radial arterial line in place. Pulling approximately 500 ML's on the incentive spirometer. Needs increased encouragement. The patient is seen today 04/18/2021 in follow-up on the selective care unit. Madelyn bryan is currently sitting up in a chair at the bedside. Awake and alert in no acute distress. Postoperative day #4. Chest x-ray reveals stable bibasilar opacity opacities/atelectasis. White count 13.6. Hemoglobin 9.6. Sodium 136. Potassium 4.0. Creatinine 0.62. He is maintaining O2 saturations in the 90s on room air. He's working well with the incentive spirometer. Pulling approximately 1500 ML's. Continued on bronchodilators. Heparin for DVT prophylaxis. Objective - Vital Signs Vital signs: Vital Signs Temp 98.2 F 04/18/21 08:30 Pulse 77 04/18/21 08:37 Resp 18 04/18/21 08:30 BP 118/70 04/18/21 08:30 Pulse Ox 92 L 04/18/21 09:10 Intake & Output 04/17/21 04/18/21 04/18/21 18:59 06:59 18:59 Intake Total 900 20 740 Output Total 1100 700 375 Balance -200 -680 365 Weight 135.9 kg Intake: IV 20 20 Invasive Line 3 20 20 Oral 880 740 Output: Urine 1100 700 375 Other: Voiding Method Urinal Urinal Urinal # Voids 1 # Bowel Movements 1 1 ABP, PAP, CO, CI - Last Documented Arterial Blood Pressure 110/62 Pulmonary Artery Pressure 26/15 Cardiac Output 5 Cardiac Index 2 - Exam GENERAL EXAM: Alert, pleasant 60-year-old gentleman, on room air, fairly comfortable in no apparent distress. HEAD: Normocephalic. EYES: Normal reaction of pupils, equal size. NOSE: Clear with pink turbinates. THROAT: No erythema or exudates. NECK: No masses, no JVD. CHEST: Sternal dressing dry and intact. Heart hugger in place. LUNGS: Equal air entry with crackles in the posterior bases. CVS: S1 and S2 normal with no audible murmur, regular rhythm. ABDOMEN: No hepatosplenomegaly, hypoactive bowel sounds, no guarding or rigidity. SPINE: No scoliosis or deformity SKIN: No rashes CENTRAL NERVOUS SYSTEM: No focal deficits, tone is normal in all 4 extremities. EXTREMITIES: Left radial arterial line in place. SCDs in place the lower extremities. There is 1+ peripheral edema. No clubbing, no cyanosis. Peripheral pulses are intact. - Labs CBC & Chem 7: 04/18/21 07:04/18/21 07:21 Labs: Abnormal Lab Results - Last 24 Hours (Table) 04/17/21 04/17/21 04/17/21 Range/Units 11:41 16:12 20:56 WBC (3.8-10.6) k/uL RBC (4.30-5.90) m/uL Hgb (13.0-17.5) gm/dL Hct (39.0-53.0) % Sodium (137-145) mmol/L BUN (9-20) mg/dL Creatinine (0.66-1.25) mg/dL Glucose (74-99) mg/dL POC Glucose (mg/dL) 142 H 149 H 157 H (75-99) mg/dL Calcium (8.4-10.2) mg/dL 04/18/21 04/18/21 04/18/21 Range/Units 06:08 07:21 07:21 WBC 13.6 H (3.8-10.6) k/uL RBC 3.08 L (4.30-5.90) m/uL Hgb 9.6 L (13.0-17.5) gm/dL Hct 28.3 L (39.0-53.0) % Sodium 136 L (137-145) mmol/L BUN 28 H (9-20) mg/dL Creatinine 0.62 L (0.66-1.25) mg/dL Glucose 140 H (74-99) mg/dL POC Glucose (mg/dL) 146 H (75-99) mg/dL Calcium 8.0 L (8.4-10.2) mg/dL Assessment and Plan Assessment: 1 Non-ST segment elevation myocardial infarction with significant coronary artery disease. Status post coronary artery bypass grafting 4 with a FRANCE to the LAD, left radial artery to the second obtuse marginal artery, saphenous vein grafts to the second diagonal artery and RCA. Postoperative day #4. 2 Acute hypoxic respiratory failure secondary to above, expected outcome of jimenez rgery, currently on 4 L nasal cannula 3 Hypertension 4 Hyperlipidemia 5 History of paroxysmal atrial fibrillation, maintaining sinus rhythm 6 Obesity 7 History of benign meningioma status post resection 8 History of previous chronic tobacco dependence. FEV1 value 90% of predicted. Plan: The patient was seen and evaluated by Dr. Brown Chest x-ray and labs reviewed On room air Working well with the incentive spirometer Increase his activity as tolerated We will continue to follow I, the cosigning physician, performed a history & physical examination of the patient. Lungs sounds with crackles in the posterior bases. Maintaining good O2 saturations in the 90s on room air. I discussed the assessment and plan of care with my nurse practitioner, Daya Huizar. I attest to the above note as dictated by her.
[2021-04-18 12:13] LABS: Glucose,Whole Blood 145 mg/dL (75-99)
--- NOTE | 2021-04-18 13:49 | P.PN ---
Subjective Patient is status post coronary artery bypass grafting Ambulating around in the hallways No chest discomfort Mildly short of breath Blood pressure 118/70 mmHg pulse rate 77, afebrile Breath sounds are reduced bilaterally Heart sounds S1 and S2 are soft and normal No lower extremity edema Impression CAD Non-Q wave myocardial infarction Coronary artery is grafting Plan Continue antiplatelet therapy Continue statins and beta blockers Patient is on calcium channel blockers following. Use of the radial artery graft Objective - Vital Signs Vital signs: Vital Signs Temp 98.2 F 04/18/21 08:30 Pulse 77 04/18/21 08:37 Resp 18 04/18/21 08:30 BP 118/70 04/18/21 08:30 Pulse Ox 92 L 04/18/21 09:10 Intake & Output 04/17/21 04/18/21 04/18/21 18:59 06:59 18:59 Intake Total 900 20 740 Output Total 1100 700 375 Balance -200 -680 365 Weight 135.9 kg Intake: IV 20 20 Invasive Line 3 20 20 Oral 880 740 Output: Urine 1100 700 375 Other: Voiding Method Urinal Urinal Urinal # Voids 1 # Bowel Movements 1 1 ABP, PAP, CO, CI - Last Documented Arterial Blood Pressure 110/62 Pulmonary Artery Pressure 26/15 Cardiac Output 5 Cardiac Index 2 - Labs CBC & Chem 7: 04/18/21 07:21 04/18/21 07:21 Labs: Abnormal Lab Results - Last 24 Hours (Table) 04/17/21 04/17/21 04/18/21 Range/Units 16:12 20:56 06:08 WBC (3.8-10.6) k/uL RBC (4.30-5.90) m/uL Hgb (13.0-17.5) gm/dL Hct (39.0-53.0) % Sodium (137-145) mmol/L BUN (9-20) mg/dL Creatinine (0.66-1.25) mg/dL Glucose (74-99) mg/dL POC Glucose (mg/dL) 149 H 157 H 146 H (75-99) mg/dL Calcium (8.4-10.2) mg/dL 04/18/21 04/18/21 04/18/21 Range/Units 07: 07:21 12:10 WBC 13.6 H (3.8-10.6) k/uL RBC 3.08 L (4.30-5.90) m/uL Hgb 9.6 L (13.0-17.5) gm/dL Hct 28.3 L (39.0-53.0) % Sodium 136 L (137-145) mmol/L BUN 28 H (9-20) mg/dL Creatinine 0.62 L (0.66-1.25) mg/dL Glucose 140 H (74-99) mg/dL POC Glucose (mg/dL) 145 H (75-99) mg/dL Calcium 8.0 L (8.4-10.2) mg/dL
[2021-04-18 16:54] LABS: Glucose,Whole Blood 134 mg/dL (75-99)
--- NOTE | 2021-04-18 18:57 | P.PN ---
Subjective Progress Note Date: 04/18/21 Principal diagnosis: non-ST elevated [place] This is a 60-year-old patient of Dr. Jovi Persaud. Chronic stable medical conditions include atrial fibrillation, hypertension, obesity. Patient was baling hay and he developed left infraclavicular chest pain as somebody sitting there. The pain continued while he was doing the same. No radiation. Was a bit dizzy perspiration tired. Decided to come into the ER. Patient ruled in for an acute non-Q wave [place]. Was started on IV heparin. This morning patient went for a cardiac catheterization. Found to have severe triple-vessel disease. Cardiothoracic team's been consulted. Coronary bypass scheduled for next Monday04/12/2021 Patient was admitted to the hospital due to non-ST elevated [place]. Status post cardiac catheterization showed 2+ conditions. Scheduled for coronary to progress graft on Monday. Currently resting in the bed comfortably. No complaints of chest pain or shortness of breath. 2D echocardiogram showed ejection fraction 55 to 60% and mild MR and TR. Denies any nausea vomiting or abdominal pain or diarrhea. Cardiology and CT surgery is on board. 04/13/2021 Patient is currently lying in the bed comfortably. Awake alert and oriented 3. Denied any complaints of chest pain or shortness of breath. Encourage incentive spirometry. Patient is scheduled for coronary artery bypass graft tomorrow. No complaints of nausea vomiting or abdominal pain or diarrhea. Currently o xygenating well on room air. No other acute overnight issues. CT surgery and cardiology is on board. 04/14/2021 Patient is currently lying in the bed comfortably. Scheduled for coronary artery bypass graft today. Patient was transferred to MICU after surgery. Patient has been afebrile. No complaints of chest pain or shortness of breath. No headache or dizziness or lightheadedness. Patient does have pulmonary function tests done with FEV1 90% of predicted. Pulmonary and CT surgery is on board. 04/15/2021 Patient is currently in the intensive care unit. Postoperative day 1. Four-vessel coronary artery bypass graft. Patient was extubated overnight. Currently requiring 6 L high flow oxygen with another cannula. Chest x-ray showed bilateral infiltrate and stable pleural effusion. Me diastinal right and left pleural chest tubes in place. Patient is being continued on insulin drip for blood sugar management. Current on DuoNeb's and incentive spirometry. Laboratory data showed sodium 139 potassium 4.4 creatinine 0.66, AST 89 ALT 135, WBC 19.0 and platelets [address] surgery is on board. 04-16-21 Patient is currently MICU. Sitting on the chair comfortably. Awake alert and oriented 3. No acute distress. Mild soreness at the surgical site. Requiring oxygen at 4 L via nasal cannula. Next and chest x-ray showed bilateral infiltrates with small effusions. CT cervical spine to remove chest tubes. Patient has been afebrile. No worsening leg swelling. Does not require any pressors support. Continued on incentive spirometry and ambulation. CT surgery and pulmonary is on board. Laboratory data showed WBC 19.8, hemoglobin 9.1 and platelets 190 BUN 27 and creatinine 0.73 04/17/2021 Patient was transferred to telemetry unit. Awake alert oriented 3. No co mplaints of chest pain. Minimal soreness at the surgical site. Patient was given a dose of Lasix. Currently patient is not requiring supplemental oxygen. Sitting in a chair comfortably. No complains of shortness of breath. Tolerating oral diet. Next and laboratory showed improvement in leukocytosis with WBC count 12.8 today. Hemoglobin 9.3 and platelet count 179 BUN 29 and creatinine 0.78 No nausea vomiting or abdominal pain. Patient did have an episode of diarrhea. 04/18/2021 Patient is currently sitting in a chair comfortably. No complaints of chest pain or worsening shortness of breath. Patient could not lie in the bed flat and sitting on the recliner most of the time. Otherwise patient has been afebrile. No nausea vomiting or abdominal pain or diarrhea. Diarrhea improved after discontinuation of Stool softeners. No dysuria or hematuria. Continued with incentive spirometry. Chest x-ray showed stable bibasilar opacity/atelectasis. Patient was given a dose of 20 mg IV push Lasix today. Laboratory data showed WBC 13.6, hemoglobin 9.6 and platelets 271, sodium 136 potassium 4.0 BUN 28 and creatinine 0.62 and calcium 8.0. Patient is saturating at 92% on room air. Current medications reviewed. Objective - Vital Signs Vital signs: Vital Signs Temp 97.4 F L 04/18/21 15:39 Pulse 80 04/18/21 16:15 Resp 18 04/18/21 15:39 BP 118/71 04/18/21 15:39 Pulse Ox 92 L 04/18/21 15:39 Intake & Output 04/17/21 04/18/21 04/18/21 18:59 06:59 18:59 Intake Total 934 27 1186 Output Total 9177 865 5536 Balance -200 -680 685 Weight 135.9 kg Intake: IV 20 20 20 Invasive Line 3 20 20 20 Oral 880 1840 Output: Urine 6342 728 3131 Other: Voiding Method Urinal Urinal Urinal # Voids 1 # Bowel Movements 1 1 ABP, PAP, CO, CI - Last Documented Arterial Blood Pressure 110/62 Pulmonary Artery Pressure 26/15 Cardiac Output 5 Cardiac Index 2 - Exam PHYSICAL EXAMINATION: Patient is currently sitting on the chair, no acute distress, awake alert and oriented.. HEENT: Normocephalic. Neck is supple. Pupils reactive. Nostrils clear. Oral cavity is moist. Neck reveals no JVD, carotid bruits, or thyromegaly. CHEST EXAMINATION: Trachea is central. Symmetrical expansion. Bibasilar diminishes sounds. No crackles or rhonchi. No wheezing.. Heart HUGGER in place and sternal wound is bandaged. CARDIAC: Normal S1, S2 with no gallops. No murmurs ABDOMEN: Soft. Bowel sounds normal. No organomegaly. No abdominal bruits. Extremities: Trace bilateral pedal edema. No clubbing or cyanosis. Pulses palpable 2+. Neurologically awake, alert, oriented x3 with well-coordinated movements. No focal deficits noted Skin: No rash or skin lesions. Psychiatric: Coperative. Nonsuicidal Musculoskeletal: No joint swelling or deformity. Normal range of motion. - Labs CBC & Chem 7: 04/18/21 07:21 04/18/21 07:21 Labs: Abnormal Lab Results - Last 24 Hours (Table) 04/17/21 04/18/21 04/18/21 Range/Units 20:56 06:08 07: WBC 13.6 H (3.8-10.6) k/uL RBC 3.08 L (4.30-5.90) m/uL Hgb 9.6 L (13.0-17.5) gm/dL Hct 28.3 L (39.0-53.0) % Sodium (137-145) mmol/L BUN (9-20) mg/dL Creatinine (0.66-1.25) mg/dL Glucose (74-99) mg/dL POC Glucose (mg/dL) 157 H 146 H (75-99) mg/dL Calcium (8.4-10.2) mg/dL 04/18/21 04/18/21 04/18/21 Range/Units 07:21 12:10 16:52 WBC (3.8-10.6) k/uL RBC (4.30-5.90) m/uL Hgb (13.0-17.5) gm/dL Hct (39.0-53.0) % Sodium 136 L (137-145) mmol/L BUN 28 H (9-20) mg/dL Creatinine 0.62 L (0.66-1.25) mg/dL Glucose 140 H (74-99) mg/dL POC Glucose (mg/dL) 145 H 134 H (75-99) mg/dL Calcium 8.0 L (8.4-10.2) mg/dL Assessment and Plan Assessment: Assessment and plan: -Acute non-Q wave [place]. -Severe triple-vessel coronary artery disease per cardiac. Patient status post quadruple bypass on 04/14/2021. -Acute hypoxic respiratory failure expected from surgery. Extubated overnight.. Currently on room air. Saturating at 92%.. -Morbid obesity BMI 41.8 -Essential hypertension On Cardizem CD, Lopressor -Hyperlipidemia. Lipitor 80 mg daily at bedtime -DVT prophylaxis with heparin subcu Care discussed with the patient. Continue current medications. Patient is status post coronary artery bypass graft. Cardizem and losartan on hold prior to surgery as per CT surgery. Continue with aspirin statins and metoprolol. Cardizem was restarted. Encourage incentive spirometry and activity. Continue to follow closely. PTOT and possible discharge home with PT Time with Patient: Greater than 30
[2021-04-18] MEDS: ATORVASTATIN 80 MG TAB PO SCH (20:15)
[2021-04-18 20:56] LABS: Glucose,Whole Blood 164 mg/dL (75-99)
[2021-04-19] MEDS: traMADol 50 MG TAB PO PRN (04:59)
[2021-04-19] MEDS: PANTOPRAZOLE 40 MG TABLET PO SCH (06:03)
[2021-04-19] MEDS: INSULIN ASPART (NovoLOG) 100 UNIT/ML VIAL SQ SCH ×2 (06:03→12:47)
[2021-04-19 06:04] LABS: Glucose,Whole Blood 144 mg/dL (75-99)
[2021-04-19 07:07] LABS: HCT 28.1 % (39.0-53.0); HGB 9.7 gm/dL (13.0-17.5); MCH 31.5 pg (25.0-35.0); MCHC 34.4 g/dL (31.0-37.0); MCV 91.4 fL (80.0-100.0); Mean Platelet Volume 7.6; Platelet Count 311 k/uL (150-450); RBC 3.07 m/uL (4.30-5.90); RDW 14.4 % (11.5-15.5); WBC 10.6 k/uL (3.8-10.6)
[2021-04-19 07:21] LABS: African American GFR (CKD) >90 (>60 ml/min/1.73 sqM); Anion Gap 5 mmol/L; Blood Urea Nitrogen 23 mg/dL (9-20); Calcium 8.3 mg/dL (8.4-10.2); Carbon Dioxide 30 mmol/L (22-30); Chloride 103 mmol/L (98-107); Glucose 179 mg/dL (74-99); Magnesium 2.4 mg/dL (1.6-2.3); Non-African American GFR(CKD) >90 (>60 ml/min/1.73 sqM); Sodium 138 mmol/L (137-145)
[2021-04-19 07:33] LABS: Potassium 3.9 mmol/L (3.5-5.1)
[2021-04-19] MEDS ORDERED: IBUPROFEN 400 MG TAB PO PRN (07:37)
[2021-04-19] MEDS ORDERED: MELATONIN 3 MG TABLET PO PRN (07:37)
[2021-04-19] MEDS ORDERED: FUROSEMIDE 10 MG/ML 2 ML VIAL IV ONE (07:38)
[2021-04-19] MEDS ORDERED: POTASSIUM CHLORIDE ER 20 MEQ TAB.ER PO STA (07:38)
--- NOTE | 2021-04-19 08:01 | P.PN ---
Subjective Progress Note Date: 04/19/21 Principal diagnosis: Symptomatic multivessel coronary artery disease, non-ST elevated myocardial infarction this admission, mild left ventricular dysfunction. Previous medical history of hypertension, dyslipidemia, morbid obesity, paroxysmal atrial fibrillation, nonmalignant brain meningioma status post removal, remote history of MRSA infection to his left leg, previous tobacco dependence, asthma and osteoarthritis. POD #5 quadruple coronary artery bypass surgery using the left internal mammary artery to left anterior descending artery, left radial artery from the aorta to the first obtuse marginal artery, reverse saphenous vein graft from the aorta to the second diagonal coronary artery, reverse saphenous vein graft from the aorta to the right coronary artery, bilateral pulmonary vein isolation using an epicardial bipolar radiofrequency clamp from [employer], exclusion of the left atrial appendage using a 35 mm AtriClip, endoscopic harvesting of the left radial artery and left greater saphenous vein, graft flow measurements using the [employer] system, intraoperative transesophageal echocardiogram and epi-aortic scanning. The patient's currently sitting up in a recliner on the cardiac stepdown unit in no acute distress. States pain is better controlled, mostly his pain is in his right shoulder which he had preoperatively, complains of occasional shortness of breath but states it is getting better. His biggest complaint is lack of sleep for which he takes ibuprofen at home at night. Remains in sinus rhythm with heart rate in the 80s, hemodynamically stable. Patient is attempting incentive spirometry and achieving 2000 mL, maintaining oxygen saturations in the 90s on room air. States he has been ambulatory in the hallway multiple times without difficulty. States he feels ready to go home today. No other new concerns. Objective - Vital Signs Vital signs: Vital Signs Temp 98.5 F 04/19/21 03:30 Pulse 84 04/19/21 03:30 Resp 18 04/19/21 03:30 BP 110/53 04/19/21 03:30 Pulse Ox 96 04/19/21 03:30 Intake & Output 04/18/21 04/19/21 04/19/21 18:59 06:59 18:59 Intake Total 1860 20 Output Total 1175 1265 Balance 685 -1245 Weight 135.4 kg Intake: IV 20 20 Invasive Line 3 20 20 Oral 1840 Output: Urine 1175 1265 Other: Voiding Method Urinal Toilet Urinal # Voids 1 ABP, PAP, CO, CI - Last Documented Arterial Blood Pressure 110/62 Pulmonary Artery Pressure 26/15 Cardiac Output 5 Cardiac Index 2 - Exam CONSTITUTIONAL: Appears comfortable, cooperative, no acute distress RESPIRATORY: Lungs sounds diminished bilaterally. Respirations even, nonlabored. Currently on room air with oxygen saturation 96%. Able to achieve 2000 mL on incentive spirometry. Strong productive cough. CARDIOVASCULAR: S1, S2 present. Regular rate and rhythm, sinus rhythm on telemetry. Sternum stable. Palpable peripheral pulses bilaterally. Generalized edema present. No calf pain or tenderness noted. Heart hugger in p lace with patient occasionally demonstrating appropriate use. Antiembolism stockings, SCDs present. GASTROINTESTINAL: Abdomen soft, nontender, nondistended. Active bowel sounds present 4 quadrants. Tolerating diet. Positive bowel movement 04/17. GENITOURINARY: Continues to void clear, yellow urine. INTEGUMENTARY: Skin is warm and dry with evidence of good perfusion. Anterior chest incision well approximated and covered with dry intact dressing. EVH site well approximated without redness or drainage. NEUROLOGIC: Cranial nerves II through XII intact MUSKULOSKELETAL: Able to move all extremities, strength equal bilaterally PSYCHIATRIC: Alert and oriented to person place and time, appropriate affect, intact judgment and insight - Allied health notes Allied health notes reviewed: nursing - Labs CBC & Chem 7: 04/19/21 06:39 04/19/21 06:39 Labs: Abnormal Lab Results - Last 24 Hours (Table) 04/18/21 04/18/21 04/18/21 Range/Units :05 05: 12:10 WBC 13.6 H (3.8-10.6) k/uL RBC 3.08 L (4.30-5.90) m/uL Hgb 9.6 L (13.0-17.5) gm/dL Hct 28.3 L (39.0-53.0) % Sodium 136 L (137-145) mmol/L BUN 28 H (9-20) mg/dL Creatinine 0.62 L (0.66-1.25) mg/dL Glucose 140 H (74-99) mg/dL POC Glucose (mg/dL) 145 H (75-99) mg/dL Calcium 8.0 L (8.4-10.2) mg/dL Magnesium (1.6-2.3) mg/dL 04/18/21 04/18/21 04/19/21 Range/Units 16:52 20:46 05:58 WBC (3.8-10.6) k/uL RBC (4.30-5.90) m/uL Hgb (13.0-17.5) gm/dL Hct (39.0-53.0) % Sodium (137-145) mmol/L BUN (9-20) mg/dL Creatinine (0.66-1.25) mg/dL Glucose (74-99) mg/dL POC Glucose (mg/dL) 134 H 164 H 144 H (75-99) mg/dL Calcium (8.4-10.2) mg/dL Magnesium (1.6-2.3) mg/dL 04/19/21 04/19/21 Range/Units 06:39 06:39 WBC (3.8-10.6) k/uL RBC 3.07 L (4.30-5.90) m/uL Hgb 9.7 L (13.0-17.5) gm/dL Hct 28.1 L (39.0-53.0) % Sodium (137-145) mmol/L BUN 23 H (9-20) mg/dL Creatinine (0.66-1.25) mg/dL Glucose 179 H (74-99) mg/dL POC Glucose (mg/dL) (75-99) mg/dL Calcium 8.3 L (8.4-10.2) mg/dL Magnesium 2.4 H (1.6-2.3) mg/dL - Imaging and Cardiology Chest x-ray: report reviewed, image reviewed Assessment and Plan Assessment: 1. Symptomatic multivessel coronary artery disease, non-STEMI this admission, status post four-vessel CABG 2. Hypertension 3. Dyslipidemia, treated, cholesterol 174, LDL 91 4. Remote history of paroxysmal atrial fibrillation, currently in normal sinus rhythm 5. Diet-controlled diabetes mellitus with a recent hemoglobin A1c of 6.9% 6. Morbid obesity 7. History of nonmalignant meningioma status post resection 8. Previous tobacco dependence, preoperative FEV1 90% of predicted 9. Asthma 10. Osteoarthritis Plan: 1. Continue to maximize medical therapy with aspirin, statin, and beta josie. 2. Continue Cardizem CD for radial artery spasm prophylaxis. Do not discontinue CCB without discussed with cardiac surgery 3. Encourage incentive spirometry use 10 times every hour while awake. Bronchodilators per pulmonology 4. Increase activity, ambulate as tolerated. Out of bed for all meals. PT/OT/cardiac rehab consulted 5. Will monitor daily labs and chest x-rays. Electrolyte replacement per protocol. 6. GI/DVT prophylaxis 7. Pain control with current medication regimen 8. Insulin management per primary care service. Patient needs tight blood sugar control to promote healing and sternal union as well as prevent infection 9. Strict accurate intake and output. Daily weights 10. Discharge planning in progress. Anticipate discharge to home with home care today 11. More recommendations to follow based on patient's clinical course. Time with Patient: Greater than 30
[2021-04-19 08:23] VITALS: RESP 20
[2021-04-19] MEDS: IPRATROPIUM-ALBUTEROL 3 ML NEB INHALATION SCH ×2 (08:27→12:00)
--- NOTE | 2021-04-19 08:47 | XR ---
EXAMINATION TYPE: XR chest 2V DATE OF EXAM: 04/19/2021 COMPARISON: Chest x-ray 04/18/2021 HISTORY: Post cardiac surgery TECHNIQUE: Frontal and lateral views of the chest are obtained. FINDINGS: There is some interval improved aeration at the lung bases. No evident pneumothorax or siz able effusion. Patient is post median sternotomy and left atrial appendage clip placement. There are overlying artifacts. Heart and mediastinal silhouette is stable. Bones are stable. IMPRESSION: There is some improvement in basilar atelectasis.
--- NOTE | 2021-04-19 09:52 | P.DS ---
Providers Date of admission: 04/08/21 20:51 Expected date of discharge: 04/19/21 Attending physician: Tavia Esquivel Consults: 04/08/21 21:05 Consult Physician Urgent Consulting Provider: [facility] Consult Reason/Comments: NSTEMI Do you want consulting provider notified?: Yes 04/09/21 11:40 Consult Physician Routine Consulting Provider: Tavia Esquivel Consult Reason/Comments: bypass surgery Do you want consulting provider notified?: Already Contacted 04/12/21 08:15 Consult to Anesthesia Routine Consulting Provider: Anesthesia,Services Consult Reason/Comments: Cardiac Surgery Pre-Op 04/13/21 07:08 Consult Physician Routine Consulting Provider: Lowell Brown Consult Reason/Comments: Pulmonary/critical care management Do you want consulting provider notified?: Yes 04/14/21 16:39 Consult Physician Routine Consulting Provider: Raghu Sampson Consult Reason/Comments: med mgmt Do you want consulting provider notified?: Already Contacted Primary care physician: Jovi Persaud MD Hospital Course: FINAL DIAGNOSIS: 1. Symptomatic multivessel coronary artery disease, non-STEMI this admission 2. Hypertension 3. Hyperlipidemia, treated, cholesterol 174, LDL 91 4. Remote history of paroxysmal atrial fibrillation 5. Diet controlled diabetes with recent hemoglobin A1c 6.9% 6. Morbid obesity 7. History of nonmalignant meningioma status post resection 8. Previous tobacco dependence, preoperative FEV1 90% of predicted 9. Asthma 10. Osteoarthritis PRINCIPAL PROCEDURE: 1. Quadruple coronary artery bypass surgery using the left internal mammary artery to the left anterior descending artery, left radial artery from the aorta to the first obtuse marginal artery, reverse saphenous vein graft from the aorta to the second diagonal coronary artery, reverse saphenous vein graft from the aorta to the right coronary artery 2. Bilateral pulmonary vein isolation using an epicardial bipolar radiofrequency clamp from [employer] 3. Exclusion of the left atrial appendage using a 35 mm AtriClip 4. Endoscopic harvesting of the left radial artery and left greater saphenous vein 5. Graft flow measurements using the [employer] system 6. Intraoperative transesophageal echocardiogram and epi-aortic scanning HISTORY OF PRESENT ILLNESS: This is a 60-year-old gentleman who follows on an outpatient basis with Dr. Persaud for primary care. The patient has been having intermittent episodes of chest pain with activity, normally relieved with rest, however prior to this admission he developed pain while baling hay with no other aggravating or alleviating symptoms which remained on relieved with rest. The patient presented to [facility] emergency room for evaluation and treatment. Troponins were elevated and patient was ruled in for non-ST elevation myocardial infarction. He underwent heart catheterization which demonstrated triple-vessel coronary artery disease. Transthoracic echocardiogram demonstrated normal left ventricular function with EF 55-60%, mild mitral and mild tricuspid regurgitation. Consultation was placed to Dr. Esquivel from cardiothoracic surgery. He was recommended to undergo urgent co ronary artery bypass surgery. The usual perioperative course was discussed in detail with the patient and his family, all risks and benefits were explained, all questions were answered, and consent was obtained to proceed with surgery. The patient was kept inpatient due to the nature of his disease process. HOSPITAL COURSE: The patient was brought to the preoperative area 04/14/2021, prepared in the usual fashion, and subsequently taken to the operating room where Dr. Esquivel performed four-vessel CABG. Upon completion of surgery the patient was transferred to the cardiovascular intensive care unit where he was recovered and monitored hemodynamically. He was extubated, all lines, tubes, and drips were discontinued when appropriate, and he was transferred to 3 S. cardiac stepdown unit for further monitoring and rehabilitation. His oxygen was titrated down, he continued to work with physical and occupational therapy, he was tolerating oral diet, his pain was controlled, and he was ready to be discharged to home with [facility] home care on postoperative day #5. He received written and verbal instruction regarding his medications, activity restrictions, signs and symptoms requiring physician notification, and follow-up appointments. COMPLICATIONS: The patient experienced no postoperative complications. Patient Condition at Discharge: Serious Plan - Discharge Summary Discharge Rx Participant: No New Discharge Prescriptions: New Aspirin 325 mg PO DAILY #30 tab metFORMIN HCL [Glucophage] 500 mg PO BID #60 tab Clopidogrel [Plavix] 75 mg PO DAILY #30 tab Acetaminophen Tab [Tylenol] 650 mg PO Q4HR PRN tab PRN Reason: Fever And/ Or Pain Melatonin 6 mg PO HS PRN tablet PRN Reason: Insomnia Ibuprofen [Motrin] 400 mg PO HS PRN tab PRN Reason: Pain Continue Diltiazem Cd [Cardizem CD] 180 mg PO DAILY #30 cap.er.24h Metoprolol Tartrate [Lopressor] 50 mg PO BID #60 tab Famotidine [Pepcid] 20 mg PO DAILY #30 tablet traMADol HCL [Ultram] 50 mg PO QID PRN PRN Reason: Pain ALPRAZolam [Xanax] 0.25 mg PO BID PRN PRN Reason: Anxiety Rosuvastatin Calcium [Crestor] 5 mg PO HS Albuterol Sulfate [Ventolin HFA] 1 - 2 puff INHALATION RT-Q4H PRN PRN Reason: Shortness Of Breath Changed Sennosides [Senna] 8.6 mg PO HS PRN #0 PRN Reason: Constipation Discontinued Losartan [Cozaar] 50 mg PO DAILY Hydrochlorothiazide [hydroCHLOROthiazide] 12.5 mg PO DAILY Discharge Medication List Diltiazem Cd [Cardizem CD] 180 mg PO DAILY #30 cap.er.24h 08/16/16 [Rx] Metoprolol Tartrate [Lopressor] 50 mg PO BID #60 tab 08/16/16 [Rx] Famotidine [Pepcid] 20 mg PO DAILY #30 tablet 07/30/19 [Rx] ALPRAZolam [Xanax] 0.25 mg PO BID PRN 06/23/20 [History] traMADol HCL [Ultram] 50 mg PO QID PRN 06/23/20 [History] Albuterol Sulfate [Ventolin HFA] 1 - 2 puff INHALATION RT-Q4H PRN 04/08/21 [History] Rosuvastatin Calcium [Crestor] 5 mg PO HS 04/08/21 [History] Acetaminophen Tab [Tylenol] 650 mg PO Q4HR PRN tab 04/19/21 [Rx] Aspirin 325 mg PO DAILY #30 tab 04/19/21 [Rx] Clopidogrel [Plavix] 75 mg PO DAILY #30 tab 04/19/21 [Rx] Ibuprofen [Motrin] 400 mg PO HS PRN tab 04/19/21 [Rx] Melatonin 6 mg PO HS PRN tablet 04/19/21 [Rx] Sennosides [Senna] 8.6 mg PO HS PRN #0 04/19/21 [Rx] metFORMIN HCL [Glucophage] 500 mg PO BID #60 tab 04/19/21 [Rx] Follow up Appointment(s)/Referral(s): Kaleigh Ramos MD [STAFF PHYSICIAN] - 2 Weeks (Office will call with appointment) Jovi Persaud MD [Primary Care Provider] - 2 Weeks (office will call with appointment) [facility],Cardiac [NON-STAFF] - 4 Weeks (You will be called approximately 4-6 weeks for wevaluation for cardiac ) Tavia Esquivel MD [STAFF PHYSICIAN] - 05/07/21 10:00 am Luis Murphy NPC [Nurse Practitioner] - 04/23/21 11:15 am (Will be seen in the surgeon's office behind the hospital, [facility], [address]) Lowell Brown DO [Doctor of Osteopathic Medicine] - 05/17/21 8:45 am [facility], [NON-STAFF] - Ambulatory/Diagnostic Orders: Complete Blood Count w/diff [LAB.AMB] Time Frame: 3 Days, Location: None Selected Comprehensive Metabolic Panel [LAB.AMB] Time Frame: 3 Days, Location: None Selected Activity/Diet/Wound Care/Special Instructions: DISCHARGE INSTRUCTIONS: 1. No driving for 4 weeks, or until physician gives their ok. 2. The patient should sleep in their own bed, no medical bed needed. 3. Stairs are not an issue. If the bedroom is upstairs, it is advised that the patient go up at night and down in the morning for the first week. Go slowly, using handrail and take 1 step at a time. 4. KAMALA hose are to be worn for 30 days or until physician discontinues. 5. Heart hugger is to be worn 100% of the time until physician discontinues.(except when showering) 6. No lifting, pushing, or pulling more than 10 pounds for 12 weeks. The physician will advise of any restriction changes. 7. The patient is expected to continue the prescribed walking program. 8. Continue pain control per as needed orders. 9. Continue with incentive spirometry and splinting/heart hugger until otherwise directed by the physician. 10. Must shower daily using liquid antibacterial soap and a separate white washcloth for each individual incision. 11. Routine sternal incision care. No powders, lotions, ointments on incisions. No dressings are necessary on incisions unless they are draining. Dermabond tape is to remain on sternal incision until surgeon follow-up. 12. Please call surgeon/MANAGER CLIENT SUPPORT for temp greater than 101 F or purulent drainage from incisions. 13. All prescriptions given by surgeon for 30 days. Refills need to be filled through novelties sales representative/primary care physician. 14. A Red armband has been placed on the patient. It should be worn for 30 days post surgery and will be removed by the cardiac surgeons. If an ER visit is necessary, please make sure the number on the Red armband is called. 15. You have been referred to and are expected to begin Cardiac Rehab in approximately 4-6 weeks. HOME HEALTH SERVICES TO PROVIDE: RN SKILLED HOME CARE SERVICES FOR POST-OP SURGICAL PATIENTS WITH THE FOLLOWING: Coronary Artery Bypass Surgery (CABG), Mitral Valve Replacement/Repair ( MVR), Aortic Valve Replacement/Repair (AVR) RN TO CONTINUE EDUCATION FROM ``ROAD TO A HEALTH HEART PATIENT EDUCATION MANUAL (GIVEN TO PATIENT IN THE HOSPITAL) MEDICATION RECONCILIATION WITH EDUCATION NEEDED ON FIRST HOME VISIT EMPHASIZE IMPORTANCE OF WEARING BREAST SUPPORT/HEART HUGGER ENCOURAGE USE OF INCENTIVE SPIROMETER 10 X EVERY HOUR WHILE AWAKE ENCOURAGE UTILIZATION OF LOWER EXTREMITY COMPRESSION STOCKINGS/KAMALA HOSE and ELEVATE LEGS ABOVE LEVEL OF HEART WHILE AT REST. ENCOURAGE AMBULATION 3-5x/day INCREASING TOLERATES, WHILE AVOIDING EXTREMES IN TEMPERATURE FREQUENCY: RN TO OPEN THE PATIENT WITHIN 24 HOURS OF DISCHARGE FROM THE HOSPITAL WITH TELEHEALTH INSTALLED AT [facility] [place] TO VISIT 2-3 X A WEEK FOR 4 WEEKS ESTABLISHED BY PATIENT NEEDS. LABORATORY: CBC, CMP TO BE DRAWN ON THE THIRD DAY HOME, (RAN STAT) FAX RESULTS TO [phone]. TELEHEALTH PARAMETERS: WEIGHT: NOTIFY MD OF WEIGHT GAIN OF 2 LBS IN 24 HOURS OR 5 LBS IN ONE WEEK HR: NOTIFY MD OF HR <55 BPM OR HR>100 BPM BP: NOTIFY MD IF BP <90/55 OR BP>140/100 O2 SAT: NOTIFY MD IF PO2<93% ON ROOM AIR SEND TELEHEALTH REPORT TO POLITICAL CARTOONIST AND CARDIOVASCULAR SURGEON THE FIRST WEEK OF CARE AND THEN BI-WEEKLY. PLEASE ADDITIONALLY COMMUNICATE ANY ABNORMALS AND NEW FINDINGS TO THE SURGEONS OFFICE. For any questions or concerns please call chemical preparer Mandy @ or Vahe @ Discharge Disposition: HOME WITH HOME HEALTH SERVICES
[2021-04-19] MEDS: HEPARIN SODIUM,PORCINE/PF 5,000 UNIT/0.5 ML SYRINGE SQ SCH (10:00)
[2021-04-19] MEDS: ASPIRIN 325 MG TAB PO SCH (10:00)
[2021-04-19] MEDS: CLOPIDOGREL 75 MG TAB PO SCH (10:00)
[2021-04-19] MEDS: METOPROLOL TARTRATE 50 MG TAB PO SCH (10:00)
[2021-04-19] MEDS: DILTIAZEM CD 120 MG CAP.ER.24H PO SCH (10:01)
--- NOTE | 2021-04-19 11:37 | P.PN ---
Subjective Progress Note Date: 04/19/21 Principal diagnosis: Coronary artery disease. This is a 60-year-old white male patient with past medical history of hypertension, hyperlipidemia, obesity, paroxysmal atrial fibrillation not on chronic anticoagulation, she is an ex-smoker, smoked for a total of 10 years, a pack a day, who came into the emergency department on 04/08/2021 for evaluation of chest pain. Patient was working in the barn unloading [employer] when he started to have left-sided chest pain radiating into his left upper back and down his left arm. Patient reported shortness of breath associated with the chest pain. Patient was also told that he has a borderline diabetic with his last hemoglobin A1c of 6.8- 6.9. His primary care provider is Dr. Jovi Persaud. Admission EKG showed sinus tachycardia with no ST elevation or depression. His labs showed elevated troponins that peaked at 0.179 with the third set. His initial chest x-ray showed no acute process. Echocardiogram showed normal EF of 55-60%, mild MR, mild TR, PA pressure of less than 35 mmHg. Patient was diagnosed with non-ST elevated myocardial infarction and underwent heart catheterization on 04/09/2021 that showed severe triple-vessel disease with a dominant RCA. The RCA was moderately calcified and tortuous with that 80% eccentric lesion distally. Left main was free of significant disease. LAD was also heavily calcified, with 70% stenosis after the diagonal and 80% lesion at the second diagonal. Left circumflex had a 95% stenosis. Aortocoronary bypass surgery was recommended, and there was a consult placed to Dr. Esquivel. Patient is currently undergoing preop evaluation. And we are consulted for pulmonary/critical care management. Patient is awake and alert, in no acute distress, patient has been ablating the halls, tolerating activity well, no complaints of chest pain. He denies any history of major lung disease. He states in the wintertime he may have some limited wheezing occasionally in response to cold air, denies any history of asthma, not on any chronic inhalers. His preop FEV1 was reviewed s howing FEV1 of 3.27 L or 90% of predicted, FEV1 to FVC ratio of 75% of predicted, an MVV of 123 L, and patient has a normal lung function. Progress note dated 04/14/2021. The patient will be having a bypass procedure today. The patient was not available for evaluation today because he is ready been taken down to the operating room. Yesterday, we saw the patient in consultation. The patient had excellent lung function including an FEV1 that was 3.27 L or 90% of predicted, and a MVV that was 123 L/m. Based on these data, the patient's at no increased operative risk. He did smoke for a short period of time in the distant past. No labs today as yet. The patient is seen today 04/15/2021 in follow-up in the intensive care unit. This is postoperative day #1 of a four-vessel coronary artery bypass graft surgery. He received a [place] to the LAD, left radial artery to the second obtuse marginal branch, saphenous vein grafts to the second diagonal artery and right coronary artery. He is currently sitting up in a chair at the bedside. He is requiring 6 L high flow nasal cannula to maintain O2 saturations in the 90s. Chest x-ray reveals bilateral infiltrate and stable pleural effusion. Mediastinal right and left pleural chest tubes in place. Pulling approximately 750 on the incentive spirometer. Right internal jugular Eden-Yonas catheter in place. Left radial art line in place. Cardiac output 5.0. Cardiac index 2.0. Atrial epicardial wires present. Backup pacing at 50. He is receiving albumin this morning. PA pressures 22/10, CVP 3. Remains on 0.9 normal sitting at 50 MLS per hour. Insulin drip at 0.5 units per hour. Nitroglycerin drip is off. No pressors. White count 19.0. Hemoglobin 12.9. Platelets 199. Sodium 139. Potassium 4.4. Creatinine 0.66. AST 89. ALT 135. He remains on DuoNeb inhalations. Cefazolin per protocol. Heparin subcu for DVT prophylaxis. The patient is seen today 04/16/2021 in follow-up in the intensive care unit. Postoperative day #2. He is currently sitting up in a chair at the bedside. Awake, alert in no acute distress. His pain is fairly well controlled. He is maintaining O2 saturations in the 90s on 4 L/m per nasal cannula. No current IV fluids. Chest x-ray reveals bilateral infiltrates with small effusions. Chest tubes remain in place. Right IJ Cordis in place. Right radial arterial line in place. Pulling approximately 500 ML's on the incentive spirometer. Needs increased encouragement. Progress note dated 04/17/2021. The patient is again seen today in room 374. He is resting comfortably. He's postop day #3. Currently, he is not requiring any supplemental oxygen. His chest x-ray in my opinion is improved. He needs to continue to use the incentive spirometry now. Room air saturations are 94%. The rest of his vital signs are stable. Laboratory data includes a white count 12.8, he will 9.3, hematocrit 27.8, normal platelet count. Sodium 136, potassium 4.2,, chlorides 103, CO2 30, anion gap 3, BUN 29, and creatinine 0.78. Progress note dated 04/17/2021. The patient is again seen in room 374. He is currently on room air. He is postop day #5, seemingly doing very well. There is some thought that the patient may be discharged home today. Clinically he seems be doing well without major complaints. White count 10.6, hemoglobin 9.7, hematocrit 28.1, and platelet count was normal. Sodium, potassium, chloride, CO2, anion gap, BUN, and creatinine were all essentially normal. Chest x-ray does show some improvement in the bibasilar atelectasis. Objective - Vital Signs Vital signs: Vital Signs Temp 98.5 F 04/19/21 08:00 Pulse 88 04/19/21 08:00 Resp 20 04/19/21 08:10 BP 126/74 04/19/21 08:00 Pulse Ox 96 04/19/21 03:30 Intake & Output 04/18/21 04/19/21 04/19/21 18:59 06:59 18:59 Intake Total 1860 20 570 Output Total 1175 1265 Balance 685 -1245 570 Weight 135.4 kg Intake: IV 20 20 10 Invasive Line 3 20 20 10 Oral 1840 560 Output: Urine 1175 1265 Other: Voiding Method Urinal Toilet Toilet Urinal Urinal # Voids 1 ABP, PAP, CO, CI - Last Documented Arterial Blood Pressure 110/62 Pulmonary Artery Pressure 26/15 Cardiac Output 5 Cardiac Index 2 - Exam No acute distress, oriented 3. Currently on room air. HEENT examination is grossly unremarkable. Neck supple. Full range of motion. No adenopathy thyromegaly or neck vein distention. Cardiovascular examination reveals regular rhythm rate. S1-S2 normal. No S3 or S4. No discernible murmur noted. Heart rate 84 bpm. Lungs reveal some improvement and lung sounds. Scattered bibasilar rhonchi are noted. No wheezes or crackles. Breath sounds are equal bilaterally. He does not take deep breaths. Abdomen soft bowel sounds are heard. No masses or tenderness. Extremities are intact. No cyanosis clubbing or edema. Skin is without rash or lesion. Neurologic examination is brief but nonfocal. - Labs CBC & Chem 7: 04/19/21 06:39 04/19/21 06:39 Labs: Abnormal Lab Results - Last 24 Hours (Table) 04/18/21 04/18/21 04/18/21 Range/Units 12:10 16:52 20:46 RBC (4.30-5.90) m/uL Hgb (13.0-17.5) gm/dL Hct (39.0-53.0) % BUN (9-20) mg/dL Glucose (74-99) mg/dL POC Glucose (mg/dL) 145 H 134 H 164 H (75-99) mg/dL Calcium (8.4-10.2) mg/dL Magnesium (1.6-2.3) mg/dL 04/19/21 04/19/21 04/19/21 Range/Units 05:58 06:39 06:39 RBC 3.07 L (4.30-5.90) m/uL Hgb 9.7 L (13.0-17.5) gm/dL Hct 28.1 L (39.0-53.0) % BUN 23 H (9-20) mg/dL Glucose 179 H (74-99) mg/dL POC Glucose (mg/dL) 144 H (75-99) mg/dL Calcium 8.3 L (8.4-10.2) mg/dL Magnesium 2.4 H (1.6-2.3) mg/dL Assessment and Plan Assessment: #1. Acute non-ST elevated myocardial infarction. #2. Multivessel coronary artery disease, postop day #5, status post four-vessel bypass. Routine postoperative ventilator management. #3. Hypertension. #4. Dyslipidemia. #5. Remote history of paroxysmal atrial fibrillation, currently in sinus rhythm, not on any chronic anticoagulation. #6. Diabetes mellitus type 2, with a recent hemoglobin A1c of 6.9%. #7. Morbid obesity with a BMI 41.8 kg/m. #8. History of intracranial tumor, meningioma, status post surgery. #9. Remote history of nicotine dependence, in remission since 1984, carries 10 year smoking history of 1 pack a day. #10. Normal preop FEV1 of 3.27 L or 90% of predicted, with FEV1/FVC ratio of 75% of predicted and an MVV of 123 L. Plan: Plan dated 04/14/2021. The patient will be seen after the operating room. I explained to the patient that our goal was to follow, first, to go ahead and get the patient off the mechanical ventilator as soon as possible. Secondly, the patient will be followed very closely on a day by day basis, with evaluation of chest x-rays, to make sure the patient doesn't develop any complications such as pleural effusion, pneumonia, or lung collapse. Additional recommendations and suggestions are forthcoming. Plan dated 04/17/2021. Currently, the patient is doing well. His been weaned to room air. He continues to deep breathe, cough, and clear secretions. We encourage the use of incentive spirometer, every hour. We will continue to follow the patient make recommendations were appropriate. Prognosis is thought to be good. Chest x- rays reviewed. No additional recommendations are made at this time. Plan dated 04/19/2021. Currently, the patient seemed be doing reasonably well. He has been weaned off of oxygen therapy. He may be discharged home today. The patient will follow-up in the office with a chest x-ray. We encourage him to deep breathe, cough, and clear secretions. We also want him to continue to use the incentive spirometer on a regular basis. Time with Patient: Less than 30
[2021-04-19 11:58] VITALS: BP 101/71; PULSE 95; TEMP 98.2
[2021-04-19 12:04] LABS: Glucose,Whole Blood 131 mg/dL (75-99)
--- NOTE | 2021-04-19 12:38 | P.PN ---
Subjective Patient is resting comfortably in a chair No chest discomfort no dizziness lightheadedness no undue shortness of breath On examination he is afebrile 98.2F, pulse rate in this 80s, blood pressure 101/71 mmHg Breath sounds are reduced bilaterally but no rhonchi no crackles Heart sounds S1 and S2 are normal no lower symmetry edema Impression Multivessel coronary artery disease Non-STEMI at this admission Hypertension Dyslipidemia Past history of paroxysmal A. fib Type 2 diabetes Status post coronary artery bypass grafting Plan Continue antiplatelet therapy, statins and beta blockers Follow-up as an outpatient in 2-3 weeks with his primary cytogenetics technologist Stable from a cardiovascular standpoint for discharge Objective - Vital Signs Vital signs: Vital Signs Temp 98.2 F 04/19/21 11:56 Pulse 95 04/19/21 11:56 Resp 20 04/19/21 11:56 BP 101/71 04/19/21 11:56 Pulse Ox 95 04/19/21 11:56 Intake & Output 04/18/21 04/19/21 04/19/21 18:59 06:59 18:59 Intake Total 1860 20 570 Output Total 1175 1265 Balance 685 -1245 570 Weight 135.4 kg Intake: IV 20 20 10 Invasive Line 3 20 20 10 Oral 1840 560 Output: Urine 1175 1265 Other: Voiding Method Urinal Toilet Toilet Urinal Urinal # Voids 1 ABP, PAP, CO, CI - Last Documented Arterial Blood Pressure 110/62 Pulmonary Artery Pressure 26/15 Cardiac Output 5 Cardiac Index 2 - Labs CBC & Chem 7: 04/19/21 06:39 04/19/21 06:39 Labs: Abnormal Lab Results - Last 24 Hours (Table) 04/18/21 04/18/21 04/19/21 Range/Units 16:52 20:46 05:58 RBC (4.30-5.90) m/uL Hgb (13.0-17.5) gm/dL Hct (39.0-53.0) % BUN (9-20) mg/dL Glucose (74-99) mg/dL POC Glucose (mg/dL) 134 H 164 H 144 H (75-99) mg/dL Calcium (8.4-10.2) mg/dL Magnesium (1.6-2.3) mg/dL 04/19/21 04/19/21 04/19/21 Range/Units 06:39 06:39 12:00 RBC 3.07 L (4.30-5.90) m/uL Hgb 9.7 L (13.0-17.5) gm/dL Hct 28.1 L (39.0-53.0) % BUN 23 H (9-20) mg/dL Glucose 179 H (74-99) mg/dL POC Glucose (mg/dL) 131 H (75-99) mg/dL Calcium 8.3 L (8.4-10.2) mg/dL Magnesium 2.4 H (1.6-2.3) mg/dL
--- NOTE | 2021-04-19 19:48 | P.PN ---
Progress Note - Text Progress Note Date: 04/19/21 Chief Complaint: Chest pain History of presenting complaint: This is a 60-year-old patient of Dr. Jovi Persaud. Chronic stable medical conditions include atrial fibrillation, hypertension, obesity. Patient was baling hay and he developed left infraclavicular chest pain as somebody sitting there. The pain continued while he was doing the same. No radiation. Was a bit dizzy perspiration tired. Decided to come into the ER. Patient ruled in for an acute non-Q wave TN. Was started on IV heparin. This morning patient went for a cardiac catheterization. Found to have severe triple-vessel disease. Cardiothoracic team's been consulted. Quadruple cardiac bypass done on April 14. Today: Patient doing much better. Has been ablating. Oral intake improved. Has chronic shoulder problem that has been bothering him. Otherwise feeling well. Review of systems: Was done for constitutional, cardiovascular, GI, pulmonary. relevant finding as above Current medications reviewed in today's electronic records Past medical history to include: Atrial fibrillation, hypertension, 1 seizure in 1997, nonmalignant meningioma of the brain, carotid history of atrial fibrillation, recent MRSA infection of the right forearm Social history: Patient smoked a pack a day stopped in 1984. Alcohol rarely. Family history: Atrial fibrillation, breast cancer Physical examination: VITAL SIGNS: 98.2, 95, 20, 101/71, 95% room air GENERAL: Sitting up in a chair, comfortable EYES: Pupils equal. Conjunctiva normal. NECK: JVD not raised; masses not palpable. HEART: First and second heart sounds are normal; no edema. LUNGS: Respiratory rate normal; decreased breath sounds. ABDOMEN: Soft, nontender, liver spleen not palpable, no masses palpable. PSYCH: Alert and oriented x3; mood and affect normal. INVESTIGATIONS, reviewed in the clinical context: April 19: WBC 10.6 hemoglobin 9.7 platelets 311 potassium 3.9 creatinine 0.73 April 11: WBC 5.6 hemoglobin 14.2 potassium 4 creatinine 0.62 Hemoglobin A1c 6.6. Hepatitis screen negative. UA negative WBC 7.1 hemoglobin 14.9 platelets 200 potassium 4.1 creatinine 0.7 to Troponin I 0.053, 0.163, 0.179 LDL 90 triglycerides 276 HDL 28 Coronavirus [PCR]: Not detected EKG tracing personally reviewed by me-normal sinus rhythm, Chest x-ray film personally reviewed by me-no infiltrate 2-D echocardiogram: EF 55-60% mild concentric LVH Assessment and plan: -Acute non-Q wave TN Patient is put on aspirin, IV heparin, Lopressor, Cozaar -Severe triple-vessel coronary artery disease per cardiac catheterization- Coronary bypass on April 14 -Morbid obesity BMI 41.8 Dietitian -Essential hypertension On Cardizem CD, Lopressor -Hyperlipidemia Lipitor 80 mg daily at bedtime -Acute postprocedure blood loss anemia, as expected from surgery Follow H&H Patient doing well. If discharged to follow-up with his PCP. Care was discussed with the patient. Questions answered.
== END 2021-04-19 14:13 | disposition home health service (06) | DRG 233 ==
LOC: EC 19:10 → 3SCARD 20:51 → 2SICU 04-14 06:08 → 3SCARD 04-16 13:33
PROVIDERS: ADMIT Hospitalist; ATTEND Surgery
PROC: 4A023N7 Measurement of Cardiac Sampling and Pressure, Left Heart, Percutaneous Approach (ICD-10-PCS; 2021-04-09)
PROC: B2111ZZ Fluoroscopy of Multiple Coronary Arteries using Low Osmolar Contrast (ICD-10-PCS; 2021-04-09)
PROC: B54DZZZ Ultrasonography of Bilateral Lower Extremity Veins (ICD-10-PCS; 2021-04-14)
PROC: 02100Z9 Bypass Coronary Artery, One Artery from Left Internal Mammary, Open Approach (ICD-10-PCS; principal; 2021-04-15)
PROC: 02100AW Bypass Coronary Artery, One Artery from Aorta with Autologous Arterial Tissue, Open Approach (ICD-10-PCS; 2021-04-15)
PROC: 03BC4ZZ Excision of Left Radial Artery, Percutaneous Endoscopic Approach (ICD-10-PCS; 2021-04-15)
PROC: 021109W Bypass Coronary Artery, Two Arteries from Aorta with Autologous Venous Tissue, Open Approach (ICD-10-PCS; 2021-04-15)
PROC: 06BQ4ZZ Excision of Left Saphenous Vein, Percutaneous Endoscopic Approach (ICD-10-PCS; 2021-04-15)
PROC: 025T0ZZ Destruction of Left Pulmonary Vein, Open Approach (ICD-10-PCS; 2021-04-15)
PROC: 025S0ZZ Destruction of Right Pulmonary Vein, Open Approach (ICD-10-PCS; 2021-04-15)
PROC: 5A1221Z Performance of Cardiac Output, Continuous (ICD-10-PCS; 2021-04-15)
PROC: 02L70CK Occlusion of Left Atrial Appendage with Extraluminal Device, Open Approach (ICD-10-PCS; 2021-04-15)
PROC: B24BZZ4 Ultrasonography of Heart with Aorta, Transesophageal (ICD-10-PCS; 2021-04-15)
DX: I21.4 Non-ST elevation (NSTEMI) myocardial infarction (principal); J96.01 Acute respiratory failure with hypoxia; Z68.41 Body mass index [BMI] 40.0-44.9, adult; D62 Acute posthemorrhagic anemia; J90 Pleural effusion, not elsewhere classified; J98.11 Atelectasis; E78.5 Hyperlipidemia, unspecified; I10 Essential (primary) hypertension; Z87.891 Personal history of nicotine dependence; I48.0 Paroxysmal atrial fibrillation; Z88.5 Allergy status to narcotic agent; Z86.14 Personal history of Methicillin resistant Staphylococcus aureus infection; Z20.822 Contact with and (suspected) exposure to COVID-19; Z80.3 Family history of malignant neoplasm of breast; Z82.49 Family history of ischemic heart disease and other diseases of the circulatory system; Z79.82 Long term (current) use of aspirin; I25.10 Atherosclerotic heart disease of native coronary artery without angina pectoris; E66.01 Morbid (severe) obesity due to excess calories; J45.909 Unspecified asthma, uncomplicated; M19.90 Unspecified osteoarthritis, unspecified site; E11.9 Type 2 diabetes mellitus without complications; Z86.011 Personal history of benign neoplasm of the brain; Z90.49 Acquired absence of other specified parts of digestive tract; Z79.899 Other long term (current) drug therapy; D72.829 Elevated white blood cell count, unspecified; I49.1 Atrial premature depolarization; I49.3 Ventricular premature depolarization
CPT/HCPCS: 36415; 71045; 71046; 80048; 80053; 80061; 80074; 81003; 82330; 82805; 83036; 83690; 83735; 84443; 84484; 85025; 85027; 85520; 85610; 85730; 86850; 86891; 86900; 86901; 86920; 87070; 87635; 93005; 93306; 93458; 93880; 93922; 93923; 93930; 93970; 94002; 94150; 94640; 94760; 99285

== ENCOUNTER → 2021-11-22 | Outpatient (CLI) | payer OTHER ==
[2021-11-23 00:42] LABS: T4, Free (Free Thyroxine) 1.09 ng/dL (0.800-1.800)
== END | disposition home or self-care (01) ==
LOC: LABWHC1 14:58
PROVIDERS: ATTEND Internal Medicine Interventional Cardiology
DX: R00.2 Palpitations (principal)
CPT/HCPCS: 36415; 84439; 84443

== ENCOUNTER → 2023-10-12 | Outpatient (CLI) | payer OTHER ==
[2023-10-12 15:05] LABS: Basophils # (A) 0.07 X 10*3/uL (0.00-0.10); Basophils % (A) 1.2 %; Eosinophils # (A) 0.62 X 10*3/uL (0.04-0.35); Eosinophils % (A) 10.2 %; HCT 46.8 % (39.6-50.0); HGB 15.3 g/dL (13.0-17.0); Lymphocytes # (A) 1.23 X 10*3/uL (0.90-5.00); Lymphocytes % (A) 20.2 %; MCH 29.7 pg (27.0-32.0); MCHC 32.7 g/dL (32.0-37.0); MCV 90.9 FL (80.0-97.0); Mean Platelet Volume 9.6 FL (9.5-12.2); Monocytes # (A) 0.46 X 10*3/uL (0.20-1.00); Monocytes % (A) 7.6 %; NRBC Per 100 WBC 0 X 10*3/uL (0.00-0.01); Neutrophils # (A) 3.67 X 10*3/uL (1.80-7.70); Neutrophils % (A) 60.3 %; Platelet Count 219 X 10*3/uL (140-440); RBC 5.15 X 10*6/uL (4.40-5.60); RDW 12.6 % (11.5-14.5); WBC 6.08 X 10*3/uL (4.50-10.00)
[2023-10-12 15:23] LABS: BUN/Creat Ratio 27.86 Ratio (12.00-20.00); Blood Urea Nitrogen 19.5 mg/dL (9.0-27.0); Calcium 9.4 mg/dL (8.7-10.3); Carbon Dioxide 25.4 mmol/L (21.6-31.8); Chloride 103 mmol/L (96-109); Glucose 210 mg/dL (70-110); Sodium 140 mmol/L (135-145)
[2023-10-12 15:33] LABS: INR 1.04 sec (0.93-1.11); Prothrombin Time 11.2 sec (9.9-11.9)
== END | disposition home or self-care (01) ==
LOC: LABPAT 07:49
PROVIDERS: ATTEND Orthopaedic Surgery
DX: Z01.812 Encounter for preprocedural laboratory examination (principal); Z22.322 Carrier or suspected carrier of Methicillin resistant Staphylococcus aureus; M17.11 Unilateral primary osteoarthritis, right knee
CPT/HCPCS: 36415; 80048; 85025; 85610

== ENCOUNTER → 2023-10-19 | Outpatient (CLI) | payer OTHER | END | disposition home or self-care (01) | LOC: LABPAT 10:54 | PROVIDERS: ATTEND Orthopaedic Surgery | DX: Z01.812 Encounter for preprocedural laboratory examination (principal); Z22.322 Carrier or suspected carrier of Methicillin resistant Staphylococcus aureus; M17.11 Unilateral primary osteoarthritis, right knee | CPT/HCPCS: 87070 ==

== ENCOUNTER 2023-10-23 10:23 | Day surgery (SDC) | payer OTHER ==
--- NOTE | 2023-10-23 02:05 | HP ---
HISTORY AND PHYSICAL DATE OF ANTICIPATED SURGERY: 10/23/2023. HISTORY OF PRESENT ILLNESS: Bryan Jimenez is a 63-year-old gentleman seen with symptomatic right knee osteoarthritis. After having treatment options discussed, he elected to proceed with right total knee arthroplasty. Consent regarding the procedure was obtained. Medical clearance provided by Dr. Vallecillo, cardiac clearance by Dr. Saleem Ramos. PAST MEDICAL HISTORY: Hypertension, hyperlipidemia, and hpz-jeonajy-efrpcykcr diabetes. PAST SURGICAL HISTORY: Right shoulder arthroscopic rotator cuff repair. DAILY MEDICATIONS: 1. Ibuprofen. 2. Losartan. 3. Metoprolol. 4. Tramadol. 5. Atorvastatin. 6. Metformin. ALLERGIES: None. SOCIAL HISTORY: Denies tobacco use. PHYSICAL EVALUATION OF THE RIGHT KNEE: His range of motion is -2/3 to 110 degrees. Mild effusion. Tenderness to medial joint line. Positive medial Mary's. Crepitus along the medial patellofemoral compartments with range of motion. Pain with patellofemoral compression. Ligaments are stable. Hip rotation is without pain. Distal neurovascular exam is intact. RADIOGRAPHS: Right knee radiographs reveal severe osteoarthritic changes. IMPRESSION: 1. Right knee osteoarthritis. 2. Hypertension. 3. Hyperlipidemia. 4. Ibw-fyhnnio-vykpjclaf diabetes. 5. Cardiovascular disease. PLAN: Right total knee arthroplasty. MMODL / IJN: [id number] /
[~2023-10-23 10:23] MED LIST changes: -ACETAMINOPHEN TAB 500 MG TAB PO ONE; +ACETAMINOPHEN TAB 500 MG TAB PO PRN; -DEXAMETHASONE SOD PHOSPHATE 10 MG/ML 1 ML VIAL IV ONE; +DEXAMETHASONE SOD PHOSPHATE 4 MG/ML 1 ML VIAL IV ONE; -LACTATED RINGERS 1,000 ML IV SCH; +LIDOCAINE 1% (10MG/ML) FOR IV START INTRADERMA PRN; -MELOXICAM 7.5 MG TAB PO ONE; +MELOXICAM 7.5 MG TAB PO PRN; -ROPIVACAINE 246.25 MG, EPINEPHrine 0.5 MG, KETOROLAC 30 MG, cloNIDine HCL/PF 80 MCG, WA... MISCELLANE ONE; +TRANEXAMIC 1,000 MG/100ML-NACL 1,000 MG in SALINE 1 100ML.BAG IVPB PRN; -TRANEXAMIC ACID 1,000 MG in SODIUM CHLORIDE 0.9% 100 ML IVPB ONE; -ceFAZolin 3 GM in SODIUM CHLORIDE 0.9% 100 ML IVPB ONE; +ceFAZolin 3 GM in SODIUM CHLORIDE 0.9% 100 ML IVPB PRN; +droPERidol 5 MG/2 ML VIAL IVP PRN
[2023-10-23 11:10] LABS: Glucose,Whole Blood 138 mg/dL (70-110)
[2023-10-23] MEDS: LACTATED RINGERS 1,000 ML IV SCH ×2 (11:23→16:52)
[2023-10-23] MEDS ORDERED: MIDAZOLAM 2 MG/2 ML VIAL IVP ONE (11:41)
[2023-10-23] MEDS ORDERED: fentaNYL (PF) 50 MCG/1 ML VIAL IVP ONE (11:42)
--- NOTE | 2023-10-23 12:06 | P.ANPRN ---
Procedure Note - Anesthesia - Nerve Block Performed Right Adductor Canal Infusion Time Out Performed: Yes Date of Procedure: 10/23/23 Procedure Start Time: 11:41 Procedure Stop Time: 11:50 Location of Patient: PreOp Indication: Acute Post-Operative Pain, Requested by Surgeon Sedation Type: Sedate with meaningful contact maintained Preparation: Sterile Prep, Sterile Dressing Position: Supine Catheter: Indwelling Needle Types: Pajunk Needle Gauge: 18 Ultrasound used to visualize needle placement: Yes Ultrasound used to observe medication spread: Yes Injectate: 0.5% Ropivacaine (see comment for volume) (20 ml + 10 ml NS + 4 mg dexamethasone) Blood Aspirated: No Pain Paresthesia on Injection Noted: No Resistance on Injection: Normal Image Stored and Saved: Yes Events: Uneventful and Well Tolerated
[2023-10-23] MEDS ORDERED: ROPIVACAINE 1,100 MG, SODIUM CHLORIDE 0.9% 500 ML 330 ML, EMPTY PAIN BALL 1 EACH MISCELLANE PRN ×2 (12:08)
--- NOTE | 2023-10-23 12:08 | P.ANPRN ---
Procedure Note - Anesthesia - Nerve Block Performed Right iPack Single Time Out Performed: Yes Date of Procedure: 10/23/23 Procedure Start Time: 11:51 Procedure Stop Time: 11:58 Indication: Acute Post-Operative Pain, Requested by Surgeon Sedation Type: Sedate with meaningful contact maintained Preparation: Sterile Prep Position: Left Lateral Needle Types: Pajunk Needle Gauge: 21 Ultrasound used to visualize needle placement: Yes Ultrasound used to observe medication spread: Yes Injectate: 0.5% Ropivacaine (see comment for volume) (20 ml + 10 ml NS + 4 mg Dexamethasone) Blood Aspirated: No Pain Paresthesia on Injection Noted: No Resistance on Injection: Normal Image Stored and Saved: Yes Events: Uneventful and Well Tolerated
[2023-10-23] MEDS ORDERED: ceFAZolin 1,000 MG in SODIUM CHLORIDE 0.9% 1,000 ML IRRIGATION ONE (13:27)
[2023-10-23] MEDS ORDERED: LACTATED RINGERS 1,000 ML IV ONE (13:35)
[2023-10-23] MEDS ORDERED: HYDROmorphone 0.5 MG/0.5 ML SYRINGE IVP PRN ×2 (14:55)
[2023-10-23] MEDS ORDERED: HYDROcodone/APAP 5-325MG 1 EACH TAB PO PRN (14:55)
[2023-10-23] MEDS ORDERED: NALOXONE 0.4 MG/ML 1 ML VIAL IV PRN (14:55)
[2023-10-23] MEDS ORDERED: ONDANSETRON 4 MG/2 ML VIAL IVP PRN (14:55)
--- NOTE | 2023-10-23 14:55 | P.OP ---
Date of Procedure: 10/23/23 Preoperative Diagnosis: Right knee osteoarthritis Postoperative Diagnosis: Right knee osteoarthritis Procedure(s) Performed: Right total knee arthroplasty Implants: 1. Depuy attune size 7 right cruciate retaining cemented femur 2. Depuy attune size 7 fixed bearing cemented tibial baseplate 3. Depuy attune size 7 fixed bearing cruciate retaining 7 mm polyethylene tibial insert 4. Depuy attune 38 mm all polyethylene cemented patella Anesthesia: regional (Adductor canal catheter, Ipack block), spinal Surgeon: Thony Workman Dry Talc Racker #1: Minh Shi Estimated Blood Loss (ml): 35 Pathology: none sent Condition: stable Disposition: PACU Indications for Procedure: 63-year-old gentleman seen with symptomatic right knee osteoarthritis. After having treatment options discussed, he elected to proceed with total knee arthroplasty. Operative Findings: See description of procedure Description of Procedure: Patient was taken to the operative suite after having an adductor canal catheter placed by the department of anesthesia. Patient underwent a spinal anesthetic by the department of anesthesia. Patient was given preoperative IV intake antibiotics and TXA. A well-padded tourniquet was placed about the right lower extremity. The lower extremity was then prepped and draped in the normal sterile orthopedic fashion. The extremity was elevated, a tourniquet was insufflated to 300. A standard anterior incision was made sharply through skin. Dissection was taken down through the subcutaneous soft tissues down to the extensor mechanism. A medial arthrotomy was performed, patella was everted and knee was flexed. There was advanced osteoarthritis noted. I introduced my distal intramedullary femoral drill. I then introduced the distal femoral cu tting jig. Bryan WEEKS secured the cutting jig with 2 pins. I held retractors in position while Bryan WEEKS performed the distal femoral resection through the guide area we now removed her distal femoral cutting guide. We now placed our 4-in-1 femoral cutting block and positioned and it was secured with 2 pins by Bryan WEEKS while I held the block in position. The distal femoral finishing was now completed. A proximal tibial cutting guide was positioned. I held the guide in the appropriate position with both hands well Bryan WEEKS inserted stabilizing pins into the guide. Proximal tibial cut was made. We now placed a trial femoral component into position, along with an appropriate size tibial tray and insert. We now took the knee through range of motion and had full extension good flexion and good overall soft tissue balance noted. The patella was everted and stabilized with 2 towel clips held by Bryan WEEKS while I performed a flush with patellar quad tendon utilizing a fresh sawblade. We templated the patella, appropriate drill holes were made. An appropriate trial patella was positioned, knee was taken through full range of motion with the patella tracking very nicely. The trial patella was removed. Drill holes were made through the femoral component. All trial components were removed after marking off the appropriate rotation of the tibia. Retractors were now positioned along the proximal tibia. An appropriate keel punch was made with the appropriate size tibial guide by myself on Bryan WEEKS assisted by holding retractors. At this point appropriate size implants were chosen and opened. The joint was irrigated copiously with pulse lavage mechanical irrigation. The wound was irrigated with pulse lavage mechanical irrigation. We mixed antibiotic methylmethacrylate. We placed the knee into flexion. We placed multiple retractors assisted by Bryan WEEKS to expose the proximal tibia. Once the methyl methacrylate was ready, the tibial component was cemented into place removing any excess methylmethacrylate form by both myself and Bryan WEEKS. The femoral component was cemented into place removing the removing any excess methylmethacrylate performed by both myself and Bryan WEEKS. We then inserted the appropriate size polyethylene tibial insert. We made sure that it was locked into position. We took the knee into full extension, and then back in a flexion making sure we had removed any excess methylmethacrylate. The patellar component was then cemented down and secured with clamp. Excess methylmethacrylate removed. We kept the knee in full extension, patellar clamp in position until methylmethacrylate had hardened. Once it had hardened the patellar clamp was removed. The knee was taken through full range of motion. The patella tracked nicely. There was good soft tissue balancing. The tourniquet was now released. Additional hemostasis was achieved via electrocautery. A second gram of TXA was given. The wound again was irrigated with pulse lavage mechanical irrigation. The extensor mechanism was repaired with Ethibond suture. We checked the repair with range of motion and it was stable. The subcutaneous soft tissues were repaired with Vicryl in layers. The skin was approximated with pernio/Dermabond. Sterile dressings were applied followed by loose web roll and Ronaldo bandage. The patient was transferred to a bed, and taken to recovery in stable and satisfactory condition. Bryan WEEKS assisted with this complex procedure.
--- NOTE | 2023-10-23 15:50 | XR ---
EXAMINATION TYPE: XR knee limited RT DATE OF EXAM: 10/23/2023 Comparison: None Clinical History: 63-year-old male Evaluation for Postop abnormality and alignment Findings: Images show placement of right total knee arthroplasty. Both distal femoral and proximal tibial compo nents of prosthesis are well seated without prosthetic fracture. Alignment grossly anatomic. Anterior soft tissue swelling with soft tissue air as well as intra-articular air related to recent operation . Impression: Uncomplicated postoperative appearance right total knee arthroplasty.
[2023-10-23] MEDS ORDERED: ALPRAZolam 0.25 MG TAB PO PRN (20:45)
[2023-10-23] MEDS ORDERED: MELATONIN 3 MG TABLET PO PRN (20:45)
[2023-10-23] MEDS ORDERED: ACETAMINOPHEN TAB 325 MG TAB PO PRN (20:45)
[2023-10-23] MEDS: HYDROcodone/APAP 7.5-325MG 1 EACH TAB PO PRN (20:56)
[2023-10-23] MEDS ORDERED: SENNOSIDES-DOCUSATE SODIUM 1 EACH TAB PO SCH (21:00)
[2023-10-23] MEDS: METOPROLOL TARTRATE 25 MG TAB PO SCH (21:02)
[2023-10-23] MEDS: ENOXAPARIN 30 MG/0.3 ML SYRINGE SQ SCH (21:02)
[2023-10-23 21:21] VITALS: RESP 18
[2023-10-23] MEDS: HYDROmorphone 1 MG/ML 1 ML SYRINGE IVP PRN (22:42)
[2023-10-23] MEDS: ceFAZolin 3 GM in SODIUM CHLORIDE 0.9% 100 ML IVPB SCH (22:51)
[2023-10-24] MEDS: HYDROmorphone 1 MG/ML 1 ML SYRINGE IVP PRN ×2 (01:24→06:29)
[2023-10-24] MEDS: HYDROcodone/APAP 7.5-325MG 1 EACH TAB PO PRN ×2 (04:00→10:29)
[2023-10-24] MEDS ORDERED: IPRATROPIUM-ALBUTEROL 3 ML NEB INHALATION PRN (04:46)
--- NOTE | 2023-10-24 04:49 | P.CONS ---
History of Present Illness - Reason for Consult Consult date: 10/23/23 medical management perioperative - Chief Complaint right knee OA - History of Present Illness 63 year old male with afib not on blood thinner patient coming in for scheduled right total knee arthroplasty , tolerated procedure well no observed immediate post op complications denies any chest pain trouble breathing, nausea vomiting, abd pain, fever, chills. reports pain well controlled , patient have li cath in for urinating , denies tobacco smoking , illicit drugs or alcohol review of systems Pertinent positives as noted in HPI. All other systems were reviewed and are negative on exam Constitutional: No acute distress, conversant, pleasant Eyes: Anicteric sclerae, moist conjunctiva, Pupils equal round reactive to light ENMT: NC/AT Oropharynx clear, no erythema, or exudates Neck: Supple, no masses, or JVD No carotid bruits No thyromegaly Lungs: Clear to auscultation Clear to percussion Normal respiratory effort, no accessory muscle use Cardiovascular: Heart regular in rate and rhythm, No murmurs, gallops, or rubs No peripheral edema Abdominal: Soft Nontender, no guarding, rebound or rigidity Abdomen moving with respiration Normoactive bowel sounds Extremities: No digital cyanosis No clubbing Pedal pulses intact and symmetrical Radial pulses intact and symmetrical No calf tenderness Psychiatric: Alert and oriented to person, place and time Appropriate affect fair judgement Neuro Muscles Strength 5/5 in all 4 extremities , limited exam over right lower extremity due to surgery post op Sensation to light touch grossly present throughout Cranial nerves II-XII grossly intact Past Medical History Past Medical History: Atrial Fibrillation, Asthma, Chest Pain / Angina, Hyperlipidemia, Hypertension, Osteoarthritis (OA) Additional Past Medical History / Comment(s): 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 History of Any Multi-Drug Resistant Organisms: MRSA Year Discovered:: na MDRO Source:: RT FOREARM Past Surgical History: Cholecystectomy, Orthopedic Surgery Additional Past Surgical History / Comment(s): RT SHOULDER SX, craniotomy x2, REMOVAL OF NON MALIGNANT BRAIN MENINGIOMA, left knee surgery Past Anesthesia/Blood Transfusion Reactions: No Reported Reaction Past Psychological History: No Psychological Hx Reported - Past Family History Sister(s) Family Medical History: AFIB Brother(s) Family Medical History: AFIB Mother Family Medical History: Cancer Additional Family Medical History / Comment(s): Breast CA Medications and Allergies Home Medications Medication Instructions Recorded Confirmed Type Famotidine [Pepcid] 20 mg PO DAILY #30 tablet 07/30/19 10/18/23 Rx ALPRAZolam [Xanax] 0.25 mg PO BID PRN 06/23/20 10/18/23 History traMADol HCL [Ultram] 50 mg PO QID PRN 06/23/20 10/18/23 History Albuterol Sulfate [Ventolin HFA] 1 - 2 puff INHALATION RT-Q4H PRN 04/08/21 10/18/23 History Acetaminophen Tab [Tylenol] 650 mg PO Q4HR PRN tab 04/19/21 10/18/23 Rx Clopidogrel [Plavix] 75 mg PO DAILY #30 tab 04/19/21 10/18/23 Rx Ibuprofen [Motrin] 400 mg PO HS PRN tab 04/19/21 10/18/23 Rx Melatonin 6 mg PO HS PRN tablet 04/19/21 10/18/23 Rx Sennosides [Senna] 8.6 mg PO HS PRN #0 04/19/21 10/18/23 Rx Aspirin 81 mg PO HS 10/18/23 10/18/23 History Losartan-Hctz 50-12.5 mg [Hyzaar 1 tab PO DAILY 10/18/23 10/18/23 History 50-12.5] Metoprolol Tartrate [Lopressor] 75 mg PO BID 10/18/23 10/18/23 History Allergies Allergy/AdvReac Type Severity Reaction Status Date / Time morphine AdvReac Unknown Verified 10/18/23 14:55 Physical Exam Vitals: Vital Signs Temp Pulse Pulse Resp BP Pulse Ox 10/23/23 18:21 95 16 142/76 94 L 10/23/23 17:29 86 16 122/74 97 10/23/23 17:00 79 16 110/65 98 10/23/23 16:39 78 16 130/67 97 10/23/23 16:24 80 16 103/68 97 10/23/23 16:09 84 16 111/67 97 10/23/23 15:53 81 16 109/68 98 10/23/23 15:38 81 16 117/72 97 10/23/23 15:24 77 16 120/68 97 10/23/23 15:08 97.3 F L 83 16 106/68 94 L 10/23/23 12:08 69 16 118/70 97 10/23/23 10:53 97.7 F 75 16 144/80 97 Intake and Output 10/23/23 10/23/23 10/23/23 06:59 14:59 22:59 Intake Total 2000 250 Output Total 35 200 Balance 1965 50 Intake: IV 2000 250 Output: Urine 200 Estimated Blood Loss 35 Other: Weight 132.4 kg Results Labs: Abnormal Lab Results - Last 24 Hours (Table) 10/23/23 Range/Units 11:08 POC Glucose (mg/dL) 138 H (70-110) mg/dL Assessment and Plan Assessment: hypertension controlled resume Losartan with HCTz afib not on blood thinners resume metoprolol h/o CAD resume plavix and aspirin once cleared by surgery right total knee arthroplasty , pod zero management per orthopedic primary team asthma controlled resume duoneb PRN stable from medical stand point , check bmp , and CBc in the morning thank you for this consultation
[2023-10-24] MEDS: ceFAZolin 3 GM in SODIUM CHLORIDE 0.9% 100 ML IVPB SCH (05:44)
[2023-10-24 07:40] VITALS: BP 142/74; PULSE 73; TEMP 97.7
[2023-10-24] MEDS: METOPROLOL TARTRATE 25 MG TAB PO SCH (08:59)
[2023-10-24] MEDS: ENOXAPARIN 30 MG/0.3 ML SYRINGE SQ SCH (08:59)
[2023-10-24] MEDS ORDERED: LOSARTAN-HCTZ 50-12.5 MG 1 EACH TAB PO SCH (09:00)
[2023-10-24] MEDS ORDERED: FAMOTIDINE 20 MG TAB PO SCH (09:00)
[2023-10-24 09:57] LABS: Basophils # (A) 0.02 X 10*3/uL (0.00-0.10); Basophils % (A) 0.1 %; Eosinophils # (A) 0.01 X 10*3/uL (0.04-0.35); Eosinophils % (A) 0.1 %; HCT 42.4 % (39.6-50.0); HGB 14.3 g/dL (13.0-17.0); Lymphocytes # (A) 0.83 X 10*3/uL (0.90-5.00); Lymphocytes % (A) 5.9 %; MCH 30.1 pg (27.0-32.0); MCHC 33.7 g/dL (32.0-37.0); MCV 89.3 FL (80.0-97.0); Monocytes # (A) 0.97 X 10*3/uL (0.20-1.00); Monocytes % (A) 6.9 %; NRBC Per 100 WBC 0 X 10*3/uL (0.00-0.01); Neutrophils # (A) 12.12 X 10*3/uL (1.80-7.70); Neutrophils % (A) 86.6 %; Platelet Count 247 X 10*3/uL (140-440); RBC 4.75 X 10*6/uL (4.40-5.60); RDW 12.5 % (11.5-14.5); WBC 14.01 X 10*3/uL (4.50-10.00)
[2023-10-24 10:01] LABS: African American GFR (CKD) >90 (>60 ml/min/1.73 sqM); Anion Gap 11 mmol/L; Blood Urea Nitrogen 18 mg/dL (9-20); Calcium 9.2 mg/dL (8.4-10.2); Carbon Dioxide 27 mmol/L (22-30); Chloride 98 mmol/L (98-107); Glucose 184 mg/dL (74-99); Non-African American GFR(CKD) >90 (>60 ml/min/1.73 sqM); Potassium 4.3 mmol/L (3.5-5.1); Sodium 136 mmol/L (137-145)
--- NOTE | 2023-10-24 10:25 | P.DS ---
Providers Date of admission: 10/23/2023 Expected date of discharge: 10/24/23 Attending physician: Thony Workman Consults: 10/23/23 14:55 Consult Physician Routine Consulting Provider: Rain Boone Consult Reason/Comments: Medical management Do you want consulting provider notified?: Yes Primary care physician: Dimple Vallecillo MD Hospital Course: Date of admission: 10/23/2023 Date of discharge: 10/24/2023 Admission diagnosis: Right knee osteoarthritis Discharge diagnosis: Same Attending physician: Dr. Workman Surgical procedures: Right total knee arthroplasty Brief history: Patient is a 63-year-old male with a history of progressive primary right knee osteoarthritis. At this point patient has failed conservativ e treatment measures and has opted to proceed with a elective right total knee arthroplasty. Hospital course: Details of patient's surgery can be found in operative report. Patient tolerated the procedure well and was subsequently transported to orthopedic floor. Patient's orthopeidc and medical care was provided daily. Patient had daily laboratory tests performed for evaluation of overall blood counts. Patient had daily physical therapy to include strengthening range of motion as well as education with walker ambulation. Patient was treated with Lovenox for their postoperative DVT prophylaxis during their inpatient stay. Patient was noted to have a relatively uneventful postoperative course. Patient reported satisfactory pain control with oral pain medications by postoperative day 1. Patient showed satisfactory progress with physical therapy. Patient moved steadily through the program and had no difficulty meeting the goals by postoperative day 1. Given patient's otherwise satisfactory course and having met physical therapy goals, plan is to discharge patient home with health services on postoperative day 1. Discharge condition/disposition: Patient will be discharged home with health services in stable condition. Discharge medications: Instructions are given on resumption of patient's normal daily medications per primary care recommendation, in addition patient will be prescribed Mitchell; senna; resume Plavix at home daily for DVT prophylaxis. Discharge instructions: 1. Wound care and infection precautions, keep incision dry and covered while showering, no lotions, creams, moisturizers. No soaking, tubs, pools, hottubs. Do not scrub over the incision. 2. Weight-bear as tolerated with walker / cane until follow-up. 3. Ice and elevate when necessary. Do not exceed 20 minutes per hour with ice pack. 4. Utilize compression sleeve until seen at first follow up appointment. 5. Visiting nursing care. 6. Home physical therapy including home CPM. 7. Pain meds and anticoagulants per prescription. 8. Pain medication has potential to cause constipation. Increase oral fluid and fiber intake. Contact primary care provider if you have not had a bowel movement within 48 hours after discharge 9. No anti-inflammatory medication until discussed at first post operative visit, this including Motrin, Aleve, Mobic, Diclofenac. 10. Follow up in office at 2 weeks postop with Bryan Shi PA-C / Shashi Hayden PA-C 11. Follow up with your primary care doctor 7-10 days after discharge. 12. Contact [facility] with any questions, . Assessment: Right knee osteoarthritis Procedures: Right total knee arthroplasty Patient Condition at Discharge: Good Plan - Discharge Summary Discharge Rx Participant: No New Discharge Prescriptions: New Sennosides/Docusate Sodium [Senna Plus 8.6-50 mg Softgel] 1 each PO DAILY #20 capsule HYDROcodone/APAP 7.5-325MG [Mitchell 7.5-325] 1 - 2 tab PO Q6HR PRN #36 tab PRN Reason: Pain No Action Famotidine [Pepcid] 20 mg PO DAILY #30 tablet traMADol HCL [Ultram] 50 mg PO QID PRN PRN Reason: Pain ALPRAZolam [Xanax] 0.25 mg PO BID PRN PRN Reason: Anxiety Clopidogrel [Plavix] 75 mg PO DAILY #30 tab Acetaminophen Tab [Tylenol] 650 mg PO Q4HR PRN tab PRN Reason: Fever And/ Or Pain Sennosides [Senna] 8.6 mg PO HS PRN #0 PRN Reason: Constipation Aspirin 81 mg PO HS Metoprolol Tartrate [Lopressor] 75 mg PO BID Albuterol Sulfate [Ventolin HFA] 1 - 2 puff INHALATION RT-Q4H PRN PRN Reason: Shortness Of Breath Melatonin 6 mg PO HS PRN tablet PRN Reason: Insomnia Ibuprofen [Motrin] 400 mg PO HS PRN tab PRN Reason: Pain Losartan-Hctz 50-12.5 mg [Hyzaar 50-12.5] 1 tab PO DAILY Discharge Medication List Famotidine [Pepcid] 20 mg PO DAILY #30 tablet 07/30/19 [Rx] ALPRAZolam [Xanax] 0.25 mg PO BID PRN 06/23/20 [History] traMADol HCL [Ultram] 50 mg PO QID PRN 06/23/20 [History] Albuterol Sulfate [Ventolin HFA] 1 - 2 puff INHALATION RT-Q4H PRN 04/08/21 [History] Acetaminophen Tab [Tylenol] 650 mg PO Q4HR PRN tab 04/19/21 [Rx] Clopidogrel [Plavix] 75 mg PO DAILY #30 tab 04/19/21 [Rx] Ibuprofen [Motrin] 400 mg PO HS PRN tab 04/19/21 [Rx] Melatonin 6 mg PO HS PRN tablet 04/19/21 [Rx] Sennosides [Senna] 8.6 mg PO HS PRN #0 04/19/21 [Rx] Aspirin 81 mg PO HS 10/18/23 [History] Losartan-Hctz 50-12.5 mg [Hyzaar 50-12.5] 1 tab PO DAILY 10/18/23 [History] Metoprolol Tartrate [Lopressor] 75 mg PO BID 10/18/23 [History] HYDROcodone/APAP 7.5-325MG [Mitchell 7.5-325] 1 - 2 tab PO Q6HR PRN #36 tab 10/24/23 [Rx] Sennosides/Docusate Sodium [Senna Plus 8.6-50 mg Softgel] 1 each PO DAILY #20 capsule 10/24/23 [Rx] Follow up Appointment(s)/Referral(s): Minh Shi PAC [PHYSICIAN ROADS SUPERVISOR] - 2 Weeks Patient Instructions/Handouts: Knee Replacement (DC), Knee Replacement (GEN) Activity/Diet/Wound Care/Special Instructions: Orthopedic Discharge Instructions: 1. Wound care and infection precautions, keep incision dry and covered while showering, no lotions, creams, moisturizers. No soaking, pools, hot tubs. Do not scrub over incision. 2. Weight-bear as tolerated with walker / cane until follow-up. 3. Ice and elevate when necessary. Do not exceed 20 minutes per hour with ice pack. 4. Utilize compression sleeve until seen at first follow up appointment. 5. Pain meds and anticoagulants per prescription. 6. Pain medication has potential to cause constipation. Increase oral fluid and fiber intake. Contact primary care provider if you have not had a bowel movement within 48 hours after discharge. 7. No anti-inflammatory medication until discussed at first post operative visit, this including Motrin, Aleve, Mobic, Diclofenac. 8. Follow up in office at 2 weeks postop with Bryan Shi PA-C / Shashi Hayden PA-C 9. Follow up with your primary care doctor 7-10 days after discharge. 10. Contact [facility] with any questions, . Keep incision clean, dry, intact. While showering, cover silver foam dressing with Saran wrap. Silver foam dressing may be removed on 10/30/2023. Once dressing is removed, it is okay to shower directly over incision Discharge Disposition: HOME WITH HOME HEALTH SERVICES
--- NOTE | 2023-10-24 10:35 | P.PN ---
Subjective Progress Note Date: 10/24/23 Principal diagnosis: Right knee osteoarthritis Patient was seen at bedside this morning lying semirecumbent position with dressing over right knee. Patient says she finish working with therapy this morning and walked down the [place] and up-and-down stairs. Patient says he is looking forward to going home later today. Patient says he has urinated several times since surgery yesterday and has been passing gas. Patient denies chest pain, fever, shortness breath, nausea, vomiting, change in vision, loss of bowel/bladder control. Objective - Vital Signs Vital signs: Vital Signs Temp 97.7 F 10/24/23 07:26 Pulse 73 10/24/23 07:26 Resp 18 10/24/23 07:26 BP 142/74 10/24/23 07:26 Pulse Ox 92 L 10/24/23 07:26 FiO2 Intake & Output 10/23/23 10/24/23 10/24/23 18:59 06:59 18:59 Intake Total 2251 Output Total 235 Balance 2016 Weight 132.4 kg 132.4 kg Intake: IV 2251 Output: Urine 200 Estimated Blood Loss 35 Other: # Voids 4 - Exam Right knee: Incision is clean, dry, and intact. The silver foam dressing is in good condition. There is minimal soft tissue swelling and ecchymosis surrounding the medial and lateral aspects of the incision. Calf is soft, no tenderness with palpation. Plantar flexion, dorsiflexion, EHL, FHL are intact. Sensory exam to light touch throughout the extremity is intact, dorsal pedis pulses 2+. - Labs CBC & Chem 7: 10/24/23 05:27 10/24/23 09:27 Labs: Abnormal Lab Results - Last 24 Hours (Table) 10/23/23 10/24/23 10/24/23 Range/Units 11:08 05:27 09:27 WBC 14.01 H (4.50-10.00) X 10*3/uL Immature Gran # 0.06 H (0.00-0.04) X 10*3/uL Neutrophils # 12.12 H (1.80-7.70) X 10*3/uL Lymphocytes # 0.83 L (0.90-5.00) X 10*3/uL Eosinophils # 0.01 L (0.04-0.35) X 10*3/uL Sodium 136 L (137-145) mmol/L Glucose 184 H (74-99) mg/dL POC Glucose (mg/dL) 138 H (70-110) mg/dL Assessment and Plan Assessment: 1. Right knee osteoarthritis - Postop day #1 status post right total knee arthroplasty Plan: 1. Right knee osteoarthritis - right total knee arthroplasty performed yesterday, 10/23/2023. Patient stable at bedside this morning. Patient does have a walker home. Patient did do well with therapy this morning. Discharge home today with health services. 2. Appreciate medical management 3. Pain management - [place] 4. DVT prophylaxis - patient has Plavix at home. To resume Plavix once home 5. GI prophylaxis - senna 6. PT/OT - weightbearing as tolerated with walker 7. Encourage incentive spirometer use 8. Discharge planning - discharge home today with health services Time with Patient: Less than 30
--- NOTE | 2023-10-24 11:18 | P.PN ---
Progress Note - Text 10/24/23 634am 63-year-old male status post total knee replacement by Dr. Workman. Patient has an On-Q pump for postop pain control, solution is running at 8 mL an hour with a VAS of 8. Pain is predominantly located in the lower thigh and the upper calf muscle. He is also received oral pain medication which is helping
--- NOTE | 2023-10-24 11:26 | P.PN ---
Subjective Progress Note Date: 10/24/23 63 year old M with PMH of atrial fibrillation, CAD, Asthma, HTN presents to [facility] for elective surgery. He underwent R total knee arthroplasy with Dr. Workman. [facility] has been consulted for medical management of this patient. Patient was seen and examined. No acute events overnight. Reports moderate pain in his right knee. Urinating freely. Passing gas. CBC WBC 14.01. BMP Na 136, glu 184. General: non toxic, no distress, appears at stated age Derm: warm, dry Head: atraumatic, normocephalic, symmetric Eyes: EOMI, no lid lag, anicteric sclera Cardiovascular: S1S2 reg, no murmur Lungs: CTA bilateral, no rhonchi, no rales , no accessory muscle use Ext: no gross muscle atrophy, no edema, no contractures Neuro: no focal neuro deficits Psych: Alert, oriented, appropriate affect Based on my assessment of this patient, this patient meets a moderate complexity level of care. Patient has an chronic diagnosis of A-Fib, CAD, Asthma, HTN that poses a threat to life or bodily function. Leukocytosis: Reactive due to surgery. No signs of active infection. Atrial fibrillation: Metoprolol 75 mg PO BID. KRISTINA VASC of 3. Discussed with patient, he should definitely consider anticoagulation. We will defer this decision to his Zoology Teacher. CAD: Plavix 75 mg PO QD. Metoprolol as above. ASA 81 mg PO QHS. Discussed with patient, he should definitely consider a statin. We will defer this decision to his Zoology Teacher. Asthma: Not in acute exacerbation. Hypertension: Metoprolol as above. Losartan 50 mg PO QD. HCTZ 12.5 mg PO QD. Medically stable for discharge. CODE STATUS: FULL CODE. DVT Prophylaxis: Lovenox SQ GI Prophylaxis: Pepcid Designated medical POA if patient is not able to make medical decisions for themselves: I have reviewed the following institutional nutrition consultant notes: Ortho note. I have reviewed the results of the following tests: CBC, BMP I have ordered the following tests: I have discussed the care of this patient with the following independent h istorian: I have independently interpreted the following test below: I have discussed the management of this patient with the following physician: Objective - Vital Signs Vital signs: Vital Signs Temp 97.7 F 10/24/23 07:26 Pulse 73 10/24/23 07:26 Resp 18 10/24/23 07:26 BP 142/74 10/24/23 07:26 Pulse Ox 92 L 10/24/23 07:26 FiO2 Intake & Output 10/23/23 10/24/23 10/24/23 18:59 06:59 18:59 Intake Total 2251 Output Total 235 Balance 2015 Weight 132.4 kg 132.4 kg Intake: IV 2251 Output: Urine 200 Estimated Blood Loss 35 Other: # Voids 4 - Labs CBC & Chem 7: 10/24/23 05:27 10/24/23 09:27 Labs: Abnormal Lab Results - Last 24 Hours (Table) 10/24/23 10/24/23 Range/Units 05:27 09:27 WBC 14.01 H (4.50-10.00) X 10*3/uL Immature Gran # 0.06 H (0.00-0.04) X 10*3/uL Neutrophils # 12.12 H (1.80-7.70) X 10*3/uL Lymphocytes # 0.83 L (0.90-5.00) X 10*3/uL Eosinophils # 0.01 L (0.04-0.35) X 10*3/uL Sodium 136 L (137-145) mmol/L Glucose 184 H (74-99) mg/dL
[2023-10-24] MEDS ORDERED: MULTIVITAMINS, THERA 1 EACH TAB PO SCH (12:00)
[2023-10-25] MEDS ORDERED: CLOPIDOGREL 75 MG TAB PO SCH (09:00)
== END 2023-10-24 12:52 | disposition home health service (06) ==
LOC: OR 10:23 → 4SSUR 18:10 → OR 10-24 12:52
PROVIDERS: ATTEND Orthopaedic Surgery
DX: M17.11 Unilateral primary osteoarthritis, right knee (principal); E11.9 Type 2 diabetes mellitus without complications; E78.5 Hyperlipidemia, unspecified; I10 Essential (primary) hypertension; I25.10 Atherosclerotic heart disease of native coronary artery without angina pectoris; I48.91 Unspecified atrial fibrillation; J45.909 Unspecified asthma, uncomplicated; Z79.02 Long term (current) use of antithrombotics/antiplatelets; Z79.82 Long term (current) use of aspirin; Z79.84 Long term (current) use of oral hypoglycemic drugs; Z88.5 Allergy status to narcotic agent; Z90.49 Acquired absence of other specified parts of digestive tract; Z79.899 Other long term (current) drug therapy
CPT/HCPCS: 97161; 64999; 64448; 80048; 85025; 73560; 27447; C1776; C1713 ×2; C1751; J2250; J1100; J0690 ×3; J2405; J1650 ×2; J1170 ×3; J2795; J3010

== ENCOUNTER → 2024-02-14 | Outpatient (CLI) | payer OTHER ==
[2024-02-14 11:49] LABS: ALT 26 U/L (10-49); AST 22 U/L (14-35); Chol/HDL Ratio 5.09 Ratio; LDL Cholesterol,Calculated 115.1 mg/dL (0.0-131.0)
== END | disposition home or self-care (01) ==
LOC: LABWHC1 07:19
PROVIDERS: ATTEND Internal Medicine Interventional Cardiology
DX: E78.2 Mixed hyperlipidemia (principal)
CPT/HCPCS: 36415; 80061; 84450; 84460